=== PATIENT | female | born 1940 | race Asian ===

== ENCOUNTER 2022-06-24 15:55 | Inpatient (IN) | payer MEDICAID, SELFPAY ==
--- NOTE | 2022-06-24 | ECG_ITS ---
Test Reason : SOB Blood Pressure : / mmHG Vent. Rate : 093 BPM Atrial Rate : 093 BPM P-R Int : 176 ms QRS Dur : 130 ms QT Int : 398 ms P-R-T Axes : 055 -11 087 degrees QTc Int : 494 ms Normal sinus rhythm Left bundle branch block Abnormal ECG No previous ECGs available Referred By: Kena Amador Electronically Signed By:MATEO MCGUIRE
--- NOTE | ~2022-06-24 | XR_ITS ---
EXAMINATION: XR CHEST CLINICAL INFORMATION: Shortness of breath with rectal bleeding COMPARISON: None TECHNIQUE: Frontal view of the chest was obtained. FINDINGS: Low lung volumes. No convincing evidence for an acute process in the lungs. No failure or infiltrate. There is no effusion. The cardiac silhouette is within normal limits. XR/XR chest 1V IMPRESSION: No convincing evidence for an acute process. Low lung volumes.
--- NOTE | ~2022-06-24 | CT_ITS ---
EXAMINATION: CT ANGIOGRAM OF THE CHEST WITH AND WITHOUT CONTRAST (CT PULMONARY ANGIOGRAM FOR PE) CT ABDOMEN AND PELVIS WITH CONTRAST CLINICAL INFORMATION: Reason for Exam pt c sob/rectal bleeding COMPARISON: Chest radiograph from today TECHNIQUE: Prior to contrast administration, noncontrast localization images were obtained. Subsequently, multidetector volumetric imaging was performed from the thoracic inlet to the pubic symphysis following the administration of 85 mL Omnipaque 350 intravenous contrast. This was followed by multidetector acquisition of the abdomen and pelvis. No contrast reaction reported Sagittal, coronal, and MIP oblique sagittal reformatted images were obtained on the CT workstation, uploaded to PACS, and reviewed. This CT examination was performed using dose optimization techniques as appropriate, variously including the following: *Automated exposure control *Adjustment of mA and/or kV according to patient size (this includes techniques or standardized protocols for targeted exams where dose is matched to indication/reason for exam; i.e. extremities or head) *Use of iterative reconstruction technique Total exam dose-length product 1210 mGy-cm FINDINGS: QUALITY OF STUDY/CONTRAST BOLUS: Although the contrast bolus timing is adequate, motion on the study limits the evaluation. PULMONARY ARTERIES: No central or segmental pulmonary emboli. THORACIC AORTA: No aneurysm or dissection. LUNG: The central airways are patent. There is right middle lobe consolidation. Calcified granuloma in the right middle lobe. Evaluation of the lung parenchyma is otherwise limited. PLEURA: No pleural effusion or pneumothorax. MEDIASTINUM: Normal heart size. No pericardial effusion. No hilar or mediastinal lymphadenopathy. No evidence of septal bowing or right heart strain. CHEST WALL/AXILLA: No axillary or internal mammary lymphadenopathy. LIVER, GALLBLADDER, AND BILIARY TREE: The liver is normal in size, shape, and attenuation. No focal hepatic lesion or biliary ductal dilatation is present. The gallbladder is unremarkable with no evidence of radiopaque gallstones, gallbladder wall thickening, or obvious pericholecystic inflammatory changes. PANCREAS: Unremarkable. SPLEEN: Unremarkable. ADRENAL GLANDS: Unremarkable. KIDNEYS AND URETERS: The kidneys are normal in size, shape, and attenuation. No hydronephrosis, hydroureter, or calculi seen. No perinephric stranding. Simple cyst noted. No follow-up imaging recommended. BLADDER: Unremarkable. GASTROINTESTINAL TRACT: The stomach is unremarkable. Normal caliber of the small bowel. No obstruction. Normal appendix. No colonic wall thickening or inflammatory change. No free air or free fluid. ABDOMINAL WALL: No significant hernia is appreciated. LYMPH NODES: Normal. VASCULAR: Normal caliber aorta with moderate atherosclerotic calcifications. PELVIC VISCERA: The uterus and adnexa are unremarkable. OSSEOUS STRUCTURES: No acute or suspicious osseous abnormality. Moderate degenerative change of the lumbar spine. Grade 1 retrolisthesis of L3 on L4. Grade 2 anterolisthesis of L5 on S1 with bilateral L5 pars defects. Multilevel vacuum disc phenomenon. CT/CT abdomen pelvis w IV con IMPRESSION: The study is limited by motion. 1. No pulmonary embolism. 2. Consolidation in the right middle lobe could be atelectasis or pneumonia. 3. No acute finding in the abdomen or pelvis. No inflammatory changes are seen. VTE: negative
--- NOTE | 2022-06-24 14:19 | ECG_ITS ---
Test Reason : afibb Blood Pressure : / mmHG Vent. Rate : 100 BPM Atrial Rate : 100 BPM P-R Int : 164 ms QRS Dur : 130 ms QT Int : 388 ms P-R-T Axes : 031 -27 104 degrees QTc Int : 500 ms Normal sinus rhythm Left bundle branch block Abnormal ECG When compared with ECG of 24-JUN-2022 18:23, Sinus rhythm has replaced Wide QRS tachycardia Heart rate has decreased Referred By: Kena Amador Electronically Signed By:MATEO MCGUIRE
[2022-06-24 16:00] VITALS: PULSE 93; RESP 28; TEMP 37.3; O2SAT 95; BMI 29.2
--- NOTE | 2022-06-24 16:23 | ECG_ITS ---
Test Reason : rosemarie Blood Pressure : / mmHG Vent. Rate : 147 BPM Atrial Rate : 000 BPM P-R Int : 000 ms QRS Dur : 130 ms QT Int : 342 ms P-R-T Axes : 000 -26 104 degrees QTc Int : 535 ms Wide QRS tachycardia Left bundle branch block Abnormal ECG When compared with ECG of 24-JUN-2022 16:35, Wide QRS tachycardia is now Present Heart rate has increased Referred By: Kena Amador Electronically Signed By:MATEO MCGUIRE
--- NOTE | 2022-06-24 17:27 | ED.SOB ---
HPI - SOB/Dyspnea General Chief Complaint: Dyspnea Stated Complaint: diff breathing Time Seen by Provider: 06/24/22 16:14 Source: patient Mode of arrival: wheelchair Limitations: language barrier History of Present Illness HPI Narrative: 81-year-old female with past medical history of CAD status post stent, hypertension, hyperlipidemia, diabetes, hemorrhoids, asthma presents to the emergency department today with shortness of breath that started this morning. Patient is Pushto speaking, and son is at bedside translating. Per son, patient developed shortness of breath since this morning which has worsened since. Patient has a diagnosis of asthma however does not take her prescribed medications/inhalers. Patient reports having occasional shortness of breath, however past episodes have resolved within a few minutes. Denies any fever, cough, chest pain, abdominal pain, nausea, vomiting, diarrhea. Per son, patient is primarily bed bound and and is not active. Denies smoking history. Patient was discharged from [facility] on 06/17/2022 after admission for rectal bleeding secondary to hemorrhoids after having a stable H/H. Patient had hemorrhoid surgery in [place], and has recently moved from [place] so much of her medical history is unavailable. Noted to have anemia while admitted, discharged with an H&H of 8.9/27.4 and instructed to discontinue the aspirin until she followed up with GI although son reports that she has been taking her aspirin since she was discharged from [facility]. Patient reported rectal bleeding started again yesterday, in notes she was constipated yesterday. Denies any current constipation or diarrhea, however is still having blood per rectum. Denies rectal pain. MD elicited complaint: shortness of breath, cough and pain with inspiration Pertinent past history: asthma and diabetes Onset (ago): hour(s) Timing: constant Severity: severe Related Data Allergies Allergy/AdvReac Type Severity Reaction Status Date / Time Penicillins Allergy Unknown Verified 06/24/22 16:00 Review of Systems Review of Systems: Constitutional : Reports not using prescribed asthma inhalers, No Fever, No Chills ENT/Mouth : No Hoarseness, No sore throat, No Rhinorrhea, No Nasal congestion, No Sinus Pressure, No Ear Pain, No stridor, Eyes: No Redness, No Discharge, No Vision Changes Cardiovascular : + Chest Pain, + SOB, + Dyspnea on Exertion, No Edema, no pleurisy, Respiratory : + Dyspnea, + orthopnea, + Cough, + wheezing, No Sputum, no stridor, no hemoptysis, Gastrointestinal : + BRBPR, No Nausea, No Vomiting, No Diarrhea, No abdominal Pain, no change in appetite Genitourinary : No Dysuria, No Hematuria Musculoskeletal : No joint pain/swelling, No Myalgias Extremities: no extremity swelling /pain Skin : No rash, no itching, no swelling Neuro : No Weakness, No Numbness, No Headache, No Dizziness, No Paresthesias Psych : No anxiety, depression Heme/Lymph: No Bruising, No Bleeding Endocrine : No Polyuria, No Polydipsia Yes all other systems are reviewed and are negative [facility] Past Medical History Attestation statement: The following information was validated with the patient. Source: old records reviewed, obtained from family and nursing notes reviewed Social History Social History Advance Directives: No Advance Directives Information Provided: No Physical Exam Vital Signs: Vital Signs: Last Vital Signs Temp 98.2 F 06/24/22 19:47 Pulse 98 06/24/22 21:05 Resp 20 06/24/22 21:05 BP 197/80 H 06/24/22 19:47 Pulse Ox 100 06/24/22 19:47 O2 Del Method 06/24/22 19:47 O2 Flow Rate 3 06/24/22 19:47 BMI result Body Mass Index 29.2 Patient is satting 95% on room air, respiratory rate 28, otherwise vital signs within normal limits Appearance: Alert. Oriented X3. Acute respiratory distress. Appears fatigued Head: Normal external exam. Normocephalic. Atraumatic. Eyes: PERRLA. EOMI. Conjunctiva and sclera normal. Eyelids normal. ENT: EAC normal. TM's Normal. Pharynx normal. Uvula midline. Moist mucous membranes. No trismus noted. No drooling noted. No muffled voice noted. No stridor noted. Patient tolerating secretions well. Neck: Normal inspection. Neck supple. FROM. No adenopathy. Thyroid Normal. No meningeal signs. No neck mass noted. CVS: Normal heart rate and rhythm. Heart sound normal. Pulses normal throughout. No murmurs/rales/gallops. Respiratory: + respiratory distress, + increased work of breathing, breath sounds diffusely decreased, wheezing in all lung fonscea, + accessory muscle usage with tracheal tugging and abdominal retractions noted and decreased air movement noted. Abdomen: Soft and nontender. Bowel sounds normal in all 4 quadrants. No distention noted. No organomegaly noted. No visible injury noted. Back: No CVA tenderness. Full range of motion noted. No rashes/lesion/induration/fluctuance or signs of infection noted. Skin: Skin warm and dry. Appears pale. Normal skin turgor. No rashes/lesions/lacerations noted. Extremities: No lower extremity edema. No calf tenderness is noted. Extremities exhibit normal range of motion. Extremities nontender. Neuro: Oriented X 3. No motor deficit. No sensory deficit. Reflexes normal. Normal steady gait. No focal neuro deficits noted. Course Course Course Narrative: 16:20pm 81-year-old female with past medical history of CAD status post stent, hypertension, hyperlipidemia, diabetes, hemorrhoids, asthma presents to the emergency department today with shortness of breath and rectal bleeding. Patient is Pushto speaking, and son is at bedside translating. Per son, patient developed shortness of breath since this morning which has worsened since. Patient was recently admitted to [facility] for rectal bleeding secondary to hemorrhoids, and noted to be anemic with H&/H of 8.9/27.4. Although patient was discharged after having a stable H&H and was instructed to follow-up with GI and discontinue her aspirin until she follows up with GI. Although son reports that he did not understand that he had to discontinue the aspirin therefore she has been taking as prescribed. On exam, patient in respiratory distress with decreased breath sounds and inspiratory and expiratory wheezing throughout with tracheal tugging and abdominal retractions. Otherwise no rales/rhonchi noted. Will obtain labs, blood cultures, lactic acid, EKG, chest x-ray, CT of chest for PE, CT scan abdomen pelvis with IV contrast, COVID swab, provide 125 mg of Solu-Medrol, 2 g of magnesium and an hour long breathing treatment and re-evaluate. Reevaluation(s) Reevaluation #1: - patient with leukocytosis of 14,000. - Anemia with an H&H of 10.1/32.8. - potassium 5.5. - carbon dioxide 20. - BUN 22. - random glucose 151 - lactic acid 2.3 - troponin 56.7 - BNP 110 - UA revealed moderate leukocytes and 11-20 white blood cells therefore patient with UTI. - Therefore at this time will start on Rocephin and provide IV fluids. - patient negative for COVID. - patient started to have an episode of tachycardia where her rate went into the 160s and and would drop down back to the 80s. We gave her 2.5 mg of metoprolol and now she is in normal sinus rhythm with a ventricular rate of 100 with a left bundle branch block which is similar compared to her prior EKG done at [facility] on 06/15/2022. - I also discussed this case with home inspector Dr. Mary and he reported it appeared like proximal atrial flutter. - due to patient's potassium she was also given 2 g of calcium gluconate - chest x-ray negative for any acute processes. - still awaiting CT of chest for PE and CT scan abdomen pelvis with IV contrast will re-evaluate Time: 18:30 Reevaluation #2: - stool occult positive - CT scan of chest for PE negative for PE. Although revealed atelectasis versus pneumonia. Patient is reporting a cough therefore patient most likely pneumonia. - CT scan abdomen pelvis with IV contrast negative for any acute processes only chronic changes. - patient's lactic acid increased at this time although patient is receiving breathing treatments that are an hour long therefore this will make her lactic acid increased instead of decreased. - therefore at this time will admit for anemia with positive stool occult, asthma exacerbation with difficulty breathing, pneumonia, UTI and paroxysmal atrial flutter. Patient with son at bedside understand and agree this plan. Time: 20:58 Reevaluation #3: - Dr. Leong to admit at this time. Patient and son understand and agree this plan. Time: 21:09 MDM - SOB/Dyspnea Medical Records Attestation: I reviewed the patient's medical records. Lab Data Attestation: I reviewed the patient's lab results. Result diagrams: 06/24/22 17:28 06/24/22 17:28 Labs: Lab Results 06/24/22 06/24/22 06/24/22 Range/Units 17:28 17:28 17:28 WBC 14.7 H (4.8-10.8) X10*3/uL RBC 3.70 L (4.20-5.50) X10*6/uL Hgb 10.1 L (12.0-16.0) g/dl Hct 32.8 L (37.0-47.0) % MCV 88.6 (80.0-98.0) fL MCH 27.3 (27.0-33.0) pg MCHC 30.8 L (31.0-35.0) g/dl RDW 15.6 (11.0-16.0) % Plt Count 356 (160-400) X10*3/uL MPV 10.0 (9.4-12.3) fL Immature Gran % (Auto) 0.3 (0.0-0.4) % Neut % (Auto) 75.1 H (45-73) % Lymph % (Auto) 17.4 L (20-40) % [place] % (Auto) 5.4 (2-11) % Eos % (Auto) 1.6 (0-4) % Baso % (Auto) 0.2 (0-2) % Lymph # (Auto) 2.6 (1.2-4.9) X10*3/uL [place] # (Auto) 0.8 (0.1-1.2) X10*3/uL Eos # (Auto) 0.2 (0.0-0.4) X10*3/uL Baso # (Auto) 0.0 (0.0-0.2) X10*3/uL Abs Immat Gran (auto) 0.05 H (0.00-0.03) X10*3/uL Absolute Neuts (auto) 11.1 H (2.0-8.3) x10*3/uL Absolute Nucleated RBC 0.000 (0.0-0.012) X10*3/uL Nucleated RBC % (auto) 0.0 (0.0-0.2) /100WBC PT 12.7 (10.0-13.1) SEC INR 1.1 (0.9-1.1) APTT 27.3 (26.0-36.4) SEC Sodium 138 (135-145) mmol/L Potassium 5.5 H (3.3-5.1) mmol/L Chloride 106 (96-108) mmol/L Carbon Dioxide 20 L (22-29) mmol/L Anion Gap 18 (12-20) BUN 22 H (9-16) mg/dL Creatinine 1.24 (0.5-1.4) mg/dL Estim Creat Clear Calc 28.5 Estimated GFR 42 Random Glucose 151 H (60-115) mg/dL Lactic Acid (0.5-2.0) mmol/L Lactic Acid F/U @ 2Hr (0.5-2.0) mmol/L Calcium 8.8 (8.4-10.2) mg/dL Magnesium 2.3 (1.6-2.6) mg/dL Total Bilirubin 0.4 (0.0-1.0) mg/dL AST 19 (5-31) U/L ALT 11 (0-31) U/L Alkaline Phosphatase 78 (39-117) U/L Troponin I High Sens (<3.5-17.0) ng/L B-Natriuretic Peptide (<100) pg/mL Total Protein 7.5 (6.5-8.0) g/dL Albumin 4.0 (3.5-5.0) g/dL Urine Color Urine Appearance Urine pH (5.0-9.0) Ur Specific [place] (1.005-1.025) Urine Protein (Neg-Trace) mg/dL Urine Glucose (UA) (Negative) mg/dL Urine Ketones (Negative) mg/dL Urine Blood (Negative) Urine Nitrite (Negative) Ur Leukocyte Esterase (Negative) Urine RBC (0-2) /HPF Urine WBC (0-5) /HPF Ur Squamous Epith Cells (0-2) /HPF Urine Bacteria (None Seen) Hyaline Casts (0-2) /LPF Stool Occult Blood (NEGATIVE) COVID-19 (SYL) (Negative) COVID-19 Clin Com Blood Type Antibody Screen 06/24/22 06/24/22 06/24/22 Range/Units 17:28 17:28 17:28 WBC (4.8-10.8) X10*3/uL RBC (4.20-5.50) X10*6/uL Hgb (12.0-16.0) g/dl Hct (37.0-47.0) % MCV (80.0-98.0) fL MCH (27.0-33.0) pg MCHC (31.0-35.0) g/dl RDW (11.0-16.0) % Plt Count (160-400) X10*3/uL MPV (9.4-12.3) fL Immature Gran % (Auto) (0.0-0.4) % Neut % (Auto) (45-73) % Lymph % (Auto) (20-40) % [place] % (Auto) (2-11) % Eos % (Auto) (0-4) % Baso % (Auto) (0-2) % Lymph # (Auto) (1.2-4.9) X10*3/uL [place] # (Auto) (0.1-1.2) X10*3/uL Eos # (Auto) (0.0-0.4) X10*3/uL Baso # (Auto) (0.0-0.2) X10*3/uL Abs Immat Gran (auto) (0.00-0.03) X10*3/uL Absolute Neuts (auto) (2.0-8.3) x10*3/uL Absolute Nucleated RBC (0.0-0.012) X10*3/uL Nucleated RBC % (auto) (0.0-0.2) /100WBC PT (10.0-13.1) SEC INR (0.9-1.1) APTT (26.0-36.4) SEC Sodium (135-145) mmol/L Potassium (3.3-5.1) mmol/L Chloride (96-108) mmol/L Carbon Dioxide (22-29) mmol/L Anion Gap (12-20) BUN (9-16) mg/dL Creatinine (0.5-1.4) mg/dL Estim Creat Clear Calc Estimated GFR Random Glucose (60-115) mg/dL Lactic Acid 2.3 H* (0.5-2.0) mmol/L Lactic Acid F/U @ 2Hr (0.5-2.0) mmol/L Calcium (8.4-10.2) mg/dL Magnesium (1.6-2.6) mg/dL Total Bilirubin (0.0-1.0) mg/dL AST (5-31) U/L ALT (0-31) U/L Alkaline Phosphatase (39-117) U/L Troponin I High Sens 56.7 H* (<3.5-17.0) ng/L B-Natriuretic Peptide 110 H (<100) pg/mL Total Protein (6.5-8.0) g/dL Albumin (3.5-5.0) g/dL Urine Color Urine Appearance Urine pH (5.0-9.0) Ur Specific [place] (1.005-1.025) Urine Protein (Neg-Trace) mg/dL Urine Glucose (UA) (Negative) mg/dL Urine Ketones (Negative) mg/dL Urine Blood (Negative) Urine Nitrite (Negative) Ur Leukocyte Esterase (Negative) Urine RBC (0-2) /HPF Urine WBC (0-5) /HPF Ur Squamous Epith Cells (0-2) /HPF Urine Bacteria (None Seen) Hyaline Casts (0-2) /LPF Stool Occult Blood (NEGATIVE) COVID-19 (SYL) (Negative) COVID-19 Clin Com Blood Type Antibody Screen 06/24/22 06/24/22 06/24/22 Range/Units 17:28 17:28 17:28 WBC (4.8-10.8) X10*3/uL RBC (4.20-5.50) X10*6/uL Hgb (12.0-16.0) g/dl Hct (37.0-47.0) % MCV (80.0-98.0) fL MCH (27.0-33.0) pg MCHC (31.0-35.0) g/dl RDW (11.0-16.0) % Plt Count (160-400) X10*3/uL MPV (9.4-12.3) fL Immature Gran % (Auto) (0.0-0.4) % Neut % (Auto) (45-73) % Lymph % (Auto) (20-40) % [place] % (Auto) (2-11) % Eos % (Auto) (0-4) % Baso % (Auto) (0-2) % Lymph # (Auto) (1.2-4.9) X10*3/uL [place] # (Auto) (0.1-1.2) X10*3/uL Eos # (Auto) (0.0-0.4) X10*3/uL Baso # (Auto) (0.0-0.2) X10*3/uL Abs Immat Gran (auto) (0.00-0.03) X10*3/uL Absolute Neuts (auto) (2.0-8.3) x10*3/uL Absolute Nucleated RBC (0.0-0.012) X10*3/uL Nucleated RBC % (auto) (0.0-0.2) /100WBC PT (10.0-13.1) SEC INR (0.9-1.1) APTT (26.0-36.4) SEC Sodium (135-145) mmol/L Potassium (3.3-5.1) mmol/L Chloride (96-108) mmol/L Carbon Dioxide (22-29) mmol/L Anion Gap (12-20) BUN (9-16) mg/dL Creatinine (0.5-1.4) mg/dL Estim Creat Clear Calc Estimated GFR Random Glucose (60-115) mg/dL Lactic Acid (0.5-2.0) mmol/L Lactic Acid F/U @ 2Hr (0.5-2.0) mmol/L Calcium (8.4-10.2) mg/dL Magnesium (1.6-2.6) mg/dL Total Bilirubin (0.0-1.0) mg/dL AST (5-31) U/L ALT (0-31) U/L Alkaline Phosphatase (39-117) U/L Troponin I High Sens (<3.5-17.0) ng/L B-Natriuretic Peptide (<100) pg/mL Total Protein (6.5-8.0) g/dL Albumin (3.5-5.0) g/dL Urine Color Yellow Urine Appearance Clear Urine pH 5.0 (5.0-9.0) Ur Specific [place] 1.015 (1.005-1.025) Urine Protein Negative (Neg-Trace) mg/dL Urine Glucose (UA) Negative (Negative) mg/dL Urine Ketones Negative (Negative) mg/dL Urine Blood Negative (Negative) Urine Nitrite Negative (Negative) Ur Leukocyte Esterase Moderate (2+) H (Negative) Urine RBC 0-2 (0-2) /HPF Urine WBC 11-20 H (0-5) /HPF Ur Squamous Epith Cells 0-2 (0-2) /HPF Urine Bacteria None Seen (None Seen) Hyaline Casts 0-2 (0-2) /LPF Stool Occult Blood (NEGATIVE) COVID-19 (SYL) Negative (Negative) COVID-19 Clin Com See Note Blood Type A Positive Antibody Screen NEGATIVE 06/24/22 06/24/22 06/24/22 Range/Units 20:30 20:30 20:37 WBC (4.8-10.8) X10*3/uL RBC (4.20-5.50) X10*6/uL Hgb (12.0-16.0) g/dl Hct (37.0-47.0) % MCV (80.0-98.0) fL MCH (27.0-33.0) pg MCHC (31.0-35.0) g/dl RDW (11.0-16.0) % Plt Count (160-400) X10*3/uL MPV (9.4-12.3) fL Immature Gran % (Auto) (0.0-0.4) % Neut % (Auto) (45-73) % Lymph % (Auto) (20-40) % [place] % (Auto) (2-11) % Eos % (Auto) (0-4) % Baso % (Auto) (0-2) % Lymph # (Auto) (1.2-4.9) X10*3/uL [place] # (Auto) (0.1-1.2) X10*3/uL Eos # (Auto) (0.0-0.4) X10*3/uL Baso # (Auto) (0.0-0.2) X10*3/uL Abs Immat Gran (auto) (0.00-0.03) X10*3/uL Absolute Neuts (auto) (2.0-8.3) x10*3/uL Absolute Nucleated RBC (0.0-0.012) X10*3/uL Nucleated RBC % (auto) (0.0-0.2) /100WBC PT (10.0-13.1) SEC INR (0.9-1.1) APTT (26.0-36.4) SEC Sodium (135-145) mmol/L Potassium (3.3-5.1) mmol/L Chloride (96-108) mmol/L Carbon Dioxide (22-29) mmol/L Anion Gap (12-20) BUN (9-16) mg/dL Creatinine (0.5-1.4) mg/dL Estim Creat Clear Calc Estimated GFR Random Glucose (60-115) mg/dL Lactic Acid (0.5-2.0) mmol/L Lactic Acid F/U @ 2Hr 3.2 H* (0.5-2.0) mmol/L Calcium (8.4-10.2) mg/dL Magnesium (1.6-2.6) mg/dL Total Bilirubin (0.0-1.0) mg/dL AST (5-31) U/L ALT (0-31) U/L Alkaline Phosphatase (39-117) U/L Troponin I High Sens 48.9 H (<3.5-17.0) ng/L B-Natriuretic Peptide (<100) pg/mL Total Protein (6.5-8.0) g/dL Albumin (3.5-5.0) g/dL Urine Color Urine Appearance Urine pH (5.0-9.0) Ur Specific [place] (1.005-1.025) Urine Protein (Neg-Trace) mg/dL Urine Glucose (UA) (Negative) mg/dL Urine Ketones (Negative) mg/dL Urine Blood (Negative) Urine Nitrite (Negative) Ur Leukocyte Esterase (Negative) Urine RBC (0-2) /HPF Urine WBC (0-5) /HPF Ur Squamous Epith Cells (0-2) /HPF Urine Bacteria (None Seen) Hyaline Casts (0-2) /LPF Stool Occult Blood POSITIVE (NEGATIVE) COVID-19 (SYL) (Negative) COVID-19 Clin Com Blood Type Antibody Screen Imaging Data Chest x-ray: Attestation: I personally reviewed and interpreted this imaging study as follows: Radiologist's impression: FINDINGS: Low lung volumes. No convincing evidence for an acute process in the lungs. No failure or infiltrate. There is no effusion. The cardiac silhouette is within normal limits. XR/XR chest 1V IMPRESSION: No convincing evidence for an acute process. Low lung volumes. CTA of chest for PE and CT scan abdomen pelvis IV contrast: Attestation: I personally reviewed and interpreted this imaging study as follows: Radiologist's impression: FINDINGS: QUALITY OF STUDY/CONTRAST BOLUS: Although the contrast bolus timing is adequate, motion on the study limits the evaluation. PULMONARY ARTERIES: No central or segmental pulmonary emboli.? THORACIC AORTA: No aneurysm or dissection. LUNG: The central airways are patent. There is right middle lobe consolidation. Calcified granuloma in the right middle lobe. Evaluation of the lung parenchyma is otherwise limited. PLEURA: No pleural effusion or pneumothorax. MEDIASTINUM: Normal heart size.? No pericardial effusion.? No hilar or mediastinal lymphadenopathy.? No evidence of septal bowing or right heart strain. CHEST WALL/AXILLA: No axillary or internal mammary lymphadenopathy. LIVER, GALLBLADDER, AND BILIARY TREE: The liver is normal in size, shape, and attenuation. No focal hepatic lesion or biliary ductal dilatation is present. The gallbladder is unremarkable with no evidence of radiopaque gallstones, gallbladder wall thickening, or obvious pericholecystic inflammatory changes.? PANCREAS: Unremarkable.? SPLEEN: Unremarkable.? ADRENAL GLANDS: Unremarkable.? KIDNEYS AND URETERS: The kidneys are normal in size, shape, and attenuation. No hydronephrosis, hydroureter, or calculi seen. No perinephric stranding. Simple cyst noted. No follow-up imaging recommended. BLADDER: Unremarkable.? GASTROINTESTINAL TRACT: The stomach is unremarkable. Normal caliber of the small bowel. No obstruction. Normal appendix. No colonic wall thickening or inflammatory change. No free air or free fluid.? ABDOMINAL WALL: No significant hernia is appreciated.? LYMPH NODES: Normal. VASCULAR: Normal caliber aorta with moderate atherosclerotic calcifications. PELVIC VISCERA: The uterus and adnexa are unremarkable. OSSEOUS STRUCTURES: No acute or suspicious osseous abnormality. Moderate degenerative change of the lumbar spine. Grade 1 retrolisthesis of L3 on L4. Grade 2 anterolisthesis of L5 on S1 with bilateral L5 pars defects. Multilevel vacuum disc phenomenon.? CT/CT angio chest PE protocol IMPRESSION: The study is limited by motion. 1. No pulmonary embolism. 2. Consolidation in the right middle lobe could be atelectasis or pneumonia. 3. No acute finding in the abdomen or pelvis. No inflammatory changes are seen. ? VTE: negative ECG Data Attestation: I personally reviewed and interpreted this ECG as follows: ECG interpretation date: 06/24/22 ECG interpretation time: 18:23 Interpretation: Wide QRS tachycardia with a ventricular rate of 147 with a left bundle branch block no acute ischemic changes are noted. Second EKG at 18:40 revealed normal sinus rhythm with ventricular rate of 100 with a left bundle-branch block otherwise no acute ischemic changes Critical Care Time Critical Care Time Critical Care Time: Yes Total Critical Care Time: 60 Attestation: I personally attest to this time spent taking care of the patient Discharge Plan Discharge Clinical Impression: Pneumonia, UTI (urinary tract infection), Asthma exacerbation, Fecal occult blood test positive, Acute hyperkalemia, Atrial flutter, paroxysmal Patient Disposition: Admitted As Inpatient
[2022-06-24 17:38] LABS: MANUAL DIFF FLAG NO
[2022-06-24 17:39] LABS: Basophils Percent Auto 0.2 % (0-2); Eosinophils Absolute Auto 0.2 X10*3/uL (0.0-0.4); Eosinophils Percent Auto 1.6 % (0-4); Hematocrit 32.8 % (37.0-47.0); Hemoglobin 10.1 g/dl (12.0-16.0); Imm Gran Abs Auto 0.05 X10*3/uL (0.00-0.03); Imm Gran Pct Auto 0.3 % (0.0-0.4); Lymphocytes Absolute Auto 2.6 X10*3/uL (1.2-4.9); Lymphocytes Percent Auto 17.4 % (20-40); Mean Corpuscular HGB Conc 30.8 g/dl (31.0-35.0); Mean Corpuscular Hemoglobin 27.3 pg (27.0-33.0); Mean Corpuscular Volume 88.6 fL (80.0-98.0); Monocytes Absolute Auto 0.8 X10*3/uL (0.1-1.2); Monocytes Percent Auto 5.4 % (2-11); Neutrophils Absolute Auto 11.1 x10*3/uL (2.0-8.3); Neutrophils Percent Auto 75.1 % (45-73); Platelet Count 356 X10*3/uL (160-400); Red Cell Distribution Width 15.6 % (11.0-16.0); White Blood Count 14.7 X10*3/uL (4.8-10.8)
[2022-06-24] MEDS: Albuterol Sulfate 7.5 MG, Albuterol Sulfate (0.083%) 2.5 MG 10 MG INHALE ×2 (17:40→21:04)
[2022-06-24 17:44] LABS: Appearance Urine Clear; Color Urine Yellow; Glucose Urine UA Negative (Negative); Leukocyte Esterase Urine Moderate (2+) (Negative); Nitrite Urine Negative (Negative); Specific Gravity - Urine 1.015 (1.005-1.025); UMIC TRIGGER UACC YES; Urine Blood Negative (Negative); Urine Ketones Negative (Negative); Urine Protein Negative (Neg-Trace)
[2022-06-24 17:47] VITALS: PULSE 96; RESP 18; O2SAT 98
[2022-06-24 17:47] LABS: INTERNATIONAL NORM RATIO 1.1 (0.9-1.1); Prothrombin Time 12.7 SEC (10.0-13.1)
[2022-06-24 17:49] LABS: Partial Thromboplastin Time 27.3 SEC (26.0-36.4)
[2022-06-24 17:50] LABS: Bacteria Urine None Seen (None Seen); Hyaline Casts Urine 0-2 /LPF (0-2); RBC Urine 0-2 /HPF (0-2); Squamous Epithelial Cell Urine 0-2 /HPF (0-2); UACC Culture Trigger YES
[2022-06-24 18:00] LABS: Alanine Aminotransferase 11 U/L (0-31); Alkaline Phosphatase 78 U/L (39-117); Anion Gap 18 (12-20); Aspartate Amino Transferase 19 U/L (5-31); Bilirubin Total 0.4 mg/dL (0.0-1.0); Blood Urea Nitrogen 22 mg/dL (9-16); COVID-19 Test Negative (Negative); Calcium 8.8 mg/dL (8.4-10.2); Carbon Dioxide 20 mmol/L (22-29); Chloride 106 mmol/L (96-108); Creatinine Clr Calc Pharmacy 28.5; Estimated Glomerular Filt Rate 42; Glucose Random 151 mg/dL (60-115); Lactic Acid 2.3 mmol/L (0.5-2.0); Magnesium 2.3 mg/dL (1.6-2.6); Potassium 5.5 mmol/L (3.3-5.1); Sodium 138 mmol/L (135-145); Total Protein 7.5 g/dL (6.5-8.0)
[2022-06-24 18:03] LABS: B Type Natriuretic Peptide 110 pg/mL (<100)
[2022-06-24 18:08] LABS: Troponin-I High Sensitivity 56.7 ng/L (<3.5-17.0)
[2022-06-24] MEDS: Metoprolol Tartrate 5 MG/5 ML VIAL 2.5 MG IVPUSH ×2 (18:38→21:49)
[2022-06-24] MEDS: Calcium Gluconate/NaCl,Iso-Osm 2 GM/100 ML PLAST..BAG IV (18:40)
[2022-06-24] MEDS: methylPREDNISolone Sod Succ 125 MG/2 ML VIAL IVPUSH (19:13)
[2022-06-24] MEDS: cefTRIAXone sodium 1 GM in 0.9 % Sodium Chloride 50 ML IV (19:14)
[2022-06-24] MEDS: Magnesium Sulfate/H2O 2 GM/50 ML PIGGYBACK IV (19:17)
[2022-06-24 19:35] LABS: Reflex Lactate? Lactic Acid Added
[2022-06-24 19:47] VITALS: BP 197/80; PULSE 98; RESP 20; TEMP 36.8; O2SAT 100
[2022-06-24] MEDS: iohexoL 350 MG/ML 100 ML INFUS..BTL IV (20:13)
[2022-06-24 20:45] LABS: OBS Int Ctl Valid YES; OBS1 POSITIVE (NEGATIVE)
--- NOTE | 2022-06-24 20:55 | PC.NURSE ---
PATIENT WAS ASSISTED UNTO THE BEDSIDE COMMODE ,VOIDE LARGE AMOUNT OF URINE .
[2022-06-24] MEDS: 0.9 % Sodium Chloride 1,000 ML 999 ML IVCONT (21:01)
[2022-06-24 21:03] LABS: Troponin-I High Sensitivity 48.9 ng/L (<3.5-17.0)
[2022-06-24 21:05] VITALS: PULSE 98; RESP 20; O2SAT 98
[2022-06-24 21:05] LABS: ~Lactic Acid-LAB USE ONLY 3.2 mmol/L (0.5-2.0)
[2022-06-24 21:52] VITALS: BP 128/97; PULSE 92; RESP 17; O2SAT 99
--- NOTE | 2022-06-24 21:53 | PC.NURSE ---
pt a&ox3, elevated HR 120s-160s, medicated per provider order, HR decreased to 80s-90s, other vss, auditory i/e wheezing continues. no new orders at this time.
--- NOTE | 2022-06-24 22:06 | PHA.MEDREC ---
Pharmacy Consult ? Medication Reconciliation Pharmacy has completed the medication reconciliation. Patient was discharged from [facility] 06/17/22. Confirmed medications with patient's son Paxton. Patient's son reported patient was told me to take aspirin. Sharyn Swanson, PharmD
[2022-06-24 22:34] LABS: Reflex Lactate? 2 Y
[2022-06-24 23:18] LABS: ~Lactic Acid-LAB USE ONLY 3.7 mmol/L (0.5-2.0)
[2022-06-25] VITALS (10 sets, daily range): BP systolic 132–147; BP diastolic 65–71; PULSE 75–142; RESP 15–20; TEMP 36.4–36.6; O2SAT 90–98
--- NOTE | 2022-06-25 | ECG_ITS ---
Test Reason : repeat Blood Pressure : / mmHG Vent. Rate : 141 BPM Atrial Rate : 000 BPM P-R Int : 000 ms QRS Dur : 130 ms QT Int : 350 ms P-R-T Axes : 000 -34 110 degrees QTc Int : 536 ms Atrial fibrillation with rapid ventricular response Left axis deviation Left bundle branch block Abnormal ECG When compared with ECG of 24-JUN-2022 18:40, Atrial fibrillation has replaced Sinus rhythm Heart rate has increased Referred By: Migdalia Mccall Electronically Signed By:MATEO MCGUIRE
[2022-06-25] MEDS: Dextrose 5 % and 0.45 % NaCl 1,000 ML 50 ML IVCONT ×2 (02:17→20:51)
--- NOTE | 2022-06-25 02:26 | PC.NURSE ---
pt sleeping, vss, D5 0.45NS running @ 50ml/hr. no new orders at this time.
[2022-06-25] MEDS: Pantoprazole Sodium 40 MG/10 ML VIAL IVPUSH (05:41)
[2022-06-25] MEDS: methylPREDNISolone Sod Succ 40 MG/ML VIAL IVPUSH ×3 (05:41→21:27)
--- NOTE | 2022-06-25 06:00 | PM.IMHP ---
History of Present Illness Date of Service: 06/24/22 Chief Complaint: SOB 81-year-old female with a past medical history of hypertension, hyperlipidemia, diabetes, CAD, asthma, history of hemorrhoids; presented to the hospital today with a chief complaint of shortness of breath. patient is a poor historian. Most of the history obtained from the records and staff. Reportedly patient has been having shortness of breath over the past couple days. Also has cough. Denies any fevers. As per the patient's family patient has been mostly bedbound. Recently admitted to the [facility] for rectal bleeding- presumed to be secondary to the hemorrhoids. Recommended to stop aspirin. Patient's hemoglobin was around 8.9. Mentions that she continued to have intermittent episodes of blood in the stool. Denies any chest pain or palpitations. Denies any fevers and chills. Review of all other systems is negative except mentioned above ER course: Per ER team patient on presentation noted to be in a flutter, troponins were indeterminate, notified Cardiology. Chest x-ray showed possible pneumonia and urinalysis abnormal consistent with UTI. Patient was given antibiotics. Patient was also noted to be having bilateral wheezing concerning for acute asthma exacerbation. Received nebs and steroids. Admitted to the hospital for further management PMFSH Medical History CAD (coronary artery disease) Diabetes GI bleed HTN (hypertension) Normocytic anemia Surgical History Stented coronary artery Social History Household Members: Family Household Members Other:: 4 Housing: Apartment Do you presently have visiting nurse or other home services: No Alcohol intake: never Patient Tobacco Use Status: Never used Tobacco service: No Meds Allergies Allergy/AdvReac Type Severity Reaction Status Date / Time Penicillins Allergy Unknown Verified 06/24/22 16:00 Active Medications: Current Medications Acetaminophen (Acetaminophen 325 Mg Tablet) 650 mg PO Q6H PRN PRN Reason: Pain, Mild (Pain Scale 1-3) Albuterol/Ipratropium (Albuterol/Iprat 2.5/0.5mg 3 Ml Ampul.Neb) 3 ml INHALE RQ4H PRN PRN Reason: Shortness of Breath/Wheezing Albuterol/Ipratropium (Albuterol/Iprat 2.5/0.5mg 3 Ml Ampul.Neb) 3 ml INHALE RQ4H WHILE AWAKE [facility] Atorvastatin Calcium (Atorvastatin Calcium 80 Mg Tablet) 80 mg PO BEDTIME [facility] Dextrose (Dextrose 50 % 25 Gm/50 Ml Syringe) 25 gm IVPUSH Q15M PRN; Protocol PRN Reason: per Hypoglycemia Standing Ord. Famotidine (Famotidine 20 Mg Tablet) 20 mg PO DAILY [facility] Glucose (Glucose Gel 15 Gm Gel..Gram.) 15 gm PO Q15M PRN; Protocol PRN Reason: per Hypoglycemia Standing Ord. Dextrose/Sodium Chloride (D51/2ns) 1,000 mls @ 50 mls/hr IVCONT .Q20H [facility] Last Admin: 06/25/22 02:17 Dose: 50 mls/hr Insulin Human Lispro (Insulin Lispro 100 Unit/Ml 3 Ml Vial) 0 unit SUBCUT QIDACHS [facility]; Protocol Melatonin (Melatonin 3 Mg Tablet) 6 mg PO BEDTIME PRN PRN Reason: Insomnia Methylprednisolone Sodium Succinate (Methylprednisolone Sod Succ 40 Mg/Ml Vial) 40 mg IVPUSH Q8H [facility] Last Admin: 06/25/22 05:41 Dose: 40 mg Metoprolol Tartrate (Metoprolol Tartrate 25 Mg Tablet) 25 mg PO BID [facility]; Protocol Montelukast Sodium (Montelukast Sodium 10 Mg Tablet) 10 mg PO BEDTIME [facility]INA Pantoprazole Sodium (Pantoprazole Sodium 40 Mg/10 Ml Vial) 40 mg IVPUSH DAILY@0630 [facility] Last Admin: 06/25/22 05:41 Dose: 40 mg Pharmacy Consult (Consult Rx Perform Med Rec) 1 each MISCELLANE ONCE PRN PRN Reason: Consult order Senna (Sennosides 8.6 Mg Tablet) 17.2 mg PO BEDTIME PRN PRN Reason: Constipation Sodium Chloride (0.9 % Sodium Chloride Flush 3 Ml Syringe) 3 ml IVFLUSH QSHIFT [facility] Last Admin: 06/25/22 02:17 Dose: Not Given Home Medications Medication Instructions Recorded Confirmed Last Taken Type famotidine 20 mg tablet 20 mg PO DAILY 06/24/22 06/24/22 06/24/22 History fluticasone 500 mcg-salmeterol 50 1 inh inhalation BID 06/24/22 06/24/22 06/24/22 History mcg/dose blistr powdr for inhalation (Wixela Inhub) glipizide 5 mg tablet 5 mg PO DAILY 06/24/22 06/24/22 06/24/22 History losartan 100 mg tablet 100 mg PO DAILY 06/24/22 06/24/22 06/24/22 History metoprolol tartrate 25 mg tablet 25 mg PO BID 06/24/22 06/24/22 06/24/22 History montelukast 10 mg tablet 10 mg PO BEDTIME 06/24/22 06/24/22 06/23/22 History pantoprazole 40 mg tablet,delayed 40 mg PO DAILY 06/24/22 06/24/22 06/24/22 History release phenylephrine 0.25 %-mineral oil 1 appl UT QID PRN Hemorrhoids 06/24/22 06/24/22 Unknown History 14 %-petrolatm 74.9 % rectal ointment (Preparation H) rosuvastatin 20 mg tablet 20 mg PO BEDTIME 06/24/22 06/24/22 06/23/22 History Physical Exam Vital Signs and Narrative: Vital Signs: Last Vital Signs Temp 97.9 F 06/25/22 00:28 Pulse 80 06/25/22 04:13 Resp 17 06/25/22 04:13 BP 147/66 H 06/25/22 04:13 Pulse Ox 97 06/25/22 04:13 O2 Del Method 06/25/22 04:13 O2 Flow Rate 3 06/25/22 04:13 BMI result Body Mass Index 29.2 Gen: Appears be in no acute distress. On supplemental oxygen. HEENT: NCAT, Moist mucosa. Pulmonary: Bilateral wheezing noted CVS: Normal S1-S2 Abdomen: BS+, Soft, Nontender Extremities: Warm well perfused Neuro: Alert and awake. Results Labs CBC and Chem 7: 06/29/22 09:09 06/29/22 09:09 Labs: Laboratory Results - last 24 hr 06/24/22 06/24/22 06/24/22 17:28 17:28 17:28 MCV 88.6 MCH 27.3 MCHC 30.8 L RDW 15.6 Plt Count 356 MPV 10.0 Immature Gran % (Auto) 0.3 Neut % (Auto) 75.1 H Lymph % (Auto) 17.4 L [place] % (Auto) 5.4 Eos % (Auto) 1.6 Baso % (Auto) 0.2 Lymph # (Auto) 2.6 [place] # (Auto) 0.8 Eos # (Auto) 0.2 Baso # (Auto) 0.0 Abs Immat Gran (auto) 0.05 H Absolute Neuts (auto) 11.1 H Absolute Nucleated RBC 0.000 Nucleated RBC % (auto) 0.0 PT 12.7 INR 1.1 APTT 27.3 Anion Gap 18 Estim Creat Clear Calc 28.5 Estimated GFR 42 Random Glucose 151 H Lactic Acid Lactic Acid F/U @ 2Hr Lactic Acid F/U @ 4Hr Calcium 8.8 Magnesium 2.3 Total Bilirubin 0.4 AST 19 ALT 11 Alkaline Phosphatase 78 B-Natriuretic Peptide Total Protein 7.5 Albumin 4.0 Urine Color Urine Appearance Urine pH Ur Specific [place] Urine Protein Urine Glucose (UA) Urine Ketones Urine Blood Urine Nitrite Ur Leukocyte Esterase Urine RBC Urine WBC Ur Squamous Epith Cells Urine Bacteria Hyaline Casts Stool Occult Blood COVID-19 (SYL) COVID-AesRx Blood Type Antibody Screen 06/24/22 06/24/22 06/24/22 17:28 17:28 17:28 MCV MCH MCHC RDW Plt Count MPV Immature Gran % (Auto) Neut % (Auto) Lymph % (Auto) [place] % (Auto) Eos % (Auto) Baso % (Auto) Lymph # (Auto) [place] # (Auto) Eos # (Auto) Baso # (Auto) Abs Immat Gran (auto) Absolute Neuts (auto) Absolute Nucleated RBC Nucleated RBC % (auto) PT INR APTT Anion Gap Estim Creat Clear Calc Estimated GFR Random Glucose Lactic Acid 2.3 H* Lactic Acid F/U @ 2Hr Lactic Acid F/U @ 4Hr Calcium Magnesium Total Bilirubin AST ALT Alkaline Phosphatase B-Natriuretic Peptide 110 H Total Protein Albumin Urine Color Urine Appearance Urine pH Ur Specific [place] Urine Protein Urine Glucose (UA) Urine Ketones Urine Blood Urine Nitrite Ur Leukocyte Esterase Urine RBC Urine WBC Ur Squamous Epith Cells Urine Bacteria Hyaline Casts Stool Occult Blood COVID-19 (SYL) Negative COVIDTrackR See Note Blood Type Antibody Screen 06/24/22 06/24/22 06/24/22 17:28 17:28 20:30 MCV MCH MCHC RDW Plt Count MPV Immature Gran % (Auto) Neut % (Auto) Lymph % (Auto) [place] % (Auto) Eos % (Auto) Baso % (Auto) Lymph # (Auto) [place] # (Auto) Eos # (Auto) Baso # (Auto) Abs Immat Gran (auto) Absolute Neuts (auto) Absolute Nucleated RBC Nucleated RBC % (auto) PT INR APTT Anion Gap Estim Creat Clear Calc Estimated GFR Random Glucose Lactic Acid Lactic Acid F/U @ 2Hr 3.2 H* Lactic Acid F/U @ 4Hr Calcium Magnesium Total Bilirubin AST ALT Alkaline Phosphatase B-Natriuretic Peptide Total Protein Albumin Urine Color Yellow Urine Appearance Clear Urine pH 5.0 Ur Specific [place] 1.015 Urine Protein Negative Urine Glucose (UA) Negative Urine Ketones Negative Urine Blood Negative Urine Nitrite Negative Ur Leukocyte Esterase Moderate (2+) H Urine RBC 0-2 Urine WBC 11-20 H Ur Squamous Epith Cells 0-2 Urine Bacteria None Seen Hyaline Casts 0-2 Stool Occult Blood COVID-19 (SYL) COVID-AesRx Blood Type A Positive Antibody Screen NEGATIVE 06/24/22 06/24/22 20:37 22:50 MCV MCH MCHC RDW Plt Count MPV Immature Gran % (Auto) Neut % (Auto) Lymph % (Auto) [place] % (Auto) Eos % (Auto) Baso % (Auto) Lymph # (Auto) [place] # (Auto) Eos # (Auto) Baso # (Auto) Abs Immat Gran (auto) Absolute Neuts (auto) Absolute Nucleated RBC Nucleated RBC % (auto) PT INR APTT Anion Gap Estim Creat Clear Calc Estimated GFR Random Glucose Lactic Acid Lactic Acid F/U @ 2Hr Lactic Acid F/U @ 4Hr 3.7 H* Calcium Magnesium Total Bilirubin AST ALT Alkaline Phosphatase B-Natriuretic Peptide Total Protein Albumin Urine Color Urine Appearance Urine pH Ur Specific [place] Urine Protein Urine Glucose (UA) Urine Ketones Urine Blood Urine Nitrite Ur Leukocyte Esterase Urine RBC Urine WBC Ur Squamous Epith Cells Urine Bacteria Hyaline Casts Stool Occult Blood POSITIVE COVID-19 (SYL) COVID-AesRx Blood Type Antibody Screen Imaging Radiologist's Impressions: Impressions Chest X-Ray 06/24/22 18:16 IMPRESSION: No convincing evidence for an acute process. Low lung volumes. Abdomen/Pelvis CT 06/24/22 20:23 IMPRESSION: The study is limited by motion. 1. No pulmonary embolism. 2. Consolidation in the right middle lobe could be atelectasis or pneumonia. 3. No acute finding in the abdomen or pelvis. No inflammatory changes are seen. VTE: negative Chest CTA 06/24/22 20:23 IMPRESSION: The study is limited by motion. 1. No pulmonary embolism. 2. Consolidation in the right middle lobe could be atelectasis or pneumonia. 3. No acute finding in the abdomen or pelvis. No inflammatory changes are seen. VTE: negative Assessment and Plan (1) UTI (urinary tract infection): Status: Acute (2) Asthma exacerbation: Status: Acute (3) Pneumonia: Status: Acute (4) Atrial flutter, paroxysmal: Status: Acute (5) Fecal occult blood test positive: Status: Acute Plan 81-year-old female with a past medical history of hypertension, hyperlipidemia, diabetes, CAD, asthma, history of hemorrhoids; presented to the hospital today with a chief complaint of shortness of breath. Acute asthma exacerbation: Will give the patient on lesions standing and p.r.n.. Supplemental oxygen p.r.n.. Continue Solu-Medrol Pneumonia: Chest x-ray showed findings concerning for pneumonia/ atelectasis. Patient reported cough. Will give the patient on ceftriaxone/Azithromycin UTI: Patient on ceftriaxone. Follow up cultures. atrial flutter: Currently rate controlled. Cardiology consult. Patient has prior history of AFib. Not on anticoagulation. elevated troponins -plateaued. Likely demand in the setting of a flutter. Echocardiogram guaiac positive stool: Patient has recent admission to the hospital for hemorrhoidal bleed. Mildly anemic but stable hemoglobin. GI consult mild hyperkalemia: Will repeat levels. lactic acidosis: Likely type in the setting of albuterol nebulizations. Will continue to monitor History of diabetes: Insulin sliding scale history of hypertension/hyperlipidemia: Continue home losartan/metoprolol/statin DVT prophylaxis: SCD boots Code status: Presumed Full code . I tried to reach the patient's son over the phone-not reachable. Will defer to the day team to confirm Quality Stroke Does the patient have a stroke diagnosis?: No VTE Prior VTE?: No VTE Risk Level:: Medical - moderate - high VTE Device Contraindication: N/A - Device Ordered VTE Drug Contraindication: Treatment Not Indicated
--- NOTE | 2022-06-25 07:00 | CA_ITS ---
Transthoracic Echocardiogram Patient (Last, First, Middle): Lori Sung, Gender: Female Date of : 1940 Age: 81 Procedure Date: 06/25/2022 Procedure Type: Transthoracic Echocardiogram Location: [facility] [place] Height: 147.32 cm Weight: 63.5 kg BSA: 1.57 m2 Heart Rate: bpm BP: 132 / 68 mmHg Helper Marble Finisher: Referring MD: Migdalia CASE Historian Research Assistant: Marc Mary MD Symptoms: left bundle, afib Study Quality: Adequate ECG Rhythm: Atrial Fibrillation Conclusions: - 1. Normal LV systolic function with mild LVH with impaired relaxation filling pattern 2. Normal cardiac valvular Doppler 3. Normal RV systolic pressure 4. No gross pericardial effusion Findings Left Ventricle Normal left ventricular size and systolic function. There is mildly increased left ventricular wall thickness. The visually estimated ejection fraction is between 55-60%. There is paradoxical septal motion consistent with a left bundle branch block. Spectral Doppler is indicative of an impaired relaxation filling pattern. E/E prime ratio is between 8 and 15 consistent with indeterminate filling pressures. Right Ventricle Normal right ventricular cavity size and systolic function. Atria The left atrium is likely dilated. Interatrial shunt cannot be excluded. The right atrium is normal in size. Aortic Valve There is mild calcification of the aortic valve. There is no aortic valve stenosis. There is no aortic valve regurgitation. Mitral Valve There is mild anterior and posterior mitral leaflet thickening. There is trace mitral valve regurgitation. There is no mitral valve stenosis. Pulmonic Valve The pulmonic valve was not well visualized. Tricuspid Valve Likely normal tricuspid valve structure and function. There is trace tricuspid valve regurgitation. The right ventricular systolic pressure is normal. The right ventricular systolic pressure is 17 mmHg. Normal right atrial pressure. There is no evidence of pulmonary hypertension. Great Vessels All visible segments of the aorta are normal in size. The pulmonary artery was not well visualized. Venous The inferior vena cava is normal in size and collapses greater than 50% with inspiration. Pericardium/Pleural There is no evidence of pericardial effusion. Prior Study Comparison No prior study available for comparison. Measurements 2D Linear Measurements IVSd: 1.36 0.6-0.9/0.6-1.0 cm LVIDd: 4.56 3.9-5.3/4.2-5.9 cm LVIDd Index: 2.90 2.4-3.2/2.2-3.1 cm/m2 LVIDs: 3.15 2.0-3.6 cm LVPWd: 1.22 0.7-1.1 cm Ao Root: 2.70 2.1-3.5 cm LA Diam: 3.90 2.7-3.8/3.0-4.0 cm LAIDs Index: 2.48 1.5-2.3 cm/m2 LV Mass: 279.94 67-162/88-224 g LV Mass Index: 178.31 43-95/49-115 g/m2 LVOT Diam: 2.00 3.0+(-)1.3 cm Mitral Valve MV Pk E: 0.61 MV PK A: 1.17 MV Decel Time: 107.00 E/A: 0.50 E'Lateral: 6.74 E'Medial: 3.15 E/E' Med: 19.30 E/E' Lat: 9.00 PHT: 31.00 MVA PHT: 7.10 Decel Assumption: 5.68 Aortic Valve AoV Pk Brooks: 1.46 AoV Mn Brooks: 0.93 AoV VTI: 0.30 AoV Pk Grad: 9.00 Aov Mn Grad: 4.00 DUSTIN Cont.VTI: 1.86 LVOT LVOT Pk Brooks: 0.71 LVOT Mn Brooks: 0.47 LVOT VTI: 0.18 LVOT Pk Grad: 2.00 LVOT Mn Grad: 1.00 LVOT Diam: 2.00 LVOT Area: 3.14 Diastolic Function MV Pk E: 0.61 MV Pk A: 1.17 E/A: 0.50 E'Medial: 3.15 E/E' Med: 19.30 E' Laterial: 6.74 E/E' Lat: 9.00 Right Ventricle TAPSE (mm): 24.00 TVS' Brooks: 24.00 Tricuspid Valve TR Pk Brooks: 1.85 TR Pk Grad: 14.00 RA Press: 3.00 RVSP: 17.00 Great Vessels Aorta Ao Root-2D: 2.70 2.0-3.7 cm Pulmonary Valve PV Pk Brooks: 1.17 Peak PV Grad: 5.00 Updated in Other Vendor System with Status of Final Marc Mary MD electronically signed on 06/25/2022 4:55:16 PM with status of Final
[2022-06-25 07:03] LABS: MANUAL DIFF FLAG NO
[2022-06-25 07:13] LABS: Basophils Percent Auto 0.1 % (0-2); Hematocrit 29.7 % (37.0-47.0); Hemoglobin 9.4 g/dl (12.0-16.0); Imm Gran Abs Auto 0.03 X10*3/uL (0.00-0.03); Imm Gran Pct Auto 0.3 % (0.0-0.4); Lymphocytes Percent Auto 10.4 % (20-40); Mean Corpuscular HGB Conc 31.6 g/dl (31.0-35.0); Mean Corpuscular Hemoglobin 27.8 pg (27.0-33.0); Mean Corpuscular Volume 87.9 fL (80.0-98.0); Mean Platelet Volume 10.2 fL (9.4-12.3); Monocytes Absolute Auto 0.1 X10*3/uL (0.1-1.2); Monocytes Percent Auto 0.7 % (2-11); Neutrophils Absolute Auto 8.8 x10*3/uL (2.0-8.3); Neutrophils Percent Auto 88.5 % (45-73); Platelet Count 311 X10*3/uL (160-400); Red Blood Count 3.38 X10*6/uL (4.20-5.50); Red Cell Distribution Width 15.8 % (11.0-16.0)
[2022-06-25 07:22] LABS: Glucose, Whole Blood 257 mg/dL (60-115)
[2022-06-25 07:32] LABS: Anion Gap 18 (12-20); Blood Urea Nitrogen 20 mg/dL (9-16); Carbon Dioxide 17 mmol/L (22-29); Chloride 107 mmol/L (96-108); Creatinine Clr Calc Pharmacy 29.2; Estimated Glomerular Filt Rate 43; Glucose Random 301 mg/dL (60-115); Potassium 5.2 mmol/L (3.3-5.1); Sodium 137 mmol/L (135-145)
[2022-06-25] MEDS: Insulin Lispro 100 UNIT/ML 3 ML VIAL SUBCUT ×4 (08:02→21:28)
[2022-06-25] MEDS: Albuterol/Iprat 2.5/0.5MG 3 ML AMPUL.NEB INHALE (08:03)
--- NOTE | 2022-06-25 08:10 | PC.NURSE ---
Addendum entered by Chris Block 06/25/22 08:13: pt hr was nsr in 90.s at approx 0830, currently tachycardic on albuterol neb. pt was medicated per sliding scale and interpretting machine was used to communicate pt's plan of care and determine her needs. Original Note: pt is awake and alert, pt has wheezes throughout but resps are = and nonlabored. pt has wpd skin
[2022-06-25] MEDS: Azithromycin 500 MG TABLET PO (08:52)
[2022-06-25] MEDS: Metoprolol Tartrate 25 MG TABLET PO ×2 (08:53→21:27)
[2022-06-25] MEDS: Furosemide 40 MG/4 ML VIAL IVPUSH (09:28)
[2022-06-25] MEDS: Famotidine 20 MG TABLET PO (09:34)
[2022-06-25] MEDS: Metoprolol Tartrate 5 MG/5 ML VIAL 2.5 MG IVPUSH (09:36)
[2022-06-25] MEDS: 0.9 % Sodium Chloride Flush 3 ML SYRINGE IVFLUSH (09:46)
--- NOTE | 2022-06-25 09:46 | PC.NURSE ---
Pt BP was stable, elevated HR, RN administer lasix and metropolol by order. PT was auscultated upper lobes were wheeze and all the lungs sound rhonchi. Pt was one assist in commode.
--- NOTE | 2022-06-25 10:34 | P.CONCA_ITS ---
History of Present Illness History of Present Illness Date of Service: 06/25/22 Requesting physician: Migdalia Mccall Consult reason: shortness of breath and other (Paroxysmal atrial flutter) Chief complaint: Palpitations Narrative: I was consulted to see Saidul in cardiology consultation due to paroxysmal tachycardia noted on the monitor. Patient is 81-year-old [place] Islander female speaks mainly Pashtun but I was able to converse with her with use of Jeanna and she was able to understand me as well as able to converse although the history was limited. I later spoke with her son with whom the patient currently resides. Some was able to provide me with the history. Patient was in her usual state of health till yesterday when she complained in the morning that she was getting short of breath and not feeling well. She did tell her son and said that she which is going to rest and some and to work. Later in the day patient got more short of breath and patient's [id number] call the son and then she was brought to the emergency room. In the emergency room she was evaluated and workup so far has revealed right middle lobe pneumonia with some lactic acidosis which has improved. She also was noted to have bronchospastic airway disease. However being on the monitor she was noted to have repeated episodes of tachycardia. Twelve lead EKG performed during this episode appears to show atrial flutter with 2 is to 1 conduction. She has underlying left bundle-branch block. Son was not able to tell whether she had left bundle-branch block before. Also not able to tell whether she had any cardiac arrhythmias. However he says about 10 years ago in [place] she had some cardiac issue and had a minor heart attack and was told that she had a weak heart. She was mainly managed by her who was a physician in [place]. Says last year she was in [place] living with her daughter and she was going to have some GI procedure but was told that she had some abnormality and subsequently underwent workup and was told that she had multiple coronary artery disease and underwent stent. At that time she has to get short of breath. She also has mild asthma not on regular inhaler therapy. She also has history of hypertension and question cardiac arrhythmia for which she is on losartan and metoprolol. She is also diabetic. She has no history of known congestive heart failure stroke. She has not been on oral anticoagulant therapy in the past. Review of Systems Constitutional: Constitutional: Denies body ache(s), Denies chills, Denies fever(s), Reports malaise and Reports weakness Eyes: Eyes: Reports no additional eye complaints Cardiovascular: Cardiovascular: Denies chest pain, Denies leg edema, Denies lightheadedness, Denies Loss of Consciousness, Denies palpitations and Reports dyspnea Respiratory: Respiratory: Reports no additional respiratory complaints and Reports dyspnea Gastrointestinal: Gastrointestinal: Reports no additional gastrointestinal complaints Genitourinary: Genitourinary: Reports no additional female genitourinary complaints Musculoskeletal: Musculoskeletal: Reports no additional musculoskeletal complaints Integumentary/Breasts: Skin/Breast: Reports system reviewed and no additional complaints, except as docu Neurologic: Reports system reviewed and no additional complaints, except as documented and Reports weakness Psychiatric: Psychiatric: Reports no additional psychiatric complaints Endocrine: Endocrine: Reports no additional endocrine complaints and Denies palpitations Hematologic/Lymphatic: Hematologic/Lymphatic: Reports no additional hematologic/lymphatic complaints Allergic/Immunologic: Allergic/Immunologic: Reports no additional allergic/immunologic complaints [facility] Past Medical History Medical History CAD (coronary artery disease) Diabetes HTN (hypertension) Surgical History Surgical History Stented coronary artery Social History Social History Alcohol intake: never Patient Tobacco Use Status: Never used Tobacco Use of substances other than those prescribed or required for medical reasons: No Advance Directives: No Advance Directives Information Provided: No Meds Allergies Allergy/AdvReac Type Severity Reaction Status Date / Time Penicillins Allergy Unknown Verified 06/24/22 16:00 Active Medications: Current Medications Acetaminophen (Acetaminophen 325 Mg Tablet) 650 mg PO Q6H PRN PRN Reason: Pain, Mild (Pain Scale 1-3) Atorvastatin Calcium (Atorvastatin Calcium 80 Mg Tablet) 80 mg PO BEDTIME DINA Azithromycin (Azithromycin 500 Mg Tablet) 500 mg PO Q24H [facility] Last Admin: 06/25/22 08:52 Dose: 500 mg Dextrose (Dextrose 50 % 25 Gm/50 Ml Syringe) 25 gm IVPUSH Q15M PRN; Protocol PRN Reason: per Hypoglycemia Standing Ord. Famotidine (Famotidine 20 Mg Tablet) 20 mg PO DAILY [facility] Last Admin: 06/25/22 09:34 Dose: 20 mg Glucose (Glucose Gel 15 Gm Gel..Gram.) 15 gm PO Q15M PRN; Protocol PRN Reason: per Hypoglycemia Standing Ord. Dextrose/Sodium Chloride (D51/2ns) 1,000 mls @ 50 mls/hr IVCONT .Q20H [facility] Last Admin: 06/25/22 02:17 Dose: 50 mls/hr Ceftriaxone Sodium 1 gm/ (Sodium Chloride) 50 mls @ 100 mls/hr IV Q24H [facility] Insulin Human Lispro (Insulin Lispro 100 Unit/Ml 3 Ml Vial) 0 unit SUBCUT QIDACHS [facility]; Protocol Last Admin: 06/25/22 08:02 Dose: 4 unit Levalbuterol HCl (Levalbuterol Hcl 1.25 Mg/0.5 Ml Vial.Neb) 1.25 mg INHALE RQ4H WHILE AWAKE [facility] Levalbuterol HCl (Levalbuterol Hcl 1.25 Mg/0.5 Ml Vial.Neb) 1.25 mg INHALE Q4H PRN PRN Reason: shortness of breath/wheezing Losartan Potassium (Losartan Potassium 50 Mg Tablet) 100 mg PO DAILY [facility]; Protocol Melatonin (Melatonin 3 Mg Tablet) 6 mg PO BEDTIME PRN PRN Reason: Insomnia Methylprednisolone Sodium Succinate (Methylprednisolone Sod Succ 40 Mg/Ml Vial) 40 mg IVPUSH Q8H [facility] Last Admin: 06/25/22 05:41 Dose: 40 mg Metoprolol Tartrate (Metoprolol Tartrate 25 Mg Tablet) 25 mg PO BID [facility]; Shannan col Last Admin: 06/25/22 08:53 Dose: 25 mg Montelukast Sodium (Montelukast Sodium 10 Mg Tablet) 10 mg PO BEDTIME [facility] Pantoprazole Sodium (Pantoprazole Sodium 40 Mg/10 Ml Vial) 40 mg IVPUSH DAILY@0630 [facility] Last Admin: 06/25/22 05:41 Dose: 40 mg Pharmacy Consult (Consult Rx Perform Med Rec) 1 each MISCELLANE ONCE PRN PRN Reason: Consult order Senna (Sennosides 8.6 Mg Tablet) 17.2 mg PO BEDTIME PRN PRN Reason: Constipation Sodium Chloride (0.9 % Sodium Chloride Flush 3 Ml Syringe) 3 ml IVFLUSH QSHIFT [facility] Last Admin: 06/25/22 09:46 Dose: 3 ml Home Medications Medication Instructions Recorded Confirmed Last Taken Type famotidine 20 mg tablet 20 mg PO DAILY 06/24/22 06/24/22 06/24/22 History fluticasone 500 mcg-salmeterol 50 1 inh inhalation BID 06/24/22 06/24/22 History mcg/dose blistr powdr for inhalation (Wixela Inhub) glipizide 5 mg tablet 5 mg PO DAILY 06/24/22 06/24/22 06/24/22 History losartan 100 mg tablet 100 mg PO DAILY 06/24/22 06/24/22 06/24/22 History metoprolol tartrate 25 mg tablet 25 mg PO BID 06/24/22 06/24/22 06/24/22 History montelukast 10 mg tablet 10 mg PO BEDTIME 06/24/22 06/24/22 06/23/22 History pantoprazole 40 mg tablet,delayed 40 mg PO DAILY 06/24/22 06/24/22 06/24/22 History release phenylephrine 0.25 %-mineral oil 1 appl IA QID PRN Hemorrhoids 06/24/22 06/24/22 Unknown History 14 %-petrolatm 74.9 % rectal ointment (Preparation H) rosuvastatin 20 mg tablet 20 mg PO BEDTIME 06/24/22 06/24/22 06/23/22 History Physical Exam Vital Signs: Vital Signs: Last Vital Signs Temp 97.6 F 06/25/22 09:09 Pulse 142 H 06/25/22 09:09 Resp 20 06/25/22 09:09 BP 132/69 06/25/22 09:09 Pulse Ox 98 06/25/22 09:09 O2 Del Method 06/25/22 09:09 O2 Flow Rate 3 06/25/22 07:15 BMI result Body Mass Index 29.2 Const: General: cooperative, comfortable, no acute distress, alert and awake Nutritional Appearance: overweight Orientation/consciousness: patient oriented x3 HEENT: Head: Yes normocephalic and Yes atraumatic Neck: Neck: Yes trachea midline, Yes supple and Yes no JVD Chest: Chest palpation & inspection: abnormal inspection of the chest kyphotic Resp: Effort & Inspection: normal respiratory effort Auscultation: wheezes scattered wheezes and bronchial breath sounds on the right (Base) Cardio: Jugular venous distension: no JVD Palpation: normal PMI Rate: regular rate Rhythm: abnormal rhythm with ectopic beats Heart sounds: S1 normal heart sound present, S2 normal heart sound present, no click, no gallops and no murmurs GI: Auscultation: normal bowel sounds Skin: General skin exam: no rashes or lesions noted Neuro: General: patient oriented x3 and no focal motor deficits Extrem: General: Yes no clubbing, cyanosis or edema Psych: Appearance: grossly normal Objective Labs and Meds Result diagrams: 06/25/22 06:48 06/25/22 06:48 Lab results: Laboratory Results - last 24 hr 06/24/22 06/24/22 06/24/22 17:28 17:28 17:28 WBC 14.7 H RBC 3.70 L Hgb 10.1 L Hct 32.8 L MCV 88.6 MCH 27.3 MCHC 30.8 L RDW 15.6 Plt Count 356 MPV 10.0 Immature Gran % (Auto) 0.3 Neut % (Auto) 75.1 H Lymph % (Auto) 17.4 L [place] % (Auto) 5.4 Eos % (Auto) 1.6 Baso % (Auto) 0.2 Lymph # (Auto) 2.6 [place] # (Auto) 0.8 Eos # (Auto) 0.2 Baso # (Auto) 0.0 Abs Immat Gran (auto) 0.05 H Absolute Neuts (auto) 11.1 H Absolute Nucleated RBC 0.000 Nucleated RBC % (auto) 0.0 PT 12.7 INR 1.1 APTT 27.3 Sodium 138 Potassium 5.5 H Chloride 106 Carbon Dioxide 20 L Anion Gap 18 BUN 22 H Creatinine 1.24 Estim Creat Clear Calc 28.5 Estimated GFR 42 POC Glucose Random Glucose 151 H Lactic Acid Lactic Acid F/U @ 2Hr Lactic Acid F/U @ 4Hr Calcium 8.8 Magnesium 2.3 Total Bilirubin 0.4 AST 19 ALT 11 Alkaline Phosphatase 78 Troponin I High Sens B-Natriuretic Peptide Total Protein 7.5 Albumin 4.0 Urine Color Urine Appearance Urine pH Ur Specific [place] Urine Protein Urine Glucose (UA) Urine Ketones Urine Blood Urine Nitrite Ur Leukocyte Esterase Urine RBC Urine WBC Ur Squamous Epith Cells Urine Bacteria Hyaline Casts Stool Occult Blood COVID-19 (SYL) COVID-19 Clin Com Blood Type Antibody Screen 06/24/22 06/24/2206/24/22 17:28 17:28 17:28 WBC RBC Hgb Hct MCV MCH MCHC RDW Plt Count MPV Immature Gran % (Auto) Neut % (Auto) Lymph % (Auto) [place] % (Auto) Eos % (Auto) Baso % (Auto) Lymph # (Auto) [place] # (Auto) Eos # (Auto) Baso # (Auto) Abs Immat Gran (auto) Absolute Neuts (auto) Absolute Nucleated RBC Nucleated RBC % (auto) PT INR APTT Sodium Potassium Chloride Carbon Dioxide Anion Gap BUN Creatinine Estim Creat Clear Calc Estimated GFR POC Glucose Random Glucose Lactic Acid 2.3 H* Lactic Acid F/U @ 2Hr Lactic Acid F/U @ 4Hr Calcium Magnesium Total Bilirubin AST ALT Alkaline Phosphatase Troponin I High Sens 56.7 H* B-Natriuretic Peptide 110 H Total Protein Albumin Urine Color Urine Appearance Urine pH Ur Specific [place] Urine Protein Urine Glucose (UA) Urine Ketones Urine Blood Urine Nitrite Ur Leukocyte Esterase Urine RBC Urine WBC Ur Squamous Epith Cells Urine Bacteria Hyaline Casts Stool Occult Blood COVID-19 (SYL) COVID-19 Clin Com Blood Type Antibody Screen 06/24/22 06/24/22 06/24/22 17:28 17:28 17:28 WBC RBC Hgb Hct MCV MCH MCHC RDW Plt Count MPV Immature Gran % (Auto) Neut % (Auto) Lymph % (Auto) [place] % (Auto) Eos % (Auto) Baso % (Auto) Lymph # (Auto) [place] # (Auto) Eos # (Auto) Baso # (Auto) Abs Immat Gran (auto) Absolute Neuts (auto) Absolute Nucleated RBC Nucleated RBC % (auto) PT INR APTT Sodium Potassium Chloride Carbon Dioxide Anion Gap BUN Creatinine Estim Creat Clear Calc Estimated GFR POC Glucose Random Glucose Lactic Acid Lactic Acid F/U @ 2Hr Lactic Acid F/U @ 4Hr Calcium Magnesium Total Bilirubin AST ALT Alkaline Phosphatase Troponin I High Sens B-Natriuretic Peptide Total Protein Albumin Urine Color Yellow Urine Appearance Clear Urine pH 5.0 Ur Specific [place] 1.015 Urine Protein Negative Urine Glucose (UA) Negative Urine Ketones Negative Urine Blood Negative Urine Nitrite Negative Ur Leukocyte Esterase Moderate (2+) H Urine RBC 0-2 Urine WBC 11-20 H Ur Squamous Epith Cells 0-2 Urine Bacteria None Seen Hyaline Casts 0-2 Stool Occult Blood COVID-19 (SYL) Negative COVID-19 Clin Com See Note Blood Type A Positive Antibody Screen NEGATIVE 06/24/22 06/24/22 06/24/22 20:30 20:30 20:37 WBC RBC Hgb Hct MCV MCH MCHC RDW Plt Count MPV Immature Gran % (Auto) Neut % (Auto) Lymph % (Auto) [place] % (Auto) Eos % (Auto) Baso % (Auto) Lymph # (Auto) [place] # (Auto) Eos # (Auto) Baso # (Auto) Abs Immat Gran (auto) Absolute Neuts (auto) Absolute Nucleated RBC Nucleated RBC % (auto) PT INR APTT Sodium Potassium Chloride Carbon Dioxide Anion Gap BUN Creatinine Estim Creat Clear Calc Estimated GFR POC Glucose Random Glucose Lactic Acid Lactic Acid F/U @ 2Hr 3.2 H* Lactic Acid F/U @ 4Hr Calcium Magnesium Total Bilirubin AST ALT Alkaline Phosphatase Troponin I High Sens 48.9 H B-Natriuretic Peptide Total Protein Albumin Urine Color Urine Appearance Urine pH Ur Specific [place] Urine Protein Urine Glucose (UA) Urine Ketones Urine Blood Urine Nitrite Ur Leukocyte Esterase Urine RBC Urine WBC Ur Squamous Epith Cells Urine Bacteria Hyaline Casts Stool Occult Blood POSITIVE COVID-19 (SYL) COVID-19 [facility] Com Blood Type Antibody Screen 06/24/22 06/25/22 06/25/22 22:50 06:48 06:48 WBC 10.0 RBC 3.38 L Hgb 9.4 L Hct 29.7 L MCV 87.9 MCH 27.8 MCHC 31.6 RDW 15.8 Plt Count 311 MPV 10.2 Immature Gran % (Auto) 0.3 Neut % (Auto) 88.5 H Lymph % (Auto) 10.4 L [place] % (Auto) 0.7 L Eos % (Auto) 0.0 Baso % (Auto) 0.1 Lymph # (Auto) 1.0 L [place] # (Auto) 0.1 Eos # (Auto) 0.0 Baso # (Auto) 0.0 Abs Immat Gran (auto) 0.03 Absolute Neuts (auto) 8.8 H Absolute Nucleated RBC 0.000 Nucleated RBC % (auto) 0.0 PT INR APTT Sodium 137 Potassium 5.2 H Chloride 107 Carbon Dioxide 17 L Anion Gap 18 BUN 20 H Creatinine 1.21 Estim Creat Clear Calc 29.2 Estimated GFR 43 POC Glucose Random Glucose 301 H Lactic Acid Lactic Acid F/U @ 2Hr Lactic Acid F/U @ 4Hr 3.7 H* Calcium 9.0 Magnesium Total Bilirubin AST ALT Alkaline Phosphatase Troponin I High Sens B-Natriuretic Peptide Total Protein Albumin Urine Color Urine Appearance Urine pH Ur Specific [place] Urine Protein Urine Glucose (UA) Urine Ketones Urine Blood Urine Nitrite Ur Leukocyte Esterase Urine RBC Urine WBC Ur Squamous Epith Cells Urine Bacteria Hyaline Casts Stool Occult Blood COVID-19 (SYL) COVID-19 [facility] Com Blood Type Antibody Screen 06/25/22 07:18 WBC RBC Hgb Hct MCV MCH MCHC RDW Plt Count MPV Immature Gran % (Auto) Neut % (Auto) Lymph % (Auto) [place] % (Auto) Eos % (Auto) Baso % (Auto) Lymph # (Auto) [place] # (Auto) Eos # (Auto) Baso # (Auto) Abs Immat Gran (auto) Absolute Neuts (auto) Absolute Nucleated RBC Nucleated RBC % (auto) PT INR APTT Sodium Potassium Chloride Carbon Dioxide Anion Gap BUN Creatinine Estim Creat Clear Calc Estimated GFR POC Glucose 257 H Random Glucose Lactic Acid Lactic Acid F/U @ 2Hr Lactic Acid F/U @ 4Hr Calcium Magnesium Total Bilirubin AST ALT Alkaline Phosphatase Troponin I High Sens B-Natriuretic Peptide Total Protein Albumin Urine Color Urine Appearance Urine pH Ur Specific [place] Urine Protein Urine Glucose (UA) Urine Ketones Urine Blood Urine Nitrite Ur Leukocyte Esterase Urine RBC Urine WBC Ur Squamous Epith Cells Urine Bacteria Hyaline Casts Stool Occult Blood COVID-19 (SYL) COVID-19 [facility] Com Blood Type Antibody Screen Imaging Radiologist's impression: Impressions Chest X-Ray 06/24/22 18:16 IMPRESSION: No convincing evidence for an acute process. Low lung volumes. Abdomen/Pelvis CT 06/24/22 20:23 IMPRESSION: The study is limited by motion. 1. No pulmonary embolism. 2. Consolidation in the right middle lobe could be atelectasis or pneumonia. 3. No acute finding in the abdomen or pelvis. No inflammatory changes are seen. VTE: negative Chest CTA 06/24/22 20:23 IMPRESSION: The study is limited by motion. 1. No pulmonary embolism. 2. Consolidation in the right middle lobe could be atelectasis or pneumonia. 3. No acute finding in the abdomen or pelvis. No inflammatory changes are seen. VTE: negative Assessment and Plan (1) Atrial flutter, paroxysmal: Status: Acute Patient presents with pneumonia and shortness of breath. Noted to have intermittent paroxysmal atrial flutter with conversion back to sinus rhythm. Most likely induced by her acute medical illness. She continues to have diffuse wheezing and bronchospastic airway disease. This needs to be treated and would consider using Xopenex. For now continue metoprolol therapy. She continues to have uncontrolled recurrent paroxysmal atrial flutter will use antiarrhythmic drug therapy to suppress it. Also obtain an echocardiogram. She does have underlying significant structural heart issues with prior history and discussed with son to bring all the records that he has as well as we can try to obtain records from [place] when he gets here after release of information. Meanwhile will manage her conservatively. She is currently anemic and reported stool positive for occult blood. At this time will hold off on oral anticoagulant therapy and may require GI consult or input. (2) Left bundle branch block: Status: Acute Left bundle-branch block on EKG, unclear duration. Could be old. Will need to obtain old records. No specific therapy for the same. Will obtain echocardiogram as above. (3) CAD (coronary artery disease): Status: Acute Prior history of CAD with multiple vessel stenting as per the son last year in [place]. Please obtain records. Currently only on aspirin therapy sub appears that she had stents more than a year ago. Currently has minimal troponin elevation most likely related to acute medical illness and lactic acidosis. Not suggestive of acute coronary syndrome. No need for IV heparin. Continue risk factor modification. Blood pressure is optimal, continue current therapy. Continue statin therapy. Will continue to follow with you Procedures Date of Service Date of Service: 06/25/22
[2022-06-25 11:04] LABS: B Type Natriuretic Peptide 390 pg/mL (<100)
--- NOTE | 2022-06-25 11:27 | MHC.CM.PN ---
spoke with pts son with whom she lives with dil he explins that pt mostly does her own care is manuel sargentx x 4 does not feel she will boogie servceis when dcd
--- NOTE | 2022-06-25 11:53 | HO.PM.IMPN ---
Subjective Subjective Date of Service: 06/25/22 Interval History: seen and examined this morning Follow-up for pneumonia, atrial fibrillation HR elevated up to 150s this am. 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 Pt denies shortness of breath or chest pain, but was feeling short of breath earlier; continues to have cough, no fever or chills at this time. She is unable to provide any details about her cardiac history or medical history in general. Review of Systems Review of Systems: Yes all other systems are reviewed and are negative Constitutional Constitutional: Denies chills and Denies fever(s) ENT Ears, Nose, Mouth, and Throat: Denies dizziness Cardiovascular Cardiovascular: Denies chest pain, Denies palpitations and Reports dyspnea Respiratory Respiratory: Reports cough and Reports dyspnea Gastrointestinal Gastrointestinal: Denies abdominal pain, Denies nausea and Denies vomiting Neurologic Neurologic: Denies dizziness Endocrine Endocrine: Denies palpitations Physical Exam Vital Signs: Vital Signs: Last Vital Signs Temp 97.6 F 06/25/22 09:09 Pulse 75 06/25/22 11:36 Resp 20 06/25/22 11:36 BP 132/69 06/25/22 09:09 Pulse Ox 98 06/25/22 09:09 O2 Del Method 06/25/22 09:09 O2 Flow Rate 3 06/25/22 07:15 BMI result Body Mass Index 29.2 Const: General: alert and awake Nutritional Appearance: average body habitus Orientation/consciousness: patient oriented x3 Resp: Other: diffuse wheezing, rhochi Effort & Inspection: tachypneic and no use of accessory muscles Cardio: Rate: regular rate and tachycardic Heart sounds: S1 normal heart sound present and S2 normal heart sound present GI: Inspection: No distended Palpation (GI): Soft to palpation and nontender Neuro: General: patient oriented x3 Extrem: Other: able to move all 4 extremities spontaneously General: Yes no pedal edema Objective Data Active Medications Acetaminophen (Acetaminophen 325 Mg Tablet) 650 mg PO Q6H PRN PRN Reason: Pain, Mild (Pain Scale 1-3) Atorvastatin Calcium (Atorvastatin Calcium 80 Mg Tablet) 80 mg PO BEDTIME DINA Azithromycin (Azithromycin 500 Mg Tablet) 500 mg PO Q24H [facility] Last Admin: 06/25/22 08:52 Dose: 500 mg Documented By: BRITTNEY Dextrose (Dextrose 50 % 25 Gm/50 Ml Syringe) 25 gm IVPUSH Q15M PRN; Protocol PRN Reason: per Hypoglycemia Standing Ord. Famotidine (Famotidine 20 Mg Tablet) 20 mg PO DAILY [facility] Last Admin: 06/25/22 09:34 Dose: 20 mg Documented By: HERRERA Glucose (Glucose Gel 15 Gm Gel..Gram.) 15 gm PO Q15M PRN; Protocol PRN Reason: per Hypoglycemia Standing Ord. Dextrose/Sodium Chloride (D51/2ns) 1,000 mls @ 50 mls/hr IVCONT .Q20H [facility] Last Admin: 06/25/22 02:17 Dose: 50 mls/hr Documented By: LANETTE Ceftriaxone Sodium 1 gm/ (Sodium Chloride) 50 mls @ 100 mls/hr IV Q24H [facility] Insulin Human Lispro (Insulin Lispro 100 Unit/Ml 3 Ml Vial) 0 unit SUBCUT QIDACHS [facility]; Protocol Last Admin: 06/25/22 08:02 Dose: 4 unit Documented By: BRITTNEY Comments: poc 253 Levalbuterol HCl (Levalbuterol Hcl 1.25 Mg/0.5 Ml Vial.Neb) 1.25 mg INHALE RQ4H WHILE AWAKE [facility] Last Admin: 06/25/22 11:36 Dose: 1.25 mg Documented By: ALLI Levalbuterol HCl (Levalbuterol Hcl 1.25 Mg/0.5 Ml Vial.Neb) 1.25 mg INHALE Q4H PRN PRN Reason: shortness of breath/wheezing Losartan Potassium (Losartan Potassium 50 Mg Tablet) 100 mg PO DAILY [facility]; Protocol Melatonin (Melatonin 3 Mg Tablet) 6 mg PO BEDTIME PRN PRN Reason: Insomnia Methylprednisolone Sodium Succinate (Methylprednisolone Sod Succ 40 Mg/Ml Vial) 40 mg IVPUSH Q8H [facility] Last Admin: 06/25/22 05:41 Dose: 40 mg Documented By: PRETTY Metoprolol Tartrate (Metoprolol Tartrate 25 Mg Tablet) 25 mg PO BID [facility]; Protocol Last Admin: 06/25/22 08:53 Dose: 25 mg Documented By: HO.RIVEM Montelukast Sodium (Montelukast Sodium 10 Mg Tablet) 10 mg PO BEDTIME [facility] Pantoprazole Sodium (Pantoprazole Sodium 40 Mg/10 Ml Vial) 40 mg IVPUSH DAILY@0630 [facility] Last Admin: 06/25/22 05:41 Dose: 40 mg Documented By: PRETTY Pharmacy Consult (Consult Rx Perform Med Rec) 1 each MISCELLANE ONCE PRN PRN Reason: Consult order Senna (Sennosides 8.6 Mg Tablet) 17.2 mg PO BEDTIME PRN PRN Reason: Constipation Sodium Chloride (0.9 % Sodium Chloride Flush 3 Ml Syringe) 3 ml IVFLUSH QSHIFT [facility] Last Admin: 06/25/22 09:46 Dose: 3 ml Documented By: HERRERA Labs CBC & Chem 7: 06/25/22 06:48 06/25/22 06:48 Labs: Laboratory Results - last 24 hr 06/24/22 06/24/22 06/24/22 17:28 17:28 17:28 MCV 88.6 MCH 27.3 MCHC 30.8 L RDW 15.6 Plt Count 356 MPV 10.0 Immature Gran % (Auto) 0.3 Neut % (Auto) 75.1 H Lymph % (Auto) 17.4 L [place] % (Auto) 5.4 Eos % (Auto) 1.6 Baso % (Auto) 0.2 Lymph # (Auto) 2.6 [place] # (Auto) 0.8 Eos # (Auto) 0.2 Baso # (Auto) 0.0 Abs Immat Gran (auto) 0.05 H Absolute Neuts (auto) 11.1 H Absolute Nucleated RBC 0.000 Nucleated RBC % (auto) 0.0 PT 12.7 INR 1.1 APTT 27.3 Anion Gap 18 Estim Creat Clear Calc 28.5 Estimated GFR 42 POC Glucose Random Glucose 151 H Lactic Acid Lactic Acid F/U @ 2Hr Lactic Acid F/U @ 4Hr Calcium 8.8 Magnesium 2.3 Total Bilirubin 0.4 AST 19 ALT 11 Alkaline Phosphatase 78 B-Natriuretic Peptide Total Protein 7.5 Albumin 4.0 Urine Color Urine Appearance Urine pH Ur Specific [place] Urine Protein Urine Glucose (UA) Urine Ketones Urine Blood Urine Nitrite Ur Leukocyte Esterase Urine RBC Urine WBC Ur Squamous Epith Cells Urine Bacteria Hyaline Casts Stool Occult Blood COVID-19 (SYL) COVID-19 Clin Com Blood Type Antibody Screen 06/24/22 06/24/22 06/24/22 17:28 17:28 17:28 MCV MCH MCHC RDW Plt Count MPV Immature Gran % (Auto) Neut % (Auto) Lymph % (Auto) [place] % (Auto) Eos % (Auto) Baso % (Auto) Lymph # (Auto) [place] # (Auto) Eos # (Auto) Baso # (Auto) Abs Immat Gran (auto) Absolute Neuts (auto) Absolute Nucleated RBC Nucleated RBC % (auto) PT INR APTT Anion Gap Estim Creat Clear Calc Estimated GFR POC Glucose Random Glucose Lactic Acid 2.3 H* Lactic Acid F/U @ 2Hr Lactic Acid F/U @ 4Hr Calcium Magnesium Total Bilirubin AST ALT Alkaline Phosphatase B-Natriuretic Peptide 110 H Total Protein Albumin Urine Color Urine Appearance Urine pH Ur Specific [place] Urine Protein Urine Glucose (UA) Urine Ketones Urine Blood Urine Nitrite Ur Leukocyte Esterase Urine RBC Urine WBC Ur Squamous Epith Cells Urine Bacteria Hyaline Casts Stool Occult Blood COVID-19 (SYL) Negative COVID-19 [employer] Com See Note Blood Type Antibody Screen 06/24/22 06/24/22 06/24/22 17:28 17:28 20:30 MCV MCH MCHC RDW Plt Count MPV Immature Gran % (Auto) Neut % (Auto) Lymph % (Auto) [place] % (Auto) Eos % (Auto) Baso % (Auto) Lymph # (Auto) [place] # (Auto) Eos # (Auto) Baso # (Auto) Abs Immat Gran (auto) Absolute Neuts (auto) Absolute Nucleated RBC Nucleated RBC % (auto) PT INR APTT Anion Gap Estim Creat Clear Calc Estimated GFR POC Glucose Random Glucose Lactic Acid Lactic Acid F/U @ 2Hr 3.2 H* Lactic Acid F/U @ 4Hr Calcium Magnesium Total Bilirubin AST ALT Alkaline Phosphatase B-Natriuretic Peptide Total Protein Albumin Urine Color Yellow Urine Appearance Clear Urine pH 5.0 Ur Specific [place] 1.015 Urine Protein Negative Urine Glucose (UA) Negative Urine Ketones Negative Urine Blood Negative Urine Nitrite Negative Ur Leukocyte Esterase Moderate (2+) H Urine RBC 0-2 Urine WBC 11-20 H Ur Squamous Epith Cells 0-2 Urine Bacteria None Seen Hyaline Casts 0-2 Stool Occult Blood COVID-19 (SYL) COVID-19 [employer] Com Blood Type A Positive Antibody Screen NEGATIVE 06/24/22 06/24/22 06/25/22 20:37 22:50 06:48 MCV 87.9 MCH 27.8 MCHC 31.6 RDW 15.8 Plt Count 311 MPV 10.2 Immature Gran % (Auto) 0.3 Neut % (Auto) 88.5 H Lymph % (Auto) 10.4 L [place] % (Auto) 0.7 L Eos % (Auto) 0.0 Baso % (Auto) 0.1 Lymph # (Auto) 1.0 L [place] # (Auto) 0.1 Eos # (Auto) 0.0 Baso # (Auto) 0.0 Abs Immat Gran (auto) 0.03 Absolute Neuts (auto) 8.8 H Absolute Nucleated RBC 0.000 Nucleated RBC % (auto) 0.0 PT INR APTT Anion Gap Estim Creat Clear Calc Estimated GFR POC Glucose Random Glucose Lactic Acid Lactic Acid F/U @ 2Hr Lactic Acid F/U @ 4Hr 3.7 H* Calcium Magnesium Total Bilirubin AST ALT Alkaline Phosphatase B-Natriuretic Peptide Total Protein Albumin Urine Color Urine Appearance Urine pH Ur Specific [place] Urine Protein Urine Glucose (UA) Urine Ketones Urine Blood Urine Nitrite Ur Leukocyte Esterase Urine RBC Urine WBC Ur Squamous Epith Cells Urine Bacteria Hyaline Casts Stool Occult Blood POSITIVE COVID-19 (SYL) COVID-19 Clin Com Blood Type Antibody Screen 06/25/22 06/25/22 06/25/22 06:48 06:48 07:18 MCV MCH MCHC RDW Plt Count MPV Immature Gran % (Auto) Neut % (Auto) Lymph % (Auto) [place] % (Auto) Eos % (Auto) Baso % (Auto) Lymph # (Auto) [place] # (Auto) Eos # (Auto) Baso # (Auto) Abs Immat Gran (auto) Absolute Neuts (auto) Absolute Nucleated RBC Nucleated RBC % (auto) PT INR APTT Anion Gap 18 Estim Creat Clear Calc 29.2 Estimated GFR 43 POC Glucose 257 H Random Glucose 301 H Lactic Acid Lactic Acid F/U @ 2Hr Lactic Acid F/U @ 4Hr Calcium 9.0 Magnesium Total Bilirubin AST ALT Alkaline Phosphatase B-Natriuretic Peptide 390 H Total Protein Albumin Urine Color Urine Appearance Urine pH Ur Specific [place] Urine Protein Urine Glucose (UA) Urine Ketones Urine Blood Urine Nitrite Ur Leukocyte Esterase Urine RBC Urine WBC Ur Squamous Epith Cells Urine Bacteria Hyaline Casts Stool Occult Blood COVID-19 (SYL) COVID-19 Clin Com Blood Type Antibody Screen Assessment and Plan (1) Left bundle branch block: Status: Acute (2) CAD (coronary artery disease): Status: Acute (3) Pneumonia: Status: Acute Plan This is an 81-year-old Lebanese female (speakfannie Narayanan) with a past medical history of hypertension, hyperlipidemia, diabetes, CAD, asthma, history of hemorrhoids; presented to the hospital today with a chief complaint of shortness of breath found to have pneumonia and atrial fibrillation Acute asthma exacerbation duonebs seems to be exacerbating afib, will change to xopenex scheduled and prn Continue Solu-Medrol Community-acquired pneumonia, likely gram + or gram - No sepsis, tachycardia from aflutter, elevated lactic acid likely from breathing treatments Chest x-ray showed findings concerning for pneumonia/ atelectasis -continue ceftriaxone/Azithromycin UTI: UA w/ leuk esterase and white cells but no bacteria on ceftriaxone for pneumonia follow up urine cultures Paroxysmal atrial flutter HR 140s, will give dose of IV lopressor and continue home dose of lopressor 25 bid, uptitrate prn echo pending cardiology following no AC at this time due to heme + stools LBBB unclear duration cardiology following echo as above elevated troponins trops flat likely related to demand from a flutter/acute illness guaiac positive stool: Patient has recent admission to [facility] for hemorrhoidal bleed. H/H seems to be stable; 8.9 on 06/17 according to records from [facility] GI consult pending mild hyperkalemia: follow BMP in am DM hold glipizide Insulin sliding scale CAD continue BB, statin HTN continue losartain DVT prophylaxis: CHAD mendoza attending - dr. adhikari Patient requires ongoing inpatient hospitalization for management of pneumonia, rapid atrial flutter and close monitoring of H/H Quality Stroke Does the patient have a stroke diagnosis?: No VTE Prior VTE?: No VTE Risk Level:: Medical - moderate - high VTE Device Contraindication: N/A - Device Ordered VTE Drug Contraindication: Treatment Not Indicated
--- NOTE | 2022-06-25 12:53 | P.CDIC_ITS ---
CDI Concurrent Query Documentation Clarification: PHYSICIAN'S DOCUMENTATION REQUEST Date of Query: 06/25/22 1259 Patient Name: Lori Sung Admit Date: 06/24/22 Dear Doctor, A review of the medical record indicates additional documentation may be needed. Please review below and update the documentation accordingly. Clinical Indicators: Is there a diagnosis that correlates with the findings below: Risk Factors/Clinical Indicators/Treatments Per H&P and provider notes: -PMH diabetes (unspecified) Home medications: -Glipizide 5mg PO Other indicators: -POC on 06/25 -Random glucose on 06/25 Please clarify the following regarding Diabetes Mellitus (DM): Type/Etiology: * Type I DM * Type II DM * Other type of DM (please specify) * Unable to determine Complications of DM: * Hyperglycemia * No complications of DM * Other complication ? please specify * Unable to determine Use of terms such as suspected, likely, concern for, or probable (associated with a specific diagnosis that is being evaluated, monitored, or treated as if it exists) are acceptable and can be coded in the inpatient setting, when documented at the time of discharge. Thank you, Jie Armenta MS, RN, CCRN Extension: [phone] Please use your independent medical judgment in providing your response. THIS QUERY IS PART OF THE PERMANENT MEDICAL RECORD
--- NOTE | 2022-06-25 12:53 | MHC.CDI.CONC ---
CDI Concurrent Query Documentation Clarification: PHYSICIAN'S DOCUMENTATION REQUEST Date of Query: 06/25/22 1258 Patient Name: Lori Sung Admit Date: 06/24/22 Dear Doctor, A review of the medical record indicates additional documentation may be needed. Please review below and update the documentation accordingly. Clinical Indicators: Is there a diagnosis that correlates with the findings below: Risk Factors/Clinical Indicators/Treatments Per H&P and provider notes: -PMH diabetes (unspecified) Home medications: -Glipizide 5mg PO Other indicators: -POC on 06/25 -Random glucose on 06/25 Please clarify the following regarding Diabetes Mellitus (DM): Type/Etiology: Type I DM Type II DM Other type of DM (please specify) Unable to determine Complications of DM: Hyperglycemia No complications of DM Other complication ? please specify Unable to determine Use of terms such as suspected, likely, concern for, or probable (associated with a specific diagnosis that is being evaluated, monitored, or treated as if it exists) are acceptable and can be coded in the inpatient setting, when documented at the time of discharge. Thank you, Jie Armenta MS, RN, CCRN Extension: [phone] Please use your independent medical judgment in providing your response. THIS QUERY IS PART OF THE PERMANENT MEDICAL RECORD
[2022-06-25] MEDS: Losartan Potassium 50 MG TABLET 100 MG PO (13:06)
[2022-06-25 13:25] LABS: Glucose, Whole Blood 237 mg/dL (60-115)
--- NOTE | 2022-06-25 14:51 | P.CDIC_ITS ---
CDI Concurrent Query Documentation Clarification: PHYSICIAN'S DOCUMENTATION REQUEST Date of Query: 06/25/22 145 Patient Name: Lori Sung Admit Date: 06/24/22 Dear Doctor, A review of the medical record indicates additional documentation may be needed. Please review below and update the documentation accordingly. Clinical Indicators: Is there a diagnosis that correlates with the findings below: Risk Factors/Clinical Indicators/Treatments Per H&P and provider notes: Patient has prior history of AFib Per provider note on 06/25: Patient had a cardiology consult for acute atrial flutter. If possible, please provide further specificity regarding atrial fibrillation, such as: * Persistent atrial fibrillation * Chronic or Permanent atrial fibrillation * Paroxysmal atrial fibrillation * Other (please specify) * Unable to determine Use of terms such as suspected, likely, concern for, or probable (associated with a specific diagnosis that is being evaluated, monitored, or treated as if it exists) are acceptable and can be coded in the inpatient setting, when documented at the time of discharge. Thank you, Jie Armenta MS, RN, CCRN Extension: [phone] Please use your independent medical judgment in providing your response. THIS QUERY IS PART OF THE PERMANENT MEDICAL RECORD Provider Response: Other Other Diagnosis: unclear if patient has history of afib
[2022-06-25 17:53] LABS: Glucose, Whole Blood 251 mg/dL (60-115)
[2022-06-25] MEDS: cefTRIAXone sodium 1 GM in 0.9 % Sodium Chloride 50 ML IV (19:48)
[2022-06-25 21:11] LABS: Glucose, Whole Blood 195 mg/dL (60-115)
[2022-06-25] MEDS: Atorvastatin Calcium 80 MG TABLET PO (21:27)
[2022-06-25] MEDS: Montelukast Sodium 10 MG TABLET PO (21:27)
[2022-06-26] VITALS (11 sets, daily range): BP systolic 118–184; BP diastolic 45–69; PULSE 69–88; RESP 12–24; TEMP 36.4–37.1; O2SAT 92–97
[2022-06-26] MEDS: methylPREDNISolone Sod Succ 40 MG/ML VIAL IVPUSH ×3 (04:59→20:47)
[2022-06-26] MEDS: Pantoprazole Sodium 40 MG/10 ML VIAL IVPUSH ×2 (06:32→16:01)
[2022-06-26 06:51] LABS: Hematocrit 27.6 % (37.0-47.0); Hemoglobin 8.8 g/dl (12.0-16.0); Mean Corpuscular HGB Conc 31.9 g/dl (31.0-35.0); Mean Corpuscular Hemoglobin 27.8 pg (27.0-33.0); Mean Corpuscular Volume 87.1 fL (80.0-98.0); Mean Platelet Volume 10.9 fL (9.4-12.3); Platelet Count 347 X10*3/uL (160-400); Red Blood Count 3.17 X10*6/uL (4.20-5.50); Red Cell Distribution Width 15.7 % (11.0-16.0); White Blood Count 21.2 X10*3/uL (4.8-10.8)
[2022-06-26 07:08] LABS: Glucose, Whole Blood 249 mg/dL (60-115)
[2022-06-26 07:20] LABS: Anion Gap 17 (12-20); Blood Urea Nitrogen 22 mg/dL (9-16); Calcium 8.6 mg/dL (8.4-10.2); Carbon Dioxide 22 mmol/L (22-29); Chloride 103 mmol/L (96-108); Estimated Glomerular Filt Rate 46; Glucose Random 261 mg/dL (60-115); Potassium 5.2 mmol/L (3.3-5.1); Sodium 137 mmol/L (135-145)
[2022-06-26] MEDS: Metoprolol Tartrate 25 MG TABLET PO ×2 (09:51→20:45)
[2022-06-26] MEDS: Losartan Potassium 50 MG TABLET 100 MG PO (09:52)
[2022-06-26] MEDS: Famotidine 20 MG TABLET PO (09:52)
[2022-06-26] MEDS: Azithromycin 500 MG TABLET PO (09:52)
[2022-06-26] MEDS: Sodium Zirconium Cyclosilicate 5 GM POWD.PACK PO (09:53)
--- NOTE | 2022-06-26 10:12 | PC.NURSE ---
patient assessed with use of pulomonologist DR Surekha johnston . heart rate irregular at 85 beats . lungs diminished with wheezes through out . right lung moderately more diminished . skin moist and pink and warm . abdomen soft non tender . and positive bowel sounds ion all four quadrants . patient was able to take Am medication without any difficulties provider made aware . patient aware of plan of care .
--- NOTE | 2022-06-26 10:17 | PC.NURSE ---
Dr Anders cardiology at bedside . no new orders . continue with plan of care . patient aware of plan of care .
[2022-06-26] MEDS: 0.9 % Sodium Chloride Flush 3 ML SYRINGE IVFLUSH ×2 (10:19→16:01)
--- NOTE | 2022-06-26 10:38 | PM.GICN ---
History of Present Illness Data of Consult Service Date: 06/26/22 Requesting physician: Sly Leong Primary Care Provider: Santo Altman MD [facility] Reason for consult: GI bleeding This is an 81-year-old [place]ese female with past medical history of coronary artery disease, type 2 diabetes, hypertension, ? asthma who is currently admitted to the hospital for respiratory distress and found to have RML pneumonia. Gastroenterology consultation has been placed for worsening anemia and questionable GI bleed. History was obtained from the patient who states that for the past 1 week she has been noticing increased constipation with passage of dark black stools. She otherwise denies any abdominal pain, nausea, vomiting changes in appetite. No unintentional weight loss. Does not take any NSAIDs. In the hospital, has been found to have paroxysmal atrial flutter, but is not on anticoagulation yet. Collateral history was obtained from the son over the phone who says that patient had had hemorrhoidectomy 12 years ago. 3-4 weeks she had an episode of rectal bleeding foe which she went to [facility]. She was told this is likely from her hemorrhoids for which she went to [facility] and was told to follow up as outpatient. Review of Systems Review of Systems: Yes all other systems are reviewed and are negative [facility] Past Medical History Medical History (Updated 06/26/22 @ 12:13 by Beryl Long MD) CAD (coronary artery disease) Diabetes GI bleed HTN (hypertension) Normocytic anemia Surgical History Surgical History Stented coronary artery Social History Social History Alcohol intake: never Patient Tobacco Use Status: Never used Tobacco Use of substances other than those prescribed or required for medical reasons: No Advance Directives: No Advance Directives Information Provided: No service: No Meds Allergies Allergy/AdvReac Type Severity Reaction Status Date / Time Penicillins Allergy Unknown Verified 06/24/22 16:00 Active Medications: Current Medications Acetaminophen (Acetaminophen 325 Mg Tablet) 650 mg PO Q6H PRN PRN Reason: Pain, Mild (Pain Scale 1-3) Atorvastatin Calcium (Atorvastatin Calcium 80 Mg Tablet) 80 mg PO BEDTIME DINA Last Admin: 06/25/22 21:27 Dose: 80 mg Azithromycin (Azithromycin 500 Mg Tablet) 500 mg PO Q24H FOR[facility], [facility] Last Admin: 06/26/22 09:52 Dose: 500 mg Dextrose (Dextrose 50 % 25 Gm/50 Ml Syringe) 25 gm IVPUSH Q15M PRN; Protocol PRN Reason: per Hypoglycemia Standing Ord. Famotidine (Famotidine 20 Mg Tablet) 20 mg PO DAILY [facility], [facility] Last Admin: 06/26/22 09:52 Dose: 20 mg Glucose (Glucose Gel 15 Gm Gel..Gram.) 15 gm PO Q15M PRN; Protocol PRN Reason: per Hypoglycemia Standing Ord. Dextrose/Sodium Chloride (D51/2ns) 1,000 mls @ 50 mls/hr IVCONT .Q20H [facility], [facility] Last Admin: 06/25/22 20:51 Dose: 50 mls/hr Ceftriaxone Sodium 1 gm/ (Sodium Chloride) 50 mls @ 100 mls/hr IV Q24H [facility], [facility] Last Infusion: 06/25/22 20:51 Dose: Infused Insulin Human Lispro (Insulin Lispro 100 Unit/Ml 3 Ml Vial) 0 unit SUBCUT QIDACHS [facility], [facility]; Protocol Last Admin: 06/26/22 09:52 Dose: 4 unit Levalbuterol HCl (Levalbuterol Hcl 1.25 Mg/0.5 Ml Vial.Neb) 1.25 mg INHALE RQ4H WHILE AWAKE [facility], [facility] Last Admin: 06/26/22 07:59 Dose: Not Given Levalbuterol HCl (Levalbuterol Hcl 1.25 Mg/0.5 Ml Vial.Neb) 1.25 mg INHALE Q4H PRN PRN Reason: shortness of breath/wheezing Losartan Potassium (Losartan Potassium 50 Mg Tablet) 100 mg PO DAILY [facility], [facility]; Protocol Last Admin: 06/26/22 09:52 Dose: 100 mg Melatonin (Melatonin 3 Mg Tablet) 6 mg PO BEDTIME PRN PRN Reason: Insomnia Methylprednisolone Sodium Succinate (Methylprednisolone Sod Succ 40 Mg/Ml Vial) 40 mg IVPUSH Q8H [facility], [facility] Last Admin: 06/26/22 04:59 Dose: 40 mg Metoprolol Tartrate (Metoprolol Tartrate 25 Mg Tablet) 25 mg PO BID [facility], [facility]; Protocol Last Admin: 06/26/22 09:51 Dose: 25 mg Montelukast Sodium (Montelukast Sodium 10 Mg Tablet) 10 mg PO BEDTIME [facility] Last Admin: 06/25/22 21:27 Dose: 10 mg Pantoprazole Sodium (Pantoprazole Sodium 40 Mg/10 Ml Vial) 40 mg IVPUSH DAILY@0630 [facility], [facility] Last Admin: 06/26/22 06:32 Dose: 40 mg Pharmacy Consult (Consult Rx Perform Med Rec) 1 each MISCELLANE ONCE PRN PRN Reason: Consult order Senna (Sennosides 8.6 Mg Tablet) 17.2 mg PO BEDTIME PRN PRN Reason: Constipation Sodium Chloride (0.9 % Sodium Chloride Flush 3 Ml Syringe) 3 ml IVFLUSH QSHIFT [facility] Last Admin: 06/26/22 10:19 Dose: 3 ml Home Medications Medication Instructions Recorded Confirmed Last Taken Type famotidine 20 mg tablet 20 mg PO DAILY 06/24/22 06/24/22 06/24/22 History fluticasone 500 mcg-salmeterol 50 1 inh inhalation BID 06/24/22 06/24/22 06/24/22 History mcg/dose blistr powdr for inhalation (Wixela Inhub) glipizide 5 mg tablet 5 mg PO DAILY 06/24/22 06/24/22 06/24/22 History losartan 100 mg tablet 100 mg PO DAILY 06/24/22 06/24/22 06/24/22 History metoprolol tartrate 25 mg tablet 25 mg PO BID 06/24/22 06/24/22 06/24/22 History montelukast 10 mg tablet 10 mg PO BEDTIME 06/24/22 06/24/22 06/23/22 History pantoprazole 40 mg tablet,delayed 40 mg PO DAILY 06/24/22 06/24/22 06/24/22 History release phenylephrine 0.25 %-mineral oil 1 appl AK QID PRN Hemorrhoids 06/24/22 06/24/22 Unknown History 14 %-petrolatm 74.9 % rectal ointment (Preparation H) rosuvastatin 20 mg tablet 20 mg PO BEDTIME 06/24/22 06/24/22 06/23/22 History Physical Exam Vital Signs: Vital Signs: Last Vital Signs Temp 97.8 F 06/26/22 06:55 Pulse 78 06/26/22 06:55 Resp 18 06/26/22 06:55 BP 161/66 H 06/26/22 06:55 Pulse Ox 95 06/26/22 06:55 O2 Del Method 06/26/22 06:55 O2 Flow Rate 2 06/26/22 06:55 BMI result Body Mass Index 29.2 Gen appear: Elderly female, no acute distress, well nourished HEENT: no icterus, no cervical lymphadenopathy Chest: Diffuse exp wheezing CVS: S1/S2, regular Abd: soft, nontender, nondistended Rectal: Deferred. Bedside commode had melenotic stool. Psych: Stable affect, answering questions appropriately Neuro: A/Ox3 noted to move all extremities spontaneously Ext: no peripheral edema Results Labs CBC & Chem 7: 06/26/22 05:59 06/26/22 05:59 Labs: Short CBC 06/26/22 Range/Units 05:59 WBC 21.2 H (4.8-10.8) X10*3/uL Hgb 8.8 L (12.0-16.0) g/dl Hct 27.6 L (37.0-47.0) % Plt Count 347 (160-400) X10*3/uL BMP 06/26/22 05:59 Sodium 137 Potassium 5.2 H Chloride 103 Carbon Dioxide 22 BUN 22 H Creatinine 1.14 Calcium 8.6 Microbiology Microbiology Results: Microbiology 06/24/22 Unknown Urine clean catch - Urine potter top Urine Culture - Final No growth. 06/24/22 17:28 Blood - Venous Blood Culture - Preliminary No growth after 24 hours. 06/24/22 17:28 Blood - Venous Blood Culture - Preliminary No growth after 24 hours. Assessment and Plan (1) Normocytic anemia: Status: Acute (2) GI bleed: Status: Acute Plan Down trending hemoglobin with elevated BUN to creatinine ratio, along with melanotic stool, likely secondary to an upper GI bleeding. Differentials include peptic ulcer disease, esophagitis/gastritis/duodenitis, AVM, malignancy. Will proceed with an upper endoscopy today to investigate this further. Briefly reviewed with cardiology as well, and patient can proceed with the endoscopy from their standpoint. This will also help with decision making for anticoagulation. I also discussed this with her son over the phone, who is in agreement. If the upper endoscopy is negative, patient may need a colonoscopy as outpatient, to complete workup. Recommendations: -please keep the patient NPO -at least 2 large-bore IV access at all times -trend CBC, transfuse for hemoglobin less than 7 -PPI oral or IV b.i.d. -plan for EGD this afternoon -further recommendations will follow in the procedure note -please also check iron studies and retic count. Mitesh Matta: [phone] Procedures Date of Service Date of Service: 06/26/22
--- NOTE | 2022-06-26 11:02 | PC.NURSE ---
Addendum entered by Zandra Anderson LPN 06/26/22 11:23: Dr Ravi RUGGIERO at bedside patient to be NPO for EGD procedure today . Patient has Melena r/t possible bleeding . patient aware of plan of care . Original Note: DR. Dionna RUGGIERO at bedside patient to be NPO for EGD procedure today . patient has melano r/t possible bleeding . patient aware of plan of care .
--- NOTE | 2022-06-26 11:30 | P.PNCA_ITS ---
Subjective Subjective Date of Service: 06/26/22 Principal diagnosis: Paroxysmal atrial flutter Interval history: Patient says she is feeling better. Shortness of breath has improved. She says she has not eaten in 2 days and just had some juice. She is feeling hungry. Denies any palpitations. Denies any chest pain. Her echocardiogram yesterday showed normal LV systolic function. Review of Systems Constitutional: Reports no additional constitutional complaints Eyes: Reports no additional eye complaints Cardiovascular: Reports no additional cardiovascular complaints Respiratory: Reports no additional respiratory complaints Gastrointestinal: Reports no additional gastrointestinal complaints Genitourinary: Reports no additional female genitourinary complaints Musculoskeletal: Reports no additional musculoskeletal complaints Skin/Breast: Reports system reviewed and no additional complaints, except as docu Reports system reviewed and no additional complaints, except as documented Physical Exam Vital Signs: Last Vital Signs Temp 97.6 F 06/26/22 11:19 Pulse 74 06/26/22 11:19 Resp 24 H 06/26/22 11:19 BP 184/69 H 06/26/22 11:19 Pulse Ox 96 06/26/22 11:19 O2 Del Method 06/26/22 11:19 O2 Flow Rate 2 06/26/22 11:19 BMI result Body Mass Index 29.2 Const General: cooperative, comfortable, no acute distress, alert and awake Nutritional Appearance: overweight Orientation/consciousness: patient oriented x3 HEENT Head: Yes normocephalic and Yes atraumatic Neck Neck: Yes trachea midline, Yes supple and Yes no JVD Chest Chest palpation & inspection: abnormal inspection of the chest kyphotic Resp Effort & Inspection: normal respiratory effort Auscultation: wheezes (Overall wheezing has improved) right lower and bronchial breath sounds on the right (Base) Cardio Jugular venous distension: no JVD Palpation: normal PMI Rate: regular rate Rhythm: abnormal rhythm with ectopic beats Heart sounds: S1 normal heart sound present, S2 normal heart sound present, no click, no gallops and no murmurs GI Auscultation: normal bowel sounds Skin General skin exam: no rashes or lesions noted Neuro General: patient oriented x3 and no focal motor deficits Extrem General: Yes no clubbing, cyanosis or edema Psych Appearance: grossly normal Objective Labs and Meds Result diagrams: 06/26/22 05:59 06/26/22 05:59 Lab results: Laboratory Results - last 24 hr 06/25/22 06/25/22 06/25/22 13:04 17:49 21:07 WBC RBC Hgb Hct MCV MCH MCHC RDW Plt Count MPV Absolute Nucleated RBC Nucleated RBC % (auto) Sodium Potassium Chloride Carbon Dioxide Anion Gap BUN Creatinine Estim Creat Clear Calc Estimated GFR POC Glucose 237 H 251 H 195 H Random Glucose Calcium 06/26/22 06/26/22 06/26/22 05:59 05:59 06:57 WBC 21.2 H RBC 3.17 L Hgb 8.8 L Hct 27.6 L MCV 87.1 MCH 27.8 MCHC 31.9 RDW 15.7 Plt Count 347 MPV 10.9 Absolute Nucleated RBC 0.000 Nucleated RBC % (auto) 0.0 Sodium 137 Potassium 5.2 H Chloride 103 Carbon Dioxide 22 Anion Gap 17 BUN 22 H Creatinine 1.14 Estim Creat Clear Calc 31.0 Estimated GFR 46 POC Glucose 249 H Random Glucose 261 H Calcium 8.6 Progress Note: A&P Assessment and plan (1) Atrial flutter, paroxysmal: Status: Acute Assessment and Plan: Episodes of paroxysmal atrial flutter have improved with treatment of her underlying pulmonary condition. Continue the same. Continue to use pulmonary specific bronchodilators such as Xopenex. Continue treat the same. Metoprolol as been started 25 mg b.i.d.. Continue the same. Also restarted losartan. Blood pressure is elevated at this point in time. Consider adding Norvasc 5 mg to her regimen. Stress mitigation strategies. Patient would need oral anticoagulant therapy but had recent GI bleed. Has been seen by GI and plan for endoscopy. Currently optimized to undergo endoscopy with low to intermediate risk. (2) CAD (coronary artery disease): Status: Acute Assessment and Plan: CAD, prior stenting more than a year ago in [place]. Do not have the r ecords of the same. At this point time she is not having any evidence of acute coronary syndrome. Continue treat her underlying pulmonary consider and provide supportive care. Blood pressure is elevated. Add Norvasc. Continue statin therapy. Would hold on aspirin therapy given her recent GI bleed and if started on Eliquis therapy after GI clearance would avoid aspirin therapy in the future to reduce bleeding risk. (3) Left bundle branch block: Status: Acute Assessment and Plan: Left bundle-branch block which is appear to be old. LV systolic function is normal. No interventions required. Will sign of the case. Feel free to contact us. Thank you for allowing us to partake in the care Time Spent With Patient Time: Total time spent is greater than 50% in coordination of care (as documented) at patient's floor/unit and/or counseling patient: Progress Note: Quality Stroke Does the patient have a stroke diagnosis?: No Procedures Date of Service Date of Service: 06/26/22
--- NOTE | 2022-06-26 11:38 | P.PNIM_ITS ---
Subjective Subjective Date of Service: 06/27/22 Interval History: Follow-up for pneumonia, atrial fibrillation discussed with patient's son as she does not speak Yemeni Review of Systems Review of Systems: Yes all other systems are reviewed and are negative Constitutional Constitutional: Denies chills and Denies fever(s) ENT Ears, Nose, Mouth, and Throat: Denies dizziness Cardiovascular Cardiovascular: Denies chest pain, Denies palpitations and Reports dyspnea Respiratory Respiratory: Reports cough and Reports dyspnea Gastrointestinal Gastrointestinal: Denies abdominal pain, Denies nausea and Denies vomiting Neurologic Neurologic: Denies dizziness Endocrine Endocrine: Denies palpitations Physical Exam Vital Signs: Vital Signs: Last Vital Signs Temp 97.6 F 06/26/22 11:19 Pulse 74 06/26/22 11:19 Resp 24 H 06/26/22 11:19 BP 184/69 H 06/26/22 11:19 Pulse Ox 96 06/26/22 11:19 O2 Del Method 06/26/22 11:19 O2 Flow Rate 2 06/26/22 11:19 BMI result Body Mass Index 29.2 Appearing in no acute distress lung sounds extra rocío wheezing heart regular rate rhythm, clear S1, S2 positive bowel sounds, abdomen is soft, nontender neuro patient is alert x3, no focal deficits Objective Data Active Medications Acetaminophen (Acetaminophen 325 Mg Tablet) 650 mg PO Q6H PRN PRN Reason: Pain, Mild (Pain Scale 1-3) Atorvastatin Calcium (Atorvastatin Calcium 80 Mg Tablet) 80 mg PO BEDTIME [facility] Last Admin: 06/25/22 21:27 Dose: 80 mg Documented By: ARIAN Azithromycin (Azithromycin 500 Mg Tablet) 500 mg PO Q24H [facility] Last Admin: 06/26/22 09:52 Dose: 500 mg Documented By: EMILY Dextrose (Dextrose 50 % 25 Gm/50 Ml Syringe) 25 gm IVPUSH Q15M PRN; Protocol PRN Reason: per Hypoglycemia Standing Ord. Glucose (Glucose Gel 15 Gm Gel..Gram.) 15 gm PO Q15M PRN; Protocol PRN Reason: per Hypoglycemia Standing Ord. Dextrose/Sodium Chloride (D51/2ns) 1,000 mls @ 50 mls/hr IVCONT .Q20H [facility] Last Admin: 06/25/22 20:51 Dose: 50 mls/hr Documented By: ARIAN Ceftriaxone Sodium 1 gm/ (Sodium Chloride) 50 mls @ 100 mls/hr IV Q24H [facility] Last Infusion: 06/25/22 20:51 Dose: 0 mls/hr Documented By: ARIAN Insulin Human Lispro (Insulin Lispro 100 Unit/Ml 3 Ml Vial) 0 unit SUBCUT QIDACHS [facility]; Protocol Last Admin: 06/26/22 09:52 Dose: 4 unit Documented By: EMILY Levalbuterol HCl (Levalbuterol Hcl 1.25 Mg/0.5 Ml Vial.Neb) 1.25 mg INHALE RQ4H WHILE AWAKE [facility] Last Admin: 06/26/22 07:59 Dose: Not Given Documented By: ALLI Non-Admin Reason: refused/wants to sleep Levalbuterol HCl (Levalbuterol Hcl 1.25 Mg/0.5 Ml Vial.Neb) 1.25 mg INHALE Q4H PRN PRN Reason: shortness of breath/wheezing Losartan Potassium (Losartan Potassium 50 Mg Tablet) 100 mg PO DAILY [facility]; Protocol Last Admin: 06/26/22 09:52 Dose: 100 mg Documented By: EMILY Melatonin (Melatonin 3 Mg Tablet) 6 mg PO BEDTIME PRN PRN Reason: Insomnia Methylprednisolone Sodium Succinate (Methylprednisolone Sod Succ 40 Mg/Ml Vial) 40 mg IVPUSH Q8H [facility] Last Admin: 06/26/22 04:59 Dose: 40 mg Documented By: ARIAN Metoprolol Tartrate (Metoprolol Tartrate 25 Mg Tablet) 25 mg PO BID [facility]; Protocol Last Admin: 06/26/22 09:51 Dose: 25 mg Documented By: EMILY Montelukast Sodium (Montelukast Sodium 10 Mg Tablet) 10 mg PO BEDTIME [facility] Last Admin: 06/25/22 21:27 Dose: 10 mg Documented By: ARIAN Pantoprazole Sodium (Pantoprazole Sodium 40 Mg/10 Ml Vial) 40 mg IVPUSH BID@0630,1630 [facility] Pharmacy Consult (Consult Rx Perform Med Rec) 1 each MISCELLANE ONCE PRN PRN Reason: Consult order Senna (Sennosides 8.6 Mg Tablet) 17.2 mg PO BEDTIME PRN PRN Reason: Constipation Sodium Chloride (0.9 % Sodium Chloride Flush 3 Ml Syringe) 3 ml IVFLUSH QSHIFT [facility] Last Admin: 06/26/22 10:19 Dose: 3 ml Documented By: EMILY Labs CBC & Chem 7: 06/27/22 08:03 06/26/22 05:59 Labs: Laboratory Results - last 24 hr 06/25/22 06/25/22 06/25/22 13:04 17:49 21:07 MCV MCH MCHC RDW Plt Count MPV Absolute Nucleated RBC Nucleated RBC % (auto) Anion Gap Estim Creat Clear Calc Estimated GFR POC Glucose 237 H 251 H 195 H Random Glucose Calcium 06/26/22 06/26/22 06/26/22 05:59 05:59 06:57 MCV 87.1 MCH 27.8 MCHC 31.9 RDW 15.7 Plt Count 347 MPV 10.9 Absolute Nucleated RBC 0.000 Nucleated RBC % (auto) 0.0 Anion Gap 17 Estim Creat Clear Calc 31.0 Estimated GFR 46 POC Glucose 249 H Random Glucose 261 H Calcium 8.6 Microbiology Microbiology Results: Microbiology 06/24/22 Unknown Urine Culture - Final Urine clean catch - Urine potter top No growth. 06/24/22 17:28 Blood Culture - Preliminary Blood - Venous No growth after 24 hours. 06/24/22 17:28 Blood Culture - Preliminary Blood - Venous No growth after 24 hours. Assessment and Plan (1) Left bundle branch block: Status: Acute (2) CAD (coronary artery disease): Status: Acute (3) Pneumonia: Status: Acute Plan This is an 81-year-old [place]ian female (speaks [place]) with a past medical history of hypertension, hyperlipidemia, diabetes, CAD, asthma, history of hemorrhoids; presented to the hospital today with a chief complaint of shortness of breath found to have pneumonia and atrial fibrillation Acute asthma exacerbation Continue Xopenex secondary to AFib Continue Solu-Medrol Supplemental oxygen as needed Community-acquired pneumonia, likely gram + or gram - No sepsis, tachycardia from aflutter, elevated lactic acid likely from breathing treatments Chest x-ray showed findings concerning for pneumonia/ atelectasis continue ceftriaxone/Azithromycin UTI UA w/ leuk esterase and white cells but no bacteria Urine culture no growth Paroxysmal atrial flutter HR up to 140s given IV lopressor and continue home dose of lopressor 25 bid, uptitrate prn Normal EF 55-60% with no wall motion abnormalities, left bundle branch block, unknown duration cardiology following no AC at this time due to heme + stools Elevated troponins trops flat likely related to demand from aflutter/acute illness Guaiac positive stool Patient has recent admission to [facility] for hemorrhoidal bleed. H/H seems to be stable; 8.07/06 on 06/17 according to records from [facility] Seen examined by Gastroenterology, plan for endoscopy today, NPO Protonix IV b.i.d. Hyperkalemia Give Lokelma Follow BMP DM Insulin sliding scale CAD continue BB, statin HTN continue losartan DVT prophylaxis: CHAD mendoza attending - dr. Tapia Patient requires ongoing inpatient hospitalization for management of pneumonia, rapid atrial flutter and close monitoring of H/H Quality Stroke Does the patient have a stroke diagnosis?: No VTE Prior VTE?: No VTE Risk Level:: Medical - moderate - high VTE Device Contraindication: N/A - Device Ordered VTE Drug Contraindication: Treatment Not Indicated
--- NOTE | 2022-06-26 12:14 | PC.NURSE ---
RN to RN given to OR nurse Laverne . patient to transport to OR for EGD for procedure . patient transferring now . patient aware of plan of care .
--- NOTE | 2022-06-26 12:32 | P.CONAN_ITS ---
HPI - Anesthesia Eval Consult details Narrative: GI Bleed - melena PMFSH Active Problems Active Problems: All Active Problems (Updated 06/26/22 @ 12:13 by Beryl Lnog MD) GI bleed (Acute) Normocytic anemia (Acute) Left bundle branch block (Acute) Diabetes (Acute) HTN (hypertension) (Acute) CAD (coronary artery disease) (Acute) UTI (urinary tract infection) (Acute) Pneumonia (Acute) Asthma exacerbation (Acute) Fecal occult blood test positive (Acute) Acute hyperkalemia (Acute) Atrial flutter, paroxysmal (Acute) Past Medical History Medical History (Updated 06/26/22 @ 12:13 by Beryl Long MD) CAD (coronary artery disease) Diabetes GI bleed HTN (hypertension) Normocytic anemia Family History Family history of problems with anesthesia: No Surgical History Surgical History Stented coronary artery Social History Social History Alcohol intake: never Patient Tobacco Use Status: Never used Tobacco Use of substances other than those prescribed or required for medical reasons: No Advance Directives: No Advance Directives Information Provided: No service: No Meds Allergies Allergy/AdvReac Type Severity Reaction Status Date / Time Penicillins Allergy Unknown Verified 06/24/22 16:00 Active Medications: Current Medications Acetaminophen (Acetaminophen 325 Mg Tablet) 650 mg PO Q6H PRN PRN Reason: Pain, Mild (Pain Scale 1-3) Atorvastatin Calcium (Atorvastatin Calcium 80 Mg Tablet) 80 mg PO BEDTIME [facility] Last Admin: 06/25/22 21:27 Dose: 80 mg Azithromycin (Azithromycin 500 Mg Tablet) 500 mg PO Q24H [facility] Last Admin: 06/26/22 09:52 Dose: 500 mg Dextrose (Dextrose 50 % 25 Gm/50 Ml Syringe) 25 gm IVPUSH Q15M PRN; Protocol PRN Reason: per Hypoglycemia Standing Ord. Glucose (Glucose Gel 15 Gm Gel..Gram.) 15 gm PO Q15M PRN; Protocol PRN Reason: per Hypoglycemia Standing Ord. Dextrose/Sodium Chloride (D51/2ns) 1,000 mls @ 50 mls/hr IVCONT .Q20H [facility] Last Admin: 06/25/22 20:51 Dose: 50 mls/hr Ceftriaxone Sodium 1 gm/ (Sodium Chloride) 50 mls @ 100 mls/hr IV Q24H [facility] Last Infusion: 06/25/22 20:51 Dose: Infused Insulin Human Lispro (Insulin Lispro 100 Unit/Ml 3 Ml Vial) 0 unit SUBCUT QIDACHS [facility]; Protocol Last Admin: 06/26/22 09:52 Dose: 4 unit Levalbuterol HCl (Levalbuterol Hcl 1.25 Mg/0.5 Ml Vial.Neb) 1.25 mg INHALE RQ4H WHILE AWAKE [facility] Last Admin: 06/26/22 11:41 Dose: 1.25 mg Levalbuterol HCl (Levalbuterol Hcl 1.25 Mg/0.5 Ml Vial.Neb) 1.25 mg INHALE Q4H PRN PRN Reason: shortness of breath/wheezing Losartan Potassium (Losartan Potassium 50 Mg Tablet) 100 mg PO DAILY [facility]; Protocol Last Admin: 06/26/22 09:52 Dose: 100 mg Melatonin (Melatonin 3 Mg Tablet) 6 mg PO BEDTIME PRN PRN Reason: Insomnia Methylprednisolone Sodium Succinate (Methylprednisolone Sod Succ 40 Mg/Ml Vial) 40 mg IVPUSH Q8H [facility] Last Admin: 06/26/22 04:59 Dose: 40 mg Metoprolol Tartrate (Metoprolol Tartrate 25 Mg Tablet) 25 mg PO BID [facility]; Protocol Last Admin: 06/26/22 09:51 Dose: 25 mg Montelukast Sodium (Montelukast Sodium 10 Mg Tablet) 10 mg PO BEDTIME [facility] Last Admin: 06/25/22 21:27 Dose: 10 mg Pantoprazole Sodium (Pantoprazole Sodium 40 Mg/10 Ml Vial) 40 mg IVPUSH BID@063 0,1630 [facility] Pharmacy Consult (Consult Rx Perform Med Rec) 1 each MISCELLANE ONCE PRN PRN Reason: Consult order Senna (Sennosides 8.6 Mg Tablet) 17.2 mg PO BEDTIME PRN PRN Reason: Constipation Sodium Chloride (0.9 % Sodium Chloride Flush 3 Ml Syringe) 3 ml IVFLUSH QSHIFT [facility] Last Admin: 06/26/22 10:19 Dose: 3 ml Home Medications Medication Instructions Recorded Confirmed Last Taken Type famotidine 20 mg tablet 20 mg PO DAILY 06/24/22 06/24/22 06/24/22 History fluticasone 500 mcg-salmeterol 50 1 inh inhalation BID 06/24/22 06/24/22 06/24/22 History mcg/dose blistr powdr for inhalation ([facility] In[facility]) glipizide 5 mg tablet 5 mg PO DAILY 06/24/22 06/24/22 06/24/22 History losartan 100 mg tablet 100 mg PO DAILY 06/24/22 06/24/22 06/24/22 History metoprolol tartrate 25 mg tablet 25 mg PO BID 06/24/22 06/24/22 06/24/22 History montelukast 10 mg tablet 10 mg PO BEDTIME 06/24/22 06/24/22 06/23/22 History pantoprazole 40 mg tablet,delayed 40 mg PO DAILY 06/24/22 06/24/22 06/24/22 History release phenylephrine 0.25 %-mineral oil 1 appl MT QID PRN Hemorrhoids 06/24/22 06/24/22 Unknown History 14 %-petrolatm 74.9 % rectal ointment (Preparation H) rosuvastatin 20 mg tablet 20 mg PO BEDTIME 06/24/22 06/24/22 06/23/22 History Exam Exam Date and Time: June 26, 2022 1232 Height,Weight and Vital Signs: Height 4 ft 10 in Weight 63.503 kg Last Vital Signs Temp 97.6 F 06/26/22 11:19 Pulse 88 06/26/22 11:41 Resp 20 06/26/22 11:41 BP 184/69 H 06/26/22 11:19 Pulse Ox 96 06/26/22 11:19 O2 Del Method 06/26/22 11:19 O2 Flow Rate 2 06/26/22 11:19 Pertinent Lab Results Pertinent Lab Results: Laboratory Tests 06/24/22 06/24/22 06/24/22 17:28 17:28 17:28 WBC 14.7 H RBC 3.70 L Hgb 10.1 L Hct 32.8 L MCV 88.6 MCH 27.3 MCHC 30.8 L RDW 15.6 Plt Count 356 MPV 10.0 Immature Gran % (Auto) 0.3 Neut % (Auto) 75.1 H Lymph % (Auto) 17.4 L [place] % (Auto) 5.4 Eos % (Auto) 1.6 Baso % (Auto) 0.2 Lymph # (Auto) 2.6 [place] # (Auto) 0.8 Eos # (Auto) 0.2 Baso # (Auto) 0.0 Abs Immat Gran (auto) 0.05 H Absolute Neuts (auto) 11.1 H Absolute Nucleated RBC 0.000 Nucleated RBC % (auto) 0.0 PT 12.7 INR 1.1 APTT 27.3 Sodium 138 Potassium 5.5 H Chloride 106 Carbon Dioxide 20 L Anion Gap 18 BUN 22 H Creatinine 1.24 Estim Creat Clear Calc 28.5 Estimated GFR 42 POC Glucose Random Glucose 151 H Lactic Acid Lactic Acid F/U @ 2Hr Lactic Acid F/U @ 4Hr Calcium 8.8 Magnesium 2.3 Total Bilirubin 0.4 AST 19 ALT 11 Alkaline Phosphatase 78 Troponin I High Sens B-Natriuretic Peptide Total Protein 7.5 Albumin 4.0 Urine Color Urine Appearance Urine pH Ur Specific [place] Urine Protein Urine Glucose (UA) Urine Ketones Urine Blood Urine Nitrite Ur Leukocyte Esterase Urine RBC Urine WBC Ur Squamous Epith Cells Urine Bacteria Hyaline Casts Stool Occult Blood COVID-19 (SYL) [employer] Blood Type Antibody Screen 06/24/22 06/24/22 06/24/22 17:28 17:28 17:28 WBC RBC Hgb Hct MCV MCH MCHC RDW Plt Count MPV Immature Gran % (Auto) Neut % (Auto) Lymph % (Auto) [place] % (Auto) Eos % (Auto) Baso % (Auto) Lymph # (Auto) [place] # (Auto) Eos # (Auto) Baso # (Auto) Abs Immat Gran (auto) Absolute Neuts (auto) Absolute Nucleated RBC Nucleated RBC % (auto) PT INR APTT Sodium Potassium Chloride Carbon Dioxide Anion Gap BUN Creatinine Estim Creat Clear Calc Estimated GFR POC Glucose Random Glucose Lactic Acid 2.3 H* Lactic Acid F/U @ 2Hr Lactic Acid F/U @ 4Hr Calcium Magnesium Total Bilirubin AST ALT Alkaline Phosphatase Troponin I High Sens 56.7 H* B-Natriuretic Peptide 110 H Total Protein Albumin Urine Color Urine Appearance Urine pH Ur Specific [place] Urine Protein Urine Glucose (UA) Urine Ketones Urine Blood Urine Nitrite Ur Leukocyte Esterase Urine RBC Urine WBC Ur Squamous Epith Cells Urine Bacteria Hyaline Casts Stool Occult Blood COVID-19 (SYL) COVID-19 [facility] Blood Type Antibody Screen 06/24/22 06/24/22 06/24/22 17:28 17:28 17:28 WBC RBC Hgb Hct MCV MCH MCHC RDW Plt Count MPV Immature Gran % (Auto) Neut % (Auto) Lymph % (Auto) [place] % (Auto) Eos % (Auto) Baso % (Auto) Lymph # (Auto) [place] # (Auto) Eos # (Auto) Baso # (Auto) Abs Immat Gran (auto) Absolute Neuts (auto) Absolute Nucleated RBC Nucleated RBC % (auto) PT INR APTT Sodium Potassium Chloride Carbon Dioxide Anion Gap BUN Creatinine Estim Creat Clear Calc Estimated GFR POC Glucose Random Glucose Lactic Acid Lactic Acid F/U @ 2Hr Lactic Acid F/U @ 4Hr Calcium Magnesium Total Bilirubin AST ALT Alkaline Phosphatase Troponin I High Sens B-Natriuretic Peptide Total Protein Albumin Urine Color Yellow Urine Appearance Clear Urine pH 5.0 Ur Specific [place] 1.015 Urine Protein Negative Urine Glucose (UA) Negative Urine Ketones Negative Urine Blood Negative Urine Nitrite Negative Ur Leukocyte Esterase Moderate (2+) H Urine RBC 0-2 Urine WBC 11-20 H Ur Squamous Epith Cells 0-2 Urine Bacteria None Seen Hyaline Casts 0-2 Stool Occult Blood COVID-19 (SYL) Negative COVID-[employer] See Note Blood Type A Positive Antibody Screen NEGATIVE 06/24/22 06/24/22 06/24/22 20:30 20:30 20:37 WBC RBC Hgb Hct MCV MCH MCHC RDW Plt Count MPV Immature Gran % (Auto) Neut % (Auto) Lymph % (Auto) [place] % (Auto) Eos % (Auto) Baso % (Auto) Lymph # (Auto) [place] # (Auto) Eos # (Auto) Baso # (Auto) Abs Immat Gran (auto) Absolute Neuts (auto) Absolute Nucleated RBC Nucleated RBC % (auto) PT INR APTT Sodium Potassium Chloride Carbon Dioxide Anion Gap BUN Creatinine Estim Creat Clear Calc Estimated GFR POC Glucose Random Glucose Lactic Acid Lactic Acid F/U @ 2Hr 3.2 H* Lactic Acid F/U @ 4Hr Calcium Magnesium Total Bilirubin AST ALT Alkaline Phosphatase Troponin I High Sens 48.9 H B-Natriuretic Peptide Total Protein Albumin Urine Color Urine Appearance Urine pH Ur Specific [place] Urine Protein Urine Glucose (UA) Urine Ketones Urine Blood Urine Nitrite Ur Leukocyte Esterase Urine RBC Urine WBC Ur Squamous Epith Cells Urine Bacteria Hyaline Casts Stool Occult Blood POSITIVE COVID-19 (SYL) COVID-19 [employer] Blood Type Antibody Screen 06/24/22 06/25/22 06/25/22 22:50 06:48 06:48 WBC 10.0 RBC 3.38 L Hgb 9.4 L Hct 29.7 L MCV 87.9 MCH 27.8 MCHC 31.6 RDW 15.8 Plt Count 311 MPV 10.2 Immature Gran % (Auto) 0.3 Neut % (Auto) 88.5 H Lymph % (Auto) 10.4 L [place] % (Auto) 0.7 L Eos % (Auto) 0.0 Baso % (Auto) 0.1 Lymph # (Auto) 1.0 L [place] # (Auto) 0.1 Eos # (Auto) 0.0 Baso # (Auto) 0.0 Abs Immat Gran (auto) 0.03 Absolute Neuts (auto) 8.8 H Absolute Nucleated RBC 0.000 Nucleated RBC % (auto) 0.0 PT INR APTT Sodium 137 Potassium 5.2 H Chloride 107 Carbon Dioxide 17 L Anion Gap 18 BUN 20 H Creatinine 1.21 Estim Creat Clear Calc 29.2 Estimated GFR 43 POC Glucose Random Glucose 301 H Lactic Acid Lactic Acid F/U @ 2Hr Lactic Acid F/U @ 4Hr 3.7 H* Calcium 9.0 Magnesium Total Bilirubin AST ALT Alkaline Phosphatase Troponin I High Sens B-Natriuretic Peptide Total Protein Albumin Urine Color Urine Appearance Urine pH Ur Specific [place] Urine Protein Urine Glucose (UA) Urine Ketones Urine Blood Urine Nitrite Ur Leukocyte Esterase Urine RBC Urine WBC Ur Squamous Epith Cells Urine Bacteria Hyaline Casts Stool Occult Blood COVID-19 (SYL) COVID-19 [facility] Blood Type Antibody Screen 06/25/22 06/25/22 06/25/22 06:48 07:18 13:04 WBC RBC Hgb Hct MCV MCH MCHC RDW Plt Count MPV Immature Gran % (Auto) Neut % (Auto) Lymph % (Auto) [place] % (Auto) Eos % (Auto) Baso % (Auto) Lymph # (Auto) [place] # (Auto) Eos # (Auto) Baso # (Auto) Abs Immat Gran (auto) Absolute Neuts (auto) Absolute Nucleated RBC Nucleated RBC % (auto) PT INR APTT Sodium Potassium Chloride Carbon Dioxide Anion Gap BUN Creatinine Estim Creat Clear Calc Estimated GFR POC Glucose 257 H 237 H Random Glucose Lactic Acid Lactic Acid F/U @ 2Hr Lactic Acid F/U @ 4Hr Calcium Magnesium Total Bilirubin AST ALT Alkaline Phosphatase Troponin I High Sens B-Natriuretic Peptide 390 H Total Protein Albumin Urine Color Urine Appearance Urine pH Ur Specific [place] Urine Protein Urine Glucose (UA) Urine Ketones Urine Blood Urine Nitrite Ur Leukocyte Esterase Urine RBC Urine WBC Ur Squamous Epith Cells Urine Bacteria Hyaline Casts Stool Occult Blood COVID-19 (SYL) COVID-19 [facility] Blood Type Antibody Screen 06/25/22 06/25/22 06/26/22 17:49 21:07 05:59 WBC 21.2 H RBC 3.17 L Hgb 8.8 L Hct 27.6 L MCV 87.1 MCH 27.8 MCHC 31.9 RDW 15.7 Plt Count 347 MPV 10.9 Immature Gran % (Auto) Neut % (Auto) Lymph % (Auto) [place] % (Auto) Eos % (Auto) Baso % (Auto) Lymph # (Auto) [place] # (Auto) Eos # (Auto) Baso # (Auto) Abs Immat Gran (auto) Absolute Neuts (auto) Absolute Nucleated RBC 0.000 Nucleated RBC % (auto) 0.0 PT INR APTT Sodium Potassium Chloride Carbon Dioxide Anion Gap BUN Creatinine Estim Creat Clear Calc Estimated GFR POC Glucose 251 H 195 H Random Glucose Lactic Acid Lactic Acid F/U @ 2Hr Lactic Acid F/U @ 4Hr Calcium Magnesium Total Bilirubin AST ALT Alkaline Phosphatase Troponin I High Sens B-Natriuretic Peptide Total Protein Albumin Urine Color Urine Appearance Urine pH Ur Specific [place] Urine Protein Urine Glucose (UA) Urine Ketones Urine Blood Urine Nitrite Ur Leukocyte Esterase Urine RBC Urine WBC Ur Squamous Epith Cells Urine Bacteria Hyaline Casts Stool Occult Blood COVID-19 (SYL) COVID-19 [facility] Blood Type Antibody Screen 06/26/22 06/26/22 05:59 06:57 WBC RBC Hgb Hct MCV MCH MCHC RDW Plt Count MPV Immature Gran % (Auto) Neut % (Auto) Lymph % (Auto) [place] % (Auto) Eos % (Auto) Baso % (Auto) Lymph # (Auto) [place] # (Auto) Eos # (Auto) Baso # (Auto) Abs Immat Gran (auto) Absolute Neuts (auto) Absolute Nucleated RBC Nucleated RBC % (auto) PT INR APTT Sodium 137 Potassium 5.2 H Chloride 103 Carbon Dioxide 22 Anion Gap 17 BUN 22 H Creatinine 1.14 Estim Creat Clear Calc 31.0 Estimated GFR 46 POC Glucose 249 H Random Glucose 261 H Lactic Acid Lactic Acid F/U @ 2Hr Lactic Acid F/U @ 4Hr Calcium 8.6 Magnesium Total Bilirubin AST ALT Alkaline Phosphatase Troponin I High Sens B-Natriuretic Peptide Total Protein Albumin Urine Color Urine Appearance Urine pH Ur Specific [place] Urine Protein Urine Glucose (UA) Urine Ketones Urine Blood Urine Nitrite Ur Leukocyte Esterase Urine RBC Urine WBC Ur Squamous Epith Cells Urine Bacteria Hyaline Casts Stool Occult Blood COVID-19 (SYL) COVID-19 Clin [facility] Blood Type Antibody Screen Airway Mallampati Class: II TM Dist: >3cm Neck ROM: Full Loose/Missing/Broken Teeth: No Heart: RRR Lungs: CTA Assessment and Plan Assessment Anesthesia Assessment: Anesthesia Plan Discussed Final Anesthetic Review Family History of Problems with Anesthesia: No NPO: Yes ASA Class: III and Emergency Final Preanesthetic Review: No Changes in Pt Med Stat, Meds/Allgs Chart Reviewed and Anes Risks/Benef Reviewed Patient Risk: Intermediate Procedure Risk: Low Anesthetic Plan Anesthetic Plan: MAC: Disposition: Standard PACU
--- NOTE | 2022-06-26 12:49 | W.PM.OPN ---
Operative Note Operative Note Date of Service: 06/26/22 Narrative: Procedure: Esophagogastroduodenoscopy Endoscopist: Beryl Long MD Indication: GI Bleed Anesthesia Provider: Dr Filiberto Levy Anesthesia Type: MAC EGD Procedure:?? The procedure, indications, preparation and potential complications were reviewed with the patient in Armenian, who indicated understanding and gave written informed consent to proceed. A physical exam was performed. The endoscope was introduced through the mouth, and advanced to the second part of duodenum. The mucosa was carefully examined on slow withdrawal of the endoscope. The patient tolerated the procedure well. There were no immediate complications.? EGD Findings:? ? Esophagus:? Normal mucosa noted in the entire esophagus. The Z line was at 30 cm. Hiatal hernia was noted with diaphragmatic pinch at 35 cm ? Stomach:? Normal mucosa was noted in the stomach. Size and morphology of hiatal hernia confirmed on retroflexion. ? Duodenum:? Normal mucosa was noted in the whole of the examined duodenum. EGD Impressions:? ? Normal esophagus ? Hiatal hernia ? Normal stomach ? Normal duodenum Recommendations:?? ? Can resume low fiber diet today. ? Monitor CBC. Decision to pursue colonoscopy inpatient vs outpatient will depend on overall clinical course. ? Follow results of iron panel.
[2022-06-26 13:55] LABS: Glucose, Whole Blood 134 mg/dL (60-115)
--- NOTE | 2022-06-26 13:58 | PC.NURSE ---
Patient returned from OR from EGD . A/O X4 . Son at bedside to interpret , NPO d/c . patient able to eat . D/C D5 fluids ASSISTANT PROFESSOR OF SURGERY Porfirio made aware .No new orders at this time . Family and patient aware of plan of care .
--- NOTE | 2022-06-26 16:19 | MHC.CM.PN ---
Received notification from Nazia in registration that patient's son, Paxton, would like patient to complete a HCP. Met with patient and son. Patient is currently sleeping. Paxton is aware patient will need to sign HCP. Paxton verbalizes understanding. Will attempt to meet with patient at a later time.
[2022-06-26 18:28] LABS: Glucose, Whole Blood 327 mg/dL (60-115)
[2022-06-26] MEDS: cefTRIAXone sodium 1 GM in 0.9 % Sodium Chloride 50 ML IV (19:44)
[2022-06-26] MEDS: Montelukast Sodium 10 MG TABLET PO (20:45)
[2022-06-26] MEDS: Atorvastatin Calcium 80 MG TABLET PO (20:45)
[2022-06-26] MEDS: Insulin Lispro 100 UNIT/ML 3 ML VIAL SUBCUT (20:48)
[2022-06-26 21:55] LABS: Glucose, Whole Blood 305 mg/dL (60-115)
[2022-06-27] VITALS (10 sets, daily range): BP systolic 132–189; BP diastolic 60–84; PULSE 61–93; RESP 16–19; TEMP 36.3–36.9; O2SAT 92–100; BMI 32.1
[2022-06-27] MEDS: methylPREDNISolone Sod Succ 40 MG/ML VIAL IVPUSH ×3 (05:14→21:26)
[2022-06-27] MEDS: Pantoprazole Sodium 40 MG/10 ML VIAL IVPUSH (05:14)
[2022-06-27 07:55] LABS: Glucose, Whole Blood 288 mg/dL (60-115)
[2022-06-27 08:15] LABS: Hematocrit 26.8 % (37.0-47.0); Hemoglobin 8.5 g/dl (12.0-16.0); Mean Corpuscular HGB Conc 31.7 g/dl (31.0-35.0); Mean Corpuscular Hemoglobin 27.5 pg (27.0-33.0); Mean Corpuscular Volume 86.7 fL (80.0-98.0); Mean Platelet Volume 10.1 fL (9.4-12.3); Platelet Count 328 X10*3/uL (160-400); Red Blood Count 3.09 X10*6/uL (4.20-5.50); Red Cell Distribution Width 15.5 % (11.0-16.0); White Blood Count 17.4 X10*3/uL (4.8-10.8)
[2022-06-27] MEDS: Azithromycin 500 MG TABLET PO (08:32)
[2022-06-27] MEDS: 0.9 % Sodium Chloride Flush 3 ML SYRINGE IVFLUSH (08:32)
[2022-06-27] MEDS: amLODIPine Besylate 5 MG TABLET PO (08:32)
[2022-06-27] MEDS: Losartan Potassium 50 MG TABLET 100 MG PO (08:32)
[2022-06-27] MEDS: Metoprolol Tartrate 25 MG TABLET PO ×2 (08:32→21:23)
[2022-06-27 08:33] LABS: Iron 18 mcg/dL (30-160); Percent Iron Saturation 5 % (15-50); Total Iron Binding Capacity 349 mcg/dL (228-428); Unsaturated Iron Binding 331 ug/dL
--- NOTE | 2022-06-27 09:30 | P.PNIM_ITS ---
Subjective Subjective Date of Service: 06/27/22 <Yandy Monroy NP - Last Filed: 06/27/22 09:54> 06/27/22 <Eric Tapia MD - Last Filed: 06/27/22 15:15> Interval History: Follow-up for pneumonia, atrial fibrillation discussed with patient's son as she does not speak Malay <Yandy Monroy NP - Last Filed: 06/27/22 09:54> Review of Systems Review of Systems: Yes Other (Language barrier) <Yandy Monroy NP - Last Filed: 06/27/22 09:54> Physical Exam Vital Signs: Vital Signs: Last Vital Signs Temp 97.7 F 06/27/22 07:44 Pulse 70 06/27/22 07:44 Resp 19 06/27/22 07:44 BP 180/83 H 06/27/22 07:44 Pulse Ox 97 06/27/22 07:44 O2 Del Method 06/27/22 07:44 O2 Flow Rate 2 06/27/22 07:44 BMI result Body Mass Index 32.1 <Yandy Monroy NP - Last Filed: 06/27/22 09:54> Appearing in no acute distress lung sounds exp wheezing heart regular rate rhythm, clear S1, S2 positive bowel sounds, abdomen is soft, nontender neuro patient is alert x3, no focal deficits <Yandy Monroy NP - Last Filed: 06/27/22 09:54> Objective Data Active Medications Acetaminophen (Acetaminophen 325 Mg Tablet) 650 mg PO Q6H PRN PRN Reason: Pain, Mild (Pain Scale 1-3) Amlodipine Besylate (Amlodipine Besylate 5 Mg Tablet) 5 mg PO DAILY [facility]; Pro tocol Last Admin: 06/27/22 08:32 Dose: 5 mg Documented By: DEVORAH Atorvastatin Calcium (Atorvastatin Calcium 80 Mg Tablet) 80 mg PO BEDTIME [facility] Last Admin: 06/26/22 20:45 Dose: 80 mg Documented By: ARIAN Azithromycin (Azithromycin 500 Mg Tablet) 500 mg PO Q24H [facility] Last Admin: 06/27/22 08:32 Dose: 500 mg Documented By: DEVORAH Dextrose (Dextrose 50 % 25 Gm/50 Ml Syringe) 25 gm IVPUSH Q15M PRN; Protocol PRN Reason: per Hypoglycemia Standing Ord. Glucose (Glucose Gel 15 Gm Gel..Gram.) 15 gm PO Q15M PRN; Protocol PRN Reason: per Hypoglycemia Standing Ord. Ceftriaxone Sodium 1 gm/ (Sodium Chloride) 50 mls @ 100 mls/hr IV Q24H [facility] Last Infusion: 06/26/22 20:47 Dose: 0 mls/hr Documented By: ARIAN Insulin Human Lispro (Insulin Lispro 100 Unit/Ml 3 Ml Vial) 0 unit SUBCUT QIDACHS [facility]; Protocol Last Admin: 06/27/22 08:32 Dose: Not Given Documented By: DEVORAH Non-Admin Reason: NPO Levalbuterol HCl (Levalbuterol Hcl 1.25 Mg/0.5 Ml Vial.Neb) 1.25 mg INHALE RQ4H WHILE AWAKE [facility] Last Admin: 06/26/22 19:10 Dose: 1.25 mg Documented By: GURMEET Levalbuterol HCl (Levalbuterol Hcl 1.25 Mg/0.5 Ml Vial.Neb) 1.25 mg INHALE Q4H PRN PRN Reason: shortness of breath/wheezing Losartan Potassium (Losartan Potassium 50 Mg Tablet) 100 mg PO DAILY [facility]; Protocol Last Admin: 06/27/22 08:32 Dose: 100 mg Documented By: DEVORAH Melatonin (Melatonin 3 Mg Tablet) 6 mg PO BEDTIME PRN PRN Reason: Insomnia Methylprednisolone Sodium Succinate (Methylprednisolone Sod Succ 40 Mg/Ml Vial) 40 mg IVPUSH Q8H [facility] Last Admin: 06/27/22 05:14 Dose: 40 mg Documented By: VICTORINA Metoprolol Tartrate (Metoprolol Tartrate 25 Mg Tablet) 25 mg PO BID [facility]; Protocol Last Admin: 06/27/22 08:32 Dose: 25 mg Documented By: DEVORAH Montelukast Sodium (Montelukast Sodium 10 Mg Tablet) 10 mg PO BEDTIME [facility] Last Admin: 06/26/22 20:45 Dose: 10 mg Documented By: ARIAN Pantoprazole Sodium (Pantoprazole Sodium 40 Mg/10 Ml Vial) 40 mg IVPUSH BID@0630,1630 [facility] Last Admin: 06/27/22 05:14 Dose: 40 mg Documented By: VICTORINA Pharmacy Consult (Consult Rx Perform Med Rec) 1 each MISCELLANE ONCE PRN PRN Reason: Consult order Senna (Sennosides 8.6 Mg Tablet) 17.2 mg PO BEDTIME PRN PRN Reason: Constipation Sodium Chloride (0.9 % Sodium Chloride Flush 3 Ml Syringe) 3 ml IVFLUSH QSHIFT [facility] Last Admin: 06/27/22 08:32 Dose: 3 ml Documented By: DEVORAH <Yandy Monroy NP - Last Filed: 06/27/22 09:54> Labs CBC & Chem 7: : 06/27/22 08:03 06/27/22 08:03 <Yandy Monroy NP - Last Filed: 06/27/22 09:54> Labs: Laboratory Results - last 24 hr 06/26/22 06/26/22 06/26/22 13:51 18:22 21:51 MCV MCH MCHC RDW Plt Count MPV Absolute Nucleated RBC Nucleated RBC % (auto) POC Glucose 134 H 327 H 305 H Iron TIBC % Saturation Unsat Iron Binding 06/27/22 06/27/22 06/27/22 07:46 08:03 08:03 MCV 86.7 MCH 27.5 MCHC 31.7 RDW 15.5 Plt Count 328 MPV 10.1 Absolute Nucleated RBC 0.000 Nucleated RBC % (auto) 0.0 POC Glucose 288 H Iron 18 L TIBC 349 % Saturation 5 L Unsat Iron Binding 331 <Yandy Monroy NP - Last Filed: 06/27/22 09:54> Microbiology Microbiology Results: Microbiology 06/24/22 17:28 Blood Culture - Preliminary Blood - Venous No growth after 48 hours. 06/24/22 17:28 Blood Culture - Preliminary Blood - Venous No growth after 48 hours. 06/24/22 Unknown Urine Culture - Final Urine clean catch - Urine potter top No growth. <Yandy Monroy NP - Last Filed: 06/27/22 09:54> Assessment and Plan (1) Left bundle branch block: Status: Acute <Yandy Monroy NP - Last Filed: 06/27/22 09:54> (2) CAD (coronary artery disease): Status: Acute <Yandy Monroy NP - Last Filed: 06/27/22 09:54> (3) Pneumonia: Status: Acute <Yandy Monroy NP - Last Filed: 06/27/22 09:54> Assessment and Plan: This is an 81-year-old Wallisian female (karyna Narayanan) with a past medical history of hypertension, hyperlipidemia, diabetes, CAD, asthma, history of hemorrhoids; presented to the hospital today with a chief complaint of shortness of breath found to have pneumonia and atrial fibrillation Acute asthma exacerbation. Still with expiratory wheezing Continue Xopenex secondary to AFib Continue Solu-Medrol Supplemental oxygen as needed Community-acquired pneumonia, likely gram + or gram - No sepsis, tachycardia from aflutter, elevated lactic acid likely from breathing treatments Chest x-ray showed findings concerning for pneumonia/ atelectasis continue ceftriaxone/Azithromycin check rpp Guaiac positive stool Patient has recent admission to [facility] for hemorrhoidal bleed. H/H seems to be stable; 8.07/06 on 06/17 according to records from [facility] Seen examined by Gastroenterology, normal endoscopy change to oral PPI Low iron noted, add iron supplementation UTI UA w/ leuk esterase and white cells but no bacteria Urine culture no growth Paroxysmal atrial flutter HR up to 140s given IV lopressor and continue home dose of lopressor 25 bid, uptitrate prn Normal EF 55-60% with no wall motion abnormalities, left bundle branch block, unknown duration cardiology following no AC at this time due to heme + stools Elevated troponins trops flat likely related to demand from aflutter/acute illness Hyperkalemia Give Lokelma Follow BMP DM Insulin sliding scale CAD continue BB, statin HTN continue losartan norvasc added for better BP control DVT prophylaxis: CHAD mendoza attending - dr. Tapia Patient requires ongoing inpatient hospitalization for management of pneumonia, rapid atrial flutter and close monitoring of H/H <Yandy Monroy NP - Last Filed: 06/27/22 09:54> Quality Stroke Does the patient have a stroke diagnosis?: No <Yandy Monroy NP - Last Filed: 06/27/22 09:54> VTE Prior VTE?: No <Yandy Monroy NP - Last Filed: 06/27/22 09:54> VTE Risk Level:: Medical - moderate - high <Yandy Monroy NP - Last Filed: 06/27/22 09:54> VTE Device Contraindication: N/A - Device Ordered <Yandy Monroy NP - Last Filed: 06/27/22 09:54> VTE Drug Contraindication: Treatment Not Indicated <Yandy Monroy NP - Last Filed: 06/27/22 09:54>
[2022-06-27 10:18] LABS: Anion Gap 17 (12-20); Blood Urea Nitrogen 33 mg/dL (9-16); Calcium 8.5 mg/dL (8.4-10.2); Carbon Dioxide 21 mmol/L (22-29); Chloride 102 mmol/L (96-108); Estimated Glomerular Filt Rate 37; Glucose Random 324 mg/dL (60-115); Potassium 5.2 mmol/L (3.3-5.1); Sodium 135 mmol/L (135-145)
[2022-06-27 11:54] LABS: Glucose, Whole Blood 260 mg/dL (60-115)
[2022-06-27] MEDS: Ferrous Sulfate 324 MG TABLET.DR PO (12:04)
[2022-06-27] MEDS: Insulin Lispro 100 UNIT/ML 3 ML VIAL SUBCUT ×3 (12:04→21:27)
[2022-06-27 13:50] LABS: Adenovirus PCR Not Detected (Not Detect.); Bordetella parapertussis PCR Not Detected (Not Detect.); Bordetella pertussis PCR Not Detected (Not Detect.); Chlamydia pneumoniae PCR Not Detected (Not Detect.); Coronavirus 229E PCR Not Detected (Not Detect.); Coronavirus HKU1 PCR Not Detected (Not Detect.); Coronavirus NL63 PCR Not Detected (Not Detect.); Coronavirus OC43 PCR Not Detected (Not Detect.); Human metapneumovirus PCR Not Detected (Not Detect.); Influenza A PCR Not Detected (Not Detect.); Influenza B PCR Not Detected (Not Detect.); Mycoplasma pneumoniae PCR Not Detected (Not Detect.); Parainfluenza 1 PCR Not Detected (Not Detect.); Parainfluenza 2 PCR Not Detected (Not Detect.); Parainfluenza 3 PCR Not Detected (Not Detect.); Parainfluenza 4 PCR Not Detected (Not Detect.); RSV PCR Not Detected (Not Detect.); Rhino/Enterovirus PCR Detected (Not Detect.); SARS-CoV-2 PCR Not Detected (Not Detect.)
[2022-06-27 16:34] LABS: Glucose, Whole Blood 361 mg/dL (60-115)
[2022-06-27] MEDS: Omeprazole 20 MG CAPSULE.DR PO (18:33)
[2022-06-27 19:40] LABS: Glucose, Whole Blood 319 mg/dL (60-115)
[2022-06-27] MEDS: cefTRIAXone sodium 1 GM in 0.9 % Sodium Chloride 50 ML IV (20:00)
[2022-06-27] MEDS: Atorvastatin Calcium 80 MG TABLET PO (21:23)
[2022-06-27] MEDS: Montelukast Sodium 10 MG TABLET PO (21:23)
[2022-06-28] VITALS (8 sets, daily range): BP systolic 136–174; BP diastolic 62–74; PULSE 65–78; RESP 14–22; TEMP 36.2–37.5; O2SAT 93–99
[2022-06-28] MEDS: Azithromycin 500 MG TABLET PO (06:08)
[2022-06-28] MEDS: Omeprazole 20 MG CAPSULE.DR PO ×2 (06:08→17:20)
[2022-06-28] MEDS: methylPREDNISolone Sod Succ 40 MG/ML VIAL IVPUSH ×3 (06:08→20:39)
[2022-06-28 07:27] LABS: Glucose, Whole Blood 200 mg/dL (60-115)
[2022-06-28 07:53] LABS: Anion Gap 16 (12-20); Blood Urea Nitrogen 37 mg/dL (9-16); Calcium 8.4 mg/dL (8.4-10.2); Carbon Dioxide 22 mmol/L (22-29); Chloride 104 mmol/L (96-108); Creatinine Clr Calc Pharmacy 29.2; Estimated Glomerular Filt Rate 40; Glucose Random 211 mg/dL (60-115); Potassium 5.6 mmol/L (3.3-5.1); Sodium 136 mmol/L (135-145)
[2022-06-28] MEDS: amLODIPine Besylate 5 MG TABLET PO (09:01)
[2022-06-28] MEDS: 0.9 % Sodium Chloride Flush 3 ML SYRINGE IVFLUSH ×2 (09:02→17:20)
[2022-06-28] MEDS: Sodium Zirconium Cyclosilicate 10 GM POWD.PACK PO (09:02)
[2022-06-28] MEDS: Ferrous Sulfate 324 MG TABLET.DR PO (09:02)
[2022-06-28] MEDS: Metoprolol Tartrate 25 MG TABLET PO ×2 (09:02→20:48)
[2022-06-28] MEDS: Insulin Lispro 100 UNIT/ML 3 ML VIAL SUBCUT ×4 (09:02→20:39)
[2022-06-28] MEDS: Losartan Potassium 50 MG TABLET 100 MG PO (09:02)
--- NOTE | 2022-06-28 10:00 | MHC.CM.PN ---
Female AFIB PNA DP Home with family assist and transport. Patient continues to require INPT care for IV Steroids.
[2022-06-28 10:54] LABS: Glucose, Whole Blood 348 mg/dL (60-115)
--- NOTE | 2022-06-28 11:21 | HO.PM.IMPN ---
Subjective Subjective Date of Service: 06/28/22 Interval History: Follow-up for pneumonia, atrial fibrillation discussed with patient's son as she does not speak [place] Review of Systems Review of Systems: Yes Other (Language barrier) Physical Exam Vital Signs: Vital Signs: Last Vital Signs Temp 97.7 F 06/28/22 07:16 Pulse 78 06/28/22 09:23 Resp 18 06/28/22 09:23 BP 174/74 H 06/28/22 07:16 Pulse Ox 99 06/28/22 07:16 O2 Del Method 06/28/22 07:16 O2 Flow Rate 2 06/28/22 07:16 BMI result Body Mass Index 32.1 Appearing in no acute distress lung sounds are clear to auscultation heart regular rate rhythm, clear S1, S2 positive bowel sounds, abdomen is soft, nontender neuro patient is alert x3, no focal deficits Objective Data Active Medications Acetaminophen (Acetaminophen 325 Mg Tablet) 650 mg PO Q6H PRN PRN Reason: Pain, Mild (Pain Scale 1-3) Amlodipine Besylate (Amlodipine Besylate 5 Mg Tablet) 5 mg PO DAILY [facility]; Protocol Last Admin: 06/28/22 09:01 Dose: 5 mg Documented By: NOA Atorvastatin Calcium (Atorvastatin Calcium 80 Mg Tablet) 80 mg PO BEDTIME DINA Last Admin: 06/27/22 21:23 Dose: 80 mg Documented By: DEVORAH Azithromycin (Azithromycin 500 Mg Tablet) 500 mg PO Q24H [facility] Last Admin: 06/28/22 06:08 Dose: 500 mg Documented By: CJ Dextrose (Dextrose 50 % 25 Gm/50 Ml Syringe) 25 gm IVPUSH Q15M PRN; Protocol PRN Reason: per Hypoglycemia Standing Ord. Ferrous Sulfate (Ferrous Sulfate 324 Mg Tablet.) 324 mg PO DAILY [facility] Last Admin: 06/28/22 09:02 Dose: 324 mg Documented By: NOA Glucose (Glucose Gel 15 Gm Gel..Gram.) 15 gm PO Q15M PRN; Protocol PRN Reason: per Hypoglycemia Standing Ord. Ceftriaxone Sodium 1 gm/ (Sodium Chloride) 50 mls @ 100 mls/hr IV Q24H [facility] Last Infusion: 06/27/22 20:40 Dose: 0 mls/hr Documented By: DEVORAH Insulin Human Lispro (Insulin Lispro 100 Unit/Ml 3 Ml Vial) 0 unit SUBCUT QIDACHS [facility]; Protocol Last Admin: 06/28/22 09:02 Dose: 2 unit Documented By: NOA Levalbuterol HCl (Levalbuterol Hcl 1.25 Mg/0.5 Ml Vial.Neb) 1.25 mg INHALE RQ4H WHILE AWAKE [facility] Last Admin: 06/28/22 11:10 Dose: Not Given Documented By: LEVAR Non-Admin Reason: udn given at 929 Levalbuterol HCl (Levalbuterol Hcl 1.25 Mg/0.5 Ml Vial.Neb) 1.25 mg INHALE Q4H PRN PRN Reason: shortness of breath/wheezing Losartan Potassium (Losartan Potassium 50 Mg Tablet) 100 mg PO DAILY [facility]; Protocol Last Admin: 06/28/22 09:02 Dose: 100 mg Documented By: NOA Melatonin (Melatonin 3 Mg Tablet) 6 mg PO BEDTIME PRN PRN Reason: Insomnia Methylprednisolone Sodium Succinate (Methylprednisolone Sod Succ 40 Mg/Ml Vial) 40 mg IVPUSH Q8H [facility] Last Admin: 06/28/22 06:08 Dose: 40 mg Documented By: CJ Metoprolol Tartrate (Metoprolol Tartrate 25 Mg Tablet) 25 mg PO BID [facility]; Protocol Last Admin: 06/28/22 09:02 Dose: 25 mg Documented By: NOA Montelukast Sodium (Montelukast Sodium 10 Mg Tablet) 10 mg PO BEDTIME [facility] Last Admin: 06/27/22 21:23 Dose: 10 mg Documented By: DEVORAH Omeprazole (Omeprazole 20 Mg Capsule.) 20 mg PO BID@0630,1630 [facility] Last Admin: 06/28/22 06:08 Dose: 20 mg Documented By: CJ Pharmacy Consult (Consult Rx Perform Med Rec) 1 each MISCELLANE ONCE PRN PRN Reason: Consult order Senna (Sennosides 8.6 Mg Tablet) 17.2 mg PO BEDTIME PRN PRN Reason: Constipation Sodium Chloride (0.9 % Sodium Chloride Flush 3 Ml Syringe) 3 ml IVFLUSH QSHIFT [facility] Last Admin: 06/28/22 09:02 Dose: 3 ml Documented By: NOA Labs CBC & Chem 7: 06/27/22 08:03 06/28/22 06:36 Labs: Laboratory Results - last 24 hr 06/27/22 06/27/22 06/27/22 11:48 12:00 16:26 Anion Gap Estim Creat Clear Calc Estimated GFR POC Glucose 260 H 361 H* Random Glucose Calcium Respiratory Panel Jerez See Note Adenovirus (Rapid PCR) Not Detected B.pert (TEM-PCR) Not Detected B.parapertussis DNA PCR Not Detected C. pneumoniae DNA (PCR) Not Detected Coronavirus OC43 (PCR) Not Detected Coronavirus HKU1 (PCR) Not Detected Coronavirus 229E (PCR) Not Detected Coronavirus NL63 (PCR) Not Detected Human Metapneumovir PCR Not Detected Influenza A (RT-PCR) Not Detected Influenza B (RT-PCR) Not Detected M. pneumoniae (PCR) Not Detected Parainfluenza 1 (PCR) Not Detected Parainfluenza 2 (PCR) Not Detected Parainfluenza 3 (PCR) Not Detected Parainfluenza 4 (PCR) Not Detected RSV (PCR) Not Detected Entero/Rhino (PCR) Detected A SARS-CoV-2 RNA (RT-PCR) Not Detected 06/27/22 06/28/22 06/28/22 19:35 06:36 07:09 Anion Gap 16 Estim Creat Clear Calc 29.2 Estimated GFR 40 POC Glucose 319 H 200 H Random Glucose 211 H Calcium 8.4 Respiratory Panel Jerez Adenovirus (Rapid PCR) B.pert (TEM-PCR) B.parapertussis DNA PCR C. pneumoniae DNA (PCR) Coronavirus OC43 (PCR) Coronavirus HKU1 (PCR) Coronavirus 229E (PCR) Coronavirus NL63 (PCR) Human Metapneumovir PCR Influenza A (RT-PCR) Influenza B (RT-PCR) M. pneumoniae (PCR) Parainfluenza 1 (PCR) Parainfluenza 2 (PCR) Parainfluenza 3 (PCR) Parainfluenza 4 (PCR) RSV (PCR) Entero/Rhino (PCR) SARS-CoV-2 RNA (RT-PCR) 06/28/22 10:49 Anion Gap Estim Creat Clear Calc Estimated GFR POC Glucose 348 H Random Glucose Calcium Respiratory Panel Jeerz Adenovirus (Rapid PCR) B.pert (TEM-PCR) B.parapertussis DNA PCR C. pneumoniae DNA (PCR) Coronavirus OC43 (PCR) Coronavirus HKU1 (PCR) Coronavirus 229E (PCR) Coronavirus NL63 (PCR) Human Metapneumovir PCR Influenza A (RT-PCR) Influenza B (RT-PCR) M. pneumoniae (PCR) Parainfluenza 1 (PCR) Parainfluenza 2 (PCR) Parainfluenza 3 (PCR) Parainfluenza 4 (PCR) RSV (PCR) Entero/Rhino (PCR) SARS-CoV-2 RNA (RT-PCR) Assessment and Plan (1) Left bundle branch block: Status: Acute (2) CAD (coronary artery disease): Status: Acute (3) Pneumonia: Status: Acute Plan This is an 81-year-old Hungarian female (speaks [place]) with a past medical history of hypertension, hyperlipidemia, diabetes, CAD, asthma, history of hemorrhoids; presented to the hospital today with a chief complaint of shortness of breath found to have pneumonia and atrial fibrillation Acute asthma exacerbation. Still with expiratory wheezing but improving Continue Xopenex secondary to AFib Continue Solu-Medrol Supplemental oxygen as needed Community-acquired pneumonia, likely gram + or gram - No sepsis, tachycardia from aflutter, elevated lactic acid likely from breathing treatments Chest x-ray showed findings concerning for pneumonia/ atelectasis continue ceftriaxone/Azithromycin RVP positive for enterovirus/rhinovirus Guaiac positive stool Patient [place] [facility] [place]. H/H seems to be stable; 8.07/06 on 06/17 according to records [place] [facility] [place] Seen examined by Gastroenterology, normal endoscopy change to oral PPI Low iron noted, iron supplementation added Plan for outpatient colonoscopy, okay to start Eliquis as per Dr. Long UTI UA w/ leuk esterase and white cells but no bacteria Urine culture no growth Paroxysmal atrial flutter HR up to 140s at one time given IV lopressor and continue home dose of lopressor 25 bid, uptitrate prn Normal EF 55-60% with no wall motion abnormalities, left bundle branch block, unknown duration cardiology following Okay to start Eliquis as per safety leader Elevated troponins trops flat likely related to demand from aflutter/acute illness Hyperkalemia. 5.6 Give Lokelma Follow BMP DM Insulin sliding scale CAD continue BB, statin HTN continue losartan norvasc added for better BP control DVT prophylaxis: SCD boots attending Dr. Hernandez Patient requires ongoing inpatient hospitalization for management of pneumonia, rapid atrial flutter and close monitoring of H/H Quality Stroke Does the patient have a stroke diagnosis?: No VTE Prior VTE?: No VTE Risk Level:: Medical - moderate - high VTE Device Contraindication: N/A - Device Ordered VTE Drug Contraindication: Treatment Not Indicated
--- NOTE | 2022-06-28 12:08 | HO.POSTANES ---
Post Anesthesia Evaluation Post Anesthesia Evaluation Vital Signs: Vital Signs Temp Pulse Resp BP Pulse Ox O2 Del Method O2 Flow Rate 06/28/22 11:36 98.1 F 66 20 160/69 H 98 Nasal Cannula 2 06/28/22 09:23 78 18 06/28/22 07:16 97.7 F 65 16 174/74 H 99 Nasal Cannula 2 06/28/22 03:47 97.6 F 70 16 170/72 H 94 Room Air Anesthesia: Monitored Mental Status: Awake Pain Control: Satisfactory Nausea/Vomiting: None Hydration: Adequate Anesthesia-Related Issues: No Anes. Related Issues
[2022-06-28 16:24] LABS: Glucose, Whole Blood 258 mg/dL (60-115)
[2022-06-28] MEDS: cefTRIAXone sodium 1 GM in 0.9 % Sodium Chloride 50 ML IV (20:39)
[2022-06-28] MEDS: Montelukast Sodium 10 MG TABLET PO (20:47)
[2022-06-28] MEDS: Atorvastatin Calcium 80 MG TABLET PO (20:47)
[2022-06-28 20:53] LABS: Glucose, Whole Blood 183 mg/dL (60-115)
[2022-06-29] VITALS (7 sets, daily range): BP systolic 142–180; BP diastolic 70–91; PULSE 62–68; RESP 17–20; TEMP 36.9–37.7; O2SAT 95–98
[2022-06-29 07:53] LABS: Glucose, Whole Blood 274 mg/dL (60-115)
[2022-06-29] MEDS: methylPREDNISolone Sod Succ 40 MG/ML VIAL IVPUSH ×3 (08:37→20:22)
[2022-06-29] MEDS: amLODIPine Besylate 5 MG TABLET PO ×2 (08:38→13:24)
[2022-06-29] MEDS: Omeprazole 20 MG CAPSULE.DR PO ×2 (08:38→18:35)
[2022-06-29] MEDS: Metoprolol Tartrate 25 MG TABLET PO ×2 (08:38→20:26)
[2022-06-29] MEDS: Losartan Potassium 50 MG TABLET 100 MG PO (08:38)
[2022-06-29] MEDS: Azithromycin 500 MG TABLET PO (08:38)
[2022-06-29] MEDS: Ferrous Sulfate 324 MG TABLET.DR PO (08:38)
[2022-06-29] MEDS: 0.9 % Sodium Chloride Flush 3 ML SYRINGE IVFLUSH ×3 (08:39→20:27)
[2022-06-29 09:23] LABS: Hematocrit 28.6 % (37.0-47.0); Hemoglobin 9.2 g/dl (12.0-16.0); Mean Corpuscular HGB Conc 32.2 g/dl (31.0-35.0); Mean Corpuscular Hemoglobin 27.8 pg (27.0-33.0); Mean Corpuscular Volume 86.4 fL (80.0-98.0); Mean Platelet Volume 10.3 fL (9.4-12.3); NRBC Pct Auto 0.2 /100WBC (0.0-0.2); Platelet Count 324 X10*3/uL (160-400); Red Blood Count 3.31 X10*6/uL (4.20-5.50); Red Cell Distribution Width 15.1 % (11.0-16.0); White Blood Count 12.8 X10*3/uL (4.8-10.8)
[2022-06-29 09:56] LABS: Anion Gap 15 (12-20); Blood Urea Nitrogen 35 mg/dL (9-16); Calcium 8.3 mg/dL (8.4-10.2); Carbon Dioxide 25 mmol/L (22-29); Chloride 104 mmol/L (96-108); Creatinine Clr Calc Pharmacy 32.2; Estimated Glomerular Filt Rate 45; Glucose Random 388 mg/dL (60-115); Potassium 4.5 mmol/L (3.3-5.1); Sodium 139 mmol/L (135-145)
[2022-06-29 11:32] LABS: Glucose, Whole Blood 316 mg/dL (60-115)
[2022-06-29] MEDS: Insulin Lispro 100 UNIT/ML 3 ML VIAL SUBCUT ×2 (11:57→20:56)
--- NOTE | 2022-06-29 12:13 | HO.PM.IMPN ---
Subjective Subjective Date of Service: 06/29/22 Interval History: Follow-up for pneumonia, atrial fibrillation discussed with patient's son as she does not speak Scottish Review of Systems Review of Systems: Yes Other (Language barrier) Physical Exam Vital Signs: Vital Signs: Last Vital Signs Temp 98.5 F 06/29/22 11:24 Pulse 62 06/29/22 11:24 Resp 17 06/29/22 11:24 BP 178/78 H 06/29/22 11:24 Pulse Ox 96 06/29/22 11:24 O2 Del Method 06/29/22 11:24 O2 Flow Rate 2 06/29/22 11:24 BMI result Body Mass Index 32.1 Appearing in no acute distress lung sounds are clear to auscultation heart regular rate rhythm, clear S1, S2 positive bowel sounds, abdomen is soft, nontender neuro patient is alert Objective Data Active Medications Acetaminophen (Acetaminophen 325 Mg Tablet) 650 mg PO Q6H PRN PRN Reason: Pain, Mild (Pain Scale 1-3) Amlodipine Besylate (Amlodipine Besylate 10 Mg Tablet) 10 mg PO DAILY [facility]; Protocol Amlodipine Besylate (Amlodipine Besylate 5 Mg Tablet) 5 mg PO ONCE ONE; Protocol Stop: 06/29/22 12:13 Atorvastatin Calcium (Atorvastatin Calcium 80 Mg Tablet) 80 mg PO BEDTIME [facility] Last Admin: 06/28/22 20:47 Dose: 80 mg Documented By: KATINA Azithromycin (Azithromycin 500 Mg Tablet) 500 mg PO Q24H [facility] Last Admin: 06/29/22 08:38 Dose: 500 mg Documented By: DEVORAH Dextrose (Dextrose 50 % 25 Gm/50 Ml Syringe) 25 gm IVPUSH Q15M PRN; Protocol PRN Reason: per Hypoglycemia Standing Ord. Ferrous Sulfate (Ferrous Sulfate 324 Mg Tablet.) 324 mg PO DAILY [facility] Last Admin: 06/29/22 08:38 Dose: 324 mg Documented By: DEVORAH Glucose (Glucose Gel 15 Gm Gel..Gram.) 15 gm PO Q15M PRN; Protocol PRN Reason: per Hypoglycemia Standing Ord. Ceftriaxone Sodium 1 gm/ (Sodium Chloride) 50 mls @ 100 mls/hr IV Q24H [facility] Last Infusion: 06/28/22 21:10 Dose: 0 mls/hr Documented By: KATINA Insulin Human Lispro (Insulin Lispro 100 Unit/Ml 3 Ml Vial) 0 unit SUBCUT QIDACHS [facility]; Protocol Last Admin: 06/29/22 11:57 Dose: 8 unit Documented By: DEVORAH Levalbuterol HCl (Levalbuterol Hcl 1.25 Mg/0.5 Ml Vial.Neb) 1.25 mg INHALE RQ4H WHILE AWAKE [facility] Last Admin: 06/29/22 11:02 Dose: Not Given Documented By: LEVAR Non-Admin Reason: Patient Asleep Levalbuterol HCl (Levalbuterol Hcl 1.25 Mg/0.5 Ml Vial.Neb) 1.25 mg INHALE Q4H PRN PRN Reason: shortness of breath/wheezing Losartan Potassium (Losartan Potassium 50 Mg Tablet) 100 mg PO DAILY [facility]; Protocol Last Admin: 06/29/22 08:38 Dose: 100 mg Documented By: DEVORAH Melatonin (Melatonin 3 Mg Tablet) 6 mg PO BEDTIME PRN PRN Reason: Insomnia Methylprednisolone Sodium Succinate (Methylprednisolone Sod Succ 40 Mg/Ml Vial) 40 mg IVPUSH Q8H [facility] Last Admin: 06/29/22 08:37 Dose: 40 mg Documented By: DEVORAH Metoprolol Tartrate (Metoprolol Tartrate 25 Mg Tablet) 25 mg PO BID [facility]; Protocol Last Admin: 06/29/22 08:38 Dose: 25 mg Documented By: DEVORAH Montelukast Sodium (Montelukast Sodium 10 Mg Tablet) 10 mg PO BEDTIME [facility] Last Admin: 06/28/22 20:47 Dose: 10 mg Documented By: KATINA Omeprazole (Omeprazole 20 Mg Capsule.) 20 mg PO BID@0630,1630 [facility] Last Admin: 06/29/22 08:38 Dose: 20 mg Documented By: DEVORAH Pharmacy Consult (Consult Rx Perform Med Rec) 1 each MISCELLANE ONCE PRN PRN Reason: Consult order Senna (Sennosides 8.6 Mg Tablet) 17.2 mg PO BEDTIME PRN PRN Reason: Constipation Sodium Chloride (0.9 % Sodium Chloride Flush 3 Ml Syringe) 3 ml IVFLUSH QSHIFT [facility] Last Admin: 06/29/22 08:39 Dose: 3 ml Documented By: DEVORAH Labs CBC & Chem 7: 06/29/22 09:09 06/29/22 09:09 Labs: Laboratory Results - last 24 hr 06/28/22 06/28/22 06/29/22 16:18 20:32 07:46 MCV MCH MCHC RDW Plt Count MPV Absolute Nucleated RBC Nucleated RBC % (auto) Anion Gap Estim Creat Clear Calc Estimated GFR POC Glucose 258 H 183 H 274 H Random Glucose Calcium 06/29/22 06/29/22 06/29/22 09:09 09:09 11:27 MCV 86.4 MCH 27.8 MCHC 32.2 RDW 15.1 Plt Count 324 MPV 10.3 Absolute Nucleated RBC 0.030 H Nucleated RBC % (auto) 0.2 Anion Gap 15 Estim Creat Clear Calc 32.2 Estimated GFR 45 POC Glucose 316 H Random Glucose 388 H* Calcium 8.3 L Assessment and Plan (1) Left bundle branch block: Status: Acute (2) CAD (coronary artery disease): Status: Acute (3) Pneumonia: Status: Acute Plan This is an 81-year-old [place]er female (speaks [place]) with a past medical history of hypertension, hyperlipidemia, diabetes, CAD, asthma, history of hemorrhoids; presented to the hospital today with a chief complaint of shortness of breath found to have pneumonia and atrial fibrillation HTN. Elevated blood pressure readings continue losartan norvasc increased to 10 mg for better blood pressure control Acute asthma exacerbation. Improved Continue Xopenex secondary to AFib Transition IV Solu-Medrol to prednisone Supplemental oxygen as needed Community-acquired pneumonia, likely gram + or gram - No sepsis, tachycardia from aflutter, elevated lactic acid likely from breathing treatments Chest x-ray showed findings concerning for pneumonia/ atelectasis continue ceftriaxone/Azithromycin, has been on antibiotics since 06/25, likely not need any antibiotics on discharge she has completed a 5 day course as of 06/30 RPP positive for enterovirus/rhinovirus Guaiac positive stool Patient has recent admission to [facility] [place] for hemorrhoidal bleed. H/H seems to be stable; 8 on 06/17 according to records from [facility] [place] Seen examined by Gastroenterology, normal endoscopy Initially on IV ppi, changed to oral Low iron noted, iron supplementation added Plan for outpatient colonoscopy, okay to start Eliquis as per Dr. Long UTI UA w/ leuk esterase and white cells but no bacteria Urine culture no growth Paroxysmal atrial flutter s/p HR up to 140s at one time given IV lopressor and continue home dose of lopressor 25 bid Normal EF 55-60% with no wall motion abnormalities, left bundle branch block, unknown duration cardiology following Okay to start Eliquis as per sheet rock taper, will start a lower dose 2.5 mg b.i.d. in light of history of anemia, titrate up as an outpatient Elevated troponins trops flat likely related to demand from aflutter/acute illness Hyperkalemia resolved Status post Lokelne DM Insulin sliding scale CAD continue BB, statin DVT prophylaxis: SCD boots attending Dr. Hernandez Disposition likely discharge home tomorrow with physical therapy if blood pressure under better control Patient requires ongoing inpatient hospitalization for management of pneumonia, rapid atrial flutter and close monitoring of H/H Quality Stroke Does the patient have a stroke diagnosis?: No VTE Prior VTE?: No VTE Risk Level:: Medical - moderate - high VTE Device Contraindication: N/A - Device Ordered VTE Drug Contraindication: Treatment Not Indicated
--- NOTE | 2022-06-29 12:42 | PM.DS ---
DS: Providers Provider Date of Service: 06/30/22 Date of admission: 06/24/22 23:23 Primary care physician: Santo Altman MD Consults: 06/24/22 23:23 Consult to Cardiology Routine Consulting Provider: Marc Mary Reason for consultation: palpitations 06/24/22 23:25 Consult to Gastroenterology Routine Consulting Provider: Jered Dos Santos Reason for consultation: Guaiac positive stool Attending physician on discharge: Marc Hernandez Discharging clinician: Yandy Monroy DS: Diagnosis Discharge Diagnosis (1) Left bundle branch block: Status: Acute (2) CAD (coronary artery disease): Status: Acute (3) Pneumonia: Status: Acute DS: Summary Hospital Course Hospital Course: HP as per admitting provider 81-year-old female with a past medical history of hypertension, hyperlipidemia, diabetes, CAD, asthma, history of hemorrhoids; presented to the hospital today with a chief complaint of shortness of breath. patient is a poor historian.? Most of the history obtained from the records and staff.?Reportedly patient has been having shortness of breath over the past couple days.? Also has cough.? Denies any fevers. As per the patient's family patient has been mostly bedbound.? Recently admitted to the [facility] for rectal bleeding- presumed to be secondary to the hemorrhoids.? Recommended to stop aspirin.? Patient's hemoglobin was around 8.9. Mentions that she continued to have intermittent episodes of blood in the stool.?Denies any chest pain or palpitations.?Denies any fevers and chills.?Review of all other systems is negative except mentioned above ER course: Per ER team patient on presentation noted to be in a flutter, troponins were indeterminate, notified Cardiology.?Chest x-ray showed possible pneumonia and urinalysis abnormal consistent with UTI.? Patient was given antibiotics.?Patient was also noted to be having bilateral wheezing concerning for acute asthma exacerbation.? Received nebs and steroids.? Admitted to the hospital for further management . HTN.? Elevated blood pressure readings continue losartan norvasc increased to 10 mg for better blood pressure control Hydralazine 25 mg twice a day added, follow-up with primary care provider, monitor blood pressures at home Acute asthma exacerbation.? Improved Treated with Xopenex secondary to AFib Transitioned IV Solu-Medrol to prednisone 40 mg Community-acquired pneumonia, likely gram + or gram - No sepsis, tachycardia from aflutter, elevated lactic acid likely from breathing treatments Chest x-ray showed findings concerning for pneumonia/ atelectasis continue ceftriaxone/Azithromycin, has been on antibiotics since 06/25, likely not need any antibiotics on discharge she has completed a 5 day course as of 06/30 RPP positive for enterovirus/rhinovirus Guaiac positive stool Patient [place] [facility] [place]. H/H seems to be stable; 8.07/06 on 06/17 according to records [place] [facility] [place]en examined by Gastroenterology, normal endoscopy Initially on IV ppi, changed to oral Low iron noted, iron supplementation added Plan for outpatient colonoscopy, okay to start Eliquis as per Dr. Long UTI UA w/ leuk esterase and white cells but no bacteria Urine culture no growth Paroxysmal atrial flutter s/p HR up to 140s at one time given IV lopressor and continue home dose of lopressor 25 bid Normal EF 55-60% with no wall motion abnormalities, left bundle branch block, unknown duration cardiology followed Okay to start Eliquis as per restaurant team member, start Eliquis 5 mg twice daily Elevated troponins trops flat likely related to demand from aflutter/acute illness Hyperkalemia resolved Status post Lokelma DM Insulin sliding scale CAD continue BB, statin Time Spent with Patient Time attestation: Total time spent providing and/or coordinating discharge services: Discharge coordination time: Greater than 30 minutes Quality: Safe Use of Opioids Does Pt have an Active Cancer Diagnosis on the Problem List?: No Quality: Stroke Does the patient have a stroke diagnosis?: No Physical Exam Vital Signs: Vital Signs: Last Vital Signs Temp 98.5 F 06/29/22 11:24 Pulse 62 06/29/22 11:24 Resp 17 06/29/22 11:24 BP 178/78 H 06/29/22 11:24 Pulse Ox 96 06/29/22 11:24 O2 Del Method 06/29/22 11:24 O2 Flow Rate 2 06/29/22 11:24 BMI result Body Mass Index 32.1 Appearing in no acute distress head is normocephalic atraumatic eyes pupils are PERRLA sclera is anicteric mouth throat mucous membranes are intact and moist neck is supple no lymphadenopathy, no JVD noted lung sounds are clear to auscultation heart regular rate rhythm, clear S1, S2 positive bowel sounds, abdomen is soft, nontender neuro patient is alert x3, no focal deficits DS: Data Data Completed and Pending Labs on day of discharge: Laboratory Results - last 24 hr 06/28/22 06/28/22 06/29/22 16:18 20:32 07:46 WBC RBC Hgb Hct MCV MCH MCHC RDW Plt Count MPV Absolute Nucleated RBC Nucleated RBC % (auto) Sodium Potassium Chloride Carbon Dioxide Anion Gap BUN Creatinine Estim Creat Clear Calc Estimated GFR POC Glucose 258 H 183 H 274 H Random Glucose Calcium 06/29/22 06/29/22 06/29/22 09:09 09:09 11:27 WBC 12.8 H RBC 3.31 L Hgb 9.2 L Hct 28.6 L MCV 86.4 MCH 27.8 MCHC 32.2 RDW 15.1 Plt Count 324 MPV 10.3 Absolute Nucleated RBC 0.030 H Nucleated RBC % (auto) 0.2 Sodium 139 Potassium 4.5 Chloride 104 Carbon Dioxide 25 Anion Gap 15 BUN 35 H Creatinine 1.15 Estim Creat Clear Calc 32.2 Estimated GFR 45 POC Glucose 316 H Random Glucose 388 H* Calcium 8.3 L Preliminary micro results at discharge 06/24/22 17:28 Blood Culture - Preliminary Blood - Venous No growth after 48 hours. 06/24/22 17:28 Blood Culture - Preliminary Blood - Venous No growth after 48 hours. Discharge Plan Discharge Anticipated Discharge Date/Time: 06/30/22 10:15 Patient Disposition: Home, Self-Care Discharge Diagnosis: Hypertension Community-acquired pneumonia Guaiac-positive stools Paroxysmal atrial fibrillation Hyperkalemia Referrals: Marc Mary MD [Physician] - 1 Week (Atrial fibrillation ) Santo Altman MD [Primary Care Provider] - 1 Week Beryl Long MD [Physician] - 1 Week (Colonoscopy ) Discharge Medications: New hydralazine 25 mg Tablet 25 mg PO BID Qty: 60 0RF Protocol: Hold for SBP< HOLD for SBP < : 90 amlodipine 10 mg Tablet 10 mg PO DAILY Qty: 30 0RF Protocol: Hold for SBP< HOLD for SBP < : 90 ferrous sulfate 324 mg (65 mg iron) Tablet,Delayed Release (Dr/Ec) 324 mg PO DAILY Qty: 30 0RF Eliquis 5 mg Tablet 5 mg PO BID Qty: 60 0RF Continued famotidine 20 mg Tablet 20 mg PO DAILY pantoprazole 40 mg Tablet,Delayed Release (Dr/Ec) 40 mg PO DAILY fluticasone propion-salmeterol [Wixela Inhub] 500-50 mcg/dose Blister With Device 1 inh INHALATION BID montelukast 10 mg Tablet 10 mg PO BEDTIME losartan 100 mg Tablet 100 mg PO DAILY glipizide 5 mg Tablet 5 mg PO DAILY rosuvastatin 20 mg Tablet 20 mg PO BEDTIME metoprolol tartrate 25 mg Tablet 25 mg PO BID Preparation H 0.25-14-74.9 % Ointment 1 appl MS QID PRN (Reason: Hemorrhoids) Discharge Orders: Discharge Order (Routine); Ordered 06/30/22 Ordered By: Yandy Monroy Diet: Advance to usual diet Activity on Discharge: As tolerated Stand Alone Forms: Patient Portal Discharge page Care Plan Goals: Complete resolution of symptoms Health Concerns: Hypertension Community-acquired pneumonia Guaiac-positive stools Paroxysmal atrial fibrillation Hyperkalemia Plan of Treatment: Follow-up with primary care provider as needed Follow-up with restaurant team member for outpatient colonoscopy You have been started on the following medications: Hydralazine and amlodipine for hypertension. Please monitor blood pressure at home and report to primary care provider for medication adjustment as needed Ferrous sulfate for anemia Eliquis for atrial fibrillation Assessment: See discharge summary
--- NOTE | 2022-06-29 13:55 | P.CDIC_ITS ---
CDI Concurrent Query Documentation Clarification: PHYSICIAN'S DOCUMENTATION REQUEST Date of Query: 06/29/22 [id number] Patient Name: Lori Sung Admit Date: 06/24/22 Dear Doctor, A review of the medical record indicates additional documentation may be needed. Please review below and update the documentation accordingly. Clinical Indicators: Is there a diagnosis that correlates with the findings below: Risk Factors/Clinical Indicators/Treatments Per H&P and provider notes: -PMH diabetes (unspecified) Home medications: -Glipizide 5mg PO Other indicators: -POC on 06/28 -POC on 06/29 Please clarify the following regarding Diabetes Mellitus (DM): Type/Etiology: * Type I DM * Type II DM * Other type of DM?(please specify) * Unable to determine Complications of DM: * Hyperglycemia * No complications of DM * Other?complication?? please specify * Unable to determine Use of terms such as suspected, likely, concern for, or probable (associated with a specific diagnosis that is being evaluated, monitored, or treated as if it exists) are acceptable and can be coded in the inpatient setting, when documented at the time of discharge. Thank you, Jie Armenta MS, RN, CCRN Extension: [phone] Please use your independent medical judgment in providing your response. THIS QUERY IS PART OF THE PERMANENT MEDICAL RECORD Other Diagnosis: DM 2
[2022-06-29 17:15] LABS: Glucose, Whole Blood 413 mg/dL (60-115)
--- NOTE | 2022-06-29 19:37 | PC.NURSE ---
Patient has refused insulin at breakfast and dinner time. She agreed to take noon dose as her son was in the room with meal he brought for her from home. Patient refused to take insulin stating she will take it when she eats but kept refusing food trays. Patient refused to speak with the hearing aid specialist (voice call to hearing aid specialist service) insisting she will take insulin with meal only. Reported the refusal to night nurse and notified hotel night auditor provider.
[2022-06-29] MEDS: cefTRIAXone sodium 1 GM in 0.9 % Sodium Chloride 50 ML IV (20:21)
[2022-06-29] MEDS: Apixaban 5 MG TABLET PO (20:26)
[2022-06-29] MEDS: Montelukast Sodium 10 MG TABLET PO (20:26)
[2022-06-29] MEDS: Atorvastatin Calcium 80 MG TABLET PO (20:26)
[2022-06-29 20:37] LABS: Glucose, Whole Blood 289 mg/dL (60-115)
[2022-06-30] VITALS: BP 134/61; PULSE 63; RESP 18; TEMP 36.9; O2SAT 97
[2022-06-30 03:52] VITALS: BP 167/75; PULSE 66; RESP 18; TEMP 36.1; O2SAT 94
[2022-06-30] MEDS: Omeprazole 20 MG CAPSULE.DR PO (05:40)
[2022-06-30 07:18] VITALS: BP 170/89; PULSE 67; RESP 17; TEMP 37.2; O2SAT 95
[2022-06-30 07:47] LABS: Glucose, Whole Blood 326 mg/dL (60-115)
[2022-06-30 09:25] VITALS: BP 170/89; PULSE 67; O2SAT 95
--- NOTE | 2022-06-30 09:36 | MHC.CM.PN ---
Per PA discharge is planned today. DP home with services. Family will provide transport home. Agency preferences obtained and referral sent.
[2022-06-30] MEDS: Metoprolol Tartrate 25 MG TABLET PO (10:11)
[2022-06-30] MEDS: amLODIPine Besylate 10 MG TABLET PO (10:11)
[2022-06-30] MEDS: Ferrous Sulfate 324 MG TABLET.DR PO (10:11)
[2022-06-30] MEDS: Apixaban 5 MG TABLET PO (10:11)
[2022-06-30] MEDS: Azithromycin 500 MG TABLET PO (10:11)
[2022-06-30] MEDS: Losartan Potassium 50 MG TABLET 100 MG PO (10:12)
[2022-06-30] MEDS: hydrALAZINE HCl 25 MG TABLET PO (10:12)
[2022-06-30] MEDS: 0.9 % Sodium Chloride Flush 3 ML SYRINGE IVFLUSH (10:13)
[2022-06-30 11:59] VITALS: BP 125/60; PULSE 64; RESP 19; TEMP 37.2; O2SAT 96
[2022-06-30 12:21] LABS: Glucose, Whole Blood 380 mg/dL (60-115)
--- NOTE | 2022-06-30 12:25 | MHC.CM.PN ---
Female 81 DX Palpitations She is discharged to home today. [facility] will provide home services. Family is providing transportation.
--- NOTE | 2022-06-30 13:02 | W.MHC.F2F ---
Service Date Service Date: 06/30/22 Encounter Date of encounter: 06/30/22 Reasons for Services Signs and symptoms assessed: Weakness Reason for physical therapy: home safety and mobility Homebound: Leaving the home is medically contraindicated at this time without the asist of a device and/or another person due th the listed conditions above and below. Reason homebound: unsteady gait / fall risk Certification: Based on the above findings, I certify that this patient is confined to the home and needs intermittent intermediate care, physical therapy and/or speech therapy, or continues to need occupational therapy. The patient is under my care, and I have initiated the establishment of the plan of care. The patient will be followed by a physician who will periodically review the plan of care.
== END 2022-06-30 13:00 | disposition home health service (06) | DRG 141 ==
LOC: HO.ED 20:55 → HO.EDOVER 23:28 → HO.IMC 06-26 23:23
PROVIDERS: Internal Medicine; Physician Assistant Medical; Admitting Provider Hospitalist; Emergency Provider Emergency Medicine; PCP Pediatrics; Visit Provider Nurse Practitioner Acute Care
PROC: 0DJ08ZZ Inspection of Upper Intestinal Tract, Via Natural or Artificial Opening Endoscopic (ICD-10-PCS; CPT 43235; principal; 2022-06-26 11:30)
DX: J45.901 Unspecified asthma with (acute) exacerbation (principal); J15.9 Unspecified bacterial pneumonia; I48.92 Unspecified atrial flutter; I25.10 Atherosclerotic heart disease of native coronary artery without angina pectoris; E78.5 Hyperlipidemia, unspecified; I10 Essential (primary) hypertension; J98.11 Atelectasis; E87.5 Hyperkalemia; I44.7 Left bundle-branch block, unspecified; E11.65 Type 2 diabetes mellitus with hyperglycemia; R19.5 Other fecal abnormalities; B97.10 Unspecified enterovirus as the cause of diseases classified elsewhere; Z20.822 Contact with and (suspected) exposure to COVID-19; Z95.1 Presence of aortocoronary bypass graft; Z88.0 Allergy status to penicillin; Z79.01 Long term (current) use of anticoagulants; Z79.51 Long term (current) use of inhaled steroids; Z79.84 Long term (current) use of oral hypoglycemic drugs; Z79.899 Other long term (current) drug therapy
CPT/HCPCS: 36415; 71045; 71275; 74177; 80048; 80053; 81001; 82272; 82947; 83540; 83605; 83735; 83880; 84484; 85025; 85027; 85610; 85730; 86850; 86900; 86901; 87040; 87086; 87633; 87635; 93005; 93306; 94640; 96361; 96365; 96366; 96375; 96376; 97116; 97162; 99285; J0610; J0696; J1940; J2920; J2930; J3010; J3475; Q9967

== ENCOUNTER → 2022-07-08 15:04 | Outpatient (BNVA) | payer MEDICAID, SELFPAY | PROVIDERS: PCP Pediatrics; Visit Provider Internal Medicine Cardiovascular Disease | DX: I25.10 Atherosclerotic heart disease of native coronary artery without angina pectoris (principal); I48.92 Unspecified atrial flutter; I44.7 Left bundle-branch block, unspecified | CPT/HCPCS: 93005; 99212 ==

== ENCOUNTER → 2022-07-20 14:26 | Outpatient (BNVA) | payer MEDICAID, SELFPAY | PROVIDERS: PCP Pediatrics; Visit Provider Internal Medicine | DX: K92.1 Melena (principal); K64.9 Unspecified hemorrhoids; I48.92 Unspecified atrial flutter; Z79.01 Long term (current) use of anticoagulants | CPT/HCPCS: 99212 ==

== ENCOUNTER → 2022-07-29 09:05 | Outpatient (REF) | payer MEDICAID, SELFPAY ==
--- NOTE | ~2022-07-29 | NM_ITS ---
EXAMINATION: NUCLEAR MEDICINE MYOCARDIAL PERFUSION SPECT AND REST SPECT STUDY CLINICAL INFORMATION: CAD, hypertension, DM. COMPARISON: None TECHNIQUE: Patient was exercised on Lexiscan following 0.4 mg injection over 10 seconds. At peak stress 25 mCi of 99m tc MIBI was injected and stress SPECT study was obtained 07/29/2022. Rest SPECT study was obtained on 07/30/2022 following intravenous administration of 25 mCi of 99m Tc MIBI. Stress EKG changes were nondiagnostic. FINDINGS: On stress SPECT study there is normal perfusion seen to entire left ventricle without focal defect. There is normal contraction and thickening of left ventricle with a left ventricular ejection fraction measuring 71%. On rest SPECT study there is normal perfusion seen to entire left ventricle with left ventricular ejection fraction measuring 73%. The left ventricular cavity size is normal. No perfusion defect seen. NM/NM ange perf SPECT rest & str IMPRESSION: Normal Lexiscan myocardial perfusion stress and SPECT study. Normal gated wall motion study. Stress left ventricular ejection fraction measures 71%. Resting left ventricular ejection fraction measures 73%.
--- NOTE | 2022-07-29 09:09 | CA_ITS ---
Acquisition Time: 2022-07-29 09:28:43 Total Exercise Time: 00:02:00 Test Indications: Abnormal ECG CAD Medications: SEE H Protocol: LEXISCAN Max HR: 240 BPM 171% of Pred: 140 BPM Max BP: 118/060 mmHG Max Work Load: 1.0 METS Pharmacological stress test with Lexiscan injection, while sitting, without angina, with isolated PVCs, with normotensive response to injection, with nondiagnostic EKG for ischemia. In recovery, pt reported that she did not feel welll. At around 2 min recovery, she went unresponsive, eyes rolled back began foaming at mouth, color ashen. Heart rhythm appearred unchanged, pulse difficult to palpate. Code blue initiated. Pt layed in supine position and IV fluids wide open. EKG strip at 2 min 45 sec recovery does show a wide complex tachycardia rate 240. Code team arrived promptly, Dr Muller and Dr Scott present. Pt became more responsive and breathing without assistance. EKGs showing SR, LBBB. Strong pulse present. Mild hypotension. Plan: obtain nuclear scan and ED eval/ hospital admission. Nurse present with patient during transport, nuclear imaging. Continual cardiac monitoring. IV line in place with IV NS infusion. Son present during test and above events. Referred By: Marc Mary Overread By: KATRINA CORRALES
[2022-07-29 10:39] LABS: Glucose, Whole Blood 145 mg/dL (60-115)
== END ==
LOC: HO.CARD 09:05
PROVIDERS: Visit Provider Internal Medicine Cardiovascular Disease
DX: I25.10 Atherosclerotic heart disease of native coronary artery without angina pectoris (principal)
CPT/HCPCS: 78452; 82947; 93017; A9500; J0280; J2785

== ENCOUNTER 2022-07-29 10:56 | Inpatient (IN) | payer MEDICAID, SELFPAY ==
[2022-07-29] VITALS (8 sets, daily range): BP systolic 111–134; BP diastolic 46–75; PULSE 76–118; RESP 13–18; TEMP 36.6–36.7; O2SAT 98–100; BMI 25.8
--- NOTE | ~2022-07-29 | XR_ITS ---
EXAMINATION: XR CHEST CLINICAL INFORMATION: Syncope with arrhythmia COMPARISON: 06/24/2022 TECHNIQUE: Frontal view of the chest was obtained. FINDINGS: No significant abnormality is noted involving the heart, lungs, mediastinum, bony thorax or soft tissues. XR/XR chest 1V IMPRESSION: Unremarkable examination.
--- NOTE | 2022-07-29 11:48 | ECG_ITS ---
Test Reason : SYNCOPE Blood Pressure : / mmHG Vent. Rate : 079 BPM Atrial Rate : 079 BPM P-R Int : 210 ms QRS Dur : 138 ms QT Int : 432 ms P-R-T Axes : 051 -01 086 degrees QTc Int : 495 ms Sinus rhythm with 1st degree A-V block Left bundle branch block Abnormal ECG When compared with ECG of 25-JUN-2022 08:45, Sinus rhythm has replaced Atrial fibrillation Vent. rate has decreased BY 62 BPM Referred By: Sabine Shelby Electronically Signed By:NICO BARBER MD
--- NOTE | 2022-07-29 11:51 | ED_ITS ---
HPI - General Adult General Chief complaint: Syncope Stated complaint: CODE from stress lab Time Seen by Provider: 07/29/22 11:33 Source: patient Mode of arrival: wheelchair Limitations: language barrier History of Present Illness HPI narrative: 81-year-old female with a past medical history of HTN, HLD, diabetes, CAD, asthma, hemorrhoids, left bundle-branch block, proximal A.flutter on Eliquis, presenting to ED from stress lab s/p ?syncopal episode after Lexiscan injection with noted wide complex tachycardia at a rate of 240 on EKG. No reported seizure-like activity, no head trauma. Per report patient was foaming at the mouth, and then became more responsive without intervention. Patient reports generalized fatigue/weakness. Also with chronic cough. Denies symptoms prior to incident. Denies headache, CP/SOB, abdominal pain, nausea/vomiting Onset (ago): minute(s) Related Data Home Medications Medication Instructions Recorded Confirmed famotidine 20 mg tablet 20 mg PO DAILY 06/24/22 07/29/22 glipizide 5 mg tablet 5 mg PO DAILY 06/24/22 07/29/22 montelukast 10 mg tablet 10 mg PO BEDTIME 06/24/22 07/29/22 pantoprazole 40 mg tablet,delayed 40 mg PO BEDTIME 06/24/22 07/29/22 release rosuvastatin 20 mg tablet 20 mg PO BEDTIME 06/24/22 07/29/22 albuterol sulfate 90 mcg/actuation 2 puff inhalation Q4H PRN Wheezing 07/29/22 07/29/22 aerosol inhaler fluticasone 500 mcg-salmeterol 50 1 puff inhalation BID 07/29/22 07/29/22 mcg/dose blistr powdr for inhalation (Advair Diskus) losartan 25 mg tablet 1 tab PO DAILY 07/29/22 07/29/22 metoprolol succinate 25 mg 1 tab PO DAILY 07/29/22 07/29/22 tablet,extended release 24 hr Previous Rx's Medication Instructions Recorded amlodipine 10 mg tablet 10 mg PO DAILY #30 tabs 06/30/22 apixaban 5 mg tablet (Eliquis) 5 mg PO BID #60 tabs 06/30/22 ferrous sulfate 324 mg (65 mg 324 mg PO DAILY #30 tabs 06/30/22 iron) tablet,delayed release hydralazine 25 mg tablet 25 mg PO BID #60 tabs 06/30/22 hydrocortisone 1 % topical cream 1 appl ID DAILY for hemorrhoids 07/20/22 with perineal applicator #28.4 grams Allergies Allergy/AdvReac Type Severity Reaction Status Date / Time Penicillins Allergy Unknown Verified 07/20/22 14:33 Review of Systems Review of Systems: Constitutional: No Fever, No Chills, + Fatigue, No Malaise ENT/Mouth: No Ear Pain, No Nasal Congestion, No sore throat, No Rhinorrhea, No Swallowing Difficulty Eyes: No Eye Pain, No Swelling, No Redness, No Vision Changes Cardiovascular: No Chest Pain, No SOB, No Dyspnea on Exertion, No Orthopnea, No Edema, No Palpitations Respiratory: No Cough, No Sputum, No Dyspnea Gastrointestinal: No Nausea, No Vomiting, No Diarrhea, No Constipation, No Abdominal pain Genitourinary: No Dysuria, No Urinary Frequency, No Hematuria, No Urinary Incontinence/retention Musculoskeletal: No joint pain, No Myalgias, No Joint Swelling Skin: No Skin Lesions, No rash Neuro: + Weakness, No Numbness, No Paresthesias, + Loss of Consciousness, No Dizziness, No Headache Yes all other systems are reviewed and are negative Constitutional: Constitutional: Reports as per HPI Neurologic: Denies Abnormal speech present [facility] Past Medical History Attestation statement: The following information was validated with the patient. Medical History Atrial flutter, paroxysmal CAD (coronary artery disease) Diabetes GI bleed HTN (hypertension) Left bundle branch block Normocytic anemia Surgical History Stented coronary artery Social History Social History Household Members: Family Household Members Other:: 4 Housing: Apartment Do you presently have visiting nurse or other home services: No Alcohol intake: never Patient Tobacco Use Status: Never used Tobacco Advance Directives: No service: No Physical Exam ED Vital Signs: Vital Signs - 24 hr 07/29/22 11:15 07/29/22 14:17 Pulse Rate 77 82 Respiratory Rate 13 16 Blood Pressure 133/50 L 113/46 L Pulse Oximetry 100 98 Oxygen Delivery Method Nasal Cannula Room Air Oxygen Flow Rate 2 BMI result Body Mass Index 25.8 Const General: cooperative, healthy appearing, no acute distress, alert and awake Orientation/consciousness: patient oriented x3 Limitations: no limitations HENMT Head: Yes normal to inspection and Yes atraumatic Ears: hearing grossly normal bilaterally General nose exam: Normal external nose present Face and sinus: Yes normal facial exam Throat: Yes posterior oropharynx normal, Yes tonsils normal and Yes uvula midline Eyes General: appearance normal, both eyes and all related structures Pupils: Equal, round and reactive pupils present EOM: EOMs intact bilaterally Neck Neck: Yes normal visual inspection and Yes no meningeal signs Resp Effort & Inspection: normal respiratory effort and no respiratory distress Auscultation: clear to auscultation bilaterally, no crackles, no rales, no rhonchi and no wheezes Cardio Rate: regular rate Heart sounds: S1 normal heart sound present and S2 normal heart sound present GI Inspection: Yes normal to inspection Palpation (GI): Soft to palpation, nontender, no guarding and not rigid General: Yes no CVA tenderness Back/Spine/Pelvis Back: no CVA tenderness Skin Rashes: no rashes Wounds: no wounds Neuro General: patient oriented x3, tone normal, moves all extremities, no meningeal signs, no focal motor deficits and CN's II-XI intact bilaterally Cranial nerves: Yes CN's II-XII intact bilaterally, Yes Equal, round and reactive pupils present and Yes Bilaterally intact EOM present Cognition (Neuro): normal cognition Speech: No Abnormal speech present Gait exam (Neuro): Normal gait present Motor exam (neuro): 5/5 motor strength present throughout and Pronator motor function not present Coordination: [id number] test normal Romberg Test: Negative Extrem General: Yes normal to inspection and Yes no pedal edema Course Course Course Narrative: -1246--no leukocytosis. H&H lower than baseline at 7.3/24.4 >> will obtain a stool and transfuse 1 unit. Per son patient has been having rectal bleeding x2.5 weeks, scheduled for outpatient colonoscopy at the end of the month. >> anemia likely causing fatigue/SOB -potassium mildly elevated to 5.7 > will give p.o. Lokelma. KHAI with a BUN of 37 and creatinine of 1.46 XR chest 1V IMPRESSION: Unremarkable examination. -Dr. Muller reviewed patient's labs in the ED recommended holding Eliquis and losartan and GI consult. Plan to admit for further management Medical Decision Making MDM Narrative Medical decision making narrative: 81-year-old female with a past medical history of HTN, HLD, diabetes, CAD, asthma, hemorrhoids, left bundle-branch block, proximal A.flutter on Eliquis, presenting to ED from stress lab s/p syncopal episode after Lexiscan injection with noted wide complex tachycardia at a rate of 240 on EKG. On exam vital si gns stable, NAD, nontoxic appearing, no focal neuro deficits. Concern for arrhythmia vs syncope vs allergic reaction. Rule out ACS. Low suspicion for PE or infectious etiology. Lower suspicion for SAH/CVA Plan: EKG, labs, UA, CXR, admission Medical Records Medical records reviewed: Yes I reviewed the patient's medical records. Lab Data Lab results reviewed: Yes I reviewed the patient's lab results. Result diagrams: 07/29/22 12:49 07/29/22 12:49 Labs: Lab Results 07/29/22 07/29/22 07/29/22 Range/Units 12:49 12:49 12:49 WBC 10.6 (4.8-10.8) X10*3/uL RBC 2.61 L D (4.20-5.50) X10*6/uL Hgb 7.3 L D (12.0-16.0) g/dl Hct 24.4 L (37.0-47.0) % MCV 93.5 (80.0-98.0) fL MCH 28.0 (27.0-33.0) pg MCHC 29.9 L (31.0-35.0) g/dl RDW 16.8 H (11.0-16.0) % Plt Count 336 (160-400) X10*3/uL MPV 9.4 (9.4-12.3) fL Immature Gran % (Auto) 1.5 H (0.0-0.4) % Neut % (Auto) 67.3 (45-73) % Lymph % (Auto) 23.7 (20-40) % [place] % (Auto) 6.5 (2-11) % Eos % (Auto) 0.6 (0-4) % Baso % (Auto) 0.4 (0-2) % Lymph # (Auto) 2.5 (1.2-4.9) X10*3/uL [place] # (Auto) 0.7 (0.1-1.2) X10*3/uL Eos # (Auto) 0.1 (0.0-0.4) X10*3/uL Baso # (Auto) 0.0 (0.0-0.2) X10*3/uL Abs Immat Gran (auto) 0.16 H (0.00-0.03) X10*3/uL Absolute Neuts (auto) 7.1 (2.0-8.3) x10*3/uL Absolute Nucleated RBC 0.020 H (0.0-0.012) X10*3/uL Nucleated RBC % (auto) 0.2 (0.0-0.2) /100WBC PT 19.1 H (10.0-13.1) SEC INR 1.6 H (0.9-1.1) Sodium 141 (135-145) mmol/L Potassium 5.7 H D (3.3-5.1) mmol/L Chloride 112 H (96-108) mmol/L Carbon Dioxide 19 L (22-29) mmol/L Anion Gap 16 (12-20) BUN 37 H (9-16) mg/dL Creatinine 1.46 H (0.5-1.4) mg/dL Estim Creat Clear Calc 24.8 Estimated GFR 34 Random Glucose 165 H (60-115) mg/dL Calcium 8.7 (8.4-10.2) mg/dL Magnesium 3.0 H (1.6-2.6) mg/dL Total Bilirubin 0.4 (0.0-1.0) mg/dL Direct Bilirubin 0.2 (0.0-0.5) mg/dL AST 16 (5-31) U/L ALT 11 (0-31) U/L Alkaline Phosphatase 68 (39-117) U/L Troponin I High Sens (<3.5-17.0) ng/L B-Natriuretic Peptide (<100) pg/mL Total Protein 6.2 L (6.5-8.0) g/dL Albumin 3.8 (3.5-5.0) g/dL Urine Color Urine Appearance Urine pH (5.0-9.0) Ur Specific [place] (1.005-1.025) Urine Protein (Neg-Trace) mg/dL Urine Glucose (UA) (Negative) mg/dL Urine Ketones (Negative) mg/dL Urine Blood (Negative) Urine Nitrite (Negative) Ur Leukocyte Esterase (Negative) Urine RBC (0-2) /HPF Urine WBC (0-5) /HPF Ur Squamous Epith Cells (0-2) /HPF Urine Bacteria (None Seen) Hyaline Casts (0-2) /LPF COVID-19 (SYL) (Negative) COVID-19 Clin Com 07/29/22 07/29/22 07/29/22 Range/Units 12:49 12:50 12:50 WBC (4.8-10.8) X10*3/uL RBC (4.20-5.50) X10*6/uL Hgb (12.0-16.0) g/dl Hct (37.0-47.0) % MCV (80.0-98.0) fL MCH (27.0-33.0) pg MCHC (31.0-35.0) g/dl RDW (11.0-16.0) % Plt Count (160-400) X10*3/uL MPV (9.4-12.3) fL Immature Gran % (Auto) (0.0-0.4) % Neut % (Auto) (45-73) % Lymph % (Auto) (20-40) % [place] % (Auto) (2-11) % Eos % (Auto) (0-4) % Baso % (Auto) (0-2) % Lymph # (Auto) (1.2-4.9) X10*3/uL [place] # (Auto) (0.1-1.2) X10*3/uL Eos # (Auto) (0.0-0.4) X10*3/uL Baso # (Auto) (0.0-0.2) X10*3/uL Abs Immat Gran (auto) (0.00-0.03) X10*3/uL Absolute Neuts (auto) (2.0-8.3) x10*3/uL Absolute Nucleated RBC (0.0-0.012) X10*3/uL Nucleated RBC % (auto) (0.0-0.2) /100WBC PT (10.0-13.1) SEC INR (0.9-1.1) Sodium (135-145) mmol/L Potassium (3.3-5.1) mmol/L Chloride (96-108) mmol/L Carbon Dioxide (22-29) mmol/L Anion Gap (12-20) BUN (9-16) mg/dL Creatinine (0.5-1.4) mg/dL Estim Creat Clear Calc Estimated GFR Random Glucose (60-115) mg/dL Calcium (8.4-10.2) mg/dL Magnesium (1.6-2.6) mg/dL Total Bilirubin (0.0-1.0) mg/dL Direct Bilirubin (0.0-0.5) mg/dL AST (5-31) U/L ALT (0-31) U/L Alkaline Phosphatase (39-117) U/L Troponin I High Sens 14.0 D (<3.5-17.0) ng/L B-Natriuretic Peptide 57 (<100) pg/mL Total Protein (6.5-8.0) g/dL Albumin (3.5-5.0) g/dL Urine Color Yellow Urine Appearance Clear Urine pH 5.0 (5.0-9.0) Ur Specific [place] 1.015 (1.005-1.025) Urine Protein Trace (Neg-Trace) mg/dL Urine Glucose (UA) Negative (Negative) mg/dL Urine Ketones Negative (Negative) mg/dL Urine Blood Negative (Negative) Urine Nitrite Negative (Negative) Ur Leukocyte Esterase Trace H (Negative) Urine RBC 0-2 (0-2) /HPF Urine WBC 0-5 (0-5) /HPF Ur Squamous Epith Cells 3-5 (0-2) /HPF Urine Bacteria None Seen (None Seen) Hyaline Casts 3-5 (0-2) /LPF COVID-19 (SYL) Negative (Negative) COVID-19 Clin Com See Note ECG Data Attestation: I personally reviewed and interpreted this ECG as follows: Interpretation: EKG sinus rhythm with first-degree AV block at a rate of 79. Left bundle-branch block. QTC 495. When compared to prior EKG sinus rhythm has replaced AFib Critical Care Time Critical Care Time Critical Care Time: Yes Total Critical Care Time: 45 Attestation: I have personally provided critical care time exclusive of time spent on separately billable procedures. Time includes review of lab data, radiology results, discussion with consultants, and monitoring for potential decompensa tion. Intervention performed as documented. Discharge Plan Discharge Clinical Impression: Anemia, Wide-complex tachycardia, KHAI (acute kidney injury), Acute hyperkalemia Patient Disposition: Admitted As Inpatient Prescriptions: No Action fluticasone propion-salmeterol [Advair Diskus] 500-50 mcg/dose blister with device 1 puff inhalation BID losartan 25 mg tablet 1 tab PO DAILY metoprolol succinate 25 mg tablet extended release 24 hr 1 tab PO DAILY albuterol sulfate 90 mcg/actuation Hfa Aerosol Inhaler 2 puff INHALATION Q4H PRN (Reason: Wheezing) famotidine 20 mg Tablet 20 mg PO DAILY pantoprazole 40 mg Tablet,Delayed Release (Dr/Ec) 40 mg PO BEDTIME montelukast 10 mg Tablet 10 mg PO BEDTIME glipizide 5 mg Tablet 5 mg PO DAILY rosuvastatin 20 mg Tablet 20 mg PO BEDTIME hydralazine 25 mg Tablet 25 mg PO BID Qty: 60 0RF Protocol: Hold for SBP< HOLD for SBP < : 90 amlodipine 10 mg Tablet 10 mg PO DAILY Qty: 30 0RF Protocol: Hold for SBP< HOLD for SBP < : 90 ferrous sulfate 324 mg (65 mg iron) Tablet,Delayed Release (Dr/Ec) 324 mg PO DAILY Qty: 30 0RF Eliquis 5 mg Tablet 5 mg PO BID Qty: 60 0RF hydrocortisone 1 % cream with perineal applicator 1 appl ID DAILY Qty: 28.4 0RF
--- NOTE | 2022-07-29 11:51 | PM.CNCAR ---
History of Present Illness History of Present Illness Date of Service: 07/29/22 Requesting physician: Radha Bansal Chief complaint: Tachycardia, unresponsiveness Narrative: 81-year-old female who was seen in the stress lab where roseanna galvan was called. She has background history of coronary disease and had LAD and circumflex PCI while she was in [place]. Son accompanied her who she lives with. The patient is Albanian speaking and the son interpreted. Recently she has been experiencing fatigue and shortness of breath and will also noticed to have atrial flutter while she was admitted the hospital last time with pneumonia. She saw Dr. Mary in the office and her Lexiscan was planned. She came for the Lexiscan today. After getting regular nurse on she became unresponsive. As per the stress lab staff, she did not lose her pulse or CPR was performed. when I came in to the stress lab she had some frothing from her mouth and they were suctioning her. She was very lethargic but still mentating. her son was called in to interpret and she said she is feeling tired all over. She denies shortness of breath or chest discomfort. Her blood pressure initially was 90s systolic but improved to 110 systolic. Her blood sugar was 180. Her stress test EKGs were reviewed and at the time this happened she was noted to be in a wide complex tachycardia at 240-260 beats per minute. The morphology was similar to left bundle-branch block. The next EKG printed 30 seconds later did not have wide complex rhythm and she was back in her left bundle-branch block. The patient was taken for nuclear scan and then sent to the emergency department I checked on her later in the ER. She was feeling tired but her blood pressure was stable. She was hungry and she was fed. She was denying any significant symptoms. Discussing with the son she has been experiencing lot of rectal bleeding and there is some plan to do colonoscopy and it appears she has seen Dr. Long for that. For the atrial flutter she was started on Eliquis which she has been taking. [facility] Past Medical History Medical History Atrial flutter, paroxysmal CAD (coronary artery disease) Diabetes GI bleed HTN (hypertension) Left bundle branch block Normocytic anemia Surgical History Surgical History Stented coronary artery Social History Social History Household Members: Family Household Members Other:: 4 Housing: Apartment Do you presently have visiting nurse or other home services: No Alcohol intake: never Patient Tobacco Use Status: Never used Tobacco Advance Directives: No service: No Meds Allergies Allergy/AdvReac Type Severity Reaction Status Date / Time Penicillins Allergy Unknown Verified 07/20/22 14:33 Active Medications: Current Medications Pharmacy Consult (Consult Rx Perform Med Rec) 1 each MISCELLANE ONCE PRN PRN Reason: Consult order Home Medications Medication Instructions Recorded Confirmed Last Taken Type famotidine 20 mg tablet 20 mg PO DAILY 06/24/22 07/08/22 06/24/22 History glipizide 5 mg tablet 5 mg PO DAILY 06/24/22 07/08/22 06/24/22 History losartan 100 mg tablet 100 mg PO DAILY 06/24/22 07/08/22 06/24/22 History metoprolol tartrate 25 mg tablet 25 mg PO BID 06/24/22 07/08/22 06/24/22 History montelukast 10 mg tablet 10 mg PO BEDTIME 06/24/22 07/08/22 06/23/22 History pantoprazole 40 mg tablet,delayed 40 mg PO DAILY 06/24/22 07/08/22 06/24/22 History release phenylephrine 0.25 %-mineral oil 1 appl [place] QID PRN Hemorrhoids 06/24/22 07/08/22 Unknown History 14 %-petrolatm 74.9 % rectal ointment (Preparation H) rosuvastatin 20 mg tablet 20 mg PO BEDTIME 06/24/22 07/08/22 06/23/22 History fluticasone 500 mcg-salmeterol 50 1 puff inhalation BID 07/29/22 07/29/22 Unknown History mcg/dose blistr powdr for inhalation (Advair Diskus) losartan 25 mg tablet 1 tab PO DAILY 07/29/22 07/29/22 Unknown History metoprolol succinate 25 mg 1 tab PO DAILY 07/29/22 07/29/22 Unknown History tablet,extended release 24 hr Physical Exam Vital Signs: Vital Signs: Last Vital Signs Pulse 77 07/29/22 11:15 Resp 13 07/29/22 11:15 BP 133/50 L 07/29/22 11:15 Pulse Ox 100 07/29/22 11:15 O2 Del Method 07/29/22 11:15 O2 Flow Rate 2 07/29/22 11:15 BMI result Body Mass Index 25.8 GENERAL APPEARANCE: Frail. Tired appearing. NECK: no carotid bruit, no jugular venous distention. SKIN: no suspicious lesions, warm and dry. HEART: no murmurs, regular rate and rhythm. LUNGS: Mild expiratory wheezes. ABDOMEN: soft, nontender. EXTREMITIES: no edema. PERIPHERAL PULSES: equal. NEUROLOGIC: No gross deficits, AAO X 3 Assessment and Plan (1) SVT (supraventricular tachycardia): Status: Acute (2) CAD (coronary artery disease): Status: Acute (3) Hematochezia: Status: Acute Plan 81-year-old female who came for Regadenoson nuclear perfusion imaging and developed supraventricular tachycardia with unresponsiveness. Back in sinus rhythm with known left bundle-branch block. Complaining of fatigue and tiredness all over. Blood sugar is normal blood pressure is also normal currently. Would start with basic workup including CBC, BMP and do a chest x-ray. We will also check high sensitivity troponin levels on her. She previously had atrial flutter but current rhythm appears like supraventricular tachycardia. She appears fairly pale and has been passing are blood and it will be important to note that her blood counts are dropping further and whether she needs blood transfusion. If hemoglobin worsening I think Eliquis should be held. We will also GI to assess her whether endoscopy could be expedited. She has mild wheezing due to known reactive airway disease. We will follow along with you. Thank you for allowing me to participate in the care of your patient. Please feel free to contact me if you have any questions. Procedures Date of Service Date of Service: 07/29/22
--- NOTE | 2022-07-29 12:17 | PHA.MEDREC ---
Pharmacy Consult ? Medication Reconciliation Pharmacy has completed the medication reconciliation. Patient's son confirmed all medicaitons. Patient did not take medications in the morning. Sharyn Swanson, PharmD
[2022-07-29 12:56] LABS: MANUAL DIFF FLAG NO
[2022-07-29 12:58] LABS: Basophils Percent Auto 0.4 % (0-2); Eosinophils Absolute Auto 0.1 X10*3/uL (0.0-0.4); Eosinophils Percent Auto 0.6 % (0-4); Hematocrit 24.4 % (37.0-47.0); Hemoglobin 7.3 g/dl (12.0-16.0); Imm Gran Abs Auto 0.16 X10*3/uL (0.00-0.03); Imm Gran Pct Auto 1.5 % (0.0-0.4); Lymphocytes Absolute Auto 2.5 X10*3/uL (1.2-4.9); Lymphocytes Percent Auto 23.7 % (20-40); Mean Corpuscular HGB Conc 29.9 g/dl (31.0-35.0); Mean Corpuscular Volume 93.5 fL (80.0-98.0); Mean Platelet Volume 9.4 fL (9.4-12.3); Monocytes Absolute Auto 0.7 X10*3/uL (0.1-1.2); Monocytes Percent Auto 6.5 % (2-11); NRBC Pct Auto 0.2 /100WBC (0.0-0.2); Neutrophils Absolute Auto 7.1 x10*3/uL (2.0-8.3); Neutrophils Percent Auto 67.3 % (45-73); Platelet Count 336 X10*3/uL (160-400); Red Blood Count 2.61 X10*6/uL (4.20-5.50); Red Cell Distribution Width 16.8 % (11.0-16.0); White Blood Count 10.6 X10*3/uL (4.8-10.8)
[2022-07-29 13:06] LABS: INTERNATIONAL NORM RATIO 1.6 (0.9-1.1); Prothrombin Time 19.1 SEC (10.0-13.1)
[2022-07-29 13:13] LABS: COVID-19 Test Negative (Negative)
[2022-07-29 13:18] LABS: Appearance Urine Clear; Color Urine Yellow; Glucose Urine UA Negative (Negative); Leukocyte Esterase Urine Trace (Negative); Nitrite Urine Negative (Negative); Specific Gravity - Urine 1.015 (1.005-1.025); UMIC TRIGGER UACC YES; Urine Blood Negative (Negative); Urine Ketones Negative (Negative); Urine Protein Trace mg/dL (Neg-Trace)
[2022-07-29 13:19] LABS: Alanine Aminotransferase 11 U/L (0-31); Albumin Level 3.8 g/dL (3.5-5.0); Alkaline Phosphatase 68 U/L (39-117); Anion Gap 16 (12-20); Aspartate Amino Transferase 16 U/L (5-31); Bilirubin Direct 0.2 mg/dL (0.0-0.5); Bilirubin Total 0.4 mg/dL (0.0-1.0); Blood Urea Nitrogen 37 mg/dL (9-16); Calcium 8.7 mg/dL (8.4-10.2); Carbon Dioxide 19 mmol/L (22-29); Chloride 112 mmol/L (96-108); Creatinine Clr Calc Pharmacy 24.8; Estimated Glomerular Filt Rate 34; Glucose Random 165 mg/dL (60-115); Potassium 5.7 mmol/L (3.3-5.1); Sodium 141 mmol/L (135-145); Total Protein 6.2 g/dL (6.5-8.0)
[2022-07-29 13:22] LABS: Bacteria Urine None Seen (None Seen); RBC Urine 0-2 /HPF (0-2); WBC Urine 0-5 /HPF (0-5)
[2022-07-29 13:26] LABS: B Type Natriuretic Peptide 57 pg/mL (<100)
--- NOTE | 2022-07-29 16:13 | PM.IMHP ---
History of Present Illness Date of Service: 07/29/22 <EVIE Stiles - Last Filed: 07/29/22 16:58> Attending physician on admission: Kenzie Nieto <EVIE Stiles - Last Filed: 07/29/22 16:58> Chief Complaint: Arrhythmia, syncope <EVIE Stiles - Last Filed: 07/29/22 16:58> This is an 81 year old Citizen Of The [place] female (who speaks Pushtu) with history of CAD, DM, HTN, asthma, PAF on Eliquis who was sent to the ED after a syncope episode and wide complex tachycardia during outpatient stress test. Per stress test note the patient began to feel unwell In recovery. At around 2 min recovery, she went unresponsive, eyes rolled back began?foaming at mouth, color ashen. Heart rhythm appeared unchanged, pulse difficult to palpate. Code blue initiated. Pt was placed in supine position and IV fluids wide open. EKG strip at 2 min 45 sec recovery does show a wide complex ?tachycardia rate 240. Pt became more responsive and breathing without assistance.? EKGs showing SR, LBBB. Strong pulse present. She was transported to ED. Work up revealed mild KHAI with creatinine of 1.46, and hyperkalemia with K of 5.7. H/H 7.3/24.4 which is decreased from previous baseline. EKG in the ED showed sinus rhythm with LBBB. She received a dose of lokelma and the decision was made to admit her to the hospital for further management. Her history was obtained primarily from her son translating at the bedside. Patient had recent admission to the hospital for management of atrial fibrillation with rapid ventricular response, GI bleeding secondary to hemorrhoids, and pneumonia. She has had persistent rectal bleeding since her discharge. She has seen GI in follow-up as an outpatient and had a colonoscopy scheduled for later this month. Her son states that she has had intermittent episodes of feeling lightheaded which occur primarily at rest as the patient only ambulates a short distance to the bathroom at baseline. She denies shortness of breath or chest pain. Her son reports a chronic cough present for the past 10 years, which seems to be unchanged at this time. <EVIE Stiles - Last Filed: 07/29/22 16:58> Review of Systems Review of Systems: Yes all other systems are reviewed and are negative <EVIE Stiles - Last Filed: 07/29/22 16:58> Constitutional: Constitutional: Denies chills and Denies fever(s) <EVIE Stiles - Last Filed: 07/29/22 16:58> ENT: Reports dizziness <EVIE Stiles - Last Filed: 07/29/22 16:58> Cardiovascular: Cardiovascular: Denies chest pain, Denies palpitations and Denies dyspnea <EVIE Stiles - Last Filed: 07/29/22 16:58> Respiratory: Respiratory: Reports cough and Denies dyspnea <EVIE Stiles - Last Filed: 07/29/22 16:58> Neurologic: Reports dizziness <EVIE Stiles - Last Filed: 07/29/22 16:58> Endocrine: Endocrine: Denies palpitations <EVIE Stiles - Last Filed: 07/29/22 16:58> [facility] Medical History: Medical History (Updated 07/30/22 @ 11:44 by Barney Schreiber MD) Atrial flutter, paroxysmal Bleeding hemorrhoids CAD (coronary artery disease) Diabetes GI bleed Hemorrhoids HTN (hypertension) Left bundle branch block Normocytic anemia <EVIE Stiles - Last Filed: 07/29/22 16:58> Pertinent family history: negative for CAD <EVIE Stiles - Last Filed: 07/29/22 16:58> Surgical History: Surgical History Stented coronary artery <EVIE Stiles - Last Filed: 07/29/22 16:58> Social History: Social History Household Members: Children Household Members Other:: 4 Housing: Apartment Do you presently have visiting nurse or other home services: No Alcohol intake: never Patient Tobacco Use Status: Never used Tobacco Use of substances other than those prescribed or required for medical reasons: No Currently Displaying Signs/Symptoms of Drug Intoxication Withdrawal: No Have you been hit, kicked, punched, or otherwise hurt by someone within the past year? If so, by whom?: No Do you feel safe in your current relationship?: Yes Is there a partner from a previous relationship who is making you feel unsafe now?: No Are you made to feel afraid or neglected: No Advance Directives: No Do you have thoughts of harming others: None Do you have a plan to hurt others: No Plan Recently lost weight without trying: No Nutrition Risks: No Nutritional Risk Patient : No service: No <EVIE Stiles - Last Filed: 07/29/22 16:58> Meds Allergies/Adverse reactions: Allergies Allergy/AdvReac Type Severity Reaction Status Date / Time Penicillins Allergy Unknown Verified 07/20/22 14:33 <EVIE Stiles Last Filed: 07/29/22 16:58> Active Medications: Current Medications Acetaminophen (Acetaminophen 325 Mg Tablet) 650 mg PO Q6H PRN PRN Reason: Pain, Mild (Pain Scale 1-3) Famotidine (Famotidine 20 Mg Tablet) 20 mg PO DAILY [facility] Ferrous Sulfate (Ferrous Sulfate 324 Mg Tablet.Dr) 324 mg PO DAILY [facility] Levalbuterol HCl (Levalbuterol Hcl 1.25 Mg/0.5 Ml Vial.Neb) 1.25 mg INHALE RQ4H WHILE AWAKE [facility] Metoprolol Succinate (Metoprolol Succinate Er 25 Mg Tab.Er.24h) 25 mg PO DAILY [facility]; Protocol Non-Formulary Medication (Fluticasone Propion-Salmeterol [Advair Diskus]) 1 puff INHALE BID DINA Non-Formulary Medication (Hydrocortisone) 1 appl MA DAILY DINA Non-Formulary Medication (Rosuvastatin) 20 mg PO BEDTIME DINA Non-Formulary Medication (Pantoprazole) 40 mg PO BEDTIME [facility] Pharmacy Consult (Consult Rx Perform Med Rec) 1 each MISCELLANE ONCE PRN PRN Reason: Consult order Sodium Chloride (0.9 % Sodium Chloride Flush 3 Ml Syringe) 3 ml IVFLUSH QSHIFT [facility] <EVIE Stiles - Last Filed: 07/29/22 16:58> Home medications: Home Medications Medication Instructions Recorded Confirmed Last Taken Type famotidine 20 mg tablet 20 mg PO DAILY 06/24/22 07/29/22 07/28/22 History glipizide 5 mg tablet 5 mg PO DAILY 06/24/22 07/29/22 07/28/22 History montelukast 10 mg tablet 10 mg PO BEDTIME 06/24/22 07/29/22 07/28/22 History pantoprazole 40 mg tablet,delayed 40 mg PO BEDTIME 06/24/22 07/29/22 07/28/22 History release rosuvastatin 20 mg tablet 20 mg PO BEDTIME 06/24/22 07/29/22 07/28/22 History albuterol sulfate 90 mcg/actuation 2 puff inhalation Q4H PRN Wheezing 07/29/22 07/29/22 07/28/22 History aerosol inhaler fluticasone 500 mcg-salmeterol 50 1 puff inhalation BID 07/29/22 07/29/22 07/28/22 History mcg/dose blistr powdr for inhalation (Advair Diskus) losartan 25 mg tablet 1 tab PO DAILY 07/29/22 07/29/22 07/28/22 History metoprolol succinate 25 mg 1 tab PO DAILY 07/29/22 07/29/22 07/28/22 History tablet,extended release 24 hr <EVIE Stiles - Last Filed: 07/29/22 16:58> Physical Exam Vital Signs and Narrative: Vital Signs: Last Vital Signs Pulse 82 07/29/22 14:17 Resp 16 07/29/22 14:17 BP 113/46 L 07/29/22 14:17 Pulse Ox 98 07/29/22 14:17 O2 Del Method 07/29/22 14:17 O2 Flow Rate 2 07/29/22 11:15 BMI result Body Mass Index 25.8 <EVIE Stiles - Last Filed: 07/29/22 16:58> Const: General: no acute distress, alert and awake <EVIE Stiles Last Filed: 07/29/22 16:58> Nutritional Appearance: average body habitus <EVIE Stiles Last Filed: 07/29/22 16:58> Orientation/consciousness: patient oriented x3 <EVIE Stiles Last Filed: 07/29/22 16:58> Resp: Other: scattered wheezes <EVIE Stiles Last Filed: 07/29/22 16:58> Effort & Inspection: normal respiratory effort and able to speak in complete sentences <EVIE Stiles - Last Filed: 07/29/22 16:58> Cardio: Rate: regular rate <EVIE Stiles - Last Filed: 07/29/22 16:58> Heart sounds: S1 normal heart sound present and S2 normal heart sound present <EVIE Stiles - Last Filed: 07/29/22 16:58> GI: Inspection: No distended <EVIE Stiles - Last Filed: 07/29/22 16:58> Palpation (GI): Soft to palpation and nontender <EVIE Stiles - Last Filed: 07/29/22 16:58> Neuro: General: patient oriented x3 and CN's II-XI intact bilaterally <EVIE Stiles - Last Filed: 07/29/22 16:58> Extrem: Other: able to move all 4 extremities spontaneously <EVIE Stiles - Last Filed: 07/29/22 16:58> General: Yes no pedal edema <EVIE Stiles - Last Filed: 07/29/22 16:58> Results Labs CBC and Chem 7: : 07/30/22 13:11 07/31/22 06:40 <EVIE Stiles - Last Filed: 07/29/22 16:58> Labs: Laboratory Results - last 24 hr 07/29/22 07/29/22 07/29/22 12:49 12:49 12:49 MCV 93.5 MCH 28.0 MCHC 29.9 L RDW 16.8 H Plt Count 336 MPV 9.4 Immature Gran % (Auto) 1.5 H Neut % (Auto) 67.3 Lymph % (Auto) 23.7 Carter % (Auto) 6.5 Eos % (Auto) 0.6 Baso % (Auto) 0.4 Lymph # (Auto) 2.5 Carter # (Auto) 0.7 Eos # (Auto) 0.1 Baso # (Auto) 0.0 Abs Immat Gran (auto) 0.16 H Absolute Neuts (auto) 7.1 Absolute Nucleated RBC 0.020 H Nucleated RBC % (auto) 0.2 PT 19.1 H INR 1.6 H Anion Gap 16 Estim Creat Clear Calc 24.8 Estimated GFR 34 Random Glucose 165 H Calcium 8.7 Magnesium 3.0 H Total Bilirubin 0.4 Direct Bilirubin 0.2 AST 16 ALT 11 Alkaline Phosphatase 68 Troponin I High Sens B-Natriuretic Peptide Total Protein 6.2 L Albumin 3.8 Urine Color Urine Appearance Urine pH Ur Specific [place] Urine Protein Urine Glucose (UA) Urine Ketones Urine Blood Urine Nitrite Ur Leukocyte Esterase Urine RBC Urine WBC Ur Squamous Epith Cells Urine Bacteria Hyaline Casts COVID-19 ([facility]) COVID-19 Clin Com 07/29/22 07/29/22 07/29/22 12:49 12:50 12:50 MCV MCH MCHC RDW Plt Count MPV Immature Gran % (Auto) Neut % (Auto) Lymph % (Auto) Carter % (Auto) Eos % (Auto) Baso % (Auto) Lymph # (Auto) Carter # (Auto) Eos # (Auto) Baso # (Auto) Abs Immat Gran (auto) Absolute Neuts (auto) Absolute Nucleated RBC Nucleated RBC % (auto) PT INR Anion Gap Estim Creat Clear Calc Estimated GFR Random Glucose Calcium Magnesium Total Bilirubin Direct Bilirubin AST ALT Alkaline Phosphatase Troponin I High Sens 14.0 D B-Natriuretic Peptide 57 Total Protein Albumin Urine Color Yellow Urine Appearance Clear Urine pH 5.0 Ur Specific [place] 1.015 Urine Protein Trace Urine Glucose (UA) Negative Urine Ketones Negative Urine Blood Negative Urine Nitrite Negative Ur Leukocyte Esterase Trace H Urine RBC 0-2 Urine WBC 0-5 Ur Squamous Epith Cells 3-5 Urine Bacteria None Seen Hyaline Casts 3-5 COVID-19 (SYL) Negative COVID-19 Clin Com See Note <EVIE Stiles - Last Filed: 07/29/22 16:58> Imaging Radiologist's Impressions: Impressions Chest X-Ray 07/29/22 12:55 IMPRESSION: Unremarkable examination. <EVIE Stiles Last Filed: 07/29/22 16:58> Assessment and Plan (1) Wide-complex tachycardia: Status: Acute <EVIE Stiles Last Filed: 07/29/22 16:58> (2) KHAI (acute kidney injury): Status: Acute <EVIE Stiles - Last Filed: 07/29/22 16:58> (3) Acute hyperkalemia: Status: Acute <EVIE Stiles - Last Filed: 07/29/22 16:58> (4) Hemorrhoids: Status: Inactive <EVIE Stiles - Last Filed: 07/29/22 16:58> (5) Anemia: Status: Acute <EVIE Stiles - Last Filed: 07/29/22 16:58> Syncope wide complex tachycardia at the time of syncope, resolved without intervention echo on last admission with preserved EF, mild LVH with impaired relaxation filling pattern tele monitoring Mild hyperkalemia, mag 3.0 tele monitoring keep k>4, mag >2 seen by cardiology - rec to transfuse Acute blood loss anemia r/t GI bleeding Has had persistent Hemorrhoidal bleeding for past several weeks outpatient colonoscopy had been planned for next week 1U blood ordrered in ED -follow CBC, will order post transfusion CBC when timing of blood transfusion known -GI consult, surgical consult for prolapsing hemorrhoids and recurrent hemorrhoidal bleeding - may benefit from hemorrhoidectomy -hold Eliquis -clear liquid diet -continue MA hydrocortisone cream -sitz baths bid KHAI on CKD3 with mild metabolic acidosis creatinine 1.46, bicarb 19 hold losartan gentle IVF Follow BMP Hyperkalemia K 5.7, given one dose of lokelma repeat BMP now hold losartan Paroxysmal Afib continue metoprolol hold Eliquis tele monitoring DM -hold glipizide -SSI, POCs asthma mild wheezing scheduled breathing treatments continue baseline inhalers GERD continue pepcid, omeprazole CAD continue BB, statin DVT ppx - SCDs Attending - Dr. Nieto The patient will likely require 2 midnight stay in the hospital for management of GI bleeding, workup for syncope/arrhythmia Addendum to history and physical by mid-level provider, EVIE Mccall I interviewed and examined the patient. I discussed their presentation and management with the mid-level provider. I reviewed the history and physical and agree with the documentation, with the following additions and corrections: <EVIE Stiles - Last Filed: 07/29/22 16:58> Syncope wide complex tachycardia at the time of syncope, resolved without intervention echo on last admission with preserved EF, mild LVH with impaired relaxation filling pattern tele monitoring Mild hyperkalemia, mag 3.0 tele monitoring keep k>4, mag >2 seen by cardiology - rec to transfuse Acute blood loss anemia r/t GI bleeding Has had persistent Hemorrhoidal bleeding for past several weeks outpatient colonoscopy had been planned for next week 1U blood ordrered in ED -follow CBC, will order post transfusion CBC when timing of blood transfusion known -GI consult, surgical consult for prolapsing hemorrhoids and recurrent hemorrhoidal bleeding - may benefit from hemorrhoidectomy -hold Eliquis -clear liquid diet -continue MA hydrocortisone cream -sitz baths bid KHAI on CKD3 with mild metabolic acidosis creatinine 1.46, bicarb 19 hold losartan gentle IVF Follow BMP Hyperkalemia K 5.7, given one dose of lokelma repeat BMP now hold losartan Paroxysmal Afib continue metoprolol hold Eliquis tele monitoring DM -hold glipizide -SSI, POCs asthma mild wheezing scheduled breathing treatments continue baseline inhalers GERD continue pepcid, omeprazole CAD continue BB, statin DVT ppx - SCDs Attending - Dr. Nieto The patient will likely require 2 midnight stay in the hospital for management of GI bleeding, workup for syncope/arrhythmia Addendum to history and physical by mid-level provider, EVIE Mccall I interviewed and examined the patient. I discussed their presentation and management with the mid-level provider. I reviewed the history and physical and agree with the documentation, with the following additions and corrections: 81yo F with CAD, DM2, HTN, asthma, PAF AC on apixaban undergoing MPS today when she became unresponsive and developed WCT with rate in 240s. She became responsive and went to ED. Found to have KHAI, mild hyperK, acute/chronic anemia. in NSR with LBBB. Recent admission for GIB due to hemorrhoids; has had persistent BRBPR since then; scheduled for C-scope later this month. C/o lighhteadendess. On exam, in NAD. Pale mucosa. Benign abd. Plan admit to [facility], continuous telemetry, Cardiology + GI consults, transfuse 1u pRBCs, treat hyperK with SZC, recheck BMP, hold apixaban <Kenzie Nieto MD - Last Filed: 07/31/22 08:07> Quality Stroke Does the patient have a stroke diagnosis?: No <EVIE Stiles - Last Filed: 07/29/22 16:58> VTE Prior VTE?: No <EVIE Stiles - Last Filed: 07/29/22 16:58> VTE Risk Level:: Medical - moderate - high <EVIE Stiles - Last Filed: 07/29/22 16:58> VTE Device Contraindication: N/A - Device Ordered <EVIE Stiles - Last Filed: 07/29/22 16:58> VTE Drug Contraindication: Treatment Not Indicated <EVIE Stiles - Last Filed: 07/29/22 16:58>
[2022-07-29 16:24] LABS: Glucose, Whole Blood 120 mg/dL (60-115)
--- NOTE | 2022-07-29 18:26 | PC.NURSE ---
pt came to ed after a syncope episode durring a stress test, on monitor, commode at bedside. son at bedside helping with language barrier. 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
[2022-07-29] MEDS: Sodium Zirconium Cyclosilicate 10 GM POWD.PACK PO (18:55)
[2022-07-29 19:04] LABS: Anion Gap 14 (12-20); Blood Urea Nitrogen 32 mg/dL (9-16); Calcium 8.6 mg/dL (8.4-10.2); Carbon Dioxide 18 mmol/L (22-29); Chloride 112 mmol/L (96-108); Creatinine Clr Calc Pharmacy 28.6; Estimated Glomerular Filt Rate 40; Glucose Random 128 mg/dL (60-115); Potassium 5.1 mmol/L (3.3-5.1); Sodium 139 mmol/L (135-145)
[2022-07-29 19:55] LABS: OBS Int Ctl Valid YES; OBS1 POSITIVE (NEGATIVE)
[2022-07-29] MEDS: Lactated Ringers 1,000 ML 100 ML IVCONT (20:04)
[2022-07-29] MEDS: Omeprazole 20 MG CAPSULE.DR PO (21:50)
[2022-07-29] MEDS: Atorvastatin Calcium 80 MG TABLET PO (21:50)
[2022-07-29 22:03] LABS: Glucose, Whole Blood 131 mg/dL (60-115)
[2022-07-29 23:53] LABS: Hematocrit 28.5 % (37.0-47.0); Hemoglobin 9.1 g/dl (12.0-16.0)
[2022-07-30] VITALS (11 sets, daily range): BP systolic 127–154; BP diastolic 50–78; PULSE 66–84; RESP 11–22; TEMP 36.5–37.5; O2SAT 94–100
--- NOTE | 2022-07-30 02:56 | PC.NURSE ---
2330; Patient transferred to overflow bed 8, son at bedside. Patient does not speak Nauruan, per son, patient is alert and oriented. Patient denies pain or discomfort at this time, vss, 1 assist to bedside commode. Call peres within reach.
--- NOTE | 2022-07-30 05:45 | PC.NURSE ---
pt stool noted to be bright red blood.
[2022-07-30] MEDS: Lactated Ringers 1,000 ML 100 ML IVCONT (06:11)
--- NOTE | 2022-07-30 06:13 | PC.NURSE ---
pt able to get self up to and from commode. pt has bright red bloody watery stools. pt now resting comfortably on stretcher. no current complaints or apparent distress. iv fluids running. will continue to monitor.
[2022-07-30 07:06] LABS: Hemoglobin 8.9 g/dl (12.0-16.0); Mean Corpuscular HGB Conc 31.8 g/dl (31.0-35.0); Mean Corpuscular Hemoglobin 29.4 pg (27.0-33.0); Mean Corpuscular Volume 92.4 fL (80.0-98.0); Mean Platelet Volume 10.6 fL (9.4-12.3); NRBC Pct Auto 0.5 /100WBC (0.0-0.2); Platelet Count 288 X10*3/uL (160-400); Red Blood Count 3.03 X10*6/uL (4.20-5.50); Red Cell Distribution Width 15.9 % (11.0-16.0); White Blood Count 7.6 X10*3/uL (4.8-10.8)
[2022-07-30 07:15] LABS: Glucose, Whole Blood 132 mg/dL (60-115)
[2022-07-30 07:20] LABS: Anion Gap 13 (12-20); Blood Urea Nitrogen 23 mg/dL (9-16); Carbon Dioxide 20 mmol/L (22-29); Chloride 111 mmol/L (96-108); Creatinine Clr Calc Pharmacy 34.9; Estimated Glomerular Filt Rate 51; Glucose Random 154 mg/dL (60-115); Magnesium 2.4 mg/dL (1.6-2.6); Sodium 139 mmol/L (135-145)
[2022-07-30] MEDS: Fluticasone/Vilanterol 200/25 BLST.W.DEV 1 PUFF INHALE (08:15)
--- NOTE | 2022-07-30 08:32 | PM.GICN ---
History of Present Illness Data of Consult Service Date: 07/30/22 Requesting physician: Migdalia Mccall Primary Care Provider: Unknown Physician HPI 81 year old Ivorian female (who speaks Pushtu and a little Bengali) with CAD, DM, HTN, asthma, PAF on Eliquis who was sent to the ED after a syncope episode and wide complex tachycardia during outpatient stress test. Per stress test note the patient began to feel unwell In recovery. At around 2 min recovery, she went unresponsive, eyes rolled back began?foaming at mouth, color ashen. Heart rhythm appeared unchanged, pulse was difficult to palpate. Code blue was initiated. Pt was placed in supine position and IV fluids wide open. EKG strip at 2 min 45 sec recovery showed a wide complex ?tachycardia rate 240. Pt became more responsive and was breathing without assistance.? EKGs showing SR, LBBB. Strong pulse present. She was transported to ED. Work up revealed mild KHAI with creatinine of 1.46, and hyperkalemia with K of 5.7. H/H 7.3/24.4 which is decreased from previous baseline.? EKG in the ED showed sinus rhythm with LBBB. She received a dose of lokelma and the decision was made to admit her to the hospital for further management.? History was obtained from the pt and her son (who was at the bedside and interpreted for the patient) and stated patient had had hemorrhoidectomy 12 years ago. Son reports that pt has been having BRBPR 2-3 times a day for the past 2.5 to 3 weeks. Pt notes rectal pain when she is constipated and has hemorrhoids which prolapse after a BM and pt is able to push them back with some difficulty. She has chronic constipation (on no medications) and has been constipated for the past 4 days.? Pt has anxiety due to issues with constipation and hemorrhoids. Pt denies any changes in her appetite or weight. Her son states that she has had intermittent episodes of feeling lightheaded which occur primarily at rest as the patient only ambulates a short distance to the bathroom at baseline. She denied shortness of breath or chest pain. Her son reports a chronic cough present for the past 10 years, which seems to be unchanged at this time Pt has CAD and had stent placement x 3 in [place]. She is and has 6 children - she was living in [place] with her daughter previously and moved to [place] earlier this year, PAST GI HISTORY BY REVIEW OF MEDICAL RECORDS: 8 weeks ago pt had an episode of rectal bleeding and was hospitalized at [facility]. She was told this is likely from her hemorrhoids and was advised further evaluation with a colonoscopy as an outpatient.? [place] [facility] [place] for management of atrial fibrillation with rapid ventricular response, GI bleeding secondary to hemorrhoids, and pneumonia.? She was evaluated by an EGD which showed: EGD Impressions:? ? Normal esophagus ? Hiatal hernia ? Normal stomach ? Normal duodenum. She has had persistent rectal bleeding since her discharge.? She has seen GI in follow-up as an outpatient and has a colonoscopy scheduled on 08/04/[address] Long.? Review of Systems Review of Systems: Yes all other systems are reviewed and are negative Constitutional: Constitutional: Denies chills and Denies fever(s) ENT: Reports dizziness Cardiovascular: Cardiovascular: Denies chest pain, Denies palpitations and Denies dyspnea Respiratory: Respiratory: Reports cough and Denies dyspnea Neurologic: Reports dizziness Endocrine: Endocrine: Denies palpitations [facility] Past Medical History Medical History (Updated 07/30/22 @ 11:44 by Barney Schreiber MD) Atrial flutter, paroxysmal Bleeding hemorrhoids CAD (coronary artery disease) Diabetes GI bleed Hemorrhoids HTN (hypertension) Left bundle branch block Normocytic anemia Surgical History Surgical History Stented coronary artery Social History Social History Household Members: Children Household Members Other:: 4 Housing: Apartment Do you presently have visiting nurse or other home services: No Alcohol intake: never Patient Tobacco Use Status: Never used Tobacco Use of substances other than those prescribed or required for medical reasons: No Currently Displaying Signs/Symptoms of Drug Intoxication Withdrawal: No Have you been hit, kicked, punched, or otherwise hurt by someone within the past year? If so, by whom?: No Do you feel safe in your current relationship?: Yes Is there a partner from a previous relationship who is making you feel unsafe now?: No Are you made to feel afraid or neglected: No Advance Directives: No Do you have thoughts of harming others: None Do you have a plan to hurt others: No Plan Recently lost weight without trying: No Nutrition Risks: No Nutritional Risk Patient : No service: No Meds Allergies Allergy/AdvReac Type Severity Reaction Status Date / Time Penicillins Allergy Unknown Verified 07/20/22 14:33 Active Medications: Current Medications Acetaminophen (Acetaminophen 325 Mg Tablet) 650 mg PO Q6H PRN PRN Reason: Pain, Mild (Pain Scale 1-3) Atorvastatin Calcium (Atorvastatin Calcium 80 Mg Tablet) 80 mg PO BEDTIME [facility] Last Admin: 07/29/22 21:50 Dose: 80 mg Dextrose (Dextrose 50 % 25 Gm/50 Ml Syringe) 25 gm IVPUSH Q15M PRN; Protocol PRN Reason: per Hypoglycemia Standing Ord. Famotidine (Famotidine 20 Mg Tablet) 20 mg PO DAILY [facility] Ferrous Sulfate (Ferrous Sulfate 324 Mg Tablet.) 324 mg PO DAILY [facility] Fluticasone/Vilanterol (Fluticasone/Vilanterol 200/25 Blst.W.Dev) 1 puff INHALE RDAILY [facility] Last Admin: 07/30/22 08:15 Dose: 1 puff Glucose (Glucose Gel 15 Gm Gel..Gram.) 15 gm PO Q15M PRN; Protocol PRN Reason: per Hypoglycemia Standing Ord. Hydrocortisone (Hydrocortisone 2.5 % Rectal Cr 30 Gm Tube) 1 appl WA DAILY [facility] Lactated Ringer's (Lr) 1,000 mls @ 100 mls/hr IVCONT .Q10H [facility] Last Admin: 07/30/22 06:11 Dose: 100 mls/hr Insulin Human Lispro (Insulin Lispro 100 Unit/Ml 3 Ml Vial) 0 unit SUBCUT QIDACHS [facility]; Protocol Last Admin: 07/30/22 07:27 Dose: Not Given Levalbuterol HCl (Levalbuterol Hcl 1.25 Mg/0.5 Ml Vial.Neb) 1.25 mg INHALE RQ4H WHILE AWAKE [facility] Last Admin: 07/30/22 08:05 Dose: 1.25 mg Metoprolol Succinate (Metoprolol Succinate Er 25 Mg Tab.Er.24h) 25 mg PO DAILY [facility]; Protocol Omeprazole (Omeprazole 20 Mg Capsule.) 20 mg PO BEDTIME [facility] Last Admin: 07/29/22 21:50 Dose: 20 mg Pharmacy Consult (Consult Rx Perform Med Rec) 1 each MISCELLANE ONCE PRN PRN Reason: Consult order Sodium Chloride (0.9 % Sodium Chloride Flush 3 Ml Syringe) 3 ml IVFLUSH [facility] Last Admin: 07/30/22 08:28 Dose: Not Given Home Medications Medication Instructions Recorded Confirmed Last Taken Type famotidine 20 mg tablet 20 mg PO DAILY 06/24/22 07/29/22 07/28/22 History glipizide 5 mg tablet 5 mg PO DAILY 06/24/22 07/29/22 07/28/22 History montelukast 10 mg tablet 10 mg PO BEDTIME 06/24/22 07/29/22 07/28/22 History pantoprazole 40 mg tablet,delayed 40 mg PO BEDTIME 06/24/22 07/29/22 07/28/22 History release rosuvastatin 20 mg tablet 20 mg PO BEDTIME 06/24/22 07/29/22 07/28/22 History albuterol sulfate 90 mcg/actuation 2 puff inhalation Q4H PRN Wheezing 07/29/22 07/29/22 07/28/22 History aerosol inhaler fluticasone 500 mcg-salmeterol 50 1 puff inhalation BID 07/29/22 07/29/22 07/28/22 History mcg/dose blistr powdr for inhalation (Advair Diskus) metoprolol succinate 25 mg 1 tab PO DAILY 07/29/22 07/29/22 07/28/22 History tablet,extended release 24 hr Physical Exam Vital Signs: Vital Signs: Last Vital Signs Temp 98.1 F 07/29/22 23:49 Pulse 82 07/30/22 08:05 Resp 22 H 07/30/22 08:05 BP 127/50 L 07/30/22 04:29 Pulse Ox 94 07/30/22 04:29 O2 Del Method 07/30/22 04:29 O2 Flow Rate 2 07/29/22 11:15 BMI result Body Mass Index 25.8 Const: General: healthy appearing and no acute distress Nutritional Appearance: average body habitus Orientation/consciousness: patient oriented x3 Limitations: no limitations HEENT: Head: Yes normal to inspection Ears: hearing grossly normal bilaterally Eyes: Sclerae: sclerae normal Pupils: Equal, round and reactive pupils present Neck: Neck: Yes normal visual inspection Chest: Chest palpation & inspection: normal inspection of the chest Resp: Effort & Inspection: normal respiratory effort Auscultation: clear to auscultation bilaterally Cardio: Palpation: normal PMI Rate: regular rate Rhythm: regular rhythm Heart sounds: S1 normal heart sound present, S2 normal heart sound present and no murmurs GI: Palpation (GI): Soft to palpation, nontender and No hepatosplenomegaly present Auscultation: normal bowel sounds Rectal Exam - Female: deferred Skin: General skin exam: no rashes or lesions noted Neuro: General: patient oriented x3, gait normal and moves all extremities Cranial nerves: Yes Equal, round and reactive pupils present Psych: Appearance: grossly normal Mental Status: mental status grossly normal Results Labs CBC & Chem 7: 07/31/22 06:40 07/31/22 06:40 Labs: Short CBC 07/29/22 07/29/22 07/30/22 Range/Units 12:49 23:37 06:25 WBC 10.6 7.6 (4.8-10.8) X10*3/uL Hgb 7.3 L D 9.1 L D 8.9 L (12.0-16.0) g/dl Hct 24.4 L 28.5 L 28.0 L (37.0-47.0) % Plt Count 336 288 (160-400) X10*3/uL BMP 07/29/22 07/29/22 07/30/22 12:49 18:32 06:25 Sodium 141 139 139 Potassium 5.7 H D 5.1 5.0 Chloride 112 H 112 H 111 H Carbon Dioxide 19 L 18 L 20 L BUN 37 H 32 H 23 H Creatinine 1.46 H 1.27 1.04 Calcium 8.7 8.6 8.0 L D Liver Function 07/29/22 Range/Units 12:49 Total Bilirubin 0.4 (0.0-1.0) mg/dL Direct Bilirubin 0.2 (0.0-0.5) mg/dL AST 16 (5-31) U/L ALT 11 (0-31) U/L Alkaline Phosphatase 68 (39-117) U/L Albumin 3.8 (3.5-5.0) g/dL Urine 07/29/22 Range/Units 12:50 Urine Color Yellow Urine Appearance Clear Urine pH 5.0 (5.0-9.0) Ur Specific [place] 1.015 (1.005-1.025) Urine Protein Trace (Neg-Trace) mg/dL Urine Glucose (UA) Negative (Negative) mg/dL Assessment and Plan (1) Anemia: Status: Acute (2) Rectal bleeding: Status: Acute Plan 81 year old Ivorian female (who speaks Pushtu) with CAD, DM, HTN, asthma, PAF on Eliquis who was sent to the ED after a syncope episode and wide complex tachycardia during outpatient stress test. History was obtained from the pt and her son (who was at the bedside and interpreted for the patient) and stated patient had had hemorrhoidectomy 12 years ago. 8 weeks she had an episode of rectal bleeding for which she went to [facility]. She was told this is likely from her hemorrhoids for which she went to [facility] and was told to follow up as outpatient.? Pt was [place] [facility] [place] and was evaluated by an EGD. Patient complains of passage of bright red blood per rectum associated with prolapsing hemorrhoids. She complains of chronic constipation and bowel movements are painful. Pt was transfused last night with improvement in H&H from 7.3/24.4 to 9.1/28.5. Repeat H and H is 8.9/28 this morning. Anticipate bleeding will improve since patient Eliquis has been discontinued RECOMMENDATIONS: 1. Repeat H & H in 6 to 8 hrs. 2. Sitz baths and hydrocortisone cream twice daily. 3. Surgery consult for prolapsing and bleeding hemorrhoids 4. Cardiology clearance for colonoscopy procedure 5. If H & H remains stable with decrease in bleeding, pt can be discharged home and return for her colonoscopy as an outpatient as scheduled on 08/04/22. If she has persistent bleeding with decrease in H & H, then colonoscopy can be scheduled over the weekend. Procedures Date of Service Date of Service: 07/30/22
--- NOTE | 2022-07-30 08:49 | P.PNCA_ITS ---
Subjective Subjective Date of Service: 07/30/22 Interval history: Seen and examined at bedside. Doing well. Received 1 unit of PRBCs yesterday. Physical Exam Vital Signs: Last Vital Signs Temp 98.1 F 07/29/22 23:49 Pulse 82 07/30/22 08:05 Resp 22 H 07/30/22 08:05 BP 127/50 L 07/30/22 04:29 Pulse Ox 94 07/30/22 04:29 O2 Del Method 07/30/22 04:29 O2 Flow Rate 2 07/29/22 11:15 BMI result Body Mass Index 25.8 GENERAL APPEARANCE: Frail. NECK: no carotid bruit, no jugular venous distention. SKIN: no suspicious lesions, warm and dry. HEART: no murmurs, regular rate and rhythm. LUNGS: CTABL ABDOMEN: soft, nontender. EXTREMITIES: no edema. PERIPHERAL PULSES: equal. NEUROLOGIC: No gross deficits, AAO X 3 Objective Labs and Meds Result diagrams: 07/30/22 06:25 07/30/22 06:25 Lab results: Laboratory Results - last 24 hr 07/29/22 07/29/22 07/29/22 12:49 12:49 12:49 WBC 10.6 RBC 2.61 L D Hgb 7.3 L D Hct 24.4 L MCV 93.5 MCH 28.0 MCHC 29.9 L RDW 16.8 H Plt Count 336 MPV 9.4 Immature Gran % (Auto) 1.5 H Neut % (Auto) 67.3 Lymph % (Auto) 23.7 Wayne % (Auto) 6.5 Eos % (Auto) 0.6 Baso % (Auto) 0.4 Lymph # (Auto) 2.5 Wayne # (Auto) 0.7 Eos # (Auto) 0.1 Baso # (Auto) 0.0 Abs Immat Gran (auto) 0.16 H Absolute Neuts (auto) 7.1 Absolute Nucleated RBC 0.020 H Nucleated RBC % (auto) 0.2 PT 19.1 H INR 1.6 H Sodium 141 Potassium 5.7 H D Chloride 112 H Carbon Dioxide 19 L Anion Gap 16 BUN 37 H Creatinine 1.46 H Estim Creat Clear Calc 24.8 Estimated GFR 34 POC Glucose Random Glucose 165 H Calcium 8.7 Magnesium 3.0 H Total Bilirubin 0.4 Direct Bilirubin 0.2 AST 16 ALT 11 Alkaline Phosphatase 68 Troponin I High Sens B-Natriuretic Peptide Total Protein 6.2 L Albumin 3.8 Urine Color Urine Appearance Urine pH Ur Specific [place] Urine Protein Urine Glucose (UA) Urine Ketones Urine Blood Urine Nitrite Ur Leukocyte Esterase Urine RBC Urine WBC Ur Squamous Epith Cells Urine Bacteria Hyaline Casts Stool Occult Blood COVID-19 (SY[facility]) COVID-19 Clin Com Blood Type Antibody Screen Crossmatch 07/29/22 07/29/22 07/29/22 12:49 12:50 12:50 WBC RBC Hgb Hct MCV MCH MCHC RDW Plt Count MPV Immature Gran % (Auto) Neut % (Auto) Lymph % (Auto) Wayne % (Auto) Eos % (Auto) Baso % (Auto) Lymph # (Auto) Wayne # (Auto) Eos # (Auto) Baso # (Auto) Abs Immat Gran (auto) Absolute Neuts (auto) Absolute Nucleated RBC Nucleated RBC % (auto) PT INR Sodium Potassium Chloride Carbon Dioxide Anion Gap BUN Creatinine Estim Creat Clear Calc Estimated GFR POC Glucose Random Glucose Calcium Magnesium Total Bilirubin Direct Bilirubin AST ALT Alkaline Phosphatase Troponin I High Sens 14.0 D B-Natriuretic Peptide 57 Total Protein Albumin Urine Color Yellow Urine Appearance Clear Urine pH 5.0 Ur Specific [place] 1.015 Urine Protein Trace Urine Glucose (UA) Negative Urine Ketones Negative Urine Blood Negative Urine Nitrite Negative Ur Leukocyte Esterase Trace H Urine RBC 0-2 Urine WBC 0-5 Ur Squamous Epith Cells 3-5 Urine Bacteria None Seen Hyaline Casts 3-5 Stool Occult Blood COVID-19 (SYL) Negative COVID-19 Clin Com See Note Blood Type Antibody Screen Crossmatch 07/29/22 07/29/22 07/29/22 16:11 16:20 18:32 WBC RBC Hgb Hct MCV MCH MCHC RDW Plt Count MPV Immature Gran % (Auto) Neut % (Auto) Lymph % (Auto) Wayne % (Auto) Eos % (Auto) Baso % (Auto) Lymph # (Auto) Wayne # (Auto) Eos # (Auto) Baso # (Auto) Abs Immat Gran (auto) Absolute Neuts (auto) Absolute Nucleated RBC Nucleated RBC % (auto) PT INR Sodium 139 Potassium 5.1 Chloride 112 H Carbon Dioxide 18 L Anion Gap 14 BUN 32 H Creatinine 1.27 Estim Creat Clear Calc 28.6 Estimated GFR 40 POC Glucose 120 H Random Glucose 128 H Calcium 8.6 Magnesium Total Bilirubin Direct Bilirubin AST ALT Alkaline Phosphatase Troponin I High Sens B-Natriuretic Peptide Total Protein Albumin Urine Color Urine Appearance Urine pH Ur Specific [place] Urine Protein Urine Glucose (UA) Urine Ketones Urine Blood Urine Nitrite Ur Leukocyte Esterase Urine RBC Urine WBC Ur Squamous Epith Cells Urine Bacteria Hyaline Casts Stool Occult Blood COVID-19 (SYL) COVID-19 [facility] Com Blood Type A Positive Antibody Screen NEGATIVE Crossmatch See Detail 07/29/22 07/29/22 07/29/22 19:46 21:58 23:37 WBC RBC Hgb 9.1 L D Hct 28.5 L MCV MCH MCHC RDW Plt Count MPV Immature Gran % (Auto) Neut % (Auto) Lymph % (Auto) Wayne % (Auto) Eos % (Auto) Baso % (Auto) Lymph # (Auto) Wayne # (Auto) Eos # (Auto) Baso # (Auto) Abs Immat Gran (auto) Absolute Neuts (auto) Absolute Nucleated RBC Nucleated RBC % (auto) PT INR Sodium Potassium Chloride Carbon Dioxide Anion Gap BUN Creatinine Estim Creat Clear Calc Estimated GFR POC Glucose 131 H Random Glucose Calcium Magnesium Total Bilirubin Direct Bilirubin AST ALT Alkaline Phosphatase Troponin I High Sens B-Natriuretic Peptide Total Protein Albumin Urine Color Urine Appearance Urine pH Ur Specific [place] Urine Protein Urine Glucose (UA) Urine Ketones Urine Blood Urine Nitrite Ur Leukocyte Esterase Urine RBC Urine WBC Ur Squamous Epith Cells Urine Bacteria Hyaline Casts Stool Occult Blood POSITIVE COVID-19 (SYL) COVID-19 [facility] Blood Type Antibody Screen Crossmatch 07/30/22 07/30/22 07/30/22 06:25 06:25 07:11 WBC 7.6 RBC 3.03 L Hgb 8.9 L Hct 28.0 L MCV 92.4 MCH 29.4 MCHC 31.8 RDW 15.9 Plt Count 288 MPV 10.6 Immature Gran % (Auto) Neut % (Auto) Lymph % (Auto) Wayne % (Auto) Eos % (Auto) Baso % (Auto) Lymph # (Auto) Wayne # (Auto) Eos # (Auto) Baso # (Auto) Abs Immat Gran (auto) Absolute Neuts (auto) Absolute Nucleated RBC 0.040 H Nucleated RBC % (auto) 0.5 H PT INR Sodium 139 Potassium 5.0 Chloride 111 H Carbon Dioxide 20 L Anion Gap 13 BUN 23 H Creatinine 1.04 Estim Creat Clear Calc 34.9 Estimated GFR 51 POC Glucose 132 H Random Glucose 154 H Calcium 8.0 L D Magnesium 2.4 Total Bilirubin Direct Bilirubin AST ALT Alkaline Phosphatase Troponin I High Sens B-Natriuretic Peptide Total Protein Albumin Urine Color Urine Appearance Urine pH Ur Specific [place] Urine Protein Urine Glucose (UA) Urine Ketones Urine Blood Urine Nitrite Ur Leukocyte Esterase Urine RBC Urine WBC Ur Squamous Epith Cells Urine Bacteria Hyaline Casts Stool Occult Blood COVID-19 (SYL) COVID-19 Clin Com Blood Type Antibody Screen Crossmatch Imaging Radiologist's impression: Impressions Chest X-Ray 07/29/22 12:55 IMPRESSION: Unremarkable examination. Progress Note: A&P Assessment and plan (1) SVT (supraventricular tachycardia): Status: Acute (2) Atrial flutter, paroxysmal: Status: Acute (3) CAD (coronary artery disease): Status: Acute (4) Anemia: Status: Acute Plan 81 female with known h/o CAD with PCI to LAD and LCx. She has fatigue and dyspnea due to anemia. Transfuse 1 more unit. she had SVT after Regadenoson. Has been stable since then. Hold Eliquis. Can proceed with endoscopy if needed with intermediate risk for CV complications. Time Spent With Patient Time: Total time spent is greater than 50% in coordination of care (as documented) at patient's floor/unit and/or counseling patient: Progress Note: Quality Stroke Does the patient have a stroke diagnosis?: No Procedures Date of Service Date of Service: 07/30/22
[2022-07-30] MEDS: Famotidine 20 MG TABLET PO (10:21)
[2022-07-30] MEDS: Metoprolol Succinate ER 25 MG TAB.ER.24H PO (10:21)
[2022-07-30] MEDS: Ferrous Sulfate 324 MG TABLET.DR PO (10:21)
[2022-07-30] MEDS: Acetaminophen 325 MG TABLET 650 MG PO (10:26)
--- NOTE | 2022-07-30 10:44 | P.CDIC_ITS ---
CDI Concurrent Query Documentation Clarification: PHYSICIAN'S DOCUMENTATION REQUEST Date of Query: 07/30/22 1044 Patient Name: Lori Sung Admit Date: 07/29/22 Dear Doctor, Please review the following and provide your response in the progress notes. Clinical Indicators: The diagnosis of asthma was documented in the record on [enter date]. Risk Factors/Clinical Indicators/Treatments Notes - Asthma, mild wheezing Schedule breathing treatments. Based on the above, please clarify in the Progress Notes further specificity regarding the type and acuity of the asthma: Type: * Mild intermittent - less than 2x/week * Mild persistent - more than 2x/week but not daily * Moderate persistent - daily and may restrict physical activity * Severe persistent - throughout the day with frequent attacks, limiting activities * Exercise induced * Other ? please specify * Unable to determine Use of terms such as suspected, likely, concern for, or probable (associated with a specific diagnosis that is being evaluated, monitored, or treated as if it exists) are acceptable and can be coded in the inpatient setting, when documented at the time of discharge. Thank you, Sara Maharaj [facility], CDIS Extension: [phone] Please use your independent medical judgment in providing your response. THIS QUERY IS PART OF THE PERMANENT MEDICAL RECORD Provider Response: Other Other Diagnosis: unable to determine
--- NOTE | 2022-07-30 11:22 | MHC.CM.PN ---
spoke with son and met with pt pt is active with [facility] she lives with her son she is vax x 4 hcp filed today with pt home with [facility] and family
--- NOTE | 2022-07-30 11:38 | PM.HPGS ---
History of Present Illness History of Present Illness Date of Service: 08/03/22 Chief complaint: Arrhythmia,anemia Narrative: Lori Sung is a 81 year old female admitted after have syncope during outpatient stress test yesterday. She was noted to be anemic. She also has a hx of passage of bright blood per rectum with BMs for severeal months now. Her son, who was the source of the history says that the patient describes hemorrhoids that prolapse frequently with BMs. She apparently has to reduce the prolapse manually each time. The patient was admitted to [facility] last month for the same problem of bright blood per rectum. The son says she was discharged after 3 days. She was then seen by GI who has scheduled for for colonoscopy next week. The patient is on Eliquis for atrial flutter. She has CAD, and HTN as well. Review of Systems Constitutional: Constitutional: Denies chills and Denies fever(s) Cardiovascular: Cardiovascular: Denies chest pain Respiratory: Respiratory: Denies cough Gastrointestinal: Gastrointestinal: Reports hematochezia Genitourinary: Genitourinary: Denies urinary frequency [facility] Past Medical History Medical History (Updated 08/03/22 @ 08:15 by Adriana Richardson MD) Atrial flutter, paroxysmal Bleeding hemorrhoids CAD (coronary artery disease) Diabetes GI bleed Hemorrhoids HTN (hypertension) Left bundle branch block Normocytic anemia Surgical History Surgical History Stented coronary artery Social History Social History Household Members: Children Household Members Other:: 4 Housing: Apartment Do you presently have visiting nurse or other home services: No Alcohol intake: never Patient Tobacco Use Status: Never used Tobacco service: No Meds Allergies Allergy/AdvReac Type Severity Reaction Status Date / Time Penicillins Allergy Unknown Verified 07/20/22 14:33 Active Medications: Current Medications Acetaminophen (Acetaminophen 325 Mg Tablet) 650 mg PO Q6H PRN PRN Reason: Pain, Mild (Pain Scale 1-3) Last Admin: 07/30/22 10:26 Dose: 650 mg Atorvastatin Calcium (Atorvastatin Calcium 80 Mg Tablet) 80 mg PO BEDTIME [facility]INA Last Admin: 07/29/22 21:50 Dose: 80 mg Dextrose (Dextrose 50 % 25 Gm/50 Ml Syringe) 25 gm IVPUSH Q15M PRN; Protocol PRN Reason: per Hypoglycemia Standing Ord. Famotidine (Famotidine 20 Mg Tablet) 20 mg PO DAILY [facility] Last Admin: 07/30/22 10:21 Dose: 20 mg Ferrous Sulfate (Ferrous Sulfate 324 Mg Tablet.) 324 mg PO DAILY [facility] Last Admin: 07/30/22 10:21 Dose: 324 mg Fluticasone/Vilanterol (Fluticasone/Vilanterol 200/25 Blst.W.Dev) 1 puff INHALE RDAILY [facility] Last Admin: 07/30/22 08:15 Dose: 1 puff Glucose (Glucose Gel 15 Gm Gel..Gram.) 15 gm PO Q15M PRN; Protocol PRN Reason: per Hypoglycemia Standing Ord. Hydrocortisone (Hydrocortisone 2.5 % Rectal Cr 30 Gm Tube) 1 appl [place] DAILY [facility] Last Admin: 07/30/22 10:16 Dose: Not Given Lactated Ringer's (Lr) 1,000 mls @ 100 mls/hr IVCONT .Q10H [facility] Last Infusion: 07/30/22 11:17 Dose: 0 mls/hr Insulin Human Lispro (Insulin Lispro 100 Unit/Ml 3 Ml Vial) 0 unit SUBCUT QIDACHS [facility]; Protocol Last Admin: 07/30/22 07:27 Dose: Not Given Levalbuterol HCl (Levalbuterol Hcl 1.25 Mg/0.5 Ml Vial.Neb) 1.25 mg INHALE RQ4H WHILE AWAKE [facility] Last Admin: 07/30/22 08:05 Dose: 1.25 mg Metoprolol Succinate (Metoprolol Succinate Er 25 Mg Tab.Er.24h) 25 mg PO DAILY [facility]; Protocol Last Admin: 07/30/22 10:21 Dose: 25 mg Omeprazole (Omeprazole 20 Mg Capsule.) 20 mg PO BEDTIME [facility] Last Admin: 07/29/22 21:50 Dose: 20 mg Pharmacy Consult (Consult Rx Perform Med Rec) 1 each MISCELLANE ONCE PRN PRN Reason: Consult order Sodium Chloride (0.9 % Sodium Chloride Flush 3 Ml Syringe) 3 ml IVFLUSH QSHIFT [facility] Last Admin: 07/30/22 08:28 Dose: Not Given Home Medications Medication Instructions Recorded Confirmed Last Taken Type famotidine 20 mg tablet 20 mg PO DAILY 06/24/22 07/29/22 07/28/22 History glipizide 5 mg tablet 5 mg PO DAILY 06/24/22 07/29/22 07/28/22 History montelukast 10 mg tablet 10 mg PO BEDTIME 06/24/22 07/29/22 07/28/22 History pantoprazole 40 mg tablet,delayed 40 mg PO BEDTIME 06/24/22 07/29/22 07/28/22 History release rosuvastatin 20 mg tablet 20 mg PO BEDTIME 06/24/22 07/29/22 07/28/22 History albuterol sulfate 90 mcg/actuation 2 puff inhalation Q4H PRN Wheezing 07/29/22 07/29/22 07/28/22 History aerosol inhaler fluticasone 500 mcg-salmeterol 50 1 puff inhalation BID 07/29/22 07/29/22 07/28/22 History mcg/dose blistr powdr for inhalation (Advair Diskus) metoprolol succinate 25 mg 1 tab PO DAILY 07/29/22 07/29/22 07/28/22 History tablet,extended release 24 hr Physical Exam Vital Signs: Vital Signs: Last Vital Signs Temp 98.2 F 07/30/22 11:20 Pulse 73 07/30/22 11:20 Resp 14 07/30/22 11:20 BP 140/61 H 07/30/22 11:20 Pulse Ox 97 07/30/22 10:37 O2 Del Method 07/30/22 10:37 O2 Flow Rate 2 07/29/22 11:15 BMI result Body Mass Index 25.8 Const: General: comfortable and no acute distress Resp: Effort & Inspection: normal respiratory effort GI: Palpation (GI): Soft to palpation, not firm and nontender Extrem: Other: rectal exam- internal and external hemorrhoids, some prolapse, no active bleed, no tenderness, digital exam deferred at this time Results Results Labs: Short CBC 07/29/22 07/29/22 07/30/22 Range/Units 12:49 23:37 06:25 WBC 10.6 7.6 (4.8-10.8) X10*3/uL Hgb 7.3 L D 9.1 L D 8.9 L (12.0-16.0) g/dl Hct 24.4 L 28.5 L 28.0 L (37.0-47.0) % Plt Count 336 288 (160-400) X10*3/uL BMP 07/29/22 07/29/22 07/30/22 12:49 18:32 06:25 Sodium 141 139 139 Potassium 5.7 H D 5.1 5.0 Chloride 112 H 112 H 111 H Carbon Dioxide 19 L 18 L 20 L BUN 37 H 32 H 23 H Creatinine 1.46 H 1.27 1.04 Calcium 8.7 8.6 8.0 L D Liver Function 07/29/22 Range/Units 12:49 Total Bilirubin 0.4 (0.0-1.0) mg/dL Direct Bilirubin 0.2 (0.0-0.5) mg/dL AST 16 (5-31) U/L ALT 11 (0-31) U/L Alkaline Phosphatase 68 (39-117) U/L Albumin 3.8 (3.5-5.0) g/dL Urine 07/29/22 Range/Units 12:50 Urine Color Yellow Urine Appearance Clear Urine pH 5.0 (5.0-9.0) Ur Specific [place] 1.015 (1.005-1.025) Urine Protein Trace (Neg-Trace) mg/dL Urine Glucose (UA) Negative (Negative) mg/dL Assessment and Plan (1) Bleeding hemorrhoids: Status: Acute The patient describes frequent prolapse of hemorrhoids along with bleeding. She is on anticagulation so this is likely aggravating the bleeding from her hemorrhoids. She does have a significant cardiac history and is actually undergoing cardiac workup. I explained to the son that it may be best to wait until she is evaluated by cardiology prior to invasive procedures. She is to undergo a colonsocopy with GI to rule out more proxial sources of her bleeding. I will rediscuss the option of colonoscopy thereafter. The son says he understands the plan. The patient does not speak nor understand Greek. Quality Stroke Does the patient have a stroke diagnosis?: No VTE Prior VTE?: No VTE Risk Level:: Medical - moderate - high VTE Device Contraindication: N/A - Device Ordered VTE Drug Contraindication: Treatment Not Indicated Procedures Date of Service Date of Service: 07/30/22
[2022-07-30 12:57] LABS: Glucose, Whole Blood 121 mg/dL (60-115)
[2022-07-30 13:26] LABS: Hematocrit 30.6 % (37.0-47.0); Hemoglobin 9.8 g/dl (12.0-16.0); Mean Corpuscular Volume 90.5 fL (80.0-98.0); Mean Platelet Volume 9.6 fL (9.4-12.3); NRBC Pct Auto 0.5 /100WBC (0.0-0.2); Platelet Count 262 X10*3/uL (160-400); Red Blood Count 3.38 X10*6/uL (4.20-5.50); Red Cell Distribution Width 15.7 % (11.0-16.0); White Blood Count 8.7 X10*3/uL (4.8-10.8)
--- NOTE | 2022-07-30 14:22 | P.PNIM_ITS ---
Subjective Subjective Date of Service: 07/30/22 Interval History: Seen and examined this morning follow up for GI bleeding, arrhythmia had more bright red bleeding overnight history obtained with assistance of son interpreting no abdominal pain Review of Systems Review of Systems: Yes all other systems are reviewed and are negative Constitutional Constitutional: Denies chills and Denies fever(s) Cardiovascular Cardiovascular: Denies chest pain, Denies palpitations and Denies dyspnea Respiratory Respiratory: Denies cough and Denies dyspnea Gastrointestinal Gastrointestinal: Denies abdominal pain, Denies nausea and Denies vomiting Endocrine Endocrine: Denies palpitations Physical Exam Vital Signs: Vital Signs: Last Vital Signs Temp 98.4 F 07/30/22 13:09 Pulse 74 07/30/22 13:09 Resp 15 07/30/22 13:09 BP 154/78 H 07/30/22 13:09 Pulse Ox 97 07/30/22 10:37 O2 Del Method 07/30/22 10:37 O2 Flow Rate 2 07/29/22 11:15 BMI result Body Mass Index 25.8 Const: General: cooperative, comfortable, alert and awake Nutritional Appearance: average body habitus Resp: Effort & Inspection: normal respiratory effort and able to speak in complete sentences Cardio: Rate: regular rate Heart sounds: S1 normal heart sound present and S2 normal heart sound present GI: Inspection: No distended Palpation (GI): Soft to palpation and nontender Extrem: Other: able to move all 4 extremities spontaneously General: Yes no pedal edema Objective Data Active Medications Acetaminophen (Acetaminophen 325 Mg Tablet) 650 mg PO Q6H PRN PRN Reason: Pain, Mild (Pain Scale 1-3) Last Admin: 07/30/22 10:26 Dose: 650 mg Documented By: KARLIE Atorvastatin Calcium (Atorvastatin Calcium 80 Mg Tablet) 80 mg PO BEDTIME [facility] Last Admin: 07/29/22 21:50 Dose: 80 mg Documented By: JLUIS Dextrose (Dextrose 50 % 25 Gm/50 Ml Syringe) 25 gm IVPUSH Q15M PRN; Protocol PRN Reason: per Hypoglycemia Standing Ord. Famotidine (Famotidine 20 Mg Tablet) 20 mg PO DAILY [facility] Last Admin: 07/30/22 10:21 Dose: 20 mg Documented By: KARLIE Ferrous Sulfate (Ferrous Sulfate 324 Mg Tablet.Dr) 324 mg PO DAILY [facility] Last Admin: 07/30/22 10:21 Dose: 324 mg Documented By: KARLIE Fluticasone/Vilanterol (Fluticasone/Vilanterol 200/25 Blst.W.Dev) 1 puff INHALE RDAILY [facility] Last Admin: 07/30/22 08:15 Dose: 1 puff Documented By: PATRICIO Glucose (Glucose Gel 15 Gm Gel..Gram.) 15 gm PO Q15M PRN; Protocol PRN Reason: per Hypoglycemia Standing Ord. Hydrocortisone (Hydrocortisone 2.5 % Rectal Cr 30 Gm Tube) 1 appl [place] DAILY [facility] Last Admin: 07/30/22 10:16 Dose: Not Given Documented By: KARLIE Non-Admin Reason: Med Not Available Lactated Ringer's (Lr) 1,000 mls @ 100 mls/hr IVCONT .Q10H [facility] Last Infusion: 07/30/22 11:17 Dose: 0 mls/hr Documented By: KARLIE Insulin Human Lispro (Insulin Lispro 100 Unit/Ml 3 Ml Vial) 0 unit SUBCUT QIDACHS [facility]; Protocol Last Admin: 07/30/22 13:48 Dose: Not Given Documented By: KARLIE Non-Admin Reason: No Insulin Coverage Levalbuterol HCl (Levalbuterol Hcl 1.25 Mg/0.5 Ml Vial.Neb) 1.25 mg INHALE RQ4H WHILE AWAKE [facility] Last Admin: 07/30/22 13:10 Dose: Not Given Documented By: TRAMAINE Non-Admin Reason: Not In Room Metoprolol Succinate (Metoprolol Succinate Er 25 Mg Tab.Er.24h) 25 mg PO DAILY [facility]; Protocol Last Admin: 07/30/22 10:21 Dose: 25 mg Documented By: KARLIE Omeprazole (Omeprazole 20 Mg Capsule.Dr) 20 mg PO BEDTIME [facility] Last Admin: 07/29/22 21:50 Dose: 20 mg Documented By: JLUIS Pharmacy Consult (Consult Rx Perform Med Rec) 1 each MISCELLANE ONCE PRN PRN Reason: Consult order Sodium Chloride (0.9 % Sodium Chloride Flush 3 Ml Syringe) 3 ml IVFLUSH QSHIFT [facility] Last Admin: 07/30/22 08:28 Dose: Not Given Documented By: KARLIE Non-Admin Reason: IV Running Labs CBC & Chem 7: 07/30/22 13:11 07/30/22 06:25 Labs: Laboratory Results - last 24 hr 07/29/22 07/29/22 07/29/22 16:11 16:20 18:32 MCV MCH MCHC RDW Plt Count MPV Absolute Nucleated RBC Nucleated RBC % (auto) Anion Gap 14 Estim Creat Clear Calc 28.6 Estimated GFR 40 POC Glucose 120 H Random Glucose 128 H Calcium 8.6 Magnesium Stool Occult Blood Blood Type A Positive Antibody Screen NEGATIVE Crossmatch See Detail 07/29/22 07/29/22 07/30/22 19:46 21:58 06:25 MCV 92.4 MCH 29.4 MCHC 31.8 RDW 15.9 Plt Count 288 MPV 10.6 Absolute Nucleated RBC 0.040 H Nucleated RBC % (auto) 0.5 H Anion Gap Estim Creat Clear Calc Estimated GFR POC Glucose 131 H Random Glucose Calcium Magnesium Stool Occult Blood POSITIVE Blood Type Antibody Screen Crossmatch 07/30/22 07/30/22 07/30/22 06:25 07:11 12:53 MCV MCH MCHC RDW Plt Count MPV Absolute Nucleated RBC Nucleated RBC % (auto) Anion Gap 13 Estim Creat Clear Calc 34.9 Estimated GFR 51 POC Glucose 132 H 121 H Random Glucose 154 H Calcium 8.0 L D Magnesium 2.4 Stool Occult Blood Blood Type Antibody Screen Crossmatch 07/30/22 13:11 MCV 90.5 MCH 29.0 MCHC 32.0 RDW 15.7 Plt Count 262 MPV 9.6 Absolute Nucleated RBC 0.040 H Nucleated RBC % (auto) 0.5 H Anion Gap Estim Creat Clear Calc Estimated GFR POC Glucose Random Glucose Calcium Magnesium Stool Occult Blood Blood Type Antibody Screen Crossmatch Assessment and Plan (1) Bleeding hemorrhoids: Status: Acute (2) SVT (supraventricular tachycardia): Status: Acute Plan This is an 81 year old [place] female (who speaks P[place]htu) with history of CAD, DM, HTN, asthma, PAF on Eliquis who was sent to the ED after a syncope episode and wide complex tachycardia during outpatient stress test. Syncope wide complex tachycardia at the time of syncope, resolved without intervention echo on last admission with preserved EF, mild LVH with impaired relaxation filling pattern tele monitoring Mild hyperkalemia, mag 3.0 tele monitoring keep k>4, mag >2 seen by cardiology - rec to transfuse Acute blood loss anemia r/t GI bleeding Has had persistent Hemorrhoidal bleeding for past several weeks, more bleeding overnight s/p 1U blood 07/30. H/H improved, but given h/o CAD, cardiology rec another unit today -seen by GI, plan to keep outpatient colonoscopy scheduled for tuesday unless bleeding persists -surgical consult for prolapsing hemorrhoids and recurrent hemorrhoidal bleeding - may benefit from hemorrhoidectomy -hold Eliquis -clear liquid diet -continue MS hydrocortisone cream -sitz baths bid KHAI on CKD3 with mild metabolic acidosis KHIA resolved, bicarb up to 20 hold losartan for now d/c IVF Hyperkalemia K 5.7, given one dose of lokelma K normalized losartan on hold Paroxysmal Afib continue metoprolol hold Eliquis tele monitoring DM -hold glipizide -SSI, POCs HTN losartan on hold for KHAI initially norvasc on hold for GIB BP trending up, will resume norvasc at lower dose and follow bp asthma mild wheezing scheduled breathing treatments continue baseline inhalers GERD continue pepcid, omeprazole CAD continue BB, statin DVT ppx - SCDs Attending - Dr. Hernandez Patient requires ongoing inpatient hospitalization for management of GI bleeding, workup for syncope/arrhythmia Quality Stroke Does the patient have a stroke diagnosis?: No VTE Prior VTE?: No VTE Risk Level:: Medical - moderate - high VTE Device Contraindication: N/A - Device Ordered VTE Drug Contraindication: Treatment Not Indicated
[2022-07-30 16:58] LABS: Glucose, Whole Blood 114 mg/dL (60-115)
--- NOTE | 2022-07-30 20:22 | PC.NURSE ---
attempt to call nurse to nurse report to C RN x 3 @20:22.
[2022-07-30 20:47] LABS: Glucose, Whole Blood 132 mg/dL (60-115)
[2022-07-30] MEDS: Atorvastatin Calcium 80 MG TABLET PO (20:49)
[2022-07-30] MEDS: Omeprazole 20 MG CAPSULE.DR PO (20:49)
--- NOTE | 2022-07-30 21:01 | PC.NURSE ---
nurse to nurse report attempt x 4 @21:00
--- NOTE | 2022-07-30 21:04 | PC.NURSE ---
bedtime meds given. poc done - 132. no insulin coverage. pt resting comfortably on stretcher. son at bedside.
--- NOTE | 2022-07-30 21:21 | PC.NURSE ---
report given to [facility] RN @21:20. waiting for transport to floor.
[2022-07-30 22:10] LABS: Glucose, Whole Blood 150 mg/dL (60-115)
[2022-07-31 03:23] VITALS: BP 144/65; PULSE 73; RESP 16; TEMP 37.6; O2SAT 95
[2022-07-31 07:42] LABS: Glucose, Whole Blood 128 mg/dL (60-115)
[2022-07-31 07:58] VITALS: BP 159/79; PULSE 70; RESP 20; TEMP 37.2; O2SAT 96
[2022-07-31 08:03] LABS: Anion Gap 14 (12-20); Blood Urea Nitrogen 13 mg/dL (9-16); Calcium 8.3 mg/dL (8.4-10.2); Carbon Dioxide 22 mmol/L (22-29); Chloride 108 mmol/L (96-108); Creatinine Clr Calc Pharmacy 34.3; Estimated Glomerular Filt Rate 50; Glucose Random 139 mg/dL (60-115); Sodium 139 mmol/L (135-145)
[2022-07-31 08:47] LABS: Hematocrit 31.7 % (37.0-47.0); Hemoglobin 10.3 g/dl (12.0-16.0); Mean Corpuscular HGB Conc 32.5 g/dl (31.0-35.0); Mean Corpuscular Hemoglobin 29.6 pg (27.0-33.0); Mean Corpuscular Volume 91.1 fL (80.0-98.0); Mean Platelet Volume 10.6 fL (9.4-12.3); NRBC Pct Auto 0.4 /100WBC (0.0-0.2); Platelet Count 270 X10*3/uL (160-400); Red Blood Count 3.48 X10*6/uL (4.20-5.50); Red Cell Distribution Width 16.6 % (11.0-16.0); White Blood Count 6.9 X10*3/uL (4.8-10.8)
[2022-07-31] MEDS: amLODIPine Besylate 5 MG TABLET PO (09:05)
[2022-07-31] MEDS: Famotidine 20 MG TABLET PO (09:05)
[2022-07-31] MEDS: Metoprolol Succinate ER 25 MG TAB.ER.24H PO (09:05)
[2022-07-31] MEDS: Ferrous Sulfate 324 MG TABLET.DR PO (09:05)
[2022-07-31] MEDS: 0.9 % Sodium Chloride Flush 3 ML SYRINGE IVFLUSH ×3 (09:05→20:19)
[2022-07-31 11:17] LABS: Glucose, Whole Blood 122 mg/dL (60-115)
[2022-07-31 11:38] VITALS: BP 151/70; PULSE 67; RESP 20; TEMP 36.9; O2SAT 96
[2022-07-31 12:19] VITALS: PULSE 72; RESP 19; O2SAT 96
--- NOTE | 2022-07-31 14:50 | PM.DS ---
DS: Providers Provider Date of Service: 07/31/22 Date of admission: 07/29/22 16:00 Date of discharge: 07/31/22 Primary care physician: Unknown Physician Consults: 07/29/22 11:42 Consult to Cardiology Routine Consulting Provider: Olivier Muller Reason for consultation: SVT Has provider been notified: Yes 07/29/22 15:11 Consult to Gastroenterology Routine Consulting Provider: Adriana Richardson Reason for consultation: anemia, GIB Has provider been notified: No 07/29/22 16:54 Consult to General Surgery Routine Consulting Provider: Barney Schreiber Reason for consultation: Prolapsing/bleeding hemorrhoids Has provider been notified: No Attending physician on discharge: Camille Rojas Discharging clinician: Migdalia Mccall DS: Diagnosis Discharge Diagnosis (1) KHAI (acute kidney injury): Status: Acute (2) Acute hyperkalemia: Status: Acute (3) Hemorrhoids: Status: Inactive (4) Anemia: Status: Acute DS: Summary Hospital Course Hospital Course: From H&P on day of admission This is an 81 year old [place]ese female (who speaks Pushtu) with history of CAD, DM, HTN, asthma, PAF on Eliquis who was sent to the ED after a syncope episode and wide complex tachycardia during outpatient stress test. Per stress test note the patient began to feel unwell In recovery. At around 2 min recovery, she went unresponsive, eyes rolled back began?foaming at mouth, color ashen. Heart rhythm appeared unchanged, pulse difficult to palpate. Code blue initiated. Pt was placed in supine position and IV fluids wide open. EKG strip at 2 min 45 sec recovery does show a wide complex ?tachycardia rate 240. Pt became more responsive and breathing without assistance.? EKGs showing SR, LBBB. Strong pulse present. She was transported to ED. Work up revealed mild KHAI with creatinine of 1.46, and hyperkalemia with K of 5.7. H/H 7.3/24.4 which is decreased from previous baseline.? EKG in the ED showed sinus rhythm with LBBB. She received a dose of lokelma and the decision was made to admit her to the hospital for further management.? Her history was obtained primarily from her son translating at the bedside.? Patient had recent admission to the hospital for management of atrial fibrillation with rapid ventricular response, GI bleeding secondary to hemorrhoids, and pneumonia.? She has had persistent rectal bleeding since her discharge.? She has seen GI in follow-up as an outpatient and had a colonoscopy scheduled for later this month.? Her son states that she has had intermittent episodes of feeling lightheaded which occur primarily at rest as the patient only ambulates a short distance to the bathroom at baseline. She denies shortness of breath or chest pain. Her son reports a chronic cough present for the past 10 years, which seems to be unchanged at this time. Syncope. Related to SVT at the time of syncope, resolved without intervention. Likely related to medication given during stress test. . echo on last admission with preserved EF, mild LVH with impaired relaxation filling pattern No further arrhythmia is noted. Seen by Cardiology. Stress test without evidence of ischemia. No further workup required Acute blood loss anemia r/t GI bleeding Has had persistent Hemorrhoidal bleeding for past several weeks. s/p 1U blood 07/29 and 07/30 . seen by GI, plan to keep outpatient colonoscopy appointment on Tuesday. surgical consult for prolapsing hemorrhoids and recurrent hemorrhoidal bleeding - may benefit from outpatient hemorrhoidectomy. Eliquis was placed on hold and bleeding subsided. She was continued on [place] hydrocortisone cream. GI to send instructions/prep for colonoscopy on Tuesday KHAI on CKD3 with mild metabolic acidosis. KHAI resolved, bicarb improved with IVF and holding losartan. Will hold losartan on discharge. Can follow up with PCP to determine need to resume. Hyperkalemia K 5.7, given one dose of lokelma. Potassium levels normalized. Paroxysmal Afib. she was continued on home dose of metoprolol. Eliquis was discontinued due to GI bleeding as above Time Spent with Patient Time attestation: Total time spent providing and/or coordinating discharge services: Discharge coordination time: Greater than 30 minutes Quality: Safe Use of Opioids Does Pt have an Active Cancer Diagnosis on the Problem List?: No Quality: Stroke Does the patient have a stroke diagnosis?: No Physical Exam Vital Signs: Vital Signs: Last Vital Signs Temp 98.4 F 07/31/22 11:38 Pulse 72 07/31/22 12:19 Resp 19 07/31/22 12:19 BP 151/70 H 07/31/22 11:38 Pulse Ox 96 07/31/22 11:38 O2 Del Method 07/31/22 11:38 O2 Flow Rate 2 07/29/22 11:15 BMI result Body Mass Index 25.8 Const: General: cooperative, comfortable, no acute distress, alert and awake Nutritional Appearance: average body habitus Orientation/consciousness: patient oriented x3 Resp: Effort & Inspection: normal respiratory effort and able to speak in complete sentences Cardio: Rate: regular rate Heart sounds: S1 normal heart sound present and S2 normal heart sound present GI: Inspection: No distended Palpation (GI): Soft to palpation and nontender Neuro: General: patient oriented x3 and CN's II-XI intact bilaterally Extrem: Other: able to move all 4 extremities spontaneously General: Yes no pedal edema DS: Data Data Completed and Pending Completed studies during hospitalization [Text1]: Procedures Inspection of Upper Intestinal Tract, Via Natural or Artificial Opening Endoscopic (06/24/22) Labs on day of discharge: Laboratory Results - last 24 hr 07/30/22 07/30/22 07/30/22 16:53 20:44 22:07 WBC RBC Hgb Hct MCV MCH MCHC RDW Plt Count MPV Absolute Nucleated RBC Nucleated RBC % (auto) Sodium Potassium Chloride Carbon Dioxide Anion Gap BUN Creatinine Estim Creat Clear Calc Estimated GFR POC Glucose 114 132 H 150 H Random Glucose Calcium 07/31/22 07/31/22 07/31/22 06:40 06:40 07:38 WBC 6.9 RBC 3.48 L Hgb 10.3 L Hct 31.7 L MCV 91.1 MCH 29.6 MCHC 32.5 RDW 16.6 H Plt Count 270 MPV 10.6 Absolute Nucleated RBC 0.030 H Nucleated RBC % (auto) 0.4 H Sodium 139 Potassium 5.0 Chloride 108 Carbon Dioxide 22 Anion Gap 14 BUN 13 Creatinine 1.06 Estim Creat Clear Calc 34.3 Estimated GFR 50 POC Glucose 128 H Random Glucose 139 H Calcium 8.3 L 07/31/22 11:06 WBC RBC Hgb Hct MCV MCH MCHC RDW Plt Count MPV Absolute Nucleated RBC Nucleated RBC % (auto) Sodium Potassium Chloride Carbon Dioxide Anion Gap BUN Creatinine Estim Creat Clear Calc Estimated GFR POC Glucose 122 H Random Glucose Calcium Discharge Plan Discharge Anticipated Discharge Date/Time: 07/31/22 14:28 Patient Disposition: Home, Self-Care Discharge Diagnosis: gi bleeding anemia SVT Referrals: Adriana Richardson MD [Physician] - 1 Week Physician,Unknown J [Primary Care Provider] - 1 Week Discharge Medications: Continued fluticasone propion-salmeterol [Advair Diskus] 500-50 mcg/dose blister with device 1 puff inhalation BID metoprolol succinate 25 mg tablet extended release 24 hr 1 tab PO DAILY albuterol sulfate 90 mcg/actuation Hfa Aerosol Inhaler 2 puff INHALATION Q4H PRN (Reason: Wheezing) famotidine 20 mg Tablet 20 mg PO DAILY pantoprazole 40 mg Tablet,Delayed Release (Dr/Ec) 40 mg PO BEDTIME montelukast 10 mg Tablet 10 mg PO BEDTIME glipizide 5 mg Tablet 5 mg PO DAILY rosuvastatin 20 mg Tablet 20 mg PO BEDTIME hydralazine 25 mg Tablet 25 mg PO BID Qty: 60 0RF Protocol: Hold for SBP< HOLD for SBP < : 90 amlodipine 10 mg Tablet 10 mg PO DAILY Qty: 30 0RF Protocol: Hold for SBP< HOLD for SBP < : 90 ferrous sulfate 324 mg (65 mg iron) Tablet,Delayed Release (Dr/Ec) 324 mg PO DAILY Qty: 30 0RF hydrocortisone 1 % cream with perineal applicator 1 appl [place] DAILY Qty: 28.4 0RF Discontinued losartan 25 mg tablet 1 tab PO DAILY Eliquis 5 mg Tablet 5 mg PO BID Qty: 60 0RF Discharge Orders: Discharge Order (Routine); Ordered 07/31/22 Ordered By: Migdalia Mccall Activity on Discharge: As tolerated Stand Alone Forms: Patient Portal Discharge page Care Plan Goals: see below Health Concerns: GI bleeding related to hemorrhoids Supraventricular tachycardia acute blood loss anemia acute kidney injury - kidney function has returned to baseline high potassium - returned to normal levels Plan of Treatment: follow up with GI, scheduled for colonoscopy on Tuesday evening stop taking Eliquis stop taking losartan for now, discuss resuming with PCP call to schedule follow up with PCP Assessment: see discharge summary
--- NOTE | 2022-07-31 15:28 | P.PNCA_ITS ---
Subjective Subjective Date of Service: 07/31/22 Interval history: Patient seen examined at bedside. She is complaining reproducible right-sided chest pain. She also has some chest pressure overnight. Reviewing her telemetry she had 30-40 seconds of atrial flutter overnight. Physical Exam Vital Signs: Last Vital Signs Temp 98.4 F 07/31/22 11:38 Pulse 72 07/31/22 12:19 Resp 19 07/31/22 12:19 BP 151/70 H 07/31/22 11:38 Pulse Ox 96 07/31/22 11:38 O2 Del Method 07/31/22 11:38 O2 Flow Rate 2 07/29/22 11:15 BMI result Body Mass Index 25.8 GENERAL APPEARANCE: Frail. NECK: no carotid bruit, no jugular venous distention. SKIN: no suspicious lesions, warm and dry. HEART: no murmurs, regular rate and rhythm. LUNGS: CTABL ABDOMEN: soft, nontender. EXTREMITIES: no edema. PERIPHERAL PULSES: equal. NEUROLOGIC: No gross deficits, AAO X 3 Objective Labs and Meds Result diagrams: 07/31/22 06:40 07/31/22 06:40 Lab results: Laboratory Results - last 24 hr 07/30/22 07/30/22 07/30/22 16:53 20:44 22:07 WBC RBC Hgb Hct MCV MCH MCHC RDW Plt Count MPV Absolute Nucleated RBC Nucleated RBC % (auto) Sodium Potassium Chloride Carbon Dioxide Anion Gap BUN Creatinine Estim Creat Clear Calc Estimated GFR POC Glucose 114 132 H 150 H Random Glucose Calcium 07/31/22 07/31/22 07/31/22 06:40 06:40 07:38 WBC 6.9 RBC 3.48 L Hgb 10.3 L Hct 31.7 L MCV 91.1 MCH 29.6 MCHC 32.5 RDW 16.6 H Plt Count 270 MPV 10.6 Absolute Nucleated RBC 0.030 H Nucleated RBC % (auto) 0.4 H Sodium 139 Potassium 5.0 Chloride 108 Carbon Dioxide 22 Anion Gap 14 BUN 13 Creatinine 1.06 Estim Creat Clear Calc 34.3 Estimated GFR 50 POC Glucose 128 H Random Glucose 139 H Calcium 8.3 L 07/31/22 11:06 WBC RBC Hgb Hct MCV MCH MCHC RDW Plt Count MPV Absolute Nucleated RBC Nucleated RBC % (auto) Sodium Potassium Chloride Carbon Dioxide Anion Gap BUN Creatinine Estim Creat Clear Calc Estimated GFR POC Glucose 122 H Random Glucose Calcium Progress Note: A&P Assessment and plan (1) SVT (supraventricular tachycardia): Status: Acute (2) Left bundle branch block: Status: Acute (3) Atrial flutter, paroxysmal: Status: Acute Plan 81-year-old female with known history of coronary disease with previous LAD and circumflex PCI while she was in [place]. She was admitted the hospital recently where she was noticed to be in atrial flutter and was started on Eliquis. She has been having rectal bleeding due to history of hemorrhoids. She was waiting to undergo colonoscopy. She came for Lexiscan and developed SVT after receiving the regadenoson injection. This was self-limiting. She was noticed to be anemic on blood workup. She has received blood. EGD was performed which did not show any significant pathology. She has seen surgery and may require hemorrhoidectomy in the future. From cardiovascular point of view she had some pressure overnight which could be from atrial flutter episode. She has some reproducible right-sided chest pain which is atypical. Her Lexiscan did not show any significant perfusion defect. She can proceed with surgery or procedures intermediate risk for perioperative complications. I would keep her Eliquis on hold for now. Once GI blood loss issue settles then can resume Eliquis. Adding isosorbide 30 mg once a day. Thank you for allowing me to participate in the care of your patient. Please feel free to contact me if you have any questions. Time Spent With Patient Time: Total time spent is greater than 50% in coordination of care (as documented) at patient's floor/unit and/or counseling patient: Progress Note: Quality Stroke Does the patient have a stroke diagnosis?: No Procedures Date of Service Date of Service: 07/31/22
--- NOTE | 2022-07-31 15:54 | HO.PM.IMPN ---
Subjective Subjective Date of Service: 07/31/22 Interval History: Seen and examined this morning Follow-up for GI bleeding No further bleeding No specific complaints Review of Systems Review of Systems: Yes all other systems are reviewed and are negative Constitutional Constitutional: Denies chills and Denies fever(s) Cardiovascular Cardiovascular: Denies chest pain, Denies palpitations and Denies dyspnea Respiratory Respiratory: Denies cough and Denies dyspnea Endocrine Endocrine: Denies palpitations Physical Exam Vital Signs: Vital Signs: Last Vital Signs Temp 98.4 F 07/31/22 11:38 Pulse 72 07/31/22 12:19 Resp 19 07/31/22 12:19 BP 151/70 H 07/31/22 11:38 Pulse Ox 96 07/31/22 11:38 O2 Del Method 07/31/22 11:38 O2 Flow Rate 2 07/29/22 11:15 BMI result Body Mass Index 25.8 Const: General: cooperative, comfortable, no acute distress, alert and awake Nutritional Appearance: average body habitus Orientation/consciousness: patient oriented x3 Resp: Other: scattered wheezes Effort & Inspection: normal respiratory effort and able to speak in complete sentences Cardio: Rate: regular rate Heart sounds: S1 normal heart sound present and S2 normal heart sound present GI: Inspection: No distended Palpation (GI): Soft to palpation and nontender Neuro: General: patient oriented x3 and CN's II-XI intact bilaterally Extrem: Other: able to move all 4 extremities spontaneously General: Yes no pedal edema Objective Data Active Medications Acetaminophen (Acetaminophen 325 Mg Tablet) 650 mg PO Q6H PRN PRN Reason: Pain, Mild (Pain Scale 1-3) Last Admin: 07/30/22 10:26 Dose: 650 mg Documented By: KARLIE Amlodipine Besylate (Amlodipine Besylate 5 Mg Tablet) 5 mg PO DAILY [facility]; Protocol Last Admin: 07/31/22 09:05 Dose: 5 mg Documented By: TIFFANIEORRNu Atorvastatin Calcium (Atorvastatin Calcium 80 Mg Tablet) 80 mg PO BEDTIME COUNT [facility]CLUDES [facility] Last Admin: 07/30/22 20:49 Dose: 80 mg Documented By: MANDEEP Dextrose (Dextrose 50 % 25 Gm/50 Ml Syringe) 25 gm IVPUSH Q15M PRN; Protocol PRN Reason: per Hypoglycemia Standing Ord. Famotidine (Famotidine 20 Mg Tablet) 20 mg PO DAILY COUNT [facility]CLUDES [facility] Last Admin: 07/31/22 09:05 Dose: 20 mg Documented By: SCOTT Ferrous Sulfate (Ferrous Sulfate 324 Mg Tablet.) 324 mg PO DAILY COUNT [facility]CLUDES [facility] Last Admin: 07/31/22 09:05 Dose: 324 mg Documented By: SCOTT Fluticasone/Vilanterol (Fluticasone/Vilanterol 200/25 Blst.W.Dev) 1 puff INHALE RDAILY COUNT [facility]CLUDES [facility] Last Admin: 07/31/22 08:09 Dose: Not Given Documented By: LEVAR Non-Admin Reason: Patient Asleep Glucose (Glucose Gel 15 Gm Gel..Gram.) 15 gm PO Q15M PRN; Protocol PRN Reason: per Hypoglycemia Standing Ord. Hydrocortisone (Hydrocortisone 2.5 % Rectal Cr 30 Gm Tube) 1 appl [place] DAILY [facility] Last Admin: 07/30/22 10:16 Dose: Not Given Documented By: KARLIE Non-Admin Reason: Med Not Available Insulin Human Lispro (Insulin Lispro 100 Unit/Ml 3 Ml Vial) 0 unit SUBCUT QIDACHS COUNT INCLUDES THE [facility]; Protocol Last Admin: 07/31/22 11:58 Dose: Not Given Documented By: SCOTT Non-Admin Reason: No Insulin Coverage Levalbuterol HCl (Levalbuterol Hcl 1.25 Mg/0.5 Ml Vial.Mouna) 1.25 mg INHALE RQ4H WHILE AWAKE COUNT INCLUDES THE [facility] Last Admin: 07/31/22 12:16 Dose: 1.25 mg Documented By: ALLI Metoprolol Succinate (Metoprolol Succinate Er 25 Mg Tab.Er.24h) 25 mg PO DAILY [facility]; Protocol Last Admin: 07/31/22 09:05 Dose: 25 mg Documented By: SCOTT Omeprazole (Omeprazole 20 Mg Capsule.) 20 mg PO BEDTIME COUNT [facility]CLUDES [facility] Last Admin: 07/30/22 20:49 Dose: 20 mg Documented By: MANDEEP Pharmacy Consult (Consult Rx Perform Med Rec) 1 each MISCELLANE ONCE PRN PRN Reason: Consult order Polyethylene Glycol/Electrolytes (Peg 3350/Na Sulf,Bicarb,Cl/Kcl 4,000 Ml Soln.Recon) 4,000 ml PO ONCE ONE Stop: 08/01/22 15:01 Sodium Chloride (0.9 % Sodium Chloride Flush 3 Ml Syringe) 3 ml IVFLUSH QSHIFT DINA Last Admin: 07/31/22 09:05 Dose: 3 ml Documented By: SCOTT Labs CBC & Chem 7: 07/31/22 06:40 07/31/22 06:40 Labs: Laboratory Results - last 24 hr 07/30/22 07/30/22 07/30/22 16:53 20:44 22:07 MCV MCH MCHC RDW Plt Count MPV Absolute Nucleated RBC Nucleated RBC % (auto) Anion Gap Estim Creat Clear Calc Estimated GFR POC Glucose 114 132 H 150 H Random Glucose Calcium 07/31/22 07/31/22 07/31/22 06:40 06:40 07:38 MCV 91.1 MCH 29.6 MCHC 32.5 RDW 16.6 H Plt Count 270 MPV 10.6 Absolute Nucleated RBC 0.030 H Nucleated RBC % (auto) 0.4 H Anion Gap 14 Estim Creat Clear Calc 34.3 Estimated GFR 50 POC Glucose 128 H Random Glucose 139 H Calcium 8.3 L 07/31/22 11:06 MCV MCH MCHC RDW Plt Count MPV Absolute Nucleated RBC Nucleated RBC % (auto) Anion Gap Estim Creat Clear Calc Estimated GFR POC Glucose 122 H Random Glucose Calcium Assessment and Plan (1) Rectal bleeding: Status: Acute (2) Bleeding hemorrhoids: Status: Acute Plan This is an 81 year old Swazi female (who speaks Pushtu) with history of CAD, DM, HTN, asthma, PAF on Eliquis who was sent to the ED after a syncope episode and wide complex tachycardia during outpatient stress test. Syncope r/t SVT likely from meds given during stress test. No recurrent episodes on telemetry stress test not showing concern for ischemia Seen by Cardiology, no further workup indicated Acute blood loss anemia r/t GI bleeding Has had persistent Hemorrhoidal bleeding for past several weeks, more bleeding overnight s/p 1U blood 07/30. H/H improved, but given h/o CAD, cardiology rec another unit today -seen by GI, colonoscopy being moved up to Tuesday night -surgical consult for prolapsing hemorrhoids and recurrent hemorrhoidal bleeding - may benefit from hemorrhoidectomy as outpatient -hold Eliquis -continue clear liquid diet -continue [place] hydrocortisone cream -sitz baths bid KHAI on CKD3 with mild metabolic acidosis KHAI resolved, bicarb up to 20 hold losartan for now d/c IVF Hyperkalemia K 5.7, given one dose of lokelma K normalized losartan on hold Paroxysmal Afib continue metoprolol hold Eliquis tele monitoring DM -hold glipizide -SSI, POCs HTN losartan on hold for KHAI initially continue norvasc BP trending up, will resume norvasc at lower dose and follow bp asthma mild wheezing scheduled breathing treatments continue baseline inhalers GERD continue pepcid, omeprazole CAD continue BB, statin DVT ppx - SCDs Attending - Dr. stewart Patient requires ongoing inpatient hospitalization for management of GI bleeding, workup for syncope/arrhythmia Quality Stroke Does the patient have a stroke diagnosis?: No VTE Prior VTE?: No VTE Risk Level:: Medical - moderate - high VTE Device Contraindication: N/A - Device Ordered VTE Drug Contraindication: Treatment Not Indicated
[2022-07-31 16:00] VITALS: BP 160/72; PULSE 63; RESP 18; TEMP 37.7; O2SAT 97
[2022-07-31 16:54] LABS: Glucose, Whole Blood 110 mg/dL (60-115)
[2022-07-31] MEDS: Isosorbide Mononitrate 30 MG TAB.ER.24H PO (17:43)
[2022-07-31 19:21] VITALS: BP 131/58; PULSE 61; RESP 18; TEMP 37.1; O2SAT 96
[2022-07-31] MEDS: Omeprazole 20 MG CAPSULE.DR PO (20:19)
[2022-07-31] MEDS: Atorvastatin Calcium 80 MG TABLET PO (20:19)
[2022-07-31 20:29] LABS: Glucose, Whole Blood 100 mg/dL (60-115)
[2022-08-01] VITALS (10 sets, daily range): BP systolic 118–163; BP diastolic 56–73; PULSE 67–83; RESP 14–20; TEMP 36.8–37.7; O2SAT 94–97
[2022-08-01 07:48] LABS: Glucose, Whole Blood 154 mg/dL (60-115)
[2022-08-01] MEDS: Famotidine 20 MG TABLET PO (08:35)
[2022-08-01] MEDS: 0.9 % Sodium Chloride Flush 3 ML SYRINGE IVFLUSH ×3 (08:35→21:16)
[2022-08-01] MEDS: Insulin Lispro 100 UNIT/ML 3 ML VIAL SUBCUT ×3 (08:35→21:12)
[2022-08-01] MEDS: Hydrocortisone 2.5 % Rectal Cr 30 GM TUBE 1 APPL PR (08:36)
[2022-08-01] MEDS: Metoprolol Succinate ER 25 MG TAB.ER.24H PO (08:36)
[2022-08-01] MEDS: Ferrous Sulfate 324 MG TABLET.DR PO (08:36)
[2022-08-01] MEDS: amLODIPine Besylate 10 MG TABLET PO (08:36)
[2022-08-01] MEDS: Isosorbide Mononitrate 30 MG TAB.ER.24H PO (08:36)
[2022-08-01 09:55] LABS: Hemoglobin 9.6 g/dl (12.0-16.0); Mean Corpuscular Volume 90.6 fL (80.0-98.0); Mean Platelet Volume 9.8 fL (9.4-12.3); Platelet Count 242 X10*3/uL (160-400); Red Blood Count 3.31 X10*6/uL (4.20-5.50); Red Cell Distribution Width 16.6 % (11.0-16.0); White Blood Count 12.5 X10*3/uL (4.8-10.8)
[2022-08-01 11:20] LABS: Glucose, Whole Blood 107 mg/dL (60-115)
--- NOTE | 2022-08-01 12:04 | P.PNIM_ITS ---
Subjective Subjective Date of Service: 08/01/22 Interval History: Seen and examined this morning Follow-up for GI bleeding No bleeding yesterday or overnight last night history obtained with son interpreting Plan for colonoscopy tomorrow Review of Systems Review of Systems: Yes all other systems are reviewed and are negative Constitutional Constitutional: Denies chills and Denies fever(s) Cardiovascular Cardiovascular: Denies chest pain, Denies palpitations and Denies dyspnea Respiratory Respiratory: Denies cough and Denies dyspnea Gastrointestinal Gastrointestinal: Denies abdominal pain, Denies nausea and Denies vomiting Endocrine Endocrine: Denies palpitations Physical Exam Vital Signs: Vital Signs: Last Vital Signs Temp 98.8 F 08/01/22 11:00 Pulse 70 08/01/22 11:00 Resp 20 08/01/22 11:00 BP 136/61 08/01/22 11:00 Pulse Ox 94 08/01/22 11:00 O2 Del Method 08/01/22 11:00 O2 Flow Rate 2 07/29/22 11:15 BMI result Body Mass Index 25.8 Const: General: cooperative, comfortable, no acute distress, alert and awake Nutritional Appearance: average body habitus Orientation/consciousness: patient oriented x3 Resp: Effort & Inspection: normal respiratory effort and able to speak in complete sentences Cardio: Rate: regular rate Heart sounds: S1 normal heart sound present and S2 normal heart sound present GI: Inspection: No distended Palpation (GI): Soft to palpation and nontender Neuro: General: patient oriented x3 and CN's II-XI intact bilaterally Extrem: Other: able to move all 4 extremities spontaneously General: Yes no pedal edema Objective Data Active Medications Acetaminophen (Acetaminophen 325 Mg Tablet) 650 mg PO Q6H PRN PRN Reason: Pain, Mild (Pain Scale 1-3) Last Admin: 07/30/22 10:26 Dose: 650 mg Documented By: KARLIE Amlodipine Besylate (Amlodipine Besylate 10 Mg Tablet) 10 mg PO DAILY [facility]; Protocol Last Admin: 08/01/22 08:36 Dose: 10 mg Documented By: SD Atorvastatin Calcium (Atorvastatin Calcium 80 Mg Tablet) 80 mg PO BEDTIME [facility] Last Admin: 07/31/22 20:19 Dose: 80 mg Documented By: ANTOIC Dextrose (Dextrose 50 % 25 Gm/50 Ml Syringe) 25 gm IVPUSH Q15M PRN; Protocol PRN Reason: per Hypoglycemia Standing Ord. Famotidine (Famotidine 20 Mg Tablet) 20 mg PO DAILY [facility] Last Admin: 08/01/22 08:35 Dose: 20 mg Documented By: SD Ferrous Sulfate (Ferrous Sulfate 324 Mg Tablet.) 324 mg PO DAILY [facility] Last Admin: 08/01/22 08:36 Dose: 324 mg Documented By: SD Fluticasone/Vilanterol (Fluticasone/Vilanterol 200/25 Blst.W.Dev) 1 puff INHALE RDAILY [facility] Last Admin: 08/01/22 07:41 Dose: Not Given Documented By: LEVAR Non-Admin Reason: Med Not Available Glucose (Glucose Gel 15 Gm Gel..Gram.) 15 gm PO Q15M PRN; Protocol PRN Reason: per Hypoglycemia Standing Ord. Hydrocortisone (Hydrocortisone 2.5 % Rectal Cr 30 Gm Tube) 1 appl [place] DAILY [facility] Last Admin: 08/01/22 08:36 Dose: 1 appl Documented By: SD Insulin Human Lispro (Insulin Lispro 100 Unit/Ml 3 Ml Vial) 0 unit SUBCUT QIDACHS [facility]; Protocol Last Admin: 08/01/22 11:57 Dose: Not Given Documented By: SD Non-Admin Reason: No Insulin Coverage Isosorbide Mononitrate (Isosorbide Mononitrate 30 Mg Tab.Er.24h) 30 mg PO DAILY [facility]; Protocol Last Admin: 08/01/22 08:36 Dose: 30 mg Documented By: SD Levalbuterol HCl (Levalbuterol Hcl 1.25 Mg/0.5 Ml Vial.Mouna) 1.25 mg INHALE RQ4H WHILE AWAKE [facility] Last Admin: 08/01/22 10:58 Dose: 1.25 mg Documented By: LEVAR Metoprolol Succinate (Metoprolol Succinate Er 25 Mg Tab.Er.24h) 25 mg PO DAILY [facility]; Protocol Last Admin: 08/01/22 08:36 Dose: 25 mg Documented By: SD Omeprazole (Omeprazole 20 Mg Capsule.) 20 mg PO BEDTIME [facility] Last Admin: 07/31/22 20:19 Dose: 20 mg Documented By: ANTOIC Pharmacy Consult (Consult Rx Perform Med Rec) 1 each MISCELLANE ONCE PRN PRN Reason: Consult order Polyethylene Glycol/Electrolytes (Peg 3350/Na Sulf,Bicarb,Cl/Kcl 4,000 Ml Soln.Recon) 4,000 ml PO ONCE ONE Stop: 08/01/22 15:01 Sodium Chloride (0.9 % Sodium Chloride Flush 3 Ml Syringe) 3 ml IVFLUSH QSHIFT DINA Last Admin: 08/01/22 08:35 Dose: 3 ml Documented By: SD Labs CBC & Chem 7: 08/01/22 09:26 07/31/22 06:40 Labs: Laboratory Results - last 24 hr 07/31/22 07/31/22 08/01/22 16:50 20:21 07:32 MCV MCH MCHC RDW Plt Count MPV Absolute Nucleated RBC Nucleated RBC % (auto) POC Glucose 110 100 154 H 08/01/22 08/01/22 09:26 11:02 MCV 90.6 MCH 29.0 MCHC 32.0 RDW 16.6 H Plt Count 242 MPV 9.8 Absolute Nucleated RBC 0.000 Nucleated RBC % (auto) 0.0 POC Glucose 107 Assessment and Plan (1) Bleeding hemorrhoids: Status: Acute (2) SVT (supraventricular tachycardia): Status: Acute Plan This is an 81 year old [place] female (who speaks Pushtu) with history of CAD, DM, HTN, asthma, PAF on Eliquis who was sent to the ED after a syncope episode and wide complex tachycardia during outpatient stress test. Syncope r/t SVT likely from meds given during stress test. No recurrent episodes on telemetry stress test not showing concern for ischemia Seen by Cardiology, no further workup indicated. started on imdur daily Acute blood loss anemia r/t GI bleeding Has had persistent Hemorrhoidal bleeding for past several weeks, more bleeding overnight s/p 1U blood /07/30. H/H now stable -seen by GI, colonoscopy being moved up to tomorrow, Thursday 08/02 -surgical consult for prolapsing hemorrhoids and recurrent hemorrhoidal bleeding - may benefit from hemorrhoidectomy as outpatient.per cardiology patient is at intermediate risk for any procedure -hold Eliquis until source of bleeding clearly identified -continue clear liquid diet, colonoscopy prep to start this afternoon -continue [place] hydrocortisone cream -sitz baths bid KHAI on CKD3 with mild metabolic acidosis KHAI resolved, bicarb up to 20 hold losartan for now d/c IVF Hyperkalemia K 5.7, given one dose of lokelma K normalized losartan on hold Paroxysmal Afib continue metoprolol hold Eliquis tele monitoring DM -hold glipizide -SSI, POCs HTN losartan on hold for KHAI initially continue norvasc follow BP asthma scheduled breathing treatments continue baseline inhalers GERD continue pepcid, omeprazole CAD continue BB, statin DVT ppx - SCDs Attending - Dr. Barnett Patient requires ongoing inpatient hospitalization for management of GI bleeding, workup for syncope/arrhythmia Quality Stroke Does the patient have a stroke diagnosis?: No VTE Prior VTE?: No VTE Risk Level:: Medical - moderate - high VTE Device Contraindication: N/A - Device Ordered VTE Drug Contraindication: Treatment Not Indicated
[2022-08-01] MEDS: PEG 3350/Na Sulf,Bicarb,Cl/KCL 4,000 ML SOLN.RECON 4000 ML PO (15:49)
[2022-08-01 16:58] LABS: Glucose, Whole Blood 207 mg/dL (60-115)
[2022-08-01] MEDS: Omeprazole 20 MG CAPSULE.DR PO (21:12)
[2022-08-01] MEDS: Atorvastatin Calcium 80 MG TABLET PO (21:12)
[2022-08-02] VITALS (12 sets, daily range): BP systolic 98–174; BP diastolic 45–70; PULSE 66–84; RESP 16–20; TEMP 36.1–38; O2SAT 94–98; BMI 25.6
[2022-08-02 07:41] LABS: Hematocrit 29.5 % (37.0-47.0); Hemoglobin 9.6 g/dl (12.0-16.0); Mean Corpuscular HGB Conc 32.5 g/dl (31.0-35.0); Mean Corpuscular Hemoglobin 29.2 pg (27.0-33.0); Mean Corpuscular Volume 89.7 fL (80.0-98.0); Mean Platelet Volume 10.3 fL (9.4-12.3); Platelet Count 246 X10*3/uL (160-400); Red Blood Count 3.29 X10*6/uL (4.20-5.50); Red Cell Distribution Width 16.5 % (11.0-16.0); White Blood Count 10.1 X10*3/uL (4.8-10.8)
[2022-08-02] MEDS: Fluticasone/Vilanterol 200/25 BLST.W.DEV 1 PUFF INHALE (07:51)
[2022-08-02 07:56] LABS: Glucose, Whole Blood 89 mg/dL (60-115)
[2022-08-02] MEDS: 0.9 % Sodium Chloride Flush 3 ML SYRINGE IVFLUSH ×2 (09:27→21:15)
[2022-08-02] MEDS: Isosorbide Mononitrate 30 MG TAB.ER.24H PO (09:57)
[2022-08-02] MEDS: Metoprolol Succinate ER 25 MG TAB.ER.24H PO (09:57)
[2022-08-02] MEDS: amLODIPine Besylate 10 MG TABLET PO (09:57)
[2022-08-02] MEDS: Hydrocortisone 2.5 % Rectal Cr 30 GM TUBE 1 APPL PR (09:58)
[2022-08-02] MEDS: Famotidine 20 MG TABLET PO (09:58)
[2022-08-02] MEDS: Ferrous Sulfate 324 MG TABLET.DR PO (10:00)
--- NOTE | 2022-08-02 11:05 | HO.PM.IMPN ---
Subjective Subjective Date of Service: 08/02/22 Interval History: Follow-up for GI bleeding No bleeding yesterday or overnight last night history obtained with interpretation by Dr. Rojas Denies pain Review of Systems Review of Systems: Yes all other systems are reviewed and are negative Constitutional Constitutional: Denies chills and Denies fever(s) Cardiovascular Cardiovascular: Denies chest pain, Denies palpitations and Denies dyspnea Respiratory Respiratory: Denies cough and Denies dyspnea Gastrointestinal Gastrointestinal: Denies abdominal pain, Denies nausea and Denies vomiting Endocrine Endocrine: Denies palpitations Physical Exam Vital Signs: Vital Signs: Last Vital Signs Temp 99.2 F 08/02/22 07:10 Pulse 76 08/02/22 07:51 Resp 16 08/02/22 07:51 BP 142/69 H 08/02/22 07:10 Pulse Ox 94 08/02/22 07:10 O2 Del Method 08/02/22 07:10 O2 Flow Rate 2 07/29/22 11:15 FiO2 97 08/01/22 19:28 BMI result Body Mass Index 25.8 Appearing in no acute distress lung sounds are clear to auscultation heart regular rate rhythm, clear S1, S2 positive bowel sounds, abdomen is soft, nontender neuro patient is alert x3, no focal deficits Objective Data Active Medications Acetaminophen (Acetaminophen 325 Mg Tablet) 650 mg PO Q6H PRN PRN Reason: Pain, Mild (Pain Scale 1-3) Last Admin: 07/30/22 10:26 Dose: 650 mg Documented By: KARLIE Amlodipine Besylate (Amlodipine Besylate 10 Mg Tablet) 10 mg PO DAILY [facility]; Protocol Last Admin: 08/02/22 09:57 Dose: 10 mg Documented By: STONE Atorvastatin Calcium (Atorvastatin Calcium 80 Mg Tablet) 80 mg PO BEDTIME [facility] Last Admin: 08/01/22 21:12 Dose: 80 mg Documented By: MAGDALENA Dextrose (Dextrose 50 % 25 Gm/50 Ml Syringe) 25 gm IVPUSH Q15M PRN; Protocol PRN Reason: per Hypoglycemia Standing Ord. Famotidine (Famotidine 20 Mg Tablet) 20 mg PO DAILY [facility] Last Admin: 08/02/22 09:58 Dose: 20 mg Documented By: STONE Ferrous Sulfate (Ferrous Sulfate 324 Mg Tablet.) 324 mg PO DAILY [facility] Last Admin: 08/02/22 10:00 Dose: 324 mg Documented By: STONE Fluticasone/Vilanterol (Fluticasone/Vilanterol 200/25 Blst.W.Dev) 1 puff INHALE RDAILY [facility] Last Admin: 08/02/22 07:51 Dose: 1 puff Documented By: LEVAR Glucose (Glucose Gel 15 Gm Gel..Gram.) 15 gm PO Q15M PRN; Protocol PRN Reason: per Hypoglycemia Standing Ord. Hydrocortisone (Hydrocortisone 2.5 % Rectal Cr 30 Gm Tube) 1 appl [place] DAILY [facility] Last Admin: 08/02/22 09:58 Dose: 1 appl Documented By: STONE Insulin Human Lispro (Insulin Lispro 100 Unit/Ml 3 Ml Vial) 0 unit SUBCUT QIDACHS [facility]; Protocol Last Admin: 08/02/22 08:59 Dose: Not Given Documented By: STONE Non-Admin Reason: No Insulin Coverage Isosorbide Mononitrate (Isosorbide Mononitrate 30 Mg Tab.Er.24h) 30 mg PO DAILY [facility]; Protocol Last Admin: 08/02/22 09:57 Dose: 30 mg Documented By: STONE Levalbuterol HCl (Levalbuterol Hcl 1.25 Mg/0.5 Ml Vial.Mouna) 1.25 mg INHALE RQ4H WHILE AWAKE [facility] Last Admin: 08/02/22 07:50 Dose: 1.25 mg Documented By: LEVAR Metoprolol Succinate (Metoprolol Succinate Er 25 Mg Tab.Er.24h) 25 mg PO DAILY [facility]; Protocol Last Admin: 08/02/22 09:57 Dose: 25 mg Documented By: STONE Omeprazole (Omeprazole 20 Mg Capsule.Dr) 20 mg PO BEDTIME [facility] Last Admin: 08/01/22 21:12 Dose: 20 mg Documented By: MAGDALENA Pharmacy Consult (Consult Rx Perform Med Rec) 1 each MISCELLANE ONCE PRN PRN Reason: Consult order Sodium Chloride (0.9 % Sodium Chloride Flush 3 Ml Syringe) 3 ml IVFLUSH QSHIFT [facility] Last Admin: 08/02/22 09:27 Dose: 3 ml Documented By: STONE Labs CBC & Chem 7: 08/02/22 06:36 07/31/22 06:40 Labs: Laboratory Results - last 24 hr 08/01/22 08/01/22 08/02/22 11:02 16:56 06:36 MCV 89.7 MCH 29.2 MCHC 32.5 RDW 16.5 H Plt Count 246 MPV 10.3 Absolute Nucleated RBC 0.000 Nucleated RBC % (auto) 0.0 POC Glucose 107 207 H 08/02/22 07:12 MCV MCH MCHC RDW Plt Count MPV Absolute Nucleated RBC Nucleated RBC % (auto) POC Glucose 89 Assessment and Plan (1) Bleeding hemorrhoids: Status: Acute (2) SVT (supraventricular tachycardia): Status: Acute Plan This is an 81 year old [place] Islander female (who speaks Pushtu) with history of CAD, DM, HTN, asthma, PAF on Eliquis who was sent to the ED after a syncope episode and wide complex tachycardia during outpatient stress test. Syncope r/t SVT likely from meds given during stress test. No recurrent episodes on telemetry stress test not showing concern for ischemia Seen by Cardiology, no further workup indicated. started on imdur daily Acute blood loss anemia r/t GI bleeding Has had persistent Hemorrhoidal bleeding for past several weeks, more bleeding overnight s/p 1U blood /07/30. H/H now stable surgical consult for prolapsing hemorrhoids and recurrent hemorrhoidal bleeding - may benefit from hemorrhoidectomy as outpatient.per cardiology patient is at intermediate risk for any procedure hold Eliquis until source of bleeding clearly identified continue [place] hydrocortisone cream sitz baths bid Colonoscopy today KHAI on CKD3 with mild metabolic acidosis KHAI resolved hold losartan for now d/c IVF Hyperkalemia. Resolved given one dose of lokelma K normalized losartan on hold Paroxysmal Afib continue metoprolol hold Eliquis due to GI bleed tele monitoring DM Sliding scale, Ada diet HTN losartan on hold for KHAI initially continue norvasc follow BP asthma scheduled breathing treatments continue baseline inhalers GERD continue pepcid, omeprazole CAD continue BB, statin DVT ppx - SCDs Attending - Dr. Hernandez Patient requires ongoing inpatient hospitalization for management of GI bleeding, workup for syncope/arrhythmia Quality Stroke Does the patient have a stroke diagnosis?: No VTE Prior VTE?: No VTE Risk Level:: Medical - moderate - high VTE Device Contraindication: N/A - Device Ordered VTE Drug Contraindication: Treatment Not Indicated
[2022-08-02 11:13] LABS: Glucose, Whole Blood 103 mg/dL (60-115)
--- NOTE | 2022-08-02 15:18 | HO.ANESPROP2 ---
[facility] Active Problems Active Problems: All Active Problems (Updated 07/30/22 @ 11:44 by Barney Schreiber MD) Bleeding hemorrhoids (Acute) Rectal bleeding (Acute) Anemia (Acute) Wide-complex tachycardia (Acute) KHAI (acute kidney injury) (Acute) Acute hyperkalemia (Acute) SVT (supraventricular tachycardia) (Acute) Chronic anticoagulation (Acute) Hematochezia (Acute) Left bundle branch block (Acute) Atrial flutter, paroxysmal (Acute) CAD (coronary artery disease) (Acute) Diabetes (Acute) HTN (hypertension) (Acute) Past Medical History Medical History Atrial flutter, paroxysmal Bleeding hemorrhoids CAD (coronary artery disease) Diabetes GI bleed Hemorrhoids HTN (hypertension) Left bundle branch block Normocytic anemia Family History Family history of problems with anesthesia: No Surgical History Surgical History Stented coronary artery History of Problems with Anesthesia: No Social History Social History Household Members: Children Household Members Other:: 4 Housing: Apartment Do you presently have visiting nurse or other home services: No Alcohol intake: never Patient Tobacco Use Status: Never used Tobacco Use of substances other than those prescribed or required for medical reasons: No Currently Displaying Signs/Symptoms of Drug Intoxication Withdrawal: No Have you been hit, kicked, punched, or otherwise hurt by someone within the past year? If so, by whom?: No Do you feel safe in your current relationship?: Yes Is there a partner from a previous relationship who is making you feel unsafe now?: No Are you made to feel afraid or neglected: No Are you DNR?: No Advance Directives: No Do you have thoughts of harming others: None Do you have a plan to hurt others: No Plan Recently lost weight without trying: No Nutrition Risks: No Nutritional Risk Patient : No service: No Meds Allergies Allergy/AdvReac Type Severity Reaction Status Date / Time Penicillins Allergy Unknown Verified 07/20/22 14:33 Active Medications: Current Medications Acetaminophen (Acetaminophen 325 Mg Tablet) 650 mg PO Q6H PRN PRN Reason: Pain, Mild (Pain Scale 1-3) Last Admin: 07/30/22 10:26 Dose: 650 mg Amlodipine Besylate (Amlodipine Besylate 10 Mg Tablet) 10 mg PO DAILY [facility]; Protocol Last Admin: 08/02/22 09:57 Dose: 10 mg Atorvastatin Calcium (Atorvastatin Calcium 80 Mg Tablet) 80 mg PO BEDTIME [facility] Last Admin: 08/01/22 21:12 Dose: 80 mg Dextrose (Dextrose 50 % 25 Gm/50 Ml Syringe) 25 gm IVPUSH Q15M PRN; Protocol PRN Reason: per Hypoglycemia Standing Ord. Famotidine (Famotidine 20 Mg Tablet) 20 mg PO DAILY [facility] Last Admin: 08/02/22 09:58 Dose: 20 mg Ferrous Sulfate (Ferrous Sulfate 324 Mg Tablet.) 324 mg PO DAILY [facility] Last Admin: 08/02/22 10:00 Dose: 324 mg Fluticasone/Vilanterol (Fluticasone/Vilanterol 200/25 Blst.W.Dev) 1 puff INHALE RDAILY [facility] Last Admin: 08/02/22 07:51 Dose: 1 puff Glucose (Glucose Gel 15 Gm Gel..Gram.) 15 gm PO Q15M PRN; Protocol PRN Reason: per Hypoglycemia Standing Ord. Hydrocortisone (Hydrocortisone 2.5 % Rectal Cr 30 Gm Tube) 1 appl HI DAILY [facility] Last Admin: 08/02/22 09:58 Dose: 1 appl Insulin Human Lispro (Insulin Lispro 100 Unit/Ml 3 Ml Vial) 0 unit SUBCUT QIDACHS [facility]; Protocol Last Admin: 08/02/22 11:58 Dose: Not Given Isosorbide Mononitrate (Isosorbide Mononitrate 30 Mg Tab.Er.24h) 30 mg PO DAILY [facility]; Protocol Last Admin: 08/02/22 09:57 Dose: 30 mg Levalbuterol HCl (Levalbuterol Hcl 1.25 Mg/0.5 Ml Vial.Neb) 1.25 mg INHALE RQ4H WHILE AWAKE [facility] Last Admin: 08/02/22 11:17 Dose: 1.25 mg Metoprolol Succinate (Metoprolol Succinate Er 25 Mg Tab.Er.24h) 25 mg PO DAILY [facility]; Protocol Last Admin: 08/02/22 09:57 Dose: 25 mg Omeprazole (Omeprazole 20 Mg Capsule.) 20 mg PO BEDTIME [facility] Last Admin: 08/01/22 21:12 Dose: 20 mg Pharmacy Consult (Consult Rx Perform Med Rec) 1 each MISCELLANE ONCE PRN PRN Reason: Consult order Sodium Chloride (0.9 % Sodium Chloride Flush 3 Ml Syringe) [facility] Last Admin: 08/02/22 09:27 Dose: 3 ml Home Medications Medication Instructions Recorded Confirmed Last Taken Type famotidine 20 mg tablet 20 mg PO DAILY 06/24/22 07/29/22 07/28/22 History glipizide 5 mg tablet 5 mg PO DAILY 06/24/22 07/29/22 07/28/22 History montelukast 10 mg tablet 10 mg PO BEDTIME 06/24/22 07/29/22 07/28/22 History pantoprazole 40 mg tablet,delayed 40 mg PO BEDTIME 06/24/22 07/29/22 07/28/22 History release rosuvastatin 20 mg tablet 20 mg PO BEDTIME 06/24/22 07/29/22 07/28/22 History albuterol sulfate 90 mcg/actuation 2 puff inhalation Q4H PRN Wheezing 07/29/22 07/29/22 07/28/22 History aerosol inhaler fluticasone 500 mcg-salmeterol 50 1 puff inhalation BID 07/29/22 07/29/22 07/28/22 History mcg/dose blistr powdr for inhalation (Advair Diskus) metoprolol succinate 25 mg 1 tab PO DAILY 07/29/22 07/29/22 07/28/22 History tablet,extended release 24 hr Exam Exam Date and Time: August 02, 2022 1518 Height,Weight and Vital Signs: Height 5 ft Weight 59.5 kg Last Vital Signs Temp 100.4 F 08/02/22 14:37 Pulse 81 08/02/22 14:37 Resp 17 08/02/22 14:37 BP 140/64 H 08/02/22 14:37 Pulse Ox 97 08/02/22 14:37 O2 Del Method 08/02/22 14:37 O2 Flow Rate 2 07/29/22 11:15 FiO2 97 08/01/22 19:28 Pertinent Lab Results Pertinent Lab Results: Laboratory Tests 07/29/22 07/29/22 07/29/22 12:49 12:49 12:49 WBC 10.6 RBC 2.61 L D Hgb 7.3 L D Hct 24.4 L MCV 93.5 MCH 28.0 MCHC 29.9 L RDW 16.8 H Plt Count 336 MPV 9.4 Immature Gran % (Auto) 1.5 H Neut % (Auto) 67.3 Lymph % (Auto) 23.7 [place] % (Auto) 6.5 Eos % (Auto) 0.6 Baso % (Auto) 0.4 Lymph # (Auto) 2.5 [place] # (Auto) 0.7 Eos # (Auto) 0.1 Baso # (Auto) 0.0 Abs Immat Gran (auto) 0.16 H Absolute Neuts (auto) 7.1 Absolute Nucleated RBC 0.020 H Nucleated RBC % (auto) 0.2 PT 19.1 H INR 1.6 H Sodium 141 Potassium 5.7 H D Chloride 112 H Carbon Dioxide 19 L Anion Gap 16 BUN 37 H Creatinine 1.46 H Estim Creat Clear Calc 24.8 Estimated GFR 34 POC Glucose Random Glucose 165 H Calcium 8.7 Magnesium 3.0 H Total Bilirubin 0.4 Direct Bilirubin 0.2 AST 16 ALT 11 Alkaline Phosphatase 68 Troponin I High Sens B-Natriuretic Peptide Total Protein 6.2 L Albumin 3.8 Urine Color Urine Appearance Urine pH Ur Specific [place] Urine Protein Urine Glucose (UA) Urine Ketones Urine Blood Urine Nitrite Ur Leukocyte Esterase Urine RBC Urine WBC Ur Squamous Epith Cells Urine Bacteria Hyaline Casts Stool Occult Blood COVID-19 (SYL) COVID-19 Clin Com Blood Type Antibody Screen Crossmatch 07/29/22 07/29/22 07/29/22 12:49 12:50 12:50 WBC RBC Hgb Hct MCV MCH MCHC RDW Plt Count MPV Immature Gran % (Auto) Neut % (Auto) Lymph % (Auto) [place] % (Auto) Eos % (Auto) Baso % (Auto) Lymph # (Auto) [place] # (Auto) Eos # (Auto) Baso # (Auto) Abs Immat Gran (auto) Absolute Neuts (auto) Absolute Nucleated RBC Nucleated RBC % (auto) PT INR Sodium Potassium Chloride Carbon Dioxide Anion Gap BUN Creatinine Estim Creat Clear Calc Estimated GFR POC Glucose Random Glucose Calcium Magnesium Total Bilirubin Direct Bilirubin AST ALT Alkaline Phosphatase Troponin I High Sens 14.0 D B-Natriuretic Peptide 57 Total Protein Albumin Urine Color Yellow Urine Appearance Clear Urine pH 5.0 Ur Specific [place] 1.015 Urine Protein Trace Urine Glucose (UA) Negative Urine Ketones Negative Urine Blood Negative Urine Nitrite Negative Ur Leukocyte Esterase Trace H Urine RBC 0-2 Urine WBC 0-5 Ur Squamous Epith Cells 3-5 Urine Bacteria None Seen Hyaline Casts 3-5 Stool Occult Blood COVID-19 (SYL) Negative COVID-19 Clin Com See Note Blood Type Antibody Screen Crossmatch 07/29/22 07/29/22 07/29/22 16:11 16:20 18:32 WBC RBC Hgb Hct MCV MCH MCHC RDW Plt Count MPV Immature Gran % (Auto) Neut % (Auto) Lymph % (Auto) [place] % (Auto) Eos % (Auto) Baso % (Auto) Lymph # (Auto) [place] # (Auto) Eos # (Auto) Baso # (Auto) Abs Immat Gran (auto) Absolute Neuts (auto) Absolute Nucleated RBC Nucleated RBC % (auto) PT INR Sodium 139 Potassium 5.1 Chloride 112 H Carbon Dioxide 18 L Anion Gap 14 BUN 32 H Creatinine 1.27 Estim Creat Clear Calc 28.6 Estimated GFR 40 POC Glucose 120 H Random Glucose 128 H Calcium 8.6 Magnesium Total Bilirubin Direct Bilirubin AST ALT Alkaline Phosphatase Troponin I High Sens B-Natriuretic Peptide Total Protein Albumin Urine Color Urine Appearance Urine pH Ur Specific [place] Urine Protein Urine Glucose (UA) Urine Ketones Urine Blood Urine Nitrite Ur Leukocyte Esterase Urine RBC Urine WBC Ur Squamous Epith Cells Urine Bacteria Hyaline Casts Stool Occult Blood COVID-19 (SYL) COVID-19 Clin Com Blood Type A Positive Antibody Screen NEGATIVE Crossmatch See Detail 07/29/22 07/29/22 07/29/22 19:46 21:58 23:37 WBC RBC Hgb 9.1 L D Hct 28.5 L MCV MCH MCHC RDW Plt Count MPV Immature Gran % (Auto) Neut % (Auto) Lymph % (Auto) [place] % (Auto) Eos % (Auto) Baso % (Auto) Lymph # (Auto) [place] # (Auto) Eos # (Auto) Baso # (Auto) Abs Immat Gran (auto) Absolute Neuts (auto) Absolute Nucleated RBC Nucleated RBC % (auto) PT INR Sodium Potassium Chloride Carbon Dioxide Anion Gap BUN Creatinine Estim Creat Clear Calc Estimated GFR POC Glucose 131 H Random Glucose Calcium Magnesium Total Bilirubin Direct Bilirubin AST ALT Alkaline Phosphatase Troponin I High Sens B-Natriuretic Peptide Total Protein Albumin Urine Color Urine Appearance Urine pH Ur Specific [place] Urine Protein Urine Glucose (UA) Urine Ketones Urine Blood Urine Nitrite Ur Leukocyte Esterase Urine RBC Urine WBC Ur Squamous Epith Cells Urine Bacteria Hyaline Casts Stool Occult Blood POSITIVE COVID-19 (SYL) COVID-19 [facility] Blood Type Antibody Screen Crossmatch 07/30/22 07/30/22 07/30/22 06:25 06:25 07:11 WBC 7.6 RBC 3.03 L Hgb 8.9 L Hct 28.0 L MCV 92.4 MCH 29.4 MCHC 31.8 RDW 15.9 Plt Count 288 MPV 10.6 Immature Gran % (Auto) Neut % (Auto) Lymph % (Auto) [place] % (Auto) Eos % (Auto) Baso % (Auto) Lymph # (Auto) [place] # (Auto) Eos # (Auto) Baso # (Auto) Abs Immat Gran (auto) Absolute Neuts (auto) Absolute Nucleated RBC 0.040 H Nucleated RBC % (auto) 0.5 H PT INR Sodium 139 Potassium 5.0 Chloride 111 H Carbon Dioxide 20 L Anion Gap 13 BUN 23 H Creatinine 1.04 Estim Creat Clear Calc 34.9 Estimated GFR 51 POC Glucose 132 H Random Glucose 154 H Calcium 8.0 L D Magnesium 2.4 Total Bilirubin Direct Bilirubin AST ALT Alkaline Phosphatase Troponin I High Sens B-Natriuretic Peptide Total Protein Albumin Urine Color Urine Appearance Urine pH Ur Specific [place] Urine Protein Urine Glucose (UA) Urine Ketones Urine Blood Urine Nitrite Ur Leukocyte Esterase Urine RBC Urine WBC Ur Squamous Epith Cells Urine Bacteria Hyaline Casts Stool Occult Blood COVID-19 (SYL) COVID-19 [facility] Blood Type Antibody Screen Crossmatch 07/30/22 07/30/22 07/30/22 12:53 13:11 16:53 WBC 8.7 RBC 3.38 L Hgb 9.8 L Hct 30.6 L MCV 90.5 MCH 29.0 MCHC 32.0 RDW 15.7 Plt Count 262 MPV 9.6 Immature Gran % (Auto) Neut % (Auto) Lymph % (Auto) [place] % (Auto) Eos % (Auto) Baso % (Auto) Lymph # (Auto) [place] # (Auto) Eos # (Auto) Baso # (Auto) Abs Immat Gran (auto) Absolute Neuts (auto) Absolute Nucleated RBC 0.040 H Nucleated RBC % (auto) 0.5 H PT INR Sodium Potassium Chloride Carbon Dioxide Anion Gap BUN Creatinine Estim Creat Clear Calc Estimated GFR POC Glucose 121 H 114 Random Glucose Calcium Magnesium Total Bilirubin Direct Bilirubin AST ALT Alkaline Phosphatase Troponin I High Sens B-Natriuretic Peptide Total Protein Albumin Urine Color Urine Appearance Urine pH Ur Specific [place] Urine Protein Urine Glucose (UA) Urine Ketones Urine Blood Urine Nitrite Ur Leukocyte Esterase Urine RBC Urine WBC Ur Squamous Epith Cells Urine Bacteria Hyaline Casts Stool Occult Blood COVID-19 (SYL) COVID-19 Clin Com Blood Type Antibody Screen Crossmatch 07/30/22 07/30/22 07/31/22 20:44 22:07 06:40 WBC RBC Hgb Hct MCV MCH MCHC RDW Plt Count MPV Immature Gran % (Auto) Neut % (Auto) Lymph % (Auto) [place] % (Auto) Eos % (Auto) Baso % (Auto) Lymph # (Auto) [place] # (Auto) Eos # (Auto) Baso # (Auto) Abs Immat Gran (auto) Absolute Neuts (auto) Absolute Nucleated RBC Nucleated RBC % (auto) PT INR Sodium 139 Potassium 5.0 Chloride 108 Carbon Dioxide 22 Anion Gap 14 BUN 13 Creatinine 1.06 Estim Creat Clear Calc 34.3 Estimated GFR 50 POC Glucose 132 H 150 H Random Glucose 139 H Calcium 8.3 L Magnesium Total Bilirubin Direct Bilirubin AST ALT Alkaline Phosphatase Troponin I High Sens B-Natriuretic Peptide Total Protein Albumin Urine Color Urine Appearance Urine pH Ur Specific [place] Urine Protein Urine Glucose (UA) Urine Ketones Urine Blood Urine Nitrite Ur Leukocyte Esterase Urine RBC Urine WBC Ur Squamous Epith Cells Urine Bacteria Hyaline Casts Stool Occult Blood COVID-19 (SYL) COVID-19 Clin Com Blood Type Antibody Screen Crossmatch 07/31/22 07/31/22 07/31/22 06:40 07:38 11:06 WBC 6.9 RBC 3.48 L Hgb 10.3 L Hct 31.7 L MCV 91.1 MCH 29.6 MCHC 32.5 RDW 16.6 H Plt Count 270 MPV 10.6 Immature Gran % (Auto) Neut % (Auto) Lymph % (Auto) [place] % (Auto) Eos % (Auto) Baso % (Auto) Lymph # (Auto) [place] # (Auto) Eos # (Auto) Baso # (Auto) Abs Immat Gran (auto) Absolute Neuts (auto) Absolute Nucleated RBC 0.030 H Nucleated RBC % (auto) 0.4 H PT INR Sodium Potassium Chloride Carbon Dioxide Anion Gap BUN Creatinine Estim Creat Clear Calc Estimated GFR POC Glucose 128 H 122 H Random Glucose Calcium Magnesium Total Bilirubin Direct Bilirubin AST ALT Alkaline Phosphatase Troponin I High Sens B-Natriuretic Peptide Total Protein Albumin Urine Color Urine Appearance Urine pH Ur Specific [place] Urine Protein Urine Glucose (UA) Urine Ketones Urine Blood Urine Nitrite Ur Leukocyte Esterase Urine RBC Urine WBC Ur Squamous Epith Cells Urine Bacteria Hyaline Casts Stool Occult Blood COVID-19 (SYL) COVID-19 [facility] Blood Type Antibody Screen Crossmatch 07/31/22 07/31/22 08/01/22 16:50 20:21 07:32 WBC RBC Hgb Hct MCV MCH MCHC RDW Plt Count MPV Immature Gran % (Auto) Neut % (Auto) Lymph % (Auto) [place] % (Auto) Eos % (Auto) Baso % (Auto) Lymph # (Auto) [place] # (Auto) Eos # (Auto) Baso # (Auto) Abs Immat Gran (auto) Absolute Neuts (auto) Absolute Nucleated RBC Nucleated RBC % (auto) PT INR Sodium Potassium Chloride Carbon Dioxide Anion Gap BUN Creatinine Estim Creat Clear Calc Estimated GFR POC Glucose 110 100 154 H Random Glucose Calcium Magnesium Total Bilirubin Direct Bilirubin AST ALT Alkaline Phosphatase Troponin I High Sens B-Natriuretic Peptide Total Protein Albumin Urine Color Urine Appearance Urine pH Ur Specific [place] Urine Protein Urine Glucose (UA) Urine Ketones Urine Blood Urine Nitrite Ur Leukocyte Esterase Urine RBC Urine WBC Ur Squamous Epith Cells Urine Bacteria Hyaline Casts Stool Occult Blood COVID-19 (SYL) COVID-19 [facility] Blood Type Antibody Screen Crossmatch 08/01/22 08/01/22 08/01/22 09:26 11:02 16:56 WBC 12.5 H RBC 3.31 L Hgb 9.6 L Hct 30.0 L MCV 90.6 MCH 29.0 MCHC 32.0 RDW 16.6 H Plt Count 242 MPV 9.8 Immature Gran % (Auto) Neut % (Auto) Lymph % (Auto) [place] % (Auto) Eos % (Auto) Baso % (Auto) Lymph # (Auto) [place] # (Auto) Eos # (Auto) Baso # (Auto) Abs Immat Gran (auto) Absolute Neuts (auto) Absolute Nucleated RBC 0.000 Nucleated RBC % (auto) 0.0 PT INR Sodium Potassium Chloride Carbon Dioxide Anion Gap BUN Creatinine Estim Creat Clear Calc Estimated GFR POC Glucose 107 207 H Random Glucose Calcium Magnesium Total Bilirubin Direct Bilirubin AST ALT Alkaline Phosphatase Troponin I High Sens B-Natriuretic Peptide Total Protein Albumin Urine Color Urine Appearance Urine pH Ur Specific [place] Urine Protein Urine Glucose (UA) Urine Ketones Urine Blood Urine Nitrite Ur Leukocyte Esterase Urine RBC Urine WBC Ur Squamous Epith Cells Urine Bacteria Hyaline Casts Stool Occult Blood COVID-19 (SYL) COVID-19 [employer] Com Blood Type Antibody Screen Crossmatch 08/02/22 08/02/22 08/02/22 06:36 07:12 10:59 WBC 10.1 RBC 3.29 L Hgb 9.6 L Hct 29.5 L MCV 89.7 MCH 29.2 MCHC 32.5 RDW 16.5 H Plt Count 246 MPV 10.3 Immature Gran % (Auto) Neut % (Auto) Lymph % (Auto) [place] % (Auto) Eos % (Auto) Baso % (Auto) Lymph # (Auto) [place] # (Auto) Eos # (Auto) Baso # (Auto) Abs Immat Gran (auto) Absolute Neuts (auto) Absolute Nucleated RBC 0.000 Nucleated RBC % (auto) 0.0 PT INR Sodium Potassium Chloride Carbon Dioxide Anion Gap BUN Creatinine Estim Creat Clear Calc Estimated GFR POC Glucose 89 103 Random Glucose Calcium Magnesium Total Bilirubin Direct Bilirubin AST ALT Alkaline Phosphatase Troponin I High Sens B-Natriuretic Peptide Total Protein Albumin Urine Color Urine Appearance Urine pH Ur Specific [place] Urine Protein Urine Glucose (UA) Urine Ketones Urine Blood Urine Nitrite Ur Leukocyte Esterase Urine RBC Urine WBC Ur Squamous Epith Cells Urine Bacteria Hyaline Casts Stool Occult Blood COVID-19 (SYL) COVID-19 [facility] Com Blood Type Antibody Screen Crossmatch Airway Mallampati Class: II TM Dist: >3cm Neck ROM: Full Heart: rrr Lungs: cta Assessment and Plan Assessment Anesthesia Assessment: Anesthesia Plan Discussed and Chart Reviewed Final Anesthetic Review Family History of Problems with Anesthesia: No History of Problems with Anesthesia: No NPO: Yes ASA Class: III Final Preanesthetic Review: No Changes in Pt Med Stat, Meds/Allgs Chart Reviewed and Consent Obtained/Reviewed Patient Risk: Intermediate Procedure Risk: Intermediate Anesthetic Plan Anesthetic Plan: MAC: Disposition: Standard PACU
--- NOTE | 2022-08-02 15:40 | MHC.SHP ---
Pre-Procedural Eval Section A Date of Service: 08/02/22 The patient is an INPATIENT: Yes Changes since office visit: Yes New Medical Problems and Yes Patient answered all questions; No Cold of Flu in the past 2 weeks The History & Physical has been completed within 30 days and I have reviewed it.: Yes Section B Chief Complaint: Arrhythmia,anemia Allergies: Allergies Allergy/AdvReac Type Severity Reaction Status Date / Time Penicillins Allergy Unknown Verified 07/20/22 14:33 Plan Diagnosis/Plan: Unchanged I have reviewed the history and physical and performed a pertinent physical examination on my patient. No changes have occurred unless specified.
--- NOTE | 2022-08-02 15:42 | P.OP_ITS ---
Operative Note Operative Note Date of Service: 08/02/22 Narrative: Pre-op diagnosis: rectal bleeding, hemorrhoids Post-op diagnosis:?other ( colon polyp, diverticulosis, hemorrhoids) Procedure: COLONOSCOPY TILL CECUM WITH BIOPSIES Consent: Indications for the procedure and potential complications of bleeding, perforation, reaction to medications and missed diagnosis were discussed with the patient and informed consent was obtained. Instrument: Olympus PCF H 190 L variable stiffness pediatric colonoscope Monitoring: Vital signs and clinical assessment, intermittent blood pressure monitoring, continuous EKG monitoring, Pulse oximetry and Carbon Dioxide monitoring were done throughout the procedure. Colon withdrawl time was 14 minutes. Procedure: The patient was placed in the left lateral decubitis position and pre-procedure medications were administered. After a digital rectal examination of the ano-rectum, the video colonoscope was inserted into the rectum and advanced through the colon to the cecum. The colonoscope was slowly withdrawn in a retrograde panoramic fashion and the colon mucosa was carefully examined including a retroflexed view of the rectum. Findings and interventions are described below. Procedure Difficulty: Without difficulty Findings: Terminal Ileum: Not evaluated Cecum:? Normal Ascending Colon:? Normal Transverse Colon:? Normal Descending Colon:? Normal Sigmoid Colon:? A 3-4 mm sessile polyp removed with a cold bx. Mild diverticulosis Rectum:? Normal Ano-rectum:? Large prolapsing internal hemorrhoids - one with a red spot indicating recent bleeding Colon preparation: Excellent ? Impression and Post Procedure Diagnosis: Colonoscopy Findings: One small polyp removed Mild diverticulosis seen in the sigmoid colon Large prolapsing internal hemorrhoids - one with a red spot indicating recent bleeding Rectal bleeding is likely from hemorrhoids. Plan: Await pathology results Patient has an appointment on 08/09/22 in the [facility] with Dr Long. Schedule a FU appt with Dr Schreiber to discuss hemorrhoidectomy. Repeat Colonoscopy not indicated given advanced age and polyp was small. Above findings were reviewed with the patient and her son. They would like to FU with Dr Schreiber and proceed with hemorrhoid surgery SHO Colon results were reviewed with Dr Schreiber. Surgeon: Adriana Richardson MD Anesthesia:?MAC (Dr Heredia) Was an Wood Inspector used for this Procedure?:?No Wood Inspector:?Jered Mckeon Estimated blood loss (mL):?0 Pathology:?other (A) Polyp Sigmoid Colon) Condition:?stable Disposition:?PACU
[2022-08-02 17:13] LABS: Glucose, Whole Blood 100 mg/dL (60-115)
[2022-08-02 19:43] LABS: Glucose, Whole Blood 118 mg/dL (60-115)
[2022-08-02] MEDS: Atorvastatin Calcium 80 MG TABLET PO (21:11)
[2022-08-02] MEDS: Omeprazole 20 MG CAPSULE.DR PO (21:12)
[2022-08-03 03:21] VITALS: BP 138/65; PULSE 79; RESP 18; TEMP 36.9; O2SAT 96
[2022-08-03 07:15] VITALS: BP 152/67; PULSE 66; RESP 16; TEMP 37.2; O2SAT 96
[2022-08-03 07:54] LABS: Glucose, Whole Blood 121 mg/dL (60-115)
[2022-08-03] MEDS: Fluticasone/Vilanterol 200/25 BLST.W.DEV 1 PUFF INHALE (08:41)
[2022-08-03 08:42] VITALS: PULSE 69; RESP 16; O2SAT 96
[2022-08-03] MEDS: 0.9 % Sodium Chloride Flush 3 ML SYRINGE IVFLUSH (09:19)
[2022-08-03] MEDS: Metoprolol Succinate ER 25 MG TAB.ER.24H PO (09:19)
[2022-08-03] MEDS: amLODIPine Besylate 10 MG TABLET PO (09:19)
[2022-08-03] MEDS: Ferrous Sulfate 324 MG TABLET.DR PO (09:19)
[2022-08-03] MEDS: Isosorbide Mononitrate 30 MG TAB.ER.24H PO (09:19)
[2022-08-03] MEDS: Famotidine 20 MG TABLET PO (09:19)
[2022-08-03 11:03] VITALS: BP 165/87; PULSE 77; RESP 17; TEMP 37.2; O2SAT 95
--- NOTE | 2022-08-03 11:28 | P.DS_ITS ---
DS: Providers Provider Date of Service: 08/03/22 Date of admission: 07/29/22 16:00 Primary care physician: Unknown Physician Consults: 07/29/22 11:42 Consult to Cardiology Routine Consulting Provider: Olivier Muller Reason for consultation: SVT Has provider been notified: Yes 07/29/22 15:11 Consult to Gastroenterology Routine Consulting Provider: Adriana Richardson Reason for consultation: anemia, GIB Has provider been notified: No 07/29/22 16:54 Consult to General Surgery Routine Consulting Provider: Barney Schreiber Reason for consultation: Prolapsing/bleeding hemorrhoids Has provider been notified: No Attending physician on discharge: Marc Hernandez Discharging clinician: Yandy Monroy DS: Diagnosis Discharge Diagnosis (1) Bleeding hemorrhoids: Status: Acute (2) SVT (supraventricular tachycardia): Status: Acute DS: Summary Hospital Course Hospital Course: From H&P on day of admission This is an 81 year old Dominican female (who speaks Pushtu) with history of CAD, DM, HTN, asthma, PAF on Eliquis who was sent to the ED after a syncope episode and wide complex tachycardia during outpatient stress test. Per stress test note the patient began to feel unwell In recovery. At around 2 min recovery, she went unresponsive, eyes rolled back began?foaming at mouth, color ashen. Heart rhythm appeared unchanged, pulse difficult to palpate. Code blue initiated. Pt was placed in supine position and IV fluids wide open. EKG strip at 2 min 45 sec recovery does show a wide complex ?tachycardia rate 240. Pt became more responsive and breathing without assistance.? EKGs showing SR, LBBB. Strong pulse present. She was transported to ED. Work up revealed mild KHAI with creatinine of 1.46, and hyperkalemia with K of 5.7. H/H 7.3/24.4 which is decreased from previous baseline.? EKG in the ED showed sinus rhythm with LBBB. She received a dose of lokelma and the decision was made to admit her to the hospital for further management.? Her history was obtained primarily from her son translating at the bedside.? Patient had recent admission to the hospital for management of atrial fibrillation with rapid ventricular response, GI bleeding secondary to hemorrhoids, and pneumonia.? She has had persistent rectal bleeding since her discharge.? She has seen GI in follow-up as an outpatient and had a colonoscopy scheduled for later this month.? Her son states that she has had intermittent episodes of feeling lightheaded which occur primarily at rest as the patient only ambulates a short distance to the bathroom at baseline. She denies shortness of breath or chest pain. Her son reports a chronic cough present for the past 10 years, which seems to be unchanged at this time. Syncope. Related to SVT at the time of syncope, resolved without intervention. Likely related to medication given during stress test. echo on last admission with preserved EF, mild LVH with impaired relaxation filling pattern No further arrhythmia is noted. Seen by Cardiology. Stress test without evidence of ischemia. No further workup required Acute blood loss anemia r/t GI bleeding Has had persistent Hemorrhoidal bleeding for past several weeks. s/p 1U blood 07/29 and 07/30 . seen by GI status post colonoscopy, polypectomy, large prolapsing internal hemorrhoids. Pathology results pending. Surgical consult for prolapsing hemorrhoids and recurrent hemorrhoidal bleeding - may benefit from outpatient hemorrhoidectomy. Eliquis was placed on hold and bleeding subsided. She was continued on PA hydrocortisone cream. KHAI on CKD3 with mild metabolic acidosis. KHAI resolved, bicarb improved with IVF and holding losartan. Will hold losartan on discharge. Can follow up with PCP to determine need to resume. Hyperkalemia. Resolved. Treated with Lokelma Paroxysmal Afib. Continue metoprolol. Eliquis initially held due to bleeding. may resume Eliquis Time Spent with Patient Time attestation: Total time spent providing and/or coordinating discharge services: Discharge coordination time: Greater than 30 minutes Quality: Safe Use of Opioids Does Pt have an Active Cancer Diagnosis on the Problem List?: No Quality: Stroke Does the patient have a stroke diagnosis?: No Physical Exam Vital Signs: Vital Signs: Last Vital Signs Temp 98.9 F 08/03/22 11:03 Pulse 77 08/03/22 11:03 Resp 17 08/03/22 11:03 BP 165/87 H 08/03/22 11:03 Pulse Ox 95 08/03/22 11:03 O2 Del Method 08/03/22 11:03 O2 Flow Rate 2 07/29/22 11:15 FiO2 97 08/01/22 19:28 BMI result Body Mass Index 25.6 Appearing in no acute distress head is normocephalic atraumatic eyes pupils are PERRLA sclera is anicteric mouth throat mucous membranes are intact and moist neck is supple no lymphadenopathy, no JVD noted lung sounds are clear to auscultation heart regular rate rhythm, clear S1, S2 positive bowel sounds, abdomen is soft, nontender neuro patient is alert x3, no focal deficits DS: Data Data Completed and Pending Completed studies during hospitalization [Text1]: Procedures Inspection of Upper Intestinal Tract, Via Natural or Artificial Opening Endoscopic (06/24/22) Pending studies at discharge: Pending at discharge 08/02/22 16:09 Surgical [PTH] Routine Labs on day of discharge: Laboratory Results - last 24 hr 08/02/22 08/02/22 08/03/22 17:11 19:38 07:21 POC Glucose 100 118 H 121 H Discharge Plan Discharge Anticipated Discharge Date/Time: 07/31/22 14:28 Patient Disposition: Home, Self-Care Discharge Diagnosis: gi bleeding anemia SVT Referrals: Katelynn QUIROGA [Outside] - 1 Week Adriana Richardson MD [Physician] - 1 Week Discharge Medications: Continued fluticasone propion-salmeterol [Advair Diskus] 500-50 mcg/dose blister with device 1 puff inhalation BID metoprolol succinate 25 mg tablet extended release 24 hr 1 tab PO DAILY albuterol sulfate 90 mcg/actuation Hfa Aerosol Inhaler 2 puff INHALATION Q4H PRN (Reason: Wheezing) famotidine 20 mg Tablet 20 mg PO DAILY pantoprazole 40 mg Tablet,Delayed Release (Dr/Ec) 40 mg PO BEDTIME montelukast 10 mg Tablet 10 mg PO BEDTIME glipizide 5 mg Tablet 5 mg PO DAILY rosuvastatin 20 mg Tablet 20 mg PO BEDTIME hydralazine 25 mg Tablet 25 mg PO BID Qty: 60 0RF Protocol: Hold for SBP< HOLD for SBP < : 90 amlodipine 10 mg Tablet 10 mg PO DAILY Qty: 30 0RF Protocol: Hold for SBP< HOLD for SBP < : 90 ferrous sulfate 324 mg (65 mg iron) Tablet,Delayed Release (Dr/Ec) 324 mg PO DAILY Qty: 30 0RF hydrocortisone 1 % cream with perineal applicator 1 appl [place] DAILY Qty: 28.4 0RF Discontinued losartan 25 mg tablet 1 tab PO DAILY Eliquis 5 mg Tablet 5 mg PO BID Qty: 60 0RF No Action sennosides-docusate sodium [Lax Stool Softener With Senna] 8.6-50 mg tablet 1 tab-cap PO BEDTIME 90 Days Qty: 90 1RF Discharge Orders: Discharge Order (Routine); Ordered 08/03/22 Ordered By: Yandy Monroy Diet: Advance to usual diet Activity on Discharge: As tolerated Stand Alone Forms: Patient Portal Discharge page Care Plan Goals: see below Health Concerns: GI bleeding related to hemorrhoids Supraventricular tachycardia acute blood loss anemia acute kidney injury - kidney function has returned to baseline high potassium - returned to normal levels Plan of Treatment: follow up with GI as outpatient continue Eliquis stop taking losartan for now, discuss resuming with PCP call to schedule follow up with PCP Assessment: see discharge summary
--- NOTE | 2022-08-03 11:39 | MHC.CM.PN ---
Patient has been medically cleared for dc to home today . Patient is active with NA, who has been notified of today's dc.
[2022-08-03 11:47] LABS: Glucose, Whole Blood 134 mg/dL (60-115)
[2022-08-03] MEDS: Acetaminophen 325 MG TABLET 650 MG PO (11:57)
--- NOTE | 2022-08-03 12:29 | PC.NURSE ---
Pt d/c'd home w/visiting nurse services, d/c instructions and meds reviewed w/pt's son (caregiver), IV removed, belongings sent home w/pt, no further questions at this time, will f/u with PCP and GI as directed.
== END 2022-08-03 13:01 | disposition home health service (06) | DRG 201 ==
LOC: HO.ED 14:27 → HO.EDOVER 16:16 → HO.IMC 07-30 19:14
PROVIDERS: Internal Medicine Gastroenterology; Physician Assistant; Admitting Provider Physician Assistant Medical; Emergency Provider Internal Medicine; PCP Pediatrics; Visit Provider Nurse Practitioner Acute Care
PROC: 0DJD8ZZ Inspection of Lower Intestinal Tract, Via Natural or Artificial Opening Endoscopic (ICD-10-PCS; CPT 45378; principal; 2022-08-02 16:10)
DX: I47.1 Supraventricular tachycardia (principal); N17.9 Acute kidney failure, unspecified; E87.20 Acidosis, unspecified; K57.31 Diverticulosis of large intestine without perforation or abscess with bleeding; D63.1 Anemia in chronic kidney disease; E11.22 Type 2 diabetes mellitus with diabetic chronic kidney disease; D62 Acute posthemorrhagic anemia; I48.0 Paroxysmal atrial fibrillation; I25.10 Atherosclerotic heart disease of native coronary artery without angina pectoris; I44.7 Left bundle-branch block, unspecified; E87.5 Hyperkalemia; J45.909 Unspecified asthma, uncomplicated; K63.5 Polyp of colon; K64.8 Other hemorrhoids; I12.9 Hypertensive chronic kidney disease with stage 1 through stage 4 chronic kidney disease, or unspecified chronic kidney disease; N18.30 Chronic kidney disease, stage 3 unspecified; Z20.822 Contact with and (suspected) exposure to COVID-19; Z79.51 Long term (current) use of inhaled steroids; Z79.899 Other long term (current) drug therapy
CPT/HCPCS: 36415; 71045; 80048; 80076; 81001; 81003; 82272; 82947; 83735; 83880; 84484; 85014; 85018; 85025; 85027; 85610; 86850; 86900; 86901; 86923; 87635; 88305; 93005; 94640; 99285; P9016

== ENCOUNTER → 2022-08-16 09:42 | Outpatient (BNVA) | payer MEDICAID, SELFPAY | PROVIDERS: PCP Pediatrics; Visit Provider Internal Medicine | DX: K64.9 Unspecified hemorrhoids (principal); K92.1 Melena; I48.92 Unspecified atrial flutter; Z79.01 Long term (current) use of anticoagulants | CPT/HCPCS: 46600; 99212 ==

== ENCOUNTER → 2022-08-23 11:21 | Outpatient (BNVA) | payer MEDICAID, SELFPAY | PROVIDERS: PCP Pediatrics; Visit Provider Surgery | DX: K64.9 Unspecified hemorrhoids (principal) | CPT/HCPCS: 46221; 99212 ==

== ENCOUNTER → 2022-09-06 14:03 | Outpatient (BNVA) | payer MEDICAID, SELFPAY | PROVIDERS: PCP Pediatrics; Visit Provider Surgery | DX: K64.9 Unspecified hemorrhoids (principal) | CPT/HCPCS: 46600; 99212 ==

== ENCOUNTER 2022-09-14 15:51 | Outpatient (REF) | payer MEDICAID, SELFPAY ==
[2022-09-14 16:38] LABS: Hematocrit 34.5 % (37.0-47.0); Mean Corpuscular HGB Conc 31.9 g/dl (31.0-35.0); Mean Corpuscular Hemoglobin 27.2 pg (27.0-33.0); Mean Corpuscular Volume 85.2 fL (80.0-98.0); Mean Platelet Volume 10.8 fL (9.4-12.3); Platelet Count 285 X10*3/uL (160-400); Red Blood Count 4.05 X10*6/uL (4.20-5.50); Red Cell Distribution Width 14.2 % (11.0-16.0); White Blood Count 8.3 X10*3/uL (4.8-10.8)
[2022-09-14 17:12] LABS: Anion Gap 11 (12-20); Blood Urea Nitrogen 23 mg/dL (9-16); Carbon Dioxide 26 mmol/L (22-29); Chloride 109 mmol/L (96-108); Estimated Glomerular Filt Rate 46; Glucose Random 94 mg/dL (60-115); Potassium 4.7 mmol/L (3.3-5.1); Sodium 141 mmol/L (135-145)
== END 2022-09-14 15:52 | disposition home or self-care (01) ==
LOC: HO.LAB 15:51
PROVIDERS: PCP Pediatrics; Visit Provider Internal Medicine Cardiovascular Disease
DX: I48.92 Unspecified atrial flutter (principal); I25.10 Atherosclerotic heart disease of native coronary artery without angina pectoris; I44.7 Left bundle-branch block, unspecified
CPT/HCPCS: 36415; 80048; 85027; 99212

== ENCOUNTER → 2022-09-15 10:20 | Outpatient (BNVA) | payer MEDICAID, SELFPAY | PROVIDERS: PCP Pediatrics; Visit Provider Internal Medicine | DX: K92.1 Melena (principal); K64.9 Unspecified hemorrhoids; I48.92 Unspecified atrial flutter; Z79.01 Long term (current) use of anticoagulants | CPT/HCPCS: 99212 ==

== ENCOUNTER → 2022-09-29 15:03 | Outpatient (BNVA) | payer MEDICAID, SELFPAY | PROVIDERS: PCP Pediatrics; Visit Provider Surgery | DX: K64.8 Other hemorrhoids (principal) | CPT/HCPCS: 46221; 46600 ==

== ENCOUNTER → 2022-10-27 15:12 | Outpatient (BNVA) | payer MEDICAID, SELFPAY | PROVIDERS: PCP Pediatrics; Visit Provider Surgery | DX: K64.9 Unspecified hemorrhoids (principal) | CPT/HCPCS: 99212 ==

== ENCOUNTER 2023-03-16 15:04 | Outpatient (REF) | payer MEDICAID, SELFPAY ==
[2023-03-16 17:22] LABS: Hematocrit 26.9 % (37.0-47.0); Hemoglobin 7.9 g/dl (12.0-16.0); Mean Corpuscular HGB Conc 29.4 g/dl (31.0-35.0); Mean Corpuscular Hemoglobin 21.9 pg (27.0-33.0); Mean Corpuscular Volume 74.7 fL (80.0-98.0); Mean Platelet Volume 10.5 fL (9.4-12.3); Platelet Count 407 X10*3/uL (160-400); Red Cell Distribution Width 16.6 % (11.0-16.0); White Blood Count 9.2 X10*3/uL (4.8-10.8)
== END 2023-03-16 15:05 | disposition home or self-care (01) ==
LOC: HO.LAB 15:04
PROVIDERS: PCP Internal Medicine; Visit Provider Internal Medicine
DX: K62.5 Hemorrhage of anus and rectum (principal)
CPT/HCPCS: 36415; 85027; 99212

== ENCOUNTER → 2023-03-22 15:11 | Outpatient (BNVA) | payer MEDICAID, SELFPAY | PROVIDERS: PCP Pediatrics; Visit Provider Internal Medicine Cardiovascular Disease | DX: R53.83 Other fatigue (principal); I44.7 Left bundle-branch block, unspecified; I25.10 Atherosclerotic heart disease of native coronary artery without angina pectoris; I48.92 Unspecified atrial flutter | CPT/HCPCS: 93005; 99212 ==

== ENCOUNTER 2023-09-22 10:14 | Outpatient (AMB) | payer MEDICAID, SELFPAY ==
--- NOTE | 2023-09-22 10:19 | A.OFFVIS_ITS ---
Intake Intake Visit Reasons: Bleeding hemorrhoids Intake Note: This patient presents for an assessment for bleeding hemorrhoids, Paitent c/o; reports rectal bleeding for the past x4 days, reports weakness and dizziness, Manager Scheduling Required: No Accompanied by: Son Allergies Penicillins Allergy (Verified 09/22/23 10:25) Unknown Medication List - Last Reconciled 09/22/23 by Barney Schreiber MD albuterol sulfate 90 mcg/actuation 2 puffs inhalation Q4H PRN apixaban (Eliquis) 5 mg PO BID bisacodyl (Dulcolax (bisacodyl)) 10 mg (2 x 5 mg) PO DAILY 90 days Donut pillow As directed fluticasone propion-salmeterol 500-50 mcg/dose (Advair Diskus) 1 puff inhalation BID glipizide 5 mg PO DAILY hydrocortisone 1% 1 appl [place] DAILY metoprolol succinate ER 25 mg PO DAILY miscellaneous medical supply 1 medical recliner as directed; montelukast 10 mg PO BEDTIME pantoprazole 40 mg PO BEDTIME rosuvastatin 20 mg PO BEDTIME sertraline 50 mg PO DAILY HPI Bleeding hemorrhoids HPI Details She is here today cause of bleeding hemorrhoids. I had been following her and had done rubber banding in the past. I had last seen her in October,. She had been doing well after rubber band ligation of bleeding internal hemorrhoids Her son says that she has had some bright blood again past 4 days with bowel mo vements. Her son explains that she seems to be obsessed with her hemorrhoids so he brought her back to the office. He thinks that she had been constipated last week. The patient has been chronically weak in been ambulating last as well. She is currently in a wheelchair here. [facility] Medical History Bleeding hemorrhoids Wide-complex tachycardia Hemorrhoids Left bundle branch block GI bleed Normocytic anemia Left bundle branch block Diabetes HTN (hypertension) CAD (coronary artery disease) Atrial flutter, paroxysmal Surgical History Hx of hemorrhoidectomy H/O colonoscopy Stented coronary artery Social History Household Members: Children Household Members Other:: 4 Housing: Apartment Do you presently have visiting nurse or other home services: No Alcohol intake: never Patient Tobacco Use Status: Never used Tobacco service: No Review of Systems Const Denies chills and Denies fever(s) Card Denies chest pain at rest Resp Denies cough GI Reports hematochezia Denies difficulty voiding Physical Exam Const Other: On wheelchair, frail looking, has difficulty with walking General: no acute distress Resp Effort & Inspection: normal respiratory effort GI Other: Rectal exam -small external hemorrhoid, anoscopy done Office Procedures Hemorrhoid Rubber band ligation internal hemorrhoids done She was placed in prone lucia-knife position. The anoscope was gently inserted. A full examination of the anal canal was done. She had this large internal hemorrhoid which appears to be on the left. I applied a rubber band at the base using an applicator. She tolerated the procedure well. She did not have any significant pain post procedure Assessment & Plan Assessment & Plan (1) Bleeding hemorrhoids: Code(s): K64.9 - Unspecified hemorrhoids Plan: She had 1 large internal hemorrhoidal column. There were no significant the hemorrhoids. I proceeded to do rubber band ligation of this internal hemorrhoidal column. He tolerated procedure well. I did advise the son to bring her back if she has recurrent bleeding as does have smaller internal hemorrhoid as well I explained to the son that surgical hemorrhoidectomy is not indicated at this time as her external hemorrhoids are non bulky. Furthermore, she is frail looking and present with perioperative anesthesia risks. Coding Level of Care Code Est Pt Level 3 (96470) Diagnoses Bleeding hemorrhoids K64.9
== END 2023-09-22 10:53 | disposition home or self-care (01) ==
PROVIDERS: PCP Pediatrics; Visit Provider Surgery
DX: K64.9 Unspecified hemorrhoids (principal)
CPT/HCPCS: 99213

== ENCOUNTER → 2023-09-22 10:14 | Outpatient (BNVA) | payer MEDICAID, SELFPAY | PROVIDERS: PCP Pediatrics; Visit Provider Surgery | DX: K64.9 Unspecified hemorrhoids (principal) | CPT/HCPCS: 99212 ==

== ENCOUNTER 2023-10-05 22:05 | Emergency (ER) | payer MEDICAID, SELFPAY ==
--- NOTE | ~2023-10-05 | CT_ITS ---
Examination: CT brain and CT cervical spine without contrast. CLINICAL INDICATION: Fall on helical wrist. COMPARISON: None. TECHNIQUE: 5 mm thin axial and reformatted 2 mm thin sagittal coronal images of brain were obtained. Subsequently axial 3 mm thin and reformatted 2 mm thin sagittal and coronal images of cervical spine were obtained. DLP 911. This CT examination was performed using dose optimization technique as appropriate, variously including the following: Automated exposure control Adjustment of MA and/or KV according to patient size(this includes techniques or standardized protocols for targeted exams where dose is matched to indication/reason for exam; extremities or head. Use of iterative reconstruction techniques. FINDINGS: Brain: There is no acute intra-axial, extra-axial bleed, masses or midline shift. There is no acute infarction evolution. There is no edema. The potter to white matter differentiation is maintained normal. The lateral ventricles are symmetrical in size and configuration without enlargement. Bone windows reveal no calvarial abnormality. There is no scalp soft tissue abnormality seen. Bilateral paranasal sinuses and mastoid air cells are well aerated. Cervical spine: There is mild straightening of cervical lordosis. There is loss of C3-C4 through C6/C7 disc space. There is minimal posterior spondylosis at this disc level. The craniovertebral junction and the C1-C2 alignment is normal. There is no visible acute fracture, dislocation or subluxation seen. The prevertebral and paravertebral soft tissues are normal. There is mild narrowing of bilateral neural foramina at C3-C4, right C4-C5 disc levels. There is no spinal canal stenosis. CT/CT cervical spine wo IV con IMPRESSION: No acute intracranial process seen. Mild straightening of cervical lordosis without acute fracture or dislocation. There are degenerative disc changes and spondylosis C3-C4 through C6-C7 disc levels.
--- NOTE | ~2023-10-05 | CT_ITS ---
EXAMINATION: CT ABDOMEN AND PELVIS WITHOUT CONTRAST CLINICAL INFORMATION: Lumbar spine and pelvic pain after fall. COMPARISON: CT dated 06/24/2022 TECHNIQUE: Multidetector volumetric imaging was performed from the superior aspect of the liver through the pubic symphysis. Sagittal and coronal reformatted images were obtained on the technologist's workstation. This CT examination was performed using dose optimization techniques as appropriate, variously including the following: *Automated exposure control *Adjustment of mA and/or kV according to patient size (this includes techniques or standardized protocols for targeted exams where dose is matched to indication/reason for exam; i.e. extremities or head) *Use of iterative reconstruction technique DLP: 884 mGy-cm FINDINGS: LUNG BASES: Mild dependent atelectasis. Aspiration motion is present in the lung bases. Calcified pulmonary granulomas. Calcific atherosclerosis the coronary arteries. LIVER, GALLBLADDER, AND BILIARY TREE: The liver is normal in size, shape, and attenuation. No focal hepatic lesion or biliary ductal dilatation is present. The gallbladder is unremarkable with no evidence of radiopaque gallstones, gallbladder wall thickening, or obvious pericholecystic inflammatory changes. PANCREAS: Unremarkable. SPLEEN: Unremarkable. ADRENAL GLANDS: Unremarkable. KIDNEYS AND URETERS: Mild right-sided renal cortical atrophy. Kidneys are otherwise normal in size. No hydroureter, hydronephrosis, or calculi. Multiple renal cysts are again noted. No recommended follow-up imaging. BLADDER: Unremarkable. GASTROINTESTINAL TRACT: Stomach, small bowel, and colon are normal in caliber. There is a large stool ball at the rectum measuring 6.2 x 6.2 cm in cross-section. No significant surrounding colonic wall thickening. Mild presacral fat stranding. Appendix is normal. No intraperitoneal free fluid or free air. ABDOMINAL WALL: No significant hernia is appreciated. LYMPH NODES: Normal. VASCULAR: Calcific atherosclerosis is present in the abdominal aorta and iliac arteries. No aneurysm or dilatation. PELVIC VISCERA: The uterus and adnexa are unremarkable. OSSEOUS STRUCTURES: Bones are osteopenic. There is and acute to subacute nondisplaced superior endplate compression deformity at the L1 vertebral body with minimal loss of vertebral body height (10 percent). There is a very subtle anterior buckle at the cortex of the S4 vertebral body which is new as compared to prior and concerning for a small nondisplaced sacral fracture. Sacrum is otherwise intact. No additional fractures are identified in the osseous pelvis. Chronic bilateral L5 pars defects with grade 2 anterolisthesis of L5 on S1 by 1.5 cm as well as severe degenerative disc disease. [id number] multilevel degenerative disc disease is present at other levels in the lumbar spine. There is grade 1 retrolisthesis of L3 on L4 by 5 mm. Mild osteoarthritis in the SI joints. CT/CT abdomen pelvis wo IV con IMPRESSION: 1. Acute to subacute nondisplaced superior endplate compression fracture at L1 with minimal loss of vertebral body height. 2. Subtle buckle fracture at the anterior cortex of the S4 vertebral body. 3. Large stool ball at the rectum. No evidence of stercoral colitis. 4. Chronic bilateral L5 pars defects with grade 2 anterolisthesis of L5 on S1. Multilevel degenerative disc disease, most pronounced at L5-S1. Fleischner guidelines were followed.
[2023-10-05 22:11] VITALS: BP 140/70; BP 178/55; PULSE 58; PULSE 60; RESP 16; TEMP 36.6; O2SAT 96; O2SAT 98; BMI 29.0
[2023-10-05 22:20] VITALS: BP 178/55; PULSE 58; RESP 16; O2SAT 97
[2023-10-05 23:07] LABS: Basophils Percent Auto 0.2 % (0-2); Eosinophils Absolute Auto 0.2 X10*3/uL (0.0-0.4); Eosinophils Percent Auto 1.7 % (0-4); Hematocrit 21.8 % (37.0-47.0); Imm Gran Abs Auto 0.26 X10*3/uL (0.00-0.03); Lymphocytes Absolute Auto 1.5 X10*3/uL (1.2-4.9); Lymphocytes Percent Auto 11.2 % (20-40); MANUAL DIFF FLAG NO; Mean Corpuscular HGB Conc 30.3 g/dl (31.0-35.0); Mean Corpuscular Hemoglobin 19.5 pg (27.0-33.0); Mean Platelet Volume 9.2 fL (9.4-12.3); Monocytes Absolute Auto 0.7 X10*3/uL (0.1-1.2); Monocytes Percent Auto 4.9 % (2-11); NRBC Pct Auto 0.2 /100WBC (0.0-0.2); Neutrophils Absolute Auto 10.6 x10*3/uL (2.0-8.3); Platelet Count 344 X10*3/uL (160-400); Red Blood Count 3.39 X10*6/uL (4.20-5.50); Red Cell Distribution Width 21.1 % (11.0-16.0); White Blood Count 13.2 X10*3/uL (4.8-10.8)
[2023-10-05 23:14] LABS: Mean Corpuscular Volume 64.3 fL (80.0-98.0)
[2023-10-05 23:16] LABS: INTERNATIONAL NORM RATIO 2.6 (0.9-1.1); Prothrombin Time 31.2 SEC (11.1-13.3)
[2023-10-05 23:20] LABS: Alanine Aminotransferase 24 U/L (0-31); Albumin Level 3.4 g/dL (3.5-5.0); Alkaline Phosphatase 43 U/L (39-117); Anion Gap 14 (12-20); Aspartate Amino Transferase 36 U/L (5-31); Bilirubin Total 0.4 mg/dL (0.0-1.0); Blood Urea Nitrogen 22 mg/dL (9-16); Calcium 8.6 mg/dL (8.4-10.2); Carbon Dioxide 22 mmol/L (22-29); Chloride 105 mmol/L (96-108); Creatinine Clr Calc Pharmacy 33.7; Estimated Glomerular Filt Rate 47; Glucose Random 152 mg/dL (60-115); Potassium 4.5 mmol/L (3.3-5.1); Sodium 136 mmol/L (135-145); Total Protein 6.1 g/dL (6.5-8.0)
[2023-10-05 23:22] LABS: Hemoglobin 6.6 g/dl (12.0-16.0)
--- NOTE | 2023-10-05 23:27 | ED.FALL ---
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 The son who is at bedside and is currently translating states that patient has had recent banding external hemorrhoids with some persistent bleeding. Related Data Home Medications Medication Instructions Recorded Confirmed glipizide 5 mg tablet 5 mg PO DAILY 06/24/22 09/22/23 montelukast 10 mg tablet 10 mg PO BEDTIME 06/24/22 09/22/23 rosuvastatin 20 mg tablet 20 mg PO BEDTIME 06/24/22 09/22/23 albuterol sulfate 90 mcg/actuation 2 puff inhalation Q4H PRN Wheezing 07/29/22 09/22/23 aerosol inhaler fluticasone 500 mcg-salmeterol 50 1 puff inhalation BID 07/29/22 09/22/23 mcg/dose blistr powdr for inhalation (Advair Diskus) metoprolol succinate 25 mg 25 mg PO DAILY 09/14/22 09/22/23 tablet,extended release 24 hr sertraline 25 mg tablet 50 mg PO DAILY 03/22/23 09/22/23 Previous Rx's Medication Instructions Recorded hydrocortisone 1 % topical cream 1 appl [place] DAILY for hemorrhoids 07/20/22 with perineal applicator #28.4 grams Donut pillow #1 ea 09/15/22 bisacodyl 5 mg tablet,delayed 10 mg (2 x 5 mg) PO DAILY 90 days 02/15/23 release (Dulcolax (bisacodyl)) #180 tabs miscellaneous medical supply See Rx Instructions miscellaneous 03/16/23 .COMPLEX #1 ea pantoprazole 40 mg tablet,delayed 40 mg PO BEDTIME #90 tabs 03/16/23 release apixaban 5 mg tablet (Eliquis) 5 mg PO BID #60 tabs 04/18/23 menthol 0.44 %-zinc oxide 20.6 % 1 appl topical QID PRN hemorrhoids 09/22/23 topical ointment (Calmoseptine) #113 grams Allergies Allergy/AdvReac Type Severity Reaction Status Date / Time Penicillins Allergy Unknown Verified 10/05/23 22:20 Review of Systems Review of Systems: Pertinent positives and negatives as stated in [facility] Past Medical History Source: nursing notes reviewed Medical History Bleeding hemorrhoids Wide-complex tachycardia Hemorrhoids Left bundle branch block GI bleed Normocytic anemia Left bundle branch block Diabetes HTN (hypertension) CAD (coronary artery disease) Atrial flutter, paroxysmal Surgical History Hx of hemorrhoidectomy H/O colonoscopy Stented coronary artery Social History Social History Household Members: Children Household Members Other:: 4 Housing: Apartment Do you presently have visiting nurse or other home services: No Alcohol intake: never Patient Tobacco Use Status: Never used Tobacco Smoked in Last 30 Days: No Use of substances other than those prescribed or required for medical reasons: No Advance Directives: No Advance Directives Information Provided: No service: No Physical Exam Vital Signs: Vital Signs: Last Vital Signs Temp 98.2 F 10/06/23 03:53 Pulse 65 10/06/23 03:53 Resp 17 10/06/23 03:53 BP 176/75 H 10/06/23 03:53 Pulse Ox 97 10/06/23 01:51 O2 Del Method Room Air 10/06/23 01:51 BMI result Body Mass Index 29.0 VITAL SIGNS: Reviewed. GENERAL: Well developed, well nourished, in no acute distress. HEAD: Normocephalic/atraumatic EYES: PERRLA, EOMI EARS: Ext canals without abnormality NOSE: Nares patent bilateral OROPHARYNX: no oral lesions noted, posterior pharynx clear NECK: Supple, no adenopathy, no midline cervical spine tenderness to palpation or step-offs noted LUNGS: Normal breath sounds. No adventitious sounds or accessory muscle use. SpO2<97> CARDIOVASCULAR: Regular rate and rhythm without noted murmurs, no JVD or lower extremity edema. ABDOMEN: Soft, non-tender, non-distended with bowel sounds. PELVIS: Stable, nontender BACK: Back pain noted to approximate L4/L5 with no appreciable step-off MUSCULOSKELETAL: No tenderness, deformities, or effusions noted on gross inspection. EXTREMITIES: No cyanosis, clubbing or edema. SKIN: Inspection of the skin reveals no rashes NEUROLOGIC: Alert and oriented x 4. Strength and sensation to light touch were grossly intact x 4. Medications Administered Discontinued Medications Generic Name Dose Route Start Last Admin Trade Name Lio PRN Reason Stop Dose Admin Fentanyl 25 mcg 10/05/23 23:48 10/06/23 00:12 Fentanyl Citrate/Pf 100 Mcg/2 Ml Vial IVPUSH 10/05/23 23:49 25 mcg ONCE ONE Administration Protocol Sodium Chloride 100 mls @ 100 mls/hr 10/05/23 23:43 10/06/23 03:54 Ns IV 10/06/23 00:42 Infused ONCE ONE Infusion Medical Decision Making Medical Decision Making [facility] Narrative: 82-year-old female with history and clinical presentation, DDX: Will rule out intracranial hemorrhage or cervical spine/L-spine fractures or subluxations. In addition, will rule out infection/anemia/electrolyte derangements or arrhythmias as possible etiologies for fatigue and weakness. I reviewed all investigations and hematologic indices are significant for a leukocytosis and significant microcytic anemia but no thrombocytopenia. Patient was consented via her son for blood transfusion and will receive 1 unit. INR-2.6 which is therapeutic. Chemistry indices are grossly stable without KHAI and no electrolyte or liver enzyme derangements. Urinalysis negative for UTI or hematuria. Viral testing is negative for influenza/COVID. CT scan head does not demonstrate any intracranial hemorrhage or mass effect and cervical spine does not demonstrate any fracture or subluxation and otherwise my interpretation is in agreement with radiology's impression. CT abdomen pelvis demonstrate a buckle fracture of S4, questionable subacute L1 fracture. 0435: Patient has tolerated the blood transfusion well, I have discussed all results with the son to include the buckle fracture of S4. I informed him that I will make analgesics recommendations for management of this pain and strongly recommend follow-up with her primary care doctor. Differential Diagnosis Differential Diagnoses: The differential diagnosis associated with the presentation includes Please see the discussion above Admission/Observation Consideration of admission/observation: Escalation of care including admission/observation considered Please see the discussion above Lab Data [facility] Lab Attestation statement: I reviewed the patient's lab results. Please see the discussion above 10/05/23 23:03 10/05/23 23:03 Labs: Lab Results 1210/05/23 10/06/23 Range/Units 23:03 23:45 00:27 WBC 13.2 H (4.8-10.8) X10*3/uL RBC 3.39 L (4.20-5.50) X10*6/uL Hgb 6.6 L* (12.0-16.0) g/dl Hct 21.8 L (37.0-47.0) % MCV 64.3 L (80.0-98.0) fL MCH 19.5 L (27.0-33.0) pg MCHC 30.3 L (31.0-35.0) g/dl RDW 21.1 H (11.0-16.0) % Plt Count 344 (160-400) X10*3/uL MPV 9.2 L (9.4-12.3) fL Immature Gran % (Auto) 2.0 H (0.0-0.4) % Neut % (Auto) 80.0 H (45-73) % Lymph % (Auto) 11.2 L (20-40) % [place] % (Auto) 4.9 (2-11) % Eos % (Auto) 1.7 (0-4) % Baso % (Auto) 0.2 (0-2) % Lymph # (Auto) 1.5 (1.2-4.9) X10*3/uL [place] # (Auto) 0.7 (0.1-1.2) X10*3/uL Eos # (Auto) 0.2 (0.0-0.4) X10*3/uL Baso # (Auto) 0.0 (0.0-0.2) X10*3/uL Abs Immat Gran (auto) 0.26 H (0.00-0.03) X10*3/uL Absolute Neuts (auto) 10.6 H (2.0-8.3) x10*3/uL Absolute Nucleated RBC 0.020 H (0.0-0.012) X10*3/uL Nucleated RBC % (auto) 0.2 (0.0-0.2) /100WBC PT 31.2 H (11.1-13.3) SEC INR 2.6 H (0.9-1.1) Sodium 136 (135-145) mmol/L Potassium 4.5 (3.3-5.1) mmol/L Chloride 105 (96-108) mmol/L Carbon Dioxide 22 (22-29) mmol/L Anion Gap 14 (12-20) BUN 22 H (9-16) mg/dL Creatinine 1.12 (0.5-1.4) mg/dL Estim Creat Clear Calc 33.7 Estimated GFR 47 Random Glucose 152 H (60-115) mg/dL Calcium 8.6 (8.4-10.2) mg/dL Total Bilirubin 0.4 (0.0-1.0) mg/dL AST 36 H (5-31) U/L ALT 24 (0-31) U/L Alkaline Phosphatase 43 (39-117) U/L Total Protein 6.1 L (6.5-8.0) g/dL Albumin 3.4 L (3.5-5.0) g/dL Urine Color Yellow Urine Appearance Clear Urine pH 5.5 (5.0-9.0) Ur Specific [place] 1.015 (1.005-1.025) Urine Protein Trace (Neg-Trace) mg/dL Urine Glucose (UA) Negative (Negative) mg/dL Urine Ketones Negative (Negative) mg/dL Urine Blood Negative (Negative) Urine Nitrite Negative (Negative) Ur Leukocyte Esterase Trace H (Negative) Urine RBC 0-2 (0-2) /HPF Urine WBC 0-5 (0-5) /HPF Ur Squamous Epith Cells 0-2 (0-2) /HPF Urine Bacteria None Seen (None Seen) Hyaline Casts 0-2 (0-2) /LPF COVID-19 (SYL) Negative (Negative) COVID-19 Clin Com See Note Influenza Type A (ANNA) Negative (Negative) Influenza Type B (ANNA) Negative (Negative) Influenza A & B Note See Note Blood Type A Positive Antibody Screen NEGATIVE Crossmatch See Detail Independent Interpretation I performed an independent interpretation of an: EKG Interpretation: Sinus rhythm, LBBB at baseline, no STEMI, NJ is within normal limits but QRS and QTC are prolonged consistent with underlying rhythm. Radiology Impression Discussion of test interpretation with radiology: I have reviewed the radiologist's reading. Radiologist Impression: Please see the discussion above External Record Review External record reviewed: Outpatient record, Prior outpatient labs and Prior outpatient radiology Chronic Conditions Patient?s care impacted by: Diabetes and Hypertension Critical Care Time Critical Care Time Critical Care Time: Yes Total Critical Care Time: 60 Attestation: I personally attest to this time spent taking care of the patient. Discharge Plan Discharge Clinical Impression: Closed fracture of sacrum, Microcytic anemia Patient Disposition: Home, Self-Care Instructions: Anemia (ED), Blood Thinners (ED), Sacral Fracture (ED) Additional Instructions: 1. Resume all home medications as prescribed. 2. Recommend the use of cane/walker for ambulation given the fact that patient has sacral fracture. 3. May consider discussing the safety of continuing with blood thinners given the frequent falls that you mother is sustaining. 4. For the sacral fracture I do recommend 1000 mg Tylenol every 6 hours for pain, you may also try phcn-rhy-tnxcgui lidocaine patches. 5. Follow-up with primary care doctor in the next 1-2 days. Return to the ER for any worsening symptoms. Prescriptions: No Action bisacodyl [Dulcolax (bisacodyl)] 5 mg tablet,delayed release (DR/EC) 10 mg PO DAILY 90 Days Qty: 180 0RF Eliquis 5 mg tablet 5 mg PO BID Qty: 60 5RF fluticasone propion-salmeterol [Advair Diskus] 500-50 mcg/dose blister with device 1 puff inhalation BID albuterol sulfate 90 mcg/actuation Hfa Aerosol Inhaler 2 puff INHALATION Q4H PRN (Reason: Wheezing) metoprolol succinate 25 mg tablet extended release 24 hr 25 mg PO DAILY montelukast 10 mg Tablet 10 mg PO BEDTIME glipizide 5 mg Tablet 5 mg PO DAILY rosuvastatin 20 mg Tablet 20 mg PO BEDTIME hydrocortisone 1 % cream with perineal applicator 1 appl [place] DAILY Qty: 28.4 0RF pantoprazole 40 mg tablet,delayed release (DR/EC) 40 mg PO BEDTIME Qty: 90 0RF miscellaneous medical supply Misc See Rx Instructions miscellaneous .COMPLEX Qty: 1 0RF Rx Instructions: 1 medical recliner as directed; sertraline 25 mg tablet 50 mg PO DAILY (DME) [facility] winn Misc See Rx Instructions .Route Qty: 1 0RF Rx Instructions: As directed menthol-zinc oxide [Calmoseptine] 0.44-20.6 % ointment 1 appl topical QID PRN (Reason: hemorrhoids) Qty: 113 0RF Referrals: Dmitriy Ibrahim MD [Primary Care Provider] -
--- NOTE | 2023-10-05 23:35 | ECG_ITS ---
Test Reason : WEAKNESS Blood Pressure : / mmHG Vent. Rate : 061 BPM Atrial Rate : 468 BPM P-R Int : 166 ms QRS Dur : 142 ms QT Int : 500 ms P-R-T Axes : 039 -05 126 degrees QTc Int : 503 ms Normal sinus rhythm Left bundle branch block Abnormal ECG When compared with ECG of 29-JUL-2022 12:03, No significant changes seen Referred By: Claudia Dozier Electronically Signed By:LULI SALCEDO
[2023-10-05 23:46] LABS: COVID-19 Test Negative (Negative); IDNOW Serial# 08D9AD1C; IDNOW Serial# BCCEAD1C; Influenza A Negative (Negative); Influenza B2 Negative (Negative)
[2023-10-05 23:50] VITALS: BP 173/59; PULSE 68; RESP 16; TEMP 36.5; O2SAT 96
[2023-10-06] MEDS: fentaNYL citrate/PF 100 MCG/2 ML VIAL 25 MCG IVPUSH (00:12)
--- NOTE | 2023-10-06 00:29 | PC.NURSE ---
pt assisted to and from bedside commode. urine sample obtained and sent to lab. #20g iv RAC. waiting for rbcs to be ready from lab. pt changed into hospital gown. meds given per mar for pain. son at bedside. call peres within reach plan of care ongoing
[2023-10-06 00:33] LABS: Appearance Urine Clear; Color Urine Yellow; Glucose Urine UA Negative (Negative); Leukocyte Esterase Urine Trace (Negative); Nitrite Urine Negative (Negative); PH 5.5 (5.0-9.0); Specific Gravity - Urine 1.015 (1.005-1.025); UMIC TRIGGER UACC YES; Urine Blood Negative (Negative); Urine Ketones Negative (Negative); Urine Protein Trace mg/dL (Neg-Trace)
[2023-10-06 00:36] LABS: Bacteria Urine None Seen (None Seen); Hyaline Casts Urine 0-2 /LPF (0-2); RBC Urine 0-2 /HPF (0-2); Squamous Epithelial Cell Urine 0-2 /HPF (0-2); WBC Urine 0-5 /HPF (0-5)
[2023-10-06 01:05] VITALS: BP 160/47; PULSE 59; RESP 19; TEMP 36.8
--- NOTE | 2023-10-06 01:15 | PC.NURSE ---
blood transfusion started at 0105 and verified with second RN. pt tolerating well. denies new pains or sob, son at bedside. pt on hospital monitor. plan of care ongoing
[2023-10-06 01:20] VITALS: BP 165/50; PULSE 58; RESP 17; TEMP 36.6
[2023-10-06 01:51] VITALS: BP 170/55; PULSE 57; RESP 18; TEMP 36.4; O2SAT 97
[2023-10-06 03:53] VITALS: BP 176/75; PULSE 65; RESP 17; TEMP 36.8
== END 2023-10-06 05:07 | disposition home or self-care (01) ==
PROVIDERS: Emergency Provider Student in an Organized Health Care Education/Training Program; PCP Internal Medicine
DX: S32.10XA Unspecified fracture of sacrum, initial encounter for closed fracture (principal); D50.9 Iron deficiency anemia, unspecified; I10 Essential (primary) hypertension; E11.9 Type 2 diabetes mellitus without complications; I48.92 Unspecified atrial flutter; Z79.01 Long term (current) use of anticoagulants; W19.XXXA Unspecified fall, initial encounter; Y93.9 Activity, unspecified; Y92.9 Unspecified place or not applicable; Y99.9 Unspecified external cause status; Z11.52 Encounter for screening for COVID-19
CPT/HCPCS: 36415; 36430; 70450; 72125; 74176; 80053; 81001; 85025; 85610; 86850; 86900; 86901; 86923; 87502; 87635; 93005; 96361; 96374; 99285; J3010; P9016

== ENCOUNTER → 2023-10-05 23:35 | Outpatient (BNV) | payer MEDICAID, SELFPAY | PROVIDERS: Emergency Provider Student in an Organized Health Care Education/Training Program; PCP Internal Medicine; Visit Provider Internal Medicine | DX: R53.1 Weakness (principal) | CPT/HCPCS: 93010 ==

== ENCOUNTER 2023-10-28 10:49 | Outpatient (AMB) | payer MEDICAID, SELFPAY ==
--- NOTE | 2023-10-28 10:50 | MHC.OFFVIS ---
Intake Intake Visit Reasons: per Dr. Velasco Allergies Penicillins Allergy (Verified 10/05/23 22:20) Unknown HPI per Dr. Velasco HPI Details The patient is an 83-year-old female who presents on tele-health visit for back pain. She reports low back pain that radiates down to her buttock region. She has a long-standing history of back pain for more than 20 years. Her pain started to worsen after a recent fall. She also has a weakness that started in her legs after the fall. She is able to walk on her own with the help of a walker. She also needs support for the washroom/bathroom.? She denies any bowel or bladder issues. Her recent imaging showed compression fractures in her spine, most pronounced at L1. She also has L5 anterolisthesis relative to S1 with severe disc degeneration at this level. She has a history of DM. Her average blood sugar level is about 187. Her most recent blood sugar level was 150. She was previously on Eliquis is not currently taking any blood thinners. The patient has started having hallucinations for the past 3?4 days. She has a history of dementia. She also had a loss of appetite. She is bedridden. She is going to travel to [place] on 11/03/23. COUNT INCLUDES THE [facility] Medical History Bleeding hemorrhoids Wide-complex tachycardia Hemorrhoids Left bundle branch block GI bleed Normocytic anemia Left bundle branch block Diabetes HTN (hypertension) CAD (coronary artery disease) Atrial flutter, paroxysmal Surgical History Hx of hemorrhoidectomy H/O colonoscopy Stented coronary artery Social History Household Members: Children Household Members Other:: 4 Housing: Apartment Do you presently have visiting nurse or other home services: No Alcohol intake: never Patient Tobacco Use Status: Never used Tobacco service: No Review of Systems Const All systems reviewed & are unremarkable except as noted in HPI and below Results Reviewed Results Reviewed: 10/05/23: CT brain and CT cervical spine without contrast. FINDINGS: Brain: There is no acute intra-axial, extra-axial bleed, masses or midline shift. There is no acute infarction evolution. There is no edema. The potter to white matter differentiation is maintained normal. The lateral ventricles are symmetrical in size and configuration without enlargement. Bone windows reveal no calvarial abnormality. There is no scalp soft tissue abnormality seen. Bilateral paranasal sinuses and mastoid air cells are well aerated. Cervical spine: There is mild straightening of cervical lordosis. There is loss of C3-C4 through C6/C7 disc space. There is minimal posterior spondylosis at this disc level. The craniovertebral junction and the C1-C2 alignment is normal. There is no visible acute fracture, dislocation or subluxation seen. The prevertebral and paravertebral soft tissues are normal. There is mild narrowing of bilateral neural foramina at C3-C4, right C4-C5 disc levels. There is no spinal canal stenosis. IMPRESSION: No acute intracranial process seen. Mild straightening of cervical lordosis without acute fracture or dislocation. There are degenerative disc changes and spondylosis C3-C4 through C6-C7 disc levels. 10/05/23: CT ABDOMEN AND PELVIS WITHOUT CONTRAST Finding: OSSEOUS STRUCTURES: Bones are osteopenic. There is and acute to subacute nondisplaced superior endplate compression deformity at the L1 vertebral body with minimal loss of vertebral body height (10 percent). There is a very subtle anterior buckle at the cortex of the S4 vertebral body which is new as compared to prior and concerning for a small nondisplaced sacral fracture. Sacrum is otherwise intact. No additional fractures are identified in the osseous pelvis. Chronic bilateral L5 pars defects with grade 2 anterolisthesis of L5 on S1 by 1.5 cm as well as severe degenerative disc disease. [id number] multilevel degenerative disc disease is present at other levels in the lumbar spine. There is grade 1 retrolisthesis of L3 on L4 by 5 mm. Mild osteoarthritis in the SI joints. Impression. 1. Acute to subacute nondisplaced superior endplate compression fracture at L1 with minimal loss of vertebral body height. 2. Subtle buckle fracture at the anterior cortex of the S4 vertebral body. 3. Large stool ball at the rectum. No evidence of stercoral colitis. 4. Chronic bilateral L5 pars defects with grade 2 anterolisthesis of L5 on S1. Multilevel degenerative disc disease, most pronounced at L5-S1. Assessment & Plan Assessment & Plan (1) Spondylolisthesis, lumbar region: Code(s): M43.16 - Spondylolisthesis, lumbar region (2) Traumatic compression fracture of L1 vertebra: Code(s): S32.010A - Wedge compression fracture of first lumbar vertebra, initial encounter for closed fracture Plan We reviewed her recent imaging, which showed some L1 compression fracture as well as lumbar spondylolisthesis. I advised her to avoid any falls in the future. We discussed trying conservative measures as a possible treatment option, including oral medications, physical therapy, or home-based physical therapy. For short-term relief, we can try trigger point injections for her back pain. We also discussed more invasive options including kyphoplasty but her L1 compression fracture seems to be not bothering her at this point. We also discussed potential epidural steroid injections in the future once she has returned from her upcoming travel. We will schedule her for trigger point injections on 10/31/23. Discussed the risks and benefits of the procedure with the patient in detail. All questions were answered. The patient is on board with the plan. Justification for interventional therapy: ? Patient with average pain > 6/10 ? Patient has exhausted conservative therapy ? Patient unable to tolerate physical therapy due to pain Scribed for Dr. Velasco by Aquiles Nuñez, medical doctor, on 10/28/2023. I, Dr. Velasco, have personally reviewed and agree with the information entered by the scribe. Telehealth Telehealth Location of provider rendering services: practice address Location of patient: address on file Patient Identification confirmed using: Name, : Yes Telehealth method: video Patient verbally consented to treatment: Yes Patient verbally consented to billing insurance company: Yes Patient informed of any privacy concerns related to visit: Yes Minutes spent on Phone/Video with Pt.: 26 Coding Level of Care Code Tele New Pt Level 4 (16267) Diagnoses Spondylolisthesis, lumbar region M43.16 Traumatic compression fracture of L1 vertebra S32.010A
== END 2023-10-28 10:50 | disposition home or self-care (01) ==
LOC: HO.PMC 10:49
PROVIDERS: PCP Internal Medicine; Visit Provider Internal Medicine
DX: M43.16 Spondylolisthesis, lumbar region (principal); S32.010A Wedge compression fracture of first lumbar vertebra, initial encounter for closed fracture
CPT/HCPCS: 99204

== ENCOUNTER → 2023-10-28 10:49 | Outpatient (BNVA) | payer MEDICAID, SELFPAY | PROVIDERS: PCP Internal Medicine; Visit Provider Internal Medicine ==